=== PATIENT | female | born 1950 | race Caucasian/White ===

== ENCOUNTER 2018-04-04 13:26 | Inpatient (IN) | payer MEDICARE ==
--- NOTE | 2018-04-04 14:06 | ED Physician Chart ---
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 She was also noted to be tearful upon her arrival here. Patient complains of right hip and right knee pain. She has had right hip and right knee replacement surgery and states the pain since surgery has been worse than it was before. Allergies:: Allergies Allergy/AdvReac Type Severity Reaction Status Date / Time morphine Allergy Verified 04/04/18 13:55 NSAIDS (Non-Steroidal Allergy Verified 04/04/18 13:55 Anti-Inflamma Historian:: Patient, EMS Review:: Nurse's Note Reviewed, Transfer documents Reviewed ED Review of Systems - Review of Systems General/Constitutional: No fever, No chills, No weight loss, No weakness, No diaphoresis, No edema, No loss of appetite Skin: No skin lesions, No rash, No bruising Head: No headache, No light-headedness Eyes: No loss of vision, No pain, No diplopia ENT: No earache, No nasal drainage, No sore throat, No tinnitus Neck: No neck pain, No swelling, No thyromegaly, No stiffness, No mass noted Cardio Vascular: No chest pain, No palpitations, No PND, No orthopnea, No edema Pulmonary: No SOB, No cough, No sputum, No wheezing GI: No nausea, No vomiting, No diarrhea, No pain, No melena, No hematochezia, No constipation, No hematemesis G/U: No dysuria, No frequency, No hematuria Musculoskeletal: Bone or joint pain, No back pain, No muscle pain Endocrine: No polyuria, No polydipsia Psychiatric: Prior psych history Hematopoietic: Bruising, No lymphadenopathy Allergic/Immuno: No urticaria, No angioedema Neurological: No syncope, No focal symptoms, No weakness, No paresthesia, No headache, No seizure, No dizziness, No confusion, No vertigo ED Past Medical History - Past Medical History Past Medical History: Thyroid disorder, Other (dysphagia; atrial fibrillation; hypothyroidism; hypertensive renal disease; hyperlipidemia; anemia; diabetes insipidus; bipolar disorder; gallop; polyneuropathy; spinal stenosis; history of TIA history of venous thrombosis;) Family History: HTN Social History: Non Smoker, No Alcohol Surgical History: other (right hip; right knee; corn and right small toe; gastrostomy tube) Psychiatricy History: Bipolar Medication: Reviewed ED Physical Exam - Physical Examination General/Constitutional: Awake, Well-developed, well-nourished, Alert, No distress, GCS 15, Non-toxic appearing, Ambulatory Other Gen/Cons comments:: Patient is alert and oriented to the correct date Head: Atraumatic Eyes: Lids, conjuctiva normal, PERRL, EOMI Skin: Well hydrated, No lymphadenopathy Other Skin comments:: Multiple ecchymoses upper extremities ENMT: External ears, nose nl, Nasal exam nl, Lips, teeth, gums nl Neck: Nontender, Full ROM w/o pain, No JVD, No nuchal rigidity, No bruit, No mass, No stridor Respiratory: Nl effort/Exclusion, Clear to Auscultation, No Wheeze/Rhonchi/Rales Cardio Vascular: RRR, No murmur, gallop, rubs, NL S1 S2 GI: No tenderness/rebounding/guarding, No organomegaly, No hernia, Normal BS's, Nondistended, No mass/bruits, No McBurney tenderness : No CVA tenderness Extremities: No tenderness or effusion, Full ROM, normal strength in all extremities, No edema, Normal digits & nails Neuro/Psych: Alert/oriented, DTR's symmetric, Normal sensory exam, Normal motor strength, Judgement/insight normal, Mood normal, Normal gait, No focal deficits Misc: Normal back, No paraspinal tenderness ED Labs/Radiology/EKG Results - Lab Results Results: Laboratory Results - last 24 hr 04/04/18 04/04/18 14:00 14:00 WBC 3.7 L RBC 3.15 L Hgb 9.9 L Hct 28.8 L MCV 91.4 MCH 31.4 H MCHC Differential 34.4 RDW 14.3 Plt Count 107 L MPV 8.7 Neutrophils % 59.0 Lymphocytes % 28.8 Monocytes % 5.9 Eosinophils % 5.5 H Basophils % 0.8 Sodium 137 Potassium 4.8 Chloride 111 H Carbon Dioxide 19.7 L Anion Gap 11.1 BUN 36 H Creatinine 3.2 H Est GFR ( Amer) 18.5 Est GFR (Non-Af Amer) 15.3 BUN/Creatinine Ratio 11.3 Glucose 79 Calcium 9.0 Total Bilirubin 0.2 L AST 10 L ALT 5 L Alkaline Phosphatase 57 Total Protein 5.4 L Albumin 3.6 L Globulin 1.8 Albumin/Globulin Ratio 2.0 H Triglycerides 217 H Cholesterol 159 LDL Cholesterol Direct 77 HDL Cholesterol 39 - EKG Interpretations Rate & Rhythm: normal sinus rhythm with a rate of 63; left bundle-branch block Comments:: No R wave progression ED Assessment - Assessment General Assessment: Patient's renal insufficiency is probably the cause of her pancytopenia; neither condition is severe enough to prevent her from being admitted to [facility]. ED Septic Shock - . Is Septic Shock (SBP<90, OR Lactate>4 mmol\L) present?: No ED Reassessment (Disposition) - Reassessment Reassessment Condition:: Unchanged - Diagnosis Diagnosis:: Pancytopenia; renal insufficiency; combative behavior; depression - Patient Disposition Admitted to:: [facility] Condition at Disposition:: Stable, Unchanged ED Discharge Plan - Patient Disposition Instructions: Psychosis
[2018-04-04 14:14] LABS: % BASOPHILS 0.8 % (0.0-2.0); % EOSINOPHILS 5.5 % (0.0-5.0); % LYMPHOCYTES 28.8 % (20.0-50.0); % MONOCYTES 5.9 % (2.0-10.0); EOSINOPHILE ABSOLUTE 0.2 Th/cmm (0.1-0.4); HEMATOCRIT 28.8 % (41.0-60); HEMOGLOBIN 9.9 gm/dL (12-16); LYMPHOCYTE ABSOLUTE 1.1 Th/cmm (1.5-3.0); MEAN CELL VOLUME 91.4 fl (81-100); MEAN CORPUSCULAR HEMOGLOBIN 31.4 pg (27.0-31.0); MEAN CORPUSCULAR HGB CONC 34.4 pg (28.0-36.0); MEAN PLATELET VOLUME 8.7 fl; MONOCYTE ABSOLUTE 0.2 Th/cmm (0.3-1.0); NEUTROPHILE ABSOLUTE 2.2 Th/cmm (1.8-8.0); PLATELET COUNT 107 Th/cmm (150-400); RED BLOOD COUNT 3.15 Mil/cmm (3.80-5.20); RED CELL DISTRIBUTION WIDTH 14.3 % (11.5-20.0)
[2018-04-04 14:29] LABS: WHITE BLOOD COUNT 3.7 Th/cmm (4.8-10.8)
[2018-04-04 14:30] LABS: ALBUMIN 3.6 gm/dL (3.7-5.3); ANION GAP 11.1 (7.0-16.0); BILIRUBIN,TOTAL 0.2 mg/dL (0.3-1.0); CARBON DIOXIDE 19.7 mEq/L (21.0-31.0); CREATININE - SERUM 3.2 mg/dL (0.6-1.2); GFR AFRICAN-AMERICAN 18.5 ml/min (>90); GFR NON AFRICAN-AMERICAN 15.3 ml/min; POTASSIUM SERUM 4.8 mEq/L (3.5-5.1); TOTAL PROTEIN,SERUM 5.4 gm/dL (6.0-8.3)
[2018-04-04] MEDS ORDERED: Maalox 30 mL Cup PO PRN (17:04)
[2018-04-04] MEDS ORDERED: Magnesium Hydroxide (MOM) 30 mL UDC PO PRN (17:04)
[2018-04-04 21:23] LABS: A1C % 4.9 % (4.0-6.0)
[2018-04-05] MEDS ORDERED: Haloperidol Lactate 5 mg/mL 1mL Vial ONE ×2 (07:45→15:49)
[2018-04-05] MEDS ORDERED: Haloperidol Lactate 5 mg/mL 1mL Vial IM ONE ×2 (07:50→15:50)
[2018-04-05] MEDS: Multivitamin Tab PO SCH (08:12)
[2018-04-05] MEDS: Levothyroxine 0.075 Mg Tab PO SCH (17:29)
[2018-04-06] MEDS: Levothyroxine 0.075 Mg Tab PO SCH (06:34)
[2018-04-06] MEDS: Multivitamin Tab PO SCH (09:20)
[2018-04-06] MEDS: Ferrous Sulfate 325 MG TAB PO SCH (09:20)
--- NOTE | 2018-04-06 19:01 | Psychiatric Evaluation ---
DATE OF SERVICE: 04/06/2018 AGE: 67. SEX: Female. PHYSICIAN: Dr. Moreno. CHIEF COMPLAINT: Singing and laughing loud. HISTORY OF PRESENT ILLNESS: The patient is a 67-year-old female who was admitted to the hospital from [facility] after the patient has been extremely manicky and agitated. The patient has been talking loud and has been singing and laughing inappropriately. The patient also has been admitted to care. Also, on arrival to the hospital the patient continued to be manicky and has been laughing and talking loud, singing and unable to follow any directions. She also has been resisting care. The patient also has been aggressive and combative and need close monitoring. PAST PSYCHIATRIC HISTORY: The patient has history of what seems to be agitation and some manic behavior. PAST MEDICAL HISTORY: The patient has hypothyroidism as well and dysphagia . The patient also has hypertension and diabetes mellitus. SOCIAL HISTORY: The patient lives in a group home. No known alcohol or drug use. No known legal issues or abuse issues. ALLERGIES: No known allergies. MENTAL STATUS EXAMINATION: The patient appears slightly older than stated age. Agitated. Irritable mood. Flat affect. Aggressive and unable to follow instructions and tried to calm her down and was not successful. The patient did not answer questions regarding hallucinations or delusions because of her agitation and aggressive behavior. The patient did not answer questions about suicide or homicide. The patient is alert, but unable to assess her memory orientation because of her aggressive behavior and irritability. Unable to assess her memory at this time because of her agitation. ASSESSMENT: PRIMARY DIAGNOSES: Unspecified psychosis. Rule out schizoaffective disorder, bipolar type, with psychosis. MEDICAL DIAGNOSES: 1. Hypothyroidism. 2. Diabetes mellitus. 3. Chronic kidney disease. TREATMENT PLAN: We will monitor the patient's behavior and condition closely. We will start individual as milieu psychotherapy. We will start the patient on Seroquel and we will adjust the dose. ESTIMATED LENGTH OF STAY: 5-7 days. THE PATIENT'S STRENGTHS AND WEAKNESSES: The patient's strength is not clear at this time. Weakness is ineffective coping and poor impulse control and her manic behavior. AFTER DISCHARGE PLAN: Outpatient treatment and followup will continue as an outpatient. CRITERIA FOR DISCHARGE: The patient will not be aggressive or manic and we will stabilize psychotropic medications and establish outpatient treatment plans. AKSHAT: 04/06/2018 13:23 JOB# [id number]
--- NOTE | 2018-04-06 23:15 | History & Physical ---
ADMIT DATE: 04/05/2018 REASON FOR ADMISSION: Psychiatric disorder. HISTORY OF PRESENT ILLNESS: This is a 67-year-old female with underlying history of multiple medical issues including hypertension, chronic kidney disease, hypothyroidism, gout, chronic AFib, cardiac arrhythmias, who was admitted for evaluation of underlying psychiatric illnesses by Dr. Moreno. Dr. Moreno requested medical H and P on this patient. During my evaluation, this patient was awake, but very confused, unable to provide me any meaningful history or unable to carry any meaningful conversations. Most of the history obtained through available medical records. PAST MEDICAL HISTORY: As per HPI. PAST SURGICAL HISTORY: No significant past surgical history. SOCIAL HISTORY: The patient lives at nursing facility. No reported alcohol, tobacco, or street drug use. CURRENT MEDICATIONS: Requip, Xarelto, Ambien, Seroquel, Toprol-XL, milk of magnesia, Synthroid, iron, Pepcid, Norvasc, Cordarone, Maalox, Tylenol. ALLERGIES: MORPHINE, NSAIDs. REVIEW OF SYSTEMS: Difficult to obtain and unreliable due to patient's underlying severe confusions. PHYSICAL EXAMINATION: VITAL SIGNS: Temperature 98.7, pulse 106, respirations 20, blood pressure 148/99, oxygen saturation 100% on room air. Pain 0/10. GENERAL APPEARANCE: The patient does not seem in acute distress. HEART: S1, S2 normal. LUNGS: Bilaterally clear to auscultation. ABDOMEN: Soft. NEUROLOGIC: Awake, but confused. Moves all extremities. EXTREMITIES: Bilateral edema noted. AVAILABLE LABORATORY DATA: WBC ____, hematocrit 31.4, platelet count is 107. Sodium 137, potassium 4.8, BUN 37, creatinine 3.2. ____ 4.9, AST 10, ALT 5. Triglycerides 217, LDL 77, HDL 39. TSH 1.57. RPR nonreactive. ASSESSMENT: 1. Hypertensive renal disease. 2. Chronic kidney disease 4, almost 5. 3. Pancytopenia. 4. Cardiac arrhythmia. 5. Gout. 6. GERD. 7. Anemia of chronic disease. 8. Hypothyroidism. 9. Chronic atrial fibrillation. 10. Mental disorders. PLAN: The patient is currently in Geropsych Unit for further psychiatric evaluation and management per Dr. Moreno. We will obtain renal ultrasound for further evaluation of underlying renal failure. The patient appeared to have pancytopenia. We will obtain a Hematology consultation as with Nephrology consultations. We will monitor the patient's labs. The patient's medication list has been reconciled. The patient's blood pressure otherwise we will monitor. Fall precaution will be given. Discussed with the patient's condition and plan of care discussed with nursing staff. JOB# [id number]
[2018-04-07] MEDS: Levothyroxine 0.075 Mg Tab PO SCH (06:47)
--- NOTE | 2018-04-07 09:45 | Diagnostic Imaging Report ---
Exam: Ultrasound examination the abdomen. HISTORY: Pancytopenia Findings: Real-time ultrasound examination abdomen performed multiple planes. The study demonstrates normal echogenicity liver parenchyma. The gallbladder is free of calculi. The common bile duct measures 4 mm. Pancreas poorly seen. There is no evidence of obstructive uropathy or nephrolithiasis bilaterally. Right renal cyst measuring 2.7 cm x 3.4 cm appreciated. The spleen is intact. No free fluid is noted. The study is limited due to patient body habitus and large amount of intra-abdominal bowel gas. Patient is uncooperative. IMPRESSION: Essentially unremarkable examination of the abdomen.
[2018-04-07] MEDS: Ferrous Sulfate 325 MG TAB PO SCH (12:06)
[2018-04-07] MEDS: Multivitamin Tab PO SCH (12:06)
--- NOTE | 2018-04-07 15:59 | General Progress Note ---
Subjective - Review of Systems Service Date: 04/07/18 Subjective: Patient doing fine no new medical concern reported Objective - Results Result Diagrams: 04/04/18 14:00 04/04/18 14:00 Recent Labs: Laboratory Last Values WBC 3.7 Th/cmm (4.8-10.8) L 04/04/18 14:00 RBC 3.15 Mil/cmm (3.80-5.20) L 04/04/18 14:00 Hgb 9.9 gm/dL (12-16) L 04/04/18 14:00 Hct 28.8 % (41.0-60) L 04/04/18 14:00 MCV 91.4 fl (81-100) 04/04/18 14:00 MCH 31.4 pg (27.0-31.0) H 04/04/18 14:00 MCHC Differential 34.4 pg (28.0-36.0) 04/04/18 14:00 RDW 14.3 % (11.5-20.0) 04/04/18 14:00 Plt Count 107 Th/cmm (150-400) L 04/04/18 14:00 MPV 8.7 fl 04/04/18 14:00 Neutrophils % 59.0 % (40.0-80.0) 04/04/18 14:00 Lymphocytes % 28.8 % (20.0-50.0) 04/04/18 14:00 Monocytes % 5.9 % (2.0-10.0) 04/04/18 14:00 Eosinophils % 5.5 % (0.0-5.0) H 04/04/18 14:00 Basophils % 0.8 % (0.0-2.0) 04/04/18 14:00 Sodium 137 mEq/L (136-145) 04/04/18 14:00 Potassium 4.8 mEq/L (3.5-5.1) 04/04/18 14:00 Chloride 111 mEq/L (98-107) H 04/04/18 14:00 Carbon Dioxide 19.7 mEq/L (21.0-31.0) L 04/04/18 14:00 Anion Gap 11.1 (7.0-16.0) 04/04/18 14:00 BUN 36 mg/dL (7-25) H 04/04/18 14:00 Creatinine 3.2 mg/dL (0.6-1.2) H 04/04/18 14:00 Est GFR ( Amer) 18.5 ml/min (>90) 04/04/18 14:00 Est GFR (Non-Af Amer) 15.3 ml/min 04/04/18 14:00 BUN/Creatinine Ratio 11.3 04/04/18 14:00 Glucose 79 mg/dL (70-105) 04/04/18 14:00 POC Glucose 98 MG/DL (70 - 105) 04/06/18 15:32 Hemoglobin A1c % 4.9 % (4.0-6.0) 04/04/18 14:00 Calcium 9.0 mg/dL (8.6-10.3) 04/04/18 14:00 Total Bilirubin 0.2 mg/dL (0.3-1.0) L 04/04/18 14:00 AST 10 U/L (13-39) L 04/04/18 14:00 ALT 5 U/L (7-52) L 04/04/18 14:00 Alkaline Phosphatase 57 U/L (34-104) 04/04/18 14:00 Total Protein 5.4 gm/dL (6.0-8.3) L 04/04/18 14:00 Albumin 3.6 gm/dL (3.7-5.3) L 04/04/18 14:00 Globulin 1.8 gm/dL 04/04/18 14:00 Albumin/Globulin Ratio 2.0 (1.0-1.8) H 04/04/18 14:00 Triglycerides 217 mg/dL (<150) H 04/04/18 14:00 Cholesterol 159 mg/dL (<200) 04/04/18 14:00 LDL Cholesterol Direct 77 mg/dL (75-193) 04/04/18 14:00 HDL Cholesterol 39 mg/dL (23-92) 04/04/18 14:00 TSH 1.57 uIU/ml (0.34-5.60) 04/04/18 14:00 RPR NONREACTIVE (NONREACTIVE) 04/04/18 14:00 - Physical Exam Vitals and I&O: Vital Signs Temp 98.2 F 04/07/18 15:48 Pulse 93 04/07/18 15:48 Resp 20 04/07/18 15:48 BP 138/83 04/07/18 15:48 Pulse Ox 96 04/07/18 15:48 Intake & Output 04/06/18 04/07/18 04/07/18 18:59 06:59 18:59 Intake Total 240 Balance 240 Intake: Oral 240 Other: Stool Characteristics Formed Formed Formed Active Medications: Current Medications Acetaminophen (Tylenol) 650 mg PO Q4HR PRN PRN Reason: Mild Pain / Temp above 100 Stop: 06/03/18 17:03 Al Hydrox/Mg Hydrox/Simethicone (Maalox) 30 ml PO Q4HR PRN PRN Reason: GI DISTRESS Stop: 06/03/18 17:03 Amiodarone HCl (Cordarone) 100 mg PO DAILY [facility]I Stop: 06/04/18 20:59 Last Admin: 04/07/18 12:06 Dose: Not Given Amlodipine Besylate (Norvasc) 10 mg PO DAILY [facility] Stop: 06/04/18 20:59 Last Admin: 04/07/18 12:06 Dose: Not Given Famotidine (Pepcid) 20 mg PO DAILY [facility] Stop: 06/04/18 20:59 Last Admin: 04/07/18 12:06 Dose: Not Given Ferrous Sulfate (Iron) 325 mg PO DAILY [facility] Stop: 06/05/18 08:59 Last Admin: 04/07/18 12:06 Dose: Not Given Levothyroxine Sodium (Synthroid) 0.15 mg PO QDAC [facility]I Stop: 06/04/18 17:59 Last Admin: 04/07/18 06:47 Dose: 0.15 mg Magnesium Hydroxide (Milk Of Magnesia) 30 ml PO HS PRN PRN Reason: Constipation Metoprolol Succinate (Toprol Xl) 25 mg PO DAILY [facility] Stop: 06/05/18 08:59 Last Admin: 04/07/18 12:06 Dose: Not Given Multivitamins/Vitamin C (Theragran) 1 tab PO DAILY [facility] Stop: 06/04/18 08:59 Last Admin: 04/07/18 12:06 Dose: Not Given Mupirocin (Bactroban Oint) 1 appl NS BID [facility] Stop: 04/11/18 09:01 Last Admin: 04/07/18 12:06 Dose: Not Given Quetiapine Fumarate (Seroquel) 12.5 mg PO BID [facility]; Protocol Stop: 06/04/18 08:59 Last Admin: 04/07/18 12:07 Dose: Not Given Rivaroxaban (Xarelto) 15 mg PO DAILY [facility] Stop: 06/05/18 08:59 Last Admin: 04/07/18 12:07 Dose: Not Given Ropinirole HCl (Requip) 0.5 mg PO TID [facility] Stop: 06/04/18 20:59 Last Admin: 04/07/18 12:07 Dose: Not Given Zolpidem Tartrate (Ambien) 5 mg PO HS PRN PRN Reason: Insomnia Stop: 06/03/18 17:03 Cardiovascular: Regular rate Lungs: Clear to auscultation Assessment/Plan - Problem List Patient Problems: All Active Problems PSYCHOTIC BEHAVIOR (Acute) - Assessment Assessment: HTN with CKD 4 Pancytopenia GERD Chronic afib Hypothyroidism - Plan Plan: Continue present medical management Follow labs
--- NOTE | 2018-04-07 19:02 | Progress Notes ---
DATE: 04/07/2018 SUBJECTIVE: Chart reviewed and the patient interviewed. Also discussed the patient's condition with the staff and reviewed records and labs. The patient is still confused and is still restless. The patient also is still manicky and she is still at times singing loud and other times angry and irritable. She also is still paranoid. Otherwise, she is compliant with taking her medications with no side effects of medications. ASSESSMENT: The patient is still agitated and is still in irritable mood. TREATMENT PLAN: Continue to monitor her behavior and her condition closely. Also, the patient is started on Seroquel 12.5 mg twice a day. We will continue same dose and continue to work on her poor impulse control and continue to follow up. JOB# [id number]
[2018-04-08] MEDS: Levothyroxine 0.075 Mg Tab PO SCH (06:32)
--- NOTE | 2018-04-08 12:16 | Progress Notes ---
DATE: 04/06/2018 SUBJECTIVE: The patient was interviewed. The case was discussed with staff and chart reviewed. Per the staff, the patient has been anxious. The patient has been easily agitated. The patient has been hitting herself and also hitting staff. The patient was interviewed this morning. The patient is uncooperative with interview. The patient is not making any sense. In addition, the patient is refusing her medications. MENTAL STATUS EXAMINATION: The patient is lying in bed. She has poor eye contact. She is poorly engaged with the interview. She has bandaging to both hands. Her speech is incoherent. Her mood and affect appear to be labile. Her thought process is disorganized. Unable to assess suicidal or homicidal ideations or hallucinations or paranoia, but she does seem to be internally preoccupied. She is alert and oriented to her name only. Her insight, judgment, and impulse control remain poor. ASSESSMENT: This is a 67-year-old female admitted to the [facility] Unit for acute psychosis and agitation. The patient at this time continues to remain anxious. Continues to remain agitated, continues to hit herself and others. In addition, she has been refusing her medications. PLAN: We will continue the patient's acute hospitalization. We will continue medications as prescribed. We will encourage the patient to verbalize her needs. Encourage the patient to participate in group and milieu therapy. Encourage the patient to work with social sciences instructor and hospice case manager for discharge planning and the need for community resources. JOB# [id number] NICHOLAS
[2018-04-08] MEDS: Ferrous Sulfate 325 MG TAB PO SCH (13:51)
[2018-04-08] MEDS: Multivitamin Tab PO SCH (13:51)
--- NOTE | 2018-04-08 14:57 | Progress Notes ---
DATE: 04/08/2018 A 67-year-old female admitted to the hospital from [facility], manic, agitated, talking out loud, singing, not following directions, resistive to care. Safety concerns. Dr. Moreno seen the patient noting that she remained confused, restless, manic at times, loud, irritable, agitated. Staff noting she slept about 7 hours last night, still loud, still acting on at times. Major concern is she is not eating, she has a G-tube. The patient is refusing to talk to me whatsoever. ASSESSMENT: The patient remains symptomatic, not eating, refusing to eat, acting strange. Medications were noted. Medications were held this morning because the patient seems somewhat lethargic. We will monitor. Advised staff to use the G-tube. JOB# [id number]
[2018-04-09] MEDS: Levothyroxine 0.075 Mg Tab PO SCH (06:40)
[2018-04-09] MEDS ORDERED: Haloperidol Lactate 5 mg/mL 1mL Vial ONE (15:23)
[2018-04-09] MEDS ORDERED: Haloperidol Lactate 5 mg/mL 1mL Vial IM ONE (15:24)
[2018-04-09] MEDS: Multivitamin Tab PO SCH (15:36)
[2018-04-09] MEDS: Ferrous Sulfate 325 MG TAB PO SCH (15:36)
--- NOTE | 2018-04-09 16:32 | Progress Notes ---
DATE: 04/09/2018 SUBJECTIVE: The patient in the hospital, had apparently been agitated, talking out loud, hyperverbal, resistant to care. The patient is AO to name. She knows she is in the hospital. She does not know why she is in the hospital. She states the year is 1950. She does not know the month. The patient had also apparently been refusing to eat. She does have a G-tube. Yesterday, she refused to speak with me and today she says few words. Staff noting ongoing concerns about her appetite. She slept fairly well, sometimes refusing medications, sometimes labile, easily agitated. PLAN: We will continue to monitor, encourage better medication and treatment compliance. She remains confused, symptomatic, ongoing safety concerns. JOB# [id number]
--- NOTE | 2018-04-09 20:53 | Consultation ---
DATE OF CONSULTATION: HEMATOLOGY ONCOLOGY CONSULTATION REFERRING PHYSICIAN: Diego Campos M.D. REASON FOR CONSULTATION: Pancytopenia. HISTORY OF PRESENT ILLNESS: The patient is a 67-year-old female who was seen in her Geropsych unit in consultation because of pancytopenia. She is having a psych disorder under the care of the psychiatrist, Dr. Moreno and was found to have a low white count, hemoglobin, and platelet count, therefore, I was asked to evaluate. PAST MEDICAL HISTORY: Chronic atrial fibrillation, hypothyroidism, chronic kidney disease, and hypertension. PAST SURGICAL HISTORY: Gastric tube placement. SOCIAL HISTORY: Lives in a nursing facility. MEDICATIONS: Reviewed including Xarelto. PHYSICAL EXAMINATION: GENERAL: The patient is awake, talkative, not in distress. VITAL SIGNS: Stable. HEENT: Atraumatic, no mucosal bleeding. NECK: No lymphadenopathy. CHEST: Good air entry. ABDOMEN: Gastric tube in place, wearing a binder. EXTREMITIES: Multiple ecchymoses on both forearms. Lower extremities, muscles are atrophic and weakness in both lower extremities. No rhianna bleeding. LABORATORY DATA: White count 3.7, hemoglobin 9.9, platelets 107, creatinine 3.2 with GFR 15. Ultrasound of the abdomen reported intact spleen. The spleen size was not reported and a normal echogenicity of the liver parenchyma and unremarkable abdominal ultrasound. ASSESSMENT: Mild pancytopenia. There is no previous records to compare with. It is likely that the anemia is related to the chronic kidney disease. The patient is also on anticoagulation with Xarelto. With the chronic kidney disease, there is increased risk for bleeding, she may be having some blood loss. Therefore, comprehensive anemia workup will be needed. With regards to the low white count and platelets, I will obtain B12 and folate level and LIANE and if workup is unrevealing, she will need a bone marrow biopsy to evaluate for possible myelodysplastic syndrome. No need for transfusion at this time. Thank you Dr. Campos, for the opportunity to participate in care of this interesting case for you. JOB# [id number]
[2018-04-10 06:43] LABS: % BASOPHILS 0.7 % (0.0-2.0); % EOSINOPHILS 2.6 % (0.0-5.0); % LYMPHOCYTES 38.1 % (20.0-50.0); % NEUTROPHILS 50.6 % (40.0-80.0); EOSINOPHILE ABSOLUTE 0.2 Th/cmm (0.1-0.4); HEMATOCRIT 37.3 % (41.0-60); HEMOGLOBIN 12.4 gm/dL (12-16); LYMPHOCYTE ABSOLUTE 2.4 Th/cmm (1.5-3.0); MEAN CELL VOLUME 92.6 fl (81-100); MEAN CORPUSCULAR HEMOGLOBIN 30.8 pg (27.0-31.0); MEAN CORPUSCULAR HGB CONC 33.2 pg (28.0-36.0); MEAN PLATELET VOLUME 9.2 fl; MONOCYTE ABSOLUTE 0.5 Th/cmm (0.3-1.0); NEUTROPHILE ABSOLUTE 3.3 Th/cmm (1.8-8.0); PLATELET COUNT 167 Th/cmm (150-400); RED BLOOD COUNT 4.02 Mil/cmm (3.80-5.20); WHITE BLOOD COUNT 6.4 Th/cmm (4.8-10.8)
[2018-04-10] MEDS: Levothyroxine 0.075 Mg Tab PO SCH (06:47)
[2018-04-10] MEDS: Ferrous Sulfate 325 MG TAB PO SCH ×2 (09:09→09:19)
[2018-04-10] MEDS: Multivitamin Tab PO SCH ×2 (09:10→09:19)
--- NOTE | 2018-04-10 10:35 | General Progress Note ---
Subjective - Review of Systems Service Date: 04/10/18 Subjective: no new sxs Objective - Results Result Diagrams: 04/10/18 05:50 04/04/18 14:00 Recent Labs: Laboratory Last Values WBC 6.4 Th/cmm (4.8-10.8) 04/10/18 05:50 RBC 4.02 Mil/cmm (3.80-5.20) 04/10/18 05:50 Hgb 12.4 gm/dL (12-16) 04/10/18 05:50 Hct 37.3 % (41.0-60) L 04/10/18 05:50 MCV 92.6 fl (81-100) 04/10/18 05:50 MCH 30.8 pg (27.0-31.0) 04/10/18 05:50 MCHC Differential 33.2 pg (28.0-36.0) 04/10/18 05:50 RDW 15.0 % (11.5-20.0) 04/10/18 05:50 Plt Count 167 Th/cmm (150-400) 04/10/18 05:50 MPV 9.2 fl 04/10/18 05:50 Neutrophils % 50.6 % (40.0-80.0) 04/10/18 05:50 Lymphocytes % 38.1 % (20.0-50.0) 04/10/18 05:50 Monocytes % 8.0 % (2.0-10.0) 04/10/18 05:50 Eosinophils % 2.6 % (0.0-5.0) 04/10/18 05:50 Basophils % 0.7 % (0.0-2.0) 04/10/18 05:50 Sodium 137 mEq/L (136-145) 04/04/18 14:00 Potassium 4.8 mEq/L (3.5-5.1) 04/04/18 14:00 Chloride 111 mEq/L (98-107) H 04/04/18 14:00 Carbon Dioxide 19.7 mEq/L (21.0-31.0) L 04/04/18 14:00 Anion Gap 11.1 (7.0-16.0) 04/04/18 14:00 BUN 36 mg/dL (7-25) H 04/04/18 14:00 Creatinine 3.2 mg/dL (0.6-1.2) H 04/04/18 14:00 Est GFR ( Amer) 18.5 ml/min (>90) 04/04/18 14:00 Est GFR (Non-Af Amer) 15.3 ml/min 04/04/18 14:00 BUN/Creatinine Ratio 11.3 04/04/18 14:00 Glucose 79 mg/dL (70-105) 04/04/18 14:00 POC Glucose 98 MG/DL (70 - 105) 04/06/18 15:32 Hemoglobin A1c % 4.9 % (4.0-6.0) 04/04/18 14:00 Calcium 9.0 mg/dL (8.6-10.3) 04/04/18 14:00 Total Bilirubin 0.2 mg/dL (0.3-1.0) L 04/04/18 14:00 AST 10 U/L (13-39) L 04/04/18 14:00 ALT 5 U/L (7-52) L 04/04/18 14:00 Alkaline Phosphatase 57 U/L (34-104) 04/04/18 14:00 Total Protein 5.4 gm/dL (6.0-8.3) L 04/04/18 14:00 Albumin 3.6 gm/dL (3.7-5.3) L 04/04/18 14:00 Globulin 1.8 gm/dL 04/04/18 14:00 Albumin/Globulin Ratio 2.0 (1.0-1.8) H 04/04/18 14:00 Triglycerides 217 mg/dL (<150) H 04/04/18 14:00 Cholesterol 159 mg/dL (<200) 04/04/18 14:00 LDL Cholesterol Direct 77 mg/dL (75-193) 04/04/18 14:00 HDL Cholesterol 39 mg/dL (23-92) 04/04/18 14:00 TSH 1.57 uIU/ml (0.34-5.60) 04/04/18 14:00 RPR NONREACTIVE (NONREACTIVE) 04/04/18 14:00 - Physical Exam Vitals and I&O: Vital Signs Temp 98.2 F 04/10/18 06:24 Pulse 102 04/10/18 09:08 Resp 19 04/10/18 06:24 BP 141/78 04/10/18 06:24 Pulse Ox 94 04/10/18 06:24 Intake & Output 04/09/18 04/10/18 04/10/18 18:59 06:59 18:59 Intake Total 120 Balance 120 Intake: Oral 120 Other: # Voids 3 Stool Characteristics Formed Formed Formed Active Medications: Current Medications Acetaminophen (Tylenol) 650 mg PO Q4HR PRN PRN Reason: Mild Pain / Temp above 100 Stop: 06/03/18 17:03 Al Hydrox/Mg Hydrox/Simethicone (Maalox) 30 ml PO Q4HR PRN PRN Reason: GI DISTRESS Stop: 06/03/18 17:03 Amiodarone HCl (Cordarone) 100 mg PO DAILY [facility] Stop: 06/04/18 20:59 Last Admin: 04/10/18 09:19 Dose: Not Given Amlodipine Besylate (Norvasc) 10 mg PO DAILY [facility] Stop: 06/04/18 20:59 Last Admin: 04/10/18 09:19 Dose: Not Given Famotidine (Pepcid) 20 mg PO DAILY [facility] Stop: 06/04/18 20:59 Last Admin: 04/10/18 09:19 Dose: Not Given Ferrous Sulfate (Iron) 325 mg PO DAILY [facility] Stop: 06/05/18 08:59 Last Admin: 04/10/18 09:19 Dose: Not Given Levothyroxine Sodium (Synthroid) 0.15 mg PO QDAC [facility] Stop: 06/04/18 17:59 Last Admin: 04/10/18 06:47 Dose: 0.15 mg Magnesium Hydroxide (Milk Of Magnesia) 30 ml PO HS PRN PRN Reason: Constipation Metoprolol Succinate (Toprol Xl) 25 mg PO DAILY [facility] Stop: 06/05/18 08:59 Last Admin: 04/10/18 09:19 Dose: Not Given Multivitamins/Vitamin C (Theragran) 1 tab PO DAILY [facility] Stop: 06/04/18 08:59 Last Admin: 04/10/18 09:19 Dose: Not Given Mupirocin (Bactroban Oint) 1 appl NS BID [facility] Stop: 04/11/18 09:01 Last Admin: 04/10/18 09:17 Dose: Not Given Quetiapine Fumarate (Seroquel) 12.5 mg PO BID [facility]; Protocol Stop: 06/04/18 08:59 Last Admin: 04/10/18 09:19 Dose: Not Given Ropinirole HCl (Requip) 0.5 mg PO TID [facility] Stop: 06/04/18 20:59 Last Admin: 04/10/18 09:10 Dose: Not Given Zolpidem Tartrate (Ambien) 5 mg PO HS PRN PRN Reason: Insomnia Stop: 06/03/18 17:03 Cardiovascular: Regular rate Lungs: Clear to auscultation Extremities: Other (ecchymoses both upper ext) Assessment/Plan - Problem List Patient Problems: All Active Problems PSYCHOTIC BEHAVIOR (Acute) - Assessment Assessment: * Pancytopenia improved * CKD * A. FIB. FOLLOW LAB Nutritional Asmnt/Malnutr-PDOC - Dietary Evaluation Malnutrition Findings (Please click <Entered> for more info): Nutritional Asmnt/Malnutrition Start: 04/08/18 13: 54 Text: Status: Complete Freq: Protocol: Document 04/08/18 13:54 LCHENG (Rec: 04/08/18 14:06 [email or web address]) Nutritional Asmnt/Malnutrition Patient General Information Nutritional Screening Moderate Risk Diagnosis psychosis Pertinent Medical Hx/Surgical Hx HTN, CKD, hypothyroidism, gout , chronic afib, cardiac arrhythsmias Subjective Information Pt seen sleeping in bed at time of visit. Per EMR, PO intake 0% of meals since admission. Spoke with LAN Quinn RN stated pt has been lethargic and drowsy d/t medication. RN tried to feed pt but pt was too sleepy. Current Diet Order/ Nutrition Support [facility] soft chopped Pertinent Medications pepcid, iron, synthorid, theragran, seroquel Pertinent Labs 04/04 cl 111, BUN 36, Cr 3.2, glucose 79, A1c 4.9, alb 3.6 Nutritional Hx/Data Height 1.63 m Height (Calculated Centimeters) 162.6 Current Weight (lbs) 70.307 kg Weight (Calculated Kilograms) 70.3 Weight (Calculated Grams) 08735.8 [place] Body Weight 120 Body Mass Index (BMI) 26.6 Weight Status Overweight GI Symptoms GI Symptoms None Last BM 04/08 Difficult in: None Skin Integrity/Comment: MULTIPLE BLUISH DISCOLORATION AND SUPERFICIAL CUTS BOTH FOREARMS Current %PO Negligible < 25% Estimated Nutritional Goals BEE in Kcals: Using Current wt Calories/Kcals/Kg 23-27 Kcals Calculated 1733-2933 Protein g/k.6-0.8 Protein Calculated 42-56 Fluid: ml 1610-1890ml (1ml/kcal) Nutritional Problem 1. Problem Problem inadequate food intake Etiology lethargic and drowsy d/t medication Signs/Symptoms: PO intake 0% since admission Malnutrition Alert Is there a minimum of two criteria No selected? Query Text:Check all the applicable criteria. A minimum of two criteria are recommended for diagnosis of either severe or non-severe malnutrition. Malnutrition Related to Morbid Obesity Malnutrition related to morbid obesity No Intervention/Recommendation Comments 1. Recommend renal diet considering CKD and elevated BUN/Crea. Continue assist pt with meals when pt more awake. RN notified. 2. Monitor PO intake, wt, labs and skin integrity 3. F/U as high risk in 2-3 days, 04/10-04/11 Expected Outcomes/Goals Expected Outcomes/Goals 1. PO intake to meet at least 75% of nutritional needs. 2. Wt stability, skin to remain intact, labs to approach WNL.
[2018-04-11] MEDS: Levothyroxine 0.075 Mg Tab PO SCH (06:46)
[2018-04-11] MEDS: Ferrous Sulfate 325 MG TAB PO SCH (09:38)
[2018-04-11] MEDS: Multivitamin Tab PO SCH (09:39)
--- NOTE | 2018-04-11 10:25 | General Progress Note ---
Subjective - Review of Systems Service Date: 04/11/18 Subjective: no new sxs Objective - Results Result Diagrams: 04/10/18 05:50 04/04/18 14:00 Recent Labs: Laboratory Last Values WBC 6.4 Th/cmm (4.8-10.8) 04/10/18 05:50 RBC 4.02 Mil/cmm (3.80-5.20) 04/10/18 05:50 Hgb 12.4 gm/dL (12-16) 04/10/18 05:50 Hct 37.3 % (41.0-60) L 04/10/18 05:50 MCV 92.6 fl (81-100) 04/10/18 05:50 MCH 30.8 pg (27.0-31.0) 04/10/18 05:50 MCHC Differential 33.2 pg (28.0-36.0) 04/10/18 05:50 RDW 15.0 % (11.5-20.0) 04/10/18 05:50 Plt Count 167 Th/cmm (150-400) 04/10/18 05:50 MPV 9.2 fl 04/10/18 05:50 Neutrophils % 50.6 % (40.0-80.0) 04/10/18 05:50 Lymphocytes % 38.1 % (20.0-50.0) 04/10/18 05:50 Monocytes % 8.0 % (2.0-10.0) 04/10/18 05:50 Eosinophils % 2.6 % (0.0-5.0) 04/10/18 05:50 Basophils % 0.7 % (0.0-2.0) 04/10/18 05:50 Sodium 137 mEq/L (136-145) 04/04/18 14:00 Potassium 4.8 mEq/L (3.5-5.1) 04/04/18 14:00 Chloride 111 mEq/L (98-107) H 04/04/18 14:00 Carbon Dioxide 19.7 mEq/L (21.0-31.0) L 04/04/18 14:00 Anion Gap 11.1 (7.0-16.0) 04/04/18 14:00 BUN 36 mg/dL (7-25) H 04/04/18 14:00 Creatinine 3.2 mg/dL (0.6-1.2) H 04/04/18 14:00 Est GFR ( Amer) 18.5 ml/min (>90) 04/04/18 14:00 Est GFR (Non-Af Amer) 15.3 ml/min 04/04/18 14:00 BUN/Creatinine Ratio 11.3 04/04/18 14:00 Glucose 79 mg/dL (70-105) 04/04/18 14:00 POC Glucose 98 MG/DL (70 - 105) 04/06/18 15:32 Hemoglobin A1c % 4.9 % (4.0-6.0) 04/04/18 14:00 Calcium 9.0 mg/dL (8.6-10.3) 04/04/18 14:00 Total Bilirubin 0.2 mg/dL (0.3-1.0) L 04/04/18 14:00 AST 10 U/L (13-39) L 04/04/18 14:00 ALT 5 U/L (7-52) L 04/04/18 14:00 Alkaline Phosphatase 57 U/L (34-104) 04/04/18 14:00 Total Protein 5.4 gm/dL (6.0-8.3) L 04/04/18 14:00 Albumin 3.6 gm/dL (3.7-5.3) L 04/04/18 14:00 Globulin 1.8 gm/dL 04/04/18 14:00 Albumin/Globulin Ratio 2.0 (1.0-1.8) H 04/04/18 14:00 Triglycerides 217 mg/dL (<150) H 04/04/18 14:00 Cholesterol 159 mg/dL (<200) 04/04/18 14:00 LDL Cholesterol Direct 77 mg/dL (75-193) 04/04/18 14:00 HDL Cholesterol 39 mg/dL (23-92) 04/04/18 14:00 TSH 1.57 uIU/ml (0.34-5.60) 04/04/18 14:00 RPR NONREACTIVE (NONREACTIVE) 04/04/18 14:00 - Physical Exam Vitals and I&O: Vital Signs Temp 98.2 F 04/11/18 06:26 Pulse 107 04/11/18 06:26 Resp 19 04/11/18 06:26 BP 126/79 04/11/18 06:26 Pulse Ox 97 04/11/18 06:26 Intake & Output 04/10/18 04/11/18 04/11/18 18:59 06:59 18:59 Intake Total 1200 120 Balance 1200 120 Intake: Oral 1200 120 Other: # Voids 3 # Bowel Movements 1 Stool Characteristics Formed Formed Formed Active Medications: Current Medications Acetaminophen (Tylenol) 650 mg PO Q4HR PRN PRN Reason: Mild Pain / Temp above 100 Stop: 06/03/18 17:03 Al Hydrox/Mg Hydrox/Simethicone (Maalox) 30 ml PO Q4HR PRN PRN Reason: GI DISTRESS Stop: 06/03/18 17:03 Amiodarone HCl (Cordarone) 100 mg PO DAILY [facility] Stop: 06/04/18 20:59 Last Admin: 04/11/18 09:38 Dose: Not Given Amlodipine Besylate (Norvasc) 10 mg PO DAILY [facility] Stop: 06/04/18 20:59 Last Admin: 04/11/18 09:38 Dose: Not Given Famotidine (Pepcid) 20 mg PO DAILY [facility] Stop: 06/04/18 20:59 Last Admin: 04/11/18 09:38 Dose: Not Given Ferrous Sulfate (Iron) 325 mg PO DAILY [facility] Stop: 06/05/18 08:59 Last Admin: 04/11/18 09:38 Dose: Not Given Levothyroxine Sodium (Synthroid) 0.15 mg PO QDAC [facility] Stop: 06/04/18 17:59 Last Admin: 04/11/18 06:46 Dose: 0.15 mg Magnesium Hydroxide (Milk Of Magnesia) 30 ml PO HS PRN PRN Reason: Constipation Metoprolol Succinate (Toprol Xl) 25 mg PO DAILY [facility] Stop: 06/05/18 08:59 Last Admin: 04/11/18 09:38 Dose: Not Given Multivitamins/Vitamin C (Theragran) 1 tab PO DAILY [facility] Stop: 06/04/18 08:59 Last Admin: 04/11/18 09:39 Dose: Not Given Quetiapine Fumarate (Seroquel) 25 mg PO BID [facility]; Protocol Stop: 06/10/18 08:59 Zolpidem Tartrate (Ambien) 5 mg PO HS PRN PRN Reason: Insomnia Stop: 06/03/18 17:03 Cardiovascular: Regular rate Lungs: Clear to auscultation Extremities: Other (ecchymoses both upper ext) Assessment/Plan - Problem List Patient Problems: All Active Problems PSYCHOTIC BEHAVIOR (Acute) - Assessment Assessment: * Pancytopenia improved * CKD * A. FIB. FOLLOW LAB OBRIEN 04/11:cytopenia better, obrien is still pending. anticoagulatiion for A FIB per Dr. Campos Nutritional Asmnt/Malnutr-PDOC - Dietary Evaluation Malnutrition Findings (Please click <Entered> for more info): Nutritional Asmnt/Malnutrition Start: 04/08/18 13: 54 Text: Status: Complete Freq: Protocol: Document 04/08/18 13:54 LCHENG (Rec: 04/08/18 14:06 [email or web address]) Nutritional Asmnt/Malnutrition Patient General Information Nutritional Screening Moderate Risk Diagnosis psychosis Pertinent Medical Hx/Surgical Hx HTN, CKD, hypothyroidism, gout , chronic afib, cardiac arrhythsmias Subjective Information Pt seen sleeping in bed at time of visit. Per EMR, PO intake 0% of meals since admission. Spoke with RN LAN Quinn stated pt has been lethargic and drowsy d/t medication. RN tried to feed pt but pt was too sleepy. Current Diet Order/ Nutrition Support [facility] soft chopped Pertinent Medications pepcid, iron, synthorid, theragran, seroquel Pertinent Labs 04/04 cl 111, BUN 36, Cr 3.2, glucose 79, A1c 4.9, alb 3.6 Nutritional Hx/Data Height 1.63 m Height (Calculated Centimeters) 162.6 Current Weight (lbs) 70.307 kg Weight (Calculated Kilograms) 70.3 Weight (Calculated Grams) 86179.8 [place] Body Weight 120 Body Mass Index (BMI) 26.6 Weight Status Overweight GI Symptoms GI Symptoms None Last BM 04/08 Difficult in: None Skin Integrity/Comment: MULTIPLE BLUISH DISCOLORATION AND SUPERFICIAL CUTS BOTH FOREARMS Current %PO Negligible < 25% Estimated Nutritional Goals BEE in Kcals: Using Current wt Calories/Kcals/Kg 23-27 Kcals Calculated 3267-1398 Protein g/k.6-0.8 Protein Calculated 42-56 Fluid: ml 1610-1890ml (1ml/kcal) Nutritional Problem 1. Problem Problem inadequate food intake Etiology lethargic and drowsy d/t medication Signs/Symptoms: PO intake 0% since admission Malnutrition Alert Is there a minimum of two criteria No selected? Query Text:Check all the applicable criteria. A minimum of two criteria are recommended for diagnosis of either severe or non-severe malnutrition. Malnutrition Related to Morbid Obesity Malnutrition related to morbid obesity No Intervention/Recommendation Comments 1. Recommend renal diet considering CKD and elevated BUN/Crea. Continue assist pt with meals when pt more awake. RN notified. 2. Monitor PO intake, wt, labs and skin integrity 3. F/U as high risk in 2-3 days, 04/10-04/11 Expected Outcomes/Goals Expected Outcomes/Goals 1. PO intake to meet at least 75% of nutritional needs. 2. Wt stability, skin to remain intact, labs to approach WNL.
[2018-04-11 12:22] LABS: FOLIC ACID >20.0 ng/mL (>3.0); IRON LC 58 ug/dL (27-139); TIBC (LC) 233 ug/dL (250-450); UIBC 175 ug/dL (118-369)
[2018-04-12] MEDS: Levothyroxine 0.075 Mg Tab PO SCH (06:38)
[2018-04-12] MEDS: Ferrous Sulfate 325 MG TAB PO SCH (08:54)
[2018-04-12] MEDS: Multivitamin Tab PO SCH (08:55)
[2018-04-12] MEDS ORDERED: Haloperidol Lactate 5 mg/mL 1mL Vial ONE (09:56)
[2018-04-12] MEDS ORDERED: Haloperidol Lactate 5 mg/mL 1mL Vial IM ONE (09:56)
[2018-04-12 14:17] LABS: ANTI-NUCLEAR AB SCREEN Negative
--- NOTE | 2018-04-12 22:09 | General Progress Note ---
Subjective - Review of Systems Subjective: Patient doing fine no new medical concern reported Objective - Results Result Diagrams: 04/10/18 05:50 04/04/18 14:00 Recent Labs: Laboratory Last Values WBC 6.4 Th/cmm (4.8-10.8) 04/10/18 05:50 RBC 4.02 Mil/cmm (3.80-5.20) 04/10/18 05:50 Hgb 12.4 gm/dL (12-16) 04/10/18 05:50 Hct 37.3 % (41.0-60) L 04/10/18 05:50 MCV 92.6 fl (81-100) 04/10/18 05:50 MCH 30.8 pg (27.0-31.0) 04/10/18 05:50 MCHC Differential 33.2 pg (28.0-36.0) 04/10/18 05:50 RDW 15.0 % (11.5-20.0) 04/10/18 05:50 Plt Count 167 Th/cmm (150-400) 04/10/18 05:50 MPV 9.2 fl 04/10/18 05:50 Neutrophils % 50.6 % (40.0-80.0) 04/10/18 05:50 Lymphocytes % 38.1 % (20.0-50.0) 04/10/18 05:50 Monocytes % 8.0 % (2.0-10.0) 04/10/18 05:50 Eosinophils % 2.6 % (0.0-5.0) 04/10/18 05:50 Basophils % 0.7 % (0.0-2.0) 04/10/18 05:50 Sodium 137 mEq/L (136-145) 04/04/18 14:00 Potassium 4.8 mEq/L (3.5-5.1) 04/04/18 14:00 Chloride 111 mEq/L (98-107) H 04/04/18 14:00 Carbon Dioxide 19.7 mEq/L (21.0-31.0) L 04/04/18 14:00 Anion Gap 11.1 (7.0-16.0) 04/04/18 14:00 BUN 36 mg/dL (7-25) H 04/04/18 14:00 Creatinine 3.2 mg/dL (0.6-1.2) H 04/04/18 14:00 Est GFR ( Amer) 18.5 ml/min (>90) 04/04/18 14:00 Est GFR (Non-Af Amer) 15.3 ml/min 04/04/18 14:00 BUN/Creatinine Ratio 11.3 04/04/18 14:00 Glucose 79 mg/dL (70-105) 04/04/18 14:00 POC Glucose 98 MG/DL (70 - 105) 04/06/18 15:32 Hemoglobin A1c % 4.9 % (4.0-6.0) 04/04/18 14:00 Calcium 9.0 mg/dL (8.6-10.3) 04/04/18 14:00 Iron 58 ug/dL (27-139) 04/10/18 05:50 TIBC 233 ug/dL (250-450) L 04/10/18 05:50 Iron Saturation 25 % (15-55) 04/10/18 05:50 Unsaturated IBC 175 ug/dL (118-369) 04/10/18 05:50 Ferritin 328 ng/mL (15-150) H 04/10/18 05:50 Total Bilirubin 0.2 mg/dL (0.3-1.0) L 04/04/18 14:00 AST 10 U/L (13-39) L 04/04/18 14:00 ALT 5 U/L (7-52) L 04/04/18 14:00 Alkaline Phosphatase 57 U/L (34-104) 04/04/18 14:00 Total Protein 5.4 gm/dL (6.0-8.3) L 04/04/18 14:00 Albumin 3.6 gm/dL (3.7-5.3) L 04/04/18 14:00 Globulin 1.8 gm/dL 04/04/18 14:00 Albumin/Globulin Ratio 2.0 (1.0-1.8) H 04/04/18 14:00 Triglycerides 217 mg/dL (<150) H 04/04/18 14:00 Cholesterol 159 mg/dL (<200) 04/04/18 14:00 LDL Cholesterol Direct 77 mg/dL (75-193) 04/04/18 14:00 HDL Cholesterol 39 mg/dL (23-92) 04/04/18 14:00 Vitamin B12 1112 pg/mL (232-1245) 04/10/18 05:50 Folic Acid >20.0 ng/mL (>3.0) 04/10/18 05:50 TSH 1.57 uIU/ml (0.34-5.60) 04/04/18 14:00 LIANE Screen Negative 04/10/18 05:50 RPR NONREACTIVE (NONREACTIVE) 04/04/18 14:00 - Physical Exam Vitals and I&O: Vital Signs Temp 98.5 F 04/12/18 14:00 Pulse 96 04/12/18 14:00 Resp 20 04/12/18 19:59 BP 109/50 04/12/18 14:00 Pulse Ox 97 04/12/18 14:00 Intake & Output 04/12/18 04/12/18 04/13/18 06:59 18:59 06:59 Intake Total 500 950 Balance 500 950 Intake: Oral 500 950 Other: # Voids 3 4 # Bowel Movements 0 1 Active Medications: Current Medications Acetaminophen (Tylenol) 650 mg PO Q4HR PRN PRN Reason: Mild Pain / Temp above 100 Stop: 06/03/18 17:03 Al Hydrox/Mg Hydrox/Simethicone (Maalox) 30 ml PO Q4HR PRN PRN Reason: GI DISTRESS Stop: 06/03/18 17:03 Amiodarone HCl (Cordarone) 100 mg PO DAILY [facility] Stop: 06/04/18 20:59 Last Admin: 04/12/18 08:54 Dose: Not Given Amlodipine Besylate (Norvasc) 10 mg PO DAILY [facility] Stop: 06/04/18 20:59 Last Admin: 04/12/18 08:54 Dose: Not Given Famotidine (Pepcid) 20 mg PO DAILY [facility] Stop: 06/04/18 20:59 Last Admin: 04/12/18 08:54 Dose: Not Given Ferrous Sulfate (Iron) 325 mg PO DAILY [facility] Stop: 06/05/18 08:59 Last Admin: 04/12/18 08:54 Dose: Not Given Levothyroxine Sodium (Synthroid) 0.15 mg PO QDAC [facility] Stop: 06/04/18 17:59 Last Admin: 04/12/18 06:38 Dose: 0.15 mg Magnesium Hydroxide (Milk Of Magnesia) 30 ml PO HS PRN PRN Reason: Constipation Metoprolol Succinate (Toprol Xl) 25 mg PO DAILY [facility] Stop: 06/05/18 08:59 Last Admin: 04/12/18 08:54 Dose: Not Given Multivitamins/Vitamin C (Theragran) 1 tab PO DAILY [facility] Stop: 06/04/18 08:59 Last Admin: 04/12/18 08:55 Dose: Not Given Quetiapine Fumarate (Seroquel) 25 mg PO BID [facility]; Protocol Stop: 06/10/18 08:59 Last Admin: 04/12/18 16:37 Dose: Not Given Zolpidem Tartrate (Ambien) 5 mg PO HS PRN PRN Reason: Insomnia Stop: 06/03/18 17:03 Last Admin: 04/12/18 00:29 Dose: 5 mg Cardiovascular: Regular rate Lungs: Clear to auscultation Extremities: Other (ecchymoses both upper ext) Assessment/Plan - Problem List Patient Problems: All Active Problems PSYCHOTIC BEHAVIOR (Acute) - Assessment Assessment: HTN with CKD 4 Pancytopenia GERD Chronic afib Hypothyroidism - Plan Plan: Continue present medical management Follow labs Nutritional Asmnt/Malnutr-PDOC - Dietary Evaluation Malnutrition Findings (Please click <Entered> for more info): Nutritional Asmnt/Malnutrition Start: 04/08/18 13: 54 Text: Status: Complete Freq: Protocol: Document 04/08/18 13:54 LCHENG (Rec: 04/08/18 14:06 LCHENG [email or web address]) Nutritional Asmnt/Malnutrition Patient General Information Nutritional Screening Moderate Risk Diagnosis psychosis Pertinent Medical Hx/Surgical Hx HTN, CKD, hypothyroidism, gout , chronic afib, cardiac arrhythsmias Subjective Information Pt seen sleeping in bed at time of visit. Per EMR, PO intake 0% of meals since admission. Spoke with LAN Quinn RN stated pt has been lethargic and drowsy d/t medication. RN tried to feed pt but pt was too sleepy. Current Diet Order/ Nutrition Support [facility] soft chopped Pertinent Medications pepcid, iron, synthorid, theragran, seroquel Pertinent Labs 04/04 cl 111, BUN 36, Cr 3.2, glucose 79, A1c 4.9, alb 3.6 Nutritional Hx/Data Height 1.63 m Height (Calculated Centimeters) 162.6 Current Weight (lbs) 70.307 kg Weight (Calculated Kilograms) 70.3 Weight (Calculated Grams) 53909.8 [place] Body Weight 120 Body Mass Index (BMI) 26.6 Weight Status Overweight GI Symptoms GI Symptoms None Last BM 04/08 Difficult in: None Skin Integrity/Comment: MULTIPLE BLUISH DISCOLORATION AND SUPERFICIAL CUTS BOTH FOREARMS Current %PO Negligible < 25% Estimated Nutritional Goals BEE in Kcals: Using Current wt Calories/Kcals/Kg 23-27 Kcals Calculated 3148-5476 Protein g/k.6-0.8 Protein Calculated 42-56 Fluid: ml 1610-1890ml (1ml/kcal) Nutritional Problem 1. Problem Problem inadequate food intake Etiology lethargic and drowsy d/t medication Signs/Symptoms: PO intake 0% since admission Malnutrition Alert Is there a minimum of two criteria No selected? Query Text:Check all the applicable criteria. A minimum of two criteria are recommended for diagnosis of either severe or non-severe malnutrition. Malnutrition Related to Morbid Obesity Malnutrition related to morbid obesity No Intervention/Recommendation Comments 1. Recommend renal diet considering CKD and elevated BUN/Crea. Continue assist pt with meals when pt more awake. RN notified. 2. Monitor PO intake, wt, labs and skin integrity 3. F/U as high risk in 2-3 days, 04/10-04/11 Expected Outcomes/Goals Expected Outcomes/Goals 1. PO intake to meet at least 75% of nutritional needs. 2. Wt stability, skin to remain intact, labs to approach WNL.
[2018-04-13] MEDS: Levothyroxine 0.075 Mg Tab PO SCH (06:51)
[2018-04-13] MEDS: Multivitamin Tab PO SCH (08:12)
[2018-04-13] MEDS: Ferrous Sulfate 325 MG TAB PO SCH (08:12)
[2018-04-13 09:05] LABS: % BASOPHILS 0.7 % (0.0-2.0); % EOSINOPHILS 4.2 % (0.0-5.0); % LYMPHOCYTES 24.8 % (20.0-50.0); % MONOCYTES 6.6 % (2.0-10.0); % NEUTROPHILS 63.7 % (40.0-80.0); EOSINOPHILE ABSOLUTE 0.3 Th/cmm (0.1-0.4); HEMATOCRIT 33.4 % (41.0-60); HEMOGLOBIN 11.5 gm/dL (12-16); LYMPHOCYTE ABSOLUTE 1.5 Th/cmm (1.5-3.0); MEAN CELL VOLUME 90.7 fl (81-100); MEAN CORPUSCULAR HEMOGLOBIN 31.1 pg (27.0-31.0); MEAN CORPUSCULAR HGB CONC 34.3 pg (28.0-36.0); MEAN PLATELET VOLUME 8.3 fl; MONOCYTE ABSOLUTE 0.4 Th/cmm (0.3-1.0); NEUTROPHILE ABSOLUTE 3.9 Th/cmm (1.8-8.0); PLATELET COUNT 142 Th/cmm (150-400); RED BLOOD COUNT 3.68 Mil/cmm (3.80-5.20); RED CELL DISTRIBUTION WIDTH 14.6 % (11.5-20.0); WHITE BLOOD COUNT 6.1 Th/cmm (4.8-10.8)
[2018-04-13 09:28] LABS: ANION GAP 14.6 (7.0-16.0); CALCIUM SERUM 8.9 mg/dL (8.6-10.3); CARBON DIOXIDE 15.7 mEq/L (21.0-31.0); GFR AFRICAN-AMERICAN 11.9 ml/min (>90); GFR NON AFRICAN-AMERICAN 9.8 ml/min; POTASSIUM SERUM 4.3 mEq/L (3.5-5.1)
[2018-04-13 09:51] LABS: CREATININE - SERUM 4.7 mg/dL (0.6-1.2)
--- NOTE | 2018-04-14 02:50 | Consultation ---
DATE OF CONSULTATION: RENAL CONSULT LOCATION: [facility], room #18, bed C. ATTENDING PHYSICIAN: Dr. Campos. Thank you very much, Dr. Campos for allowing me to participate in the management of this patient of yours. PRESENT ILLNESS: This is a 67-year-old female patient, not able to give any history. [facility] and has been transferred to the regular floor due to worsening of kidney function. According to the nursing staff, the patient is not eating good. The patient is already a known case of CKD 4. The patient also has a history of anemia, cardiac arrhythmia, gout, pancytopenia, hypothyroidism, chronic atrial fibrillation, and mental retardation. The patient was admitted to the [facility] on 04/06/2018 when the patient was found to be extremely agitated. The patient was admitted. The patient was consulted by Dr. Campos for renal failure and now the patient has been transferred to regular floor. According to nursing staff, the patient does not have any vomiting or diarrhea. There is no history of any fever or chills. No history of anuria or hematuria. The patient does not have any Salvador catheter. Old chart is not available. LABORATORY DATA: The patient had some lab tests done, [facility] so [facility]. Those labs are not available, but nursing staff has read to me that the patient has lab as follow: Sodium 142, potassium 4.3, chloride 116, CO2 of 15.7, glucose 147, BUN 73, creatinine 4.7, EGFR 9.8, calcium 8.9, hemoglobin 11.5, WBC 6.1, platelet 142,000. LIANE negative. Other than above, no other reports are available to me. ASSESSMENT: 1. Most probably 67-year-old female patient with worsening of chronic kidney disease. 2. Anemia secondary to chronic kidney disease. 3. Hypertension. 4. Gout. 5. Hypothyroidism. 6. Pancytopenia. 7. History of chronic atrial fibrillation. 8. History of mental retardation. 9. Hypertension. PLAN: At this time, I will obtain kidney ultrasound, urinalysis, urine for eosinophil count, CMP, phosphorus, magnesium, CBC differential. Increase IV fluid. If the patient has end-stage renal disease, then patient may require to start dialysis. I will try to reach Dr. Campos and I will discuss with him and I will try to get old chart on this patient. Discussed with the nursing staff at length. I will follow with you. JOB# [id number]
--- NOTE | 2018-04-14 10:28 | History & Physical ---
ADMIT DATE: 04/04/2018 CHIEF COMPLAINT: Worsening renal failure. HISTORY OF PRESENT ILLNESS: This is a 67-year-old female with underlying history of CKD, chronic AFib, gout, anemia of chronic disease, hypothyroidism, hypertensive renal disease, pancytopenia, mental disorder who was admitted to [facility] for underlying psychiatric illness by Dr. Moreno. The patient's renal function was being monitored which appeared to have subsequently gotten worse. The patient was transferred on the medical floor. During the stay at [facility], per nursing staff, the patient had not been eating or drinking well. PAST MEDICAL HISTORY: Gout, GERD, anemia of chronic disease, hypothyroidism, chronic AFib, pancytopenia, CKD 5, hypertensive renal disease. PAST SURGICAL HISTORY: No significant past surgical history. SOCIAL HISTORY: Lives at nursing facility. No reported alcohol, tobacco, or street drug use. ALLERGIES: ALLERGIC TO MORPHINE AND NSAIDs. REVIEW OF SYSTEMS: Denies any fever. No chills, no diarrhea, no vomiting, no abdominal pain, no headache, no chest pain, no palpitations. No trouble breathing or other complaints. PHYSICAL EXAMINATION: VITAL SIGNS: Temperature 97.8, pulse 91, respirations 20, blood pressure ____ on room air. HEART: S1, S2 normal. LUNGS: Clear to auscultation. ABDOMEN: Soft ____. EXTREMITIES: No edema noted. AVAILABLE LABORATORY DATA: WBC 6.1, hemoglobin 11.5, hematocrit 33.4, platelets 142. Sodium 140, potassium 4.3, BUN 73, creatinine 4.7, GFR 11. Iron 58, TIBC 233, percent saturation is 25. AST 10, ALT 5, total protein 5.4. LDL 77. Vitamin B12 1112. Folic acid more than 20. TSH 1.58 and negative. RPR nonreactive. ASSESSMENT: 1. Worsening renal failure. 2. Hypertensive renal disease, stage 5. 3. Anemia of chronic disease. 4. Chronic atrial fibrillation. 5. Gout. 6. Cardiac arrhythmia. 7. Gastroesophageal reflux disease. 8. Mental disorder. 9. Hypothyroidism. PLAN: Admit to [place] hospital unit. Nephrology was consulted. ____ was started. The patient's renal function will be monitored. The patient's medication list was reconciled. Continue blood pressure medications. Follow up labs in the morning. The patient's condition and plan of care discussed with nursing staff. JOB# [id number]
--- NOTE | 2018-04-14 18:45 | Progress Notes ---
DATE: 04/12/2018 SUBJECTIVE: Chart reviewed and the patient interviewed. Also discussed the patient's condition with the staff and reviewed records and labs. The patient is confused and is yelling and easily agitated. The patient also still has grandiose delusion. The patient is compliant with taking her medications with no side effects. She has irritable mood and still has episodes of yelling for no reason. ASSESSMENT: The patient is still psychotic. TREATMENT PLAN: Continue monitoring her medications and her condition closely. Also continue adjusting psychotropic medications and working on behavioral modification. JOB# [id number]
--- NOTE | 2018-04-14 22:27 | Progress Notes ---
DATE: 04/13/2018 COVERING FOR: Lety Moreno M.D., M.P.H. PROGRESS IN THE UNIT: Case was discussed with staff of the patient, reviewed records. I saw her yesterday on [facility]. The patient was transferred because of renal failure. The patient was manic, suspicious, paranoid, easily agitated. The patient so far has been responding well to redirection. She is on Seroquel 25 mg twice a day with no side effects, no sedation, no nausea. Thank you very much for allowing me to participate in the care of this most interesting lady. JOB# [id number]
== END 2018-04-13 15:00 | disposition short-term general hospital (02) | DRG 885 ==
LOC: ER 13:26 → GERO 15:20
PROVIDERS: ADMIT Psychiatry & Neurology Psychiatry; ATTEND Psychiatry & Neurology Psychiatry
DX: F29 Unspecified psychosis not due to a substance or known physiological condition (principal); N18.4 Chronic kidney disease, stage 4 (severe); Z93.1 Gastrostomy status; D61.818 Other pancytopenia; R13.10 Dysphagia, unspecified; E03.9 Hypothyroidism, unspecified; E78.5 Hyperlipidemia, unspecified; M48.00 Spinal stenosis, site unspecified; F32.9 Major depressive disorder, single episode, unspecified; M10.9 Gout, unspecified; I48.2 Chronic atrial fibrillation; D63.1 Anemia in chronic kidney disease; E11.22 Type 2 diabetes mellitus with diabetic chronic kidney disease; Z88.5 Allergy status to narcotic agent; Z88.8 Allergy status to other drugs, medicaments and biological substances; Z82.49 Family history of ischemic heart disease and other diseases of the circulatory system; Z86.73 Personal history of transient ischemic attack (TIA), and cerebral infarction without residual deficits
CPT/HCPCS: 36415-UA; 76700-TC; 80048-TC; 80053-TC; 80061-TC; 82607-90; 82728-90; 82746-90; 82948-90; 83036-90; 83540-90; 83550-90; 84443-TC; 85025-TC; 86038-90; 86592-TC; 93005; J1200; J1630; J2060; Z7610

== ENCOUNTER 2018-04-13 15:14 | Inpatient (IN) | payer MEDICARE ==
[2018-04-13] MEDS ORDERED: Maalox 30 mL Cup PO PRN (15:38)
[2018-04-13] MEDS ORDERED: Sodium Chloride 0.9% 1,000 ML IV SCH (15:45)
[2018-04-13] MEDS: Sodium Chloride 0.9% 1,000 ML IV SCH ×2 (17:55→23:23)
[2018-04-13 18:59] VITALS: BP 105/59
--- NOTE | 2018-04-13 22:40 | Progress Notes ---
DATE: 04/13/2018 Case was discussed with staff of the patient, reviewed records. Covering for Dr. Moreno. The patient is a 67-year-old female who was on 04/06/2018 came from [facility]. The patient has been extremely manicky, agitated, talking loud, has been singing and laughing inappropriately. The patient has a history of what seems to be agitation, manic behavior also has hypothyroidism, as well as dysphagia, hypertensive, patient is a poor historian. When I talked to her today, she was suspicious and paranoid. She felt I was asking about her kids. She will be transferred actually to the medical floor because of renal failure. She is on Seroquel 25 mg twice a day, amlodipine, ____, and iron, levothyroxine. Has been compliant with the medication with no side effects, no sedation, no nausea and so the patient will be transferred to the Med-Surg Unit. JOB# [id number]
[2018-04-14 05:01] LABS: EOSINOPHIL SMEAR SOURCE URINE; EOSINOPHILS SMEAR COUNT NONE SEEN (NONE SEEN)
[2018-04-14 06:56] LABS: MAGNESIUM 2.5 mg/dL (1.9-2.7); PHOSPHOROUS 3.7 mg/dL (2.5-5.0)
[2018-04-14 07:01] LABS: EOSINOPHILE ABSOLUTE 0.2 Th/cmm (0.1-0.4); HEMOGLOBIN 10.2 gm/dL (12-16); LYMPHOCYTE ABSOLUTE 1.6 Th/cmm (1.5-3.0); MONOCYTE ABSOLUTE 0.2 Th/cmm (0.3-1.0); NEUTROPHILE ABSOLUTE 2.4 Th/cmm (1.8-8.0); RED CELL DISTRIBUTION WIDTH 14.5 % (11.5-20.0)
[2018-04-14 07:04] LABS: % BASOPHILS 0.5 % (0.0-2.0); % EOSINOPHILS 5.1 % (0.0-5.0); % LYMPHOCYTES 36.3 % (20.0-50.0); % MONOCYTES 5.6 % (2.0-10.0); % NEUTROPHILS 52.5 % (40.0-80.0); HEMATOCRIT 30.6 % (41.0-60); MEAN CELL VOLUME 91.9 fl (81-100); MEAN CORPUSCULAR HEMOGLOBIN 30.6 pg (27.0-31.0); MEAN CORPUSCULAR HGB CONC 33.3 pg (28.0-36.0); MEAN PLATELET VOLUME 9.6 fl; PLATELET COUNT 108 Th/cmm (150-400); RED BLOOD COUNT 3.33 Mil/cmm (3.80-5.20)
[2018-04-14 07:12] LABS: WHITE BLOOD COUNT 4.4 Th/cmm (4.8-10.8)
[2018-04-14] MEDS: Levothyroxine 0.075 Mg Tab PO SCH (07:30)
[2018-04-14 08:00] LABS: ALB/GLOB RATIO 1.5 (1.0-1.8); ANION GAP 11.5 (7.0-16.0); BILIRUBIN,TOTAL 0.3 mg/dL (0.3-1.0); CALCIUM SERUM 8.4 mg/dL (8.6-10.3); GFR AFRICAN-AMERICAN 14.3 ml/min (>90); GFR NON AFRICAN-AMERICAN 11.8 ml/min; POTASSIUM SERUM 4.5 mEq/L (3.5-5.1)
[2018-04-14] MEDS: Ferrous Sulfate 325 MG TAB PO SCH (08:24)
[2018-04-14] MEDS: Multivitamin Tab PO SCH (08:24)
[2018-04-14] MEDS: Sodium Chloride 0.9% 1,000 ML IV SCH (08:53)
[2018-04-14] MEDS ORDERED: Sodium Chloride 0.9% 1,000 ML IV SCH (11:45)
--- NOTE | 2018-04-14 13:10 | General Progress Note ---
Subjective - Review of Systems Service Date: 04/14/18 Subjective: Patient awake confused afebrile no new concern reported Objective - Results Result Diagrams: 04/14/18 06:15 04/14/18 06:15 Recent Labs: Laboratory Last Values WBC 4.4 Th/cmm (4.8-10.8) L D 04/14/18 06:15 RBC 3.33 Mil/cmm (3.80-5.20) L 04/14/18 06:15 Hgb 10.2 gm/dL (12-16) L 04/14/18 06:15 Hct 30.6 % (41.0-60) L 04/14/18 06:15 MCV 91.9 fl (81-100) 04/14/18 06:15 MCH 30.6 pg (27.0-31.0) 04/14/18 06:15 MCHC Differential 33.3 pg (28.0-36.0) 04/14/18 06:15 RDW 14.5 % (11.5-20.0) 04/14/18 06:15 Plt Count 108 Th/cmm (150-400) L 04/14/18 06:15 MPV 9.6 fl 04/14/18 06:15 Neutrophils % 52.5 % (40.0-80.0) 04/14/18 06:15 Lymphocytes % 36.3 % (20.0-50.0) 04/14/18 06:15 Monocytes % 5.6 % (2.0-10.0) 04/14/18 06:15 Eosinophils % 5.1 % (0.0-5.0) H 04/14/18 06:15 Basophils % 0.5 % (0.0-2.0) 04/14/18 06:15 Eos Smear Source URINE 04/13/18 22:30 Eos Smear Total Cells NONE SEEN (NONE SEEN) 04/13/18 22:30 Sodium 147 mEq/L (136-145) H 04/14/18 06:15 Potassium 4.5 mEq/L (3.5-5.1) 04/14/18 06:15 Chloride 123 mEq/L (98-107) H 04/14/18 06:15 Carbon Dioxide 17.0 mEq/L (21.0-31.0) L 04/14/18 06:15 Anion Gap 11.5 (7.0-16.0) 04/14/18 06:15 BUN 61 mg/dL (7-25) H 04/14/18 06:15 Creatinine 4.0 mg/dL (0.6-1.2) H 04/14/18 06:15 Est GFR ( Amer) 14.3 ml/min (>90) 04/14/18 06:15 Est GFR (Non-Af Amer) 11.8 ml/min 04/14/18 06:15 BUN/Creatinine Ratio 15.3 04/14/18 06:15 Glucose 85 mg/dL (70-105) 04/14/18 06:15 Calcium 8.4 mg/dL (8.6-10.3) L 04/14/18 06:15 Phosphorus 3.7 mg/dL (2.5-5.0) 04/14/18 06:15 Magnesium 2.5 mg/dL (1.9-2.7) 04/14/18 06:15 Total Bilirubin 0.3 mg/dL (0.3-1.0) 04/14/18 06:15 AST 9 U/L (13-39) L 04/14/18 06:15 ALT 6 U/L (7-52) L 04/14/18 06:15 Alkaline Phosphatase 55 U/L (34-104) 04/14/18 06:15 Total Protein 5.0 gm/dL (6.0-8.3) L 04/14/18 06:15 Albumin 3.0 gm/dL (3.7-5.3) L 04/14/18 06:15 Globulin 2.0 gm/dL 04/14/18 06:15 Albumin/Globulin Ratio 1.5 (1.0-1.8) 04/14/18 06:15 TSH 1.00 uIU/ml (0.34-5.60) 04/14/18 06:15 - Physical Exam Vitals and I&O: Vital Signs Temp 99.1 F 04/14/18 11:36 Pulse 72 04/14/18 11:36 Resp 16 04/14/18 11:36 BP 144/54 04/14/18 11:36 Pulse Ox 100 04/14/18 11:36 Intake & Output 04/13/18 04/14/18 04/14/18 18:59 06:59 18:59 Intake Total 096.393 3332 Output Total 1700 Balance -138.498 0969 Weight (lbs) 66.224 kg 70.896 kg Intake: Intake, IV Amount 407.286 9608 Sodium Chloride 0.9% 1, 511.181 8822 000 ml @ 125 mls/hr IV . Q8H [facility] Rx#:[id number] Oral 130 Output: Urine 1700 Other: # Bowel Movements 0 Weight Source Bedscale Bedscale Active Medications: Current Medications Acetaminophen (Tylenol) 650 mg PO Q4HR PRN PRN Reason: Mild Pain / Temp above 100 Stop: 06/12/18 15:37 Last Admin: 04/13/18 23:16 Dose: 650 mg Al Hydrox/Mg Hydrox/Simethicone (Maalox) 30 ml PO Q4HR PRN PRN Reason: GI DISTRESS Stop: 06/12/18 15:37 Amiodarone HCl (Cordarone) 100 mg PO DAILY [facility] Stop: 06/12/18 15:44 Last Admin: 04/14/18 08:24 Dose: 100 mg Amlodipine Besylate (Norvasc) 10 mg PO DAILY [facility] Stop: 06/13/18 08:59 Last Admin: 04/14/18 08:25 Dose: 10 mg Famotidine (Pepcid) 20 mg PO DAILY [facility] Stop: 06/13/18 08:59 Last Admin: 04/14/18 08:24 Dose: 20 mg Ferrous Sulfate (Iron) 325 mg PO DAILY [facility] Stop: 06/13/18 08:59 Last Admin: 04/14/18 08:24 Dose: 325 mg Sodium Chloride (Nacl 0.9%) 1,000 mls @ 100 mls/hr IV .Q10H [facility] Stop: 06/13/18 11:44 Last Admin: 04/14/18 11:38 Dose: 100 mls/hr Levothyroxine Sodium (Synthroid) 0.15 mg PO QDAC [facility] Stop: 06/13/18 07:29 Last Admin: 04/14/18 07:30 Dose: Not Given Metoprolol Succinate (Toprol Xl) 25 mg PO DAILY [facility] Stop: 06/13/18 08:59 Last Admin: 04/14/18 08:25 Dose: 25 mg Multivitamins/Vitamin C (Theragran) 1 tab PO DAILY [facility] Stop: 06/13/18 08:59 Last Admin: 04/14/18 08:24 Dose: 1 tab Quetiapine Fumarate (Seroquel) 25 mg PO BID [facility]; Protocol Stop: 06/12/18 16:59 Sodium Bicarbonate (Sodium Bicarbonate) 650 mg PO BID [facility]; Protocol Stop: 06/13/18 08:59 Last Admin: 04/14/18 08:24 Dose: 650 mg Zolpidem Tartrate (Ambien) 5 mg PO HS PRN PRN Reason: Insomnia Stop: 06/12/18 15:37 Last Admin: 04/13/18 23:16 Dose: 5 mg Cardiovascular: Regular rate Lungs: Clear to auscultation Assessment/Plan - Assessment Assessment: Acute on CKD slightly better Chr afib HTN Hypothyroidism Mental health disorder - Plan Plan: Continue IV fluids Monitor vitals [facility] on borad Plan of care discussed with the nursing staff
--- NOTE | 2018-04-14 17:14 | Progress Notes ---
DATE: SUBJECTIVE: Chart reviewed and the patient interviewed. Also discussed the patient's condition with the staff and reviewed records and labs. The patient is still irritable and anxious. The patient also is still delusional and paranoid. She also still unable to carry on coherent conversation. She also easily agitated and it seems that Risperdal has not been helping the patient much. She needs lots of redirection. ASSESSMENT: The patient is still psychotic and delusional. TREATMENT PLAN: Continue to monitor her behavior and her condition closely. Also, we will discontinue Risperdal and we will increase Seroquel to 25 mg twice a day and continue to follow up her condition closely. [facility]# [id number]
--- NOTE | 2018-04-14 17:31 | Progress Notes ---
DATE: 04/14/2018 LOCATION: [facility], room #18, bed C. SUBJECTIVE: The patient is more conscious, more alert, good urine output, eating better. PHYSICAL EXAMINATION: VITAL SIGNS: Temperature 99.1, pulse 72, blood pressure 144/52. Intake 813, output 1700 yesterday. HEART: Regular. LUNGS: Good air entry. ABDOMEN: Soft. EXTREMITIES: No edema. SIGNIFICANT LABORATORY DATA: WBC 4.4, hemoglobin 10.2, platelet 108,000. Sodium 147, potassium 4.5, chloride 123, CO2 17, BUN improved from 72 to 61, creatinine improved from 4.7 to 4.0, phosphorus normal. Calcium 8.4, albumin 3.0. ASSESSMENT: 1. Acute kidney injury, improving. 2. Rule out underlying chronic kidney disease 3 or 4. 3. Anemia secondary to chronic kidney disease. 4. Hypertension. 5. Mental retardation. 6. Degenerative joint disease. 7. Hyperlipidemia. PLAN: 1. Decrease IV fluids. 2. Continue other treatment. 3. BMP in the morning. 4. No need for dialysis at this time. 5. Continue other treatment. Follow up tomorrow. JOB# [id number]
[2018-04-15] MEDS: Levothyroxine 0.075 Mg Tab PO SCH (06:49)
[2018-04-15 06:57] LABS: % BASOPHILS 0.3 % (0.0-2.0); % EOSINOPHILS 6.4 % (0.0-5.0); % LYMPHOCYTES 46.3 % (20.0-50.0); % MONOCYTES 4.3 % (2.0-10.0); % NEUTROPHILS 42.7 % (40.0-80.0); EOSINOPHILE ABSOLUTE 0.3 Th/cmm (0.1-0.4); HEMOGLOBIN 8.9 gm/dL (12-16); LYMPHOCYTE ABSOLUTE 1.8 Th/cmm (1.5-3.0); MEAN CORPUSCULAR HEMOGLOBIN 31.5 pg (27.0-31.0); MEAN CORPUSCULAR HGB CONC 34.2 pg (28.0-36.0); MEAN PLATELET VOLUME 9.6 fl; MONOCYTE ABSOLUTE 0.2 Th/cmm (0.3-1.0); NEUTROPHILE ABSOLUTE 1.7 Th/cmm (1.8-8.0); PLATELET COUNT 95 Th/cmm (150-400); RED BLOOD COUNT 2.82 Mil/cmm (3.80-5.20); RED CELL DISTRIBUTION WIDTH 14.8 % (11.5-20.0)
[2018-04-15 07:00] LABS: CREATININE - SERUM 3.3 mg/dL (0.6-1.2); GFR AFRICAN-AMERICAN 17.8 ml/min (>90); GFR NON AFRICAN-AMERICAN 14.7 ml/min
[2018-04-15] MEDS: Ferrous Sulfate 325 MG TAB PO SCH (09:15)
[2018-04-15] MEDS: Multivitamin Tab PO SCH (09:17)
--- NOTE | 2018-04-15 09:36 | Progress Notes ---
DATE: PSYCHIATRIC PROGRESS NOTE SUBJECTIVE: Chart reviewed and the patient interviewed. Also discussed the patient's condition with the staff and reviewed records and labs. The patient is calmer and less agitated, less irritable. The patient also is easier to redirect her. She is still confused and forgetful, but less than before. The patient denies any side effects of medications. ASSESSMENT: The patient is still confused and forgetful, but less agitated. TREATMENT PLAN: Continue current treatment and medications and continue to work on her behavior problem and adjusting psychotropic medications. JOB# [id number]
--- NOTE | 2018-04-15 17:30 | Progress Notes ---
DATE: LOCATION: [facility], room 18, bed C. SUBJECTIVE: The patient is essentially, same not in distress. OBJECTIVE: VITAL SIGNS: Pulse rate 82, temperature 97.3, and blood pressure 113/46. Yesterday's intake 813, output 886. HEART: Regular. LUNGS: Good air entry. ABDOMEN: Soft. EXTREMITIES: No edema. LABORATORY DATA: WBC 4.0, hemoglobin 8.9, and platelet count 95,000. Sodium 145 improved from 147, potassium 4.0, BUN improved from 61-41, creatinine improved from 4-3.3, calcium 8.0. ASSESSMENT: 1. Acute kidney injury, improving. 2. Anemia. 3. Hypertension. 4. Mental retardation. 5. Hyperlipidemia. 6. Degenerative joint disease. PLAN: Continue IV hydration. We will check a BMP in the morning. Continue the patient on ferrous sulfate and multivitamin with folic acid. The patient may require Epogen if there is no contraindication. I will discuss with Dr. Campos with that. Continue other treatment. JOB# [id number]
--- NOTE | 2018-04-15 21:08 | General Progress Note ---
Subjective - Review of Systems Service Date: 04/15/18 Subjective: Patient seen and examined was sleeping Renal function better Objective - Results Result Diagrams: 04/15/18 05:50 04/15/18 05:50 Recent Labs: Laboratory Last Values WBC 4.0 Th/cmm (4.8-10.8) L 04/15/18 05:50 RBC 2.82 Mil/cmm (3.80-5.20) L 04/15/18 05:50 Hgb 8.9 gm/dL (12-16) L 04/15/18 05:50 Hct 26.0 % (41.0-60) L 04/15/18 05:50 MCV 92.0 fl (81-100) 04/15/18 05:50 MCH 31.5 pg (27.0-31.0) H 04/15/18 05:50 MCHC Differential 34.2 pg (28.0-36.0) 04/15/18 05:50 RDW 14.8 % (11.5-20.0) 04/15/18 05:50 Plt Count 95 Th/cmm (150-400) L 04/15/18 05:50 MPV 9.6 fl 04/15/18 05:50 Neutrophils % 42.7 % (40.0-80.0) 04/15/18 05:50 Lymphocytes % 46.3 % (20.0-50.0) 04/15/18 05:50 Monocytes % 4.3 % (2.0-10.0) 04/15/18 05:50 Eosinophils % 6.4 % (0.0-5.0) H 04/15/18 05:50 Basophils % 0.3 % (0.0-2.0) 04/15/18 05:50 Eos Smear Source URINE 04/13/18 22:30 Eos Smear Total Cells NONE SEEN (NONE SEEN) 04/13/18 22:30 Sodium 145 mEq/L (136-145) 04/15/18 05:50 Potassium 4.0 mEq/L (3.5-5.1) 04/15/18 05:50 Chloride 124 mEq/L (98-107) H 04/15/18 05:50 Carbon Dioxide 16.0 mEq/L (21.0-31.0) L 04/15/18 05:50 Anion Gap 9.0 (7.0-16.0) 04/15/18 05:50 BUN 41 mg/dL (7-25) H 04/15/18 05:50 Creatinine 3.3 mg/dL (0.6-1.2) H 04/15/18 05:50 Est GFR ( Amer) 17.8 ml/min (>90) 04/15/18 05:50 Est GFR (Non-Af Amer) 14.7 ml/min 04/15/18 05:50 BUN/Creatinine Ratio 12.4 04/15/18 05:50 Glucose 75 mg/dL (70-105) 04/15/18 05:50 Calcium 8.0 mg/dL (8.6-10.3) L 04/15/18 05:50 Phosphorus 3.7 mg/dL (2.5-5.0) 04/14/18 06:15 Magnesium 2.5 mg/dL (1.9-2.7) 04/14/18 06:15 Total Bilirubin 0.3 mg/dL (0.3-1.0) 04/14/18 06:15 AST 9 U/L (13-39) L 04/14/18 06:15 ALT 6 U/L (7-52) L 04/14/18 06:15 Alkaline Phosphatase 55 U/L (34-104) 04/14/18 06:15 Total Protein 5.0 gm/dL (6.0-8.3) L 04/14/18 06:15 Albumin 3.0 gm/dL (3.7-5.3) L 04/14/18 06:15 Globulin 2.0 gm/dL 04/14/18 06:15 Albumin/Globulin Ratio 1.5 (1.0-1.8) 04/14/18 06:15 TSH 1.00 uIU/ml (0.34-5.60) 04/14/18 06:15 - Physical Exam Vitals and I&O: Vital Signs Temp 97.8 F 04/15/18 16:48 Pulse 57 04/15/18 16:48 Resp 16 04/15/18 16:48 BP 110/50 04/15/18 16:48 Pulse Ox 99 04/15/18 16:48 Intake & Output 04/15/18 04/15/18 04/16/18 06:59 18:59 06:59 Intake Total 100 Output Total 200 Balance -100 Weight (lbs) 70.76 kg Intake: Oral 100 Output: Urine 200 Other: Stool Characteristics Soft Soft Weight Source Bedscale Cardiovascular: Regular rate Lungs: Clear to auscultation Assessment/Plan - Assessment Assessment: Acute on CKD improving Chr afib HTN Hypothyroidism Mental health disorder - Plan Plan: DC back to [facility] Monitor renal function DC plan discussed with the nursing staff
[2018-04-16] MEDS ORDERED: Epoetin Alfa 20000 Units/mL Vial SUBQ SCH (16:00)
--- NOTE | 2018-05-07 17:54 | Discharge Summary ---
DATE OF DISCHARGE: 04/15/2018 FINAL DIAGNOSES: 1. Acute on chronic kidney disease, improved. 2. Chronic atrial fibrillation, stable. 3. Dysphagia. 4. Hypothyroidism. 5. Hypertension. 6. Mental disorders. HOSPITAL COURSE: This is a 67-year-old female, who was admitted for evaluation of the worsening renal failure, was seen by cloth shrinker, given IV fluids. Renal function started improving. Underlying chronic problems were addressed and treated. Also followed by psychiatrist. The patient was given dysphagia diet, tolerated well. After clinical improvement, the patient was cleared for discharge, transferred back to [facility] for management of underlying chronic ongoing medical issues. DISCHARGED CONDITION: Stable. DISCHARGE MEDICATIONS: Please see medication list. DISCHARGE INSTRUCTION: Followed by psychiatrist and medical team at [facility]. JOB# [id number]
== END 2018-04-15 17:43 | DRG 684 ==
LOC: MSI 15:14 → TELE 15:50
PROVIDERS: ADMIT Family Medicine; ATTEND Family Medicine
DX: N17.9 Acute kidney failure, unspecified (principal); E78.5 Hyperlipidemia, unspecified; F79 Unspecified intellectual disabilities; E03.9 Hypothyroidism, unspecified; R13.10 Dysphagia, unspecified; D63.1 Anemia in chronic kidney disease; M19.90 Unspecified osteoarthritis, unspecified site; N18.9 Chronic kidney disease, unspecified; I12.9 Hypertensive chronic kidney disease with stage 1 through stage 4 chronic kidney disease, or unspecified chronic kidney disease; I48.2 Chronic atrial fibrillation
CPT/HCPCS: 36415-UA; 80048-TC; 80053-TC; 81015-TC; 83735-TC; 84100-TC; 84443-TC; 85025-TC; J2060; J7030; Z7610

== ENCOUNTER 2018-04-15 17:43 | Inpatient (IN) | payer MEDICARE, BC ==
[2018-04-15 18:48] VITALS: BP 105/54
[2018-04-15] MEDS ORDERED: Magnesium Hydroxide (MOM) 30 mL UDC PO PRN ×2 (20:38→20:46)
[2018-04-15] MEDS ORDERED: Maalox 30 mL Cup PO PRN (20:38)
[2018-04-16] MEDS: Levothyroxine 0.075 Mg Tab PO SCH (06:32)
[2018-04-16] MEDS ORDERED: Multivitamin Tab PO SCH (09:00)
[2018-04-16] MEDS: Multivitamin Tab PO SCH (09:18)
[2018-04-16] MEDS: Ferrous Sulfate 325 MG TAB PO SCH (09:18)
--- NOTE | 2018-04-16 22:13 | General Progress Note ---
Subjective - Review of Systems Service Date: 04/16/18 Subjective: Patient was readmitted back to [facility] PSYCH. doing fine. Objective - Physical Exam Vitals and I&O: Vital Signs Temp 97.9 F 04/16/18 20:05 Pulse 75 04/16/18 20:05 Resp 20 04/16/18 20:05 BP 148/76 04/16/18 20:05 Pulse Ox 97 04/16/18 20:05 Intake & Output 04/16/18 04/16/18 04/17/18 06:59 18:59 06:59 Intake Total 240 0 Balance 240 0 Intake: Oral 240 0 Other: # Voids 2 0 # Bowel Movements 0 0 Stool Characteristics Soft Soft Formed Formed Active Medications: Current Medications Acetaminophen (Tylenol) 650 mg PO Q4HR PRN PRN Reason: Mild Pain / Temp above 100 Stop: 06/14/18 20:45 Al Hydrox/Mg Hydrox/Simethicone (Maalox) 30 ml PO Q4HR PRN PRN Reason: GI DISTRESS Stop: 06/14/18 20:45 Amiodarone HCl (Cordarone) 100 mg PO DAILY [facility] Stop: 06/15/18 08:59 Last Admin: 04/16/18 09:16 Dose: 100 mg Amlodipine Besylate (Norvasc) 10 mg PO DAILY [facility] Stop: 06/15/18 08:59 Last Admin: 04/16/18 09:17 Dose: 10 mg Famotidine (Pepcid) 20 mg PO DAILY [facility] Stop: 06/15/18 08:59 Last Admin: 04/16/18 09:16 Dose: 20 mg Ferrous Sulfate (Iron) 325 mg PO DAILY [facility] Stop: 06/15/18 08:59 Last Admin: 04/16/18 09:18 Dose: 325 mg Levothyroxine Sodium (Synthroid) 0.15 mg PO QDAC [facility] Stop: 06/15/18 07:29 Last Admin: 04/16/18 06:32 Dose: Not Given Lorazepam (Ativan) 0.5 mg PO Q4HR PRN; Protocol PRN Reason: Anxiety Stop: 05/15/18 20:37 Last Admin: 04/16/18 20:58 Dose: 0.5 mg Magnesium Hydroxide (Milk Of Magnesia) 30 ml PO HS PRN PRN Reason: Constipation Stop: 06/14/18 20:45 Metoprolol Succinate (Toprol Xl) 25 mg PO DAILY [facility] Stop: 06/15/18 08:59 Last Admin: 04/16/18 09:17 Dose: 25 mg Multivitamins/Vitamin C (Theragran) 1 tab PO DAILY [facility] Stop: 06/15/18 08:59 Last Admin: 04/16/18 09:18 Dose: 1 tab Quetiapine Fumarate (Seroquel) 25 mg PO BID [facility]; Protocol Stop: 06/15/18 08:59 Last Admin: 04/16/18 16:32 Dose: 25 mg Zolpidem Tartrate (Ambien) 5 mg PO HS PRN PRN Reason: Insomnia Stop: 06/14/18 18:28 Last Admin: 04/16/18 20:58 Dose: 5 mg Cardiovascular: Regular rate Lungs: Clear to auscultation Assessment/Plan - Assessment Assessment: CKD Hypothyroidism HTN Dysphagia Mental health disorder - Plan Plan: Continue current meds Monitor renal function Fall precaution Aspiration precaution Psych management per psychiatrist
--- NOTE | 2018-04-16 23:48 | Psychiatric Evaluation ---
DATE OF SERVICE: PSYCHIATRIC INITIAL EVALUATION AND MENTAL STATUS EXAM THE PATIENT'S AGE: 67. SEX: Female. PHYSICIAN: Dr. Moreno. CHIEF COMPLAINT: Agitation. HISTORY OF PRESENT ILLNESS: The patient is a 67-year-old female with history of psychosis. The patient was transferred [facility] a [facility]val[facility] and then she went to a medical floor because of increased medical problems. The patient was still manicky and she was singing loudly and laughing inappropriately and the patient was discharged and brought back to the psych unit. The patient is still agitated and she is still in irritable and angry mood and she needs lots of redirections. She also had episodes of being combative. PAST PSYCHIATRIC HISTORY: History of agitation and psychosis. PAST MEDICAL HISTORY: The patient has history of hypothyroidism and dysphagia. Also, the patient has diabetes mellitus and hypertension. SOCIAL HISTORY: The patient lives in a [facility]. No known alcohol or drug use. ALLERGIES: No known allergies. MENTAL STATUS EXAMINATION: The patient appears older than stated age. Irritable mood. Anxious. Disorganized thoughts. Hypertalkative. Rambling. Thought processes are circumstantial and tangential with occasional flight of ideas. The patient did not answer questions regarding hallucinations or delusions, but seems to be suspicious and paranoid. She denies any suicidal or homicidal ideations. The patient is alert and oriented to time, place, person, and situation. Impaired immediate and recent memory, but intact remote memory and she remembered her date. Poor insight and poor judgment. ASSESSMENT: PRIMARY DIAGNOSIS: Unspecified psychosis. SECONDARY DIAGNOSIS: Rule out dementia with psychosis. MEDICAL DIAGNOSES: Diabetes mellitus. Hypothyroidism. TREATMENT PLAN: We will monitor the patient's behavior and condition closely. We will also monitor her poor impulse control. Also, we will continue Seroquel in a dose of 25 mg twice a day and we will adjust the dose. ESTIMATED LENGTH OF STAY: 5-7 days. THE PATIENT'S STRENGTHS AND WEAKNESSES: The patient's strength is not clear at this time except she is compliant with taking her medications. Weaknesses is her poor impulse control and ineffective coping as well as manic behavior. AFTER DISCHARGE PLAN: The patient was sent to the [facility] and outpatient treatment and followup will continue as an outpatient. CRITERIA FOR DISCHARGE: The patient will not be psychotic and we will stabilize psychotropic medications and will establish outpatient treatment plans. JOB# [id number]
[2018-04-17] MEDS: Levothyroxine 0.075 Mg Tab PO SCH (06:46)
[2018-04-17] MEDS: Multivitamin Tab PO SCH (09:19)
[2018-04-17] MEDS: Ferrous Sulfate 325 MG TAB PO SCH (09:20)
--- NOTE | 2018-04-17 21:16 | Discharge Summary ---
DATE OF DISCHARGE: 04/15/2018 DATE OF ADMISSION: 04/04/2018 DATE OF DISCHARGE: 04/15/2018 AGE: 67 SEX: Female. FINAL DIAGNOSIS AND PRIMARY DIAGNOSIS: Unspecified psychosis. SECONDARY DIAGNOSIS: Dementia, [id number], with psychotic features. REASON FOR HOSPITALIZATION: The patient was admitted to the hospital because of increased agitation and irritability and inability to follow directions. HOSPITAL COURSE: The patient continued to be in irritable and angry mood, but the patient was compliant with taking medications. She also was easily agitated. The patient's condition deteriorated and the patient was referred consequently to medical/surgical unit. AFTER DISCHARGE PLANS: The patient discharged from the hospital from medical/surgical unit with a plan to follow up there. EXPECTED OUTCOME AFTER DISCHARGE: Depends on course of treatment and medical/surgical unit. [facility]# [id number]
[2018-04-18] MEDS: Levothyroxine 0.075 Mg Tab PO SCH (06:47)
[2018-04-18] MEDS: Ferrous Sulfate 325 MG TAB PO SCH (09:55)
[2018-04-18] MEDS: Multivitamin Tab PO SCH (09:55)
[2018-04-18 15:02] LABS: ANION GAP 14.2 (7.0-16.0); CALCIUM SERUM 9.6 mg/dL (8.6-10.3); CARBON DIOXIDE 16.1 mEq/L (21.0-31.0); CREATININE - SERUM 2.9 mg/dL (0.6-1.2); GFR AFRICAN-AMERICAN 20.7 ml/min (>90); GFR NON AFRICAN-AMERICAN 17.1 ml/min; POTASSIUM SERUM 4.3 mEq/L (3.5-5.1)
--- NOTE | 2018-04-18 15:20 | General Progress Note ---
Subjective - Review of Systems Service Date: 04/18/18 Subjective: Patient seen and examined nursing staff reported that patient has been refusing all her meals Objective - Results Result Diagrams: 04/18/18 14:40 Recent Labs: Laboratory Last Values Sodium 144 mEq/L (136-145) 04/18/18 14:40 Potassium 4.3 mEq/L (3.5-5.1) 04/18/18 14:40 Chloride 118 mEq/L (98-107) H 04/18/18 14:40 Carbon Dioxide 16.1 mEq/L (21.0-31.0) L 04/18/18 14:40 Anion Gap 14.2 (7.0-16.0) 04/18/18 14:40 BUN 25 mg/dL (7-25) 04/18/18 14:40 Creatinine 2.9 mg/dL (0.6-1.2) H 04/18/18 14:40 Est GFR ( Amer) 20.7 ml/min (>90) 04/18/18 14:40 Est GFR (Non-Af Amer) 17.1 ml/min 04/18/18 14:40 BUN/Creatinine Ratio 8.6 04/18/18 14:40 Glucose 77 mg/dL (70-105) 04/18/18 14:40 Calcium 9.6 mg/dL (8.6-10.3) 04/18/18 14:40 - Physical Exam Vitals and I&O: Vital Signs Temp 97.4 F 04/18/18 06:23 Pulse 78 04/18/18 06:23 Resp 18 04/18/18 06:23 BP 118/80 04/18/18 06:23 Pulse Ox 97 04/18/18 06:23 Intake & Output 04/17/18 04/18/18 04/18/18 18:59 06:59 18:59 Intake Total 1200 120 Output Total 1000 Balance 1200 -880 Intake: Oral 1200 120 Output: Urine 1000 Other: # Voids 2 # Bowel Movements 1 Active Medications: Current Medications Acetaminophen (Tylenol) 650 mg PO Q4HR PRN PRN Reason: Mild Pain / Temp above 100 Stop: 06/14/18 20:45 Al Hydrox/Mg Hydrox/Simethicone (Maalox) 30 ml PO Q4HR PRN PRN Reason: GI DISTRESS Stop: 06/14/18 20:45 Amiodarone HCl (Cordarone) 100 mg PO DAILY [facility] Stop: 06/15/18 08:59 Last Admin: 04/18/18 09:54 Dose: Not Given Amlodipine Besylate (Norvasc) 10 mg PO DAILY [facility] Stop: 06/15/18 08:59 Last Admin: 04/18/18 09:55 Dose: Not Given Famotidine (Pepcid) 20 mg PO DAILY [facility] Stop: 06/15/18 08:59 Last Admin: 04/18/18 09:55 Dose: Not Given Ferrous Sulfate (Iron) 325 mg PO DAILY [facility] Stop: 06/15/18 08:59 Last Admin: 04/18/18 09:55 Dose: Not Given Levothyroxine Sodium (Synthroid) 0.15 mg PO QDAC [facility] Stop: 06/15/18 07:29 Last Admin: 04/18/18 06:47 Dose: 0.15 mg Lorazepam (Ativan) 0.5 mg PO Q4HR PRN; Protocol PRN Reason: Anxiety Stop: 05/15/18 20:37 Last Admin: 04/17/18 20:01 Dose: 0.5 mg Magnesium Hydroxide (Milk Of Magnesia) 30 ml PO HS PRN PRN Reason: Constipation Stop: 06/14/18 20:45 Metoprolol Succinate (Toprol Xl) 25 mg PO DAILY [facility] Stop: 06/15/18 08:59 Last Admin: 04/18/18 09:55 Dose: Not Given Miscellaneous (Clinical Monitoring) 1 ea MC PRN PRN PRN Reason: RENAL Stop: 06/17/18 15:14 Multivitamins/Vitamin C (Theragran) 1 tab PO DAILY [facility] Stop: 06/15/18 08:59 Last Admin: 04/18/18 09:55 Dose: Not Given Quetiapine Fumarate (Seroquel) 25 mg PO BID [facility]; Protocol Stop: 06/15/18 08:59 Last Admin: 04/18/18 09:55 Dose: Not Given Zolpidem Tartrate (Ambien) 5 mg PO HS PRN PRN Reason: Insomnia Stop: 06/14/18 18:28 Last Admin: 04/17/18 20:01 Dose: 5 mg Cardiovascular: Regular rate Lungs: Clear to auscultation Assessment/Plan - Assessment Assessment: Poor oral intake CKD Hypothyroidism HTN Dysphagia Mental health disorder - Plan Plan: Tube feeding started Continue current meds Monitor renal function Fall precaution Aspiration precaution Psych management per psychiatrist
[2018-04-19] MEDS: Levothyroxine 0.075 Mg Tab PO SCH (06:32)
[2018-04-19] MEDS: Multivitamin Tab PO SCH (08:30)
[2018-04-19] MEDS: Ferrous Sulfate 325 MG TAB PO SCH (08:30)
[2018-04-20] MEDS: Levothyroxine 0.075 Mg Tab PO SCH (06:37)
--- NOTE | 2018-04-20 09:01 | Progress Notes ---
DATE: 04/17/2018 SUBJECTIVE: Chart reviewed and the patient interviewed. Also discussed the patient's condition with the staff and reviewed records and labs. The patient continue to be in angry and in irritable mood. The patient also is still suspicious and is still paranoid. She also needs lots of redirections. She also is still resisting care at times. Otherwise, the patient is compliant with taking her medications with no side effect of medications. ASSESSMENT: The patient is still confused and needs lots of assistance. TREATMENT PLAN: Continue monitoring her behavior and her condition closely. Also, continue to working on her irritability and continue to follow up. JOB# [id number]
[2018-04-20] MEDS: Multivitamin Tab PO SCH (10:09)
[2018-04-20] MEDS: Ferrous Sulfate 325 MG TAB PO SCH (10:10)
--- NOTE | 2018-04-20 18:44 | Progress Notes ---
DATE: 04/18/2018 SUBJECTIVE: Chart reviewed and the patient interviewed. Also, discussed the patient's condition with the staff and reviewed records and labs. The patient is easily agitated. The patient also is demanding and she is still in angry and in irritable mood. She also is still hyperverbal and she is argumentative. Otherwise, the patient is compliant with taking her medications with no side effects of medications. ASSESSMENT: The patient is still psychotic and agitated. TREATMENT PLAN: Continue to monitor her behavior and her condition closely. Also, continue to adjust psychotropic medications. The patient is given Seroquel 25 mg twice a day and we will continue to follow up. JOB# [id number]
--- NOTE | 2018-04-20 19:38 | Progress Notes ---
DATE: 04/19/2018 SUBJECTIVE: Chart reviewed and the patient interviewed. Also discussed the patient's condition with the staff and reviewed records and labs. The patient is still confused and forgetful. The patient also is still easily agitated and demanding. The patient also is hyperverbal. She also still has mood swings and she still has problems following directions. Otherwise, she is compliant with taking her medications with no side effect of medications. ASSESSMENT: The patient is still psychotic and agitated. TREATMENT PLAN: Continue to monitor behavior and condition closely. Also, increase Seroquel to 25 mg twice a day and 25 mg at bedtime and continue to follow up closely. JOB# [id number]
--- NOTE | 2018-04-20 21:05 | Progress Notes ---
DATE: 04/19/2018 SUBJECTIVE: Chart reviewed and the patient interviewed and discussed the patient's condition with the staff. The patient is still confused and she is still forgetful. The patient also still seems to be preoccupied and demanding. She also is still agitated. She also is still forgetful and is still hyperverbal. Otherwise, the patient is compliant with taking her medications with no side effects of medications. [facility]# [id number]
--- NOTE | 2018-04-21 03:01 | Progress Notes ---
DATE: SUBJECTIVE: Chart reviewed and the patient interviewed. Also discussed the patient's condition with the staff and reviewed records and labs. The patient still seems to be preoccupied and she is still responding to stimuli. The patient also is guarded. She also refuses to eat or drink and the staff has to feed her through G-tube. She also still mumbles to herself and she is less talkative today. ASSESSMENT: The patient is still psychotic, but seems to be less agitated. TREATMENT PLAN: Continue to monitor her behavior closely. Also, continue Seroquel 25 mg twice a day and 25 mg at bedtime and we will continue to follow up. JOB# [id number]
[2018-04-21] MEDS: Levothyroxine 0.075 Mg Tab PO SCH (06:30)
[2018-04-21] MEDS: Ferrous Sulfate 325 MG TAB PO SCH (09:48)
[2018-04-21] MEDS: Multivitamin Tab PO SCH (09:48)
[2018-04-22] MEDS: Levothyroxine 0.075 Mg Tab PO SCH (06:34)
[2018-04-22] MEDS: Multivitamin Tab PO SCH (09:53)
[2018-04-22] MEDS: Ferrous Sulfate 325 MG TAB PO SCH (09:56)
[2018-04-23] MEDS: Levothyroxine 0.075 Mg Tab PO SCH (06:31)
[2018-04-23] MEDS: Ferrous Sulfate 325 MG TAB PO SCH (11:06)
[2018-04-23] MEDS: Multivitamin Tab PO SCH (11:10)
[2018-04-24] MEDS: Levothyroxine 0.075 Mg Tab PO SCH (06:55)
[2018-04-24] MEDS: Multivitamin Tab PO SCH (09:07)
[2018-04-24] MEDS: Ferrous Sulfate 325 MG TAB PO SCH (09:09)
[2018-04-25] MEDS: Levothyroxine 0.075 Mg Tab PO SCH (08:22)
[2018-04-25] MEDS: Multivitamin Tab PO SCH (08:22)
[2018-04-25] MEDS: Ferrous Sulfate 325 MG TAB PO SCH (08:23)
[2018-04-26] MEDS: Levothyroxine 0.075 Mg Tab PO SCH (06:44)
[2018-04-26] MEDS: Multivitamin Tab PO SCH (09:51)
[2018-04-26] MEDS: Ferrous Sulfate 325 MG TAB PO SCH (09:53)
--- NOTE | 2018-04-26 17:45 | Progress Notes ---
DATE: 04/26/[address] Moreno. Case was discussed with staff of the patient, reviewed the record. This is a 67-year-old female who was admitted on 04/15/2018 with a history of psychosis after having come back to the hospital. She ____ and wants medication because of increased medical problems. The patient is still manic, singing loudly, laughing inappropriately. She was discharged, brought back to the Psych Unit, still agitated and irritable and angry mood. The patient seems to be a little bit calmer now she is responding better to redirection. She is sleeping better, eating better and continues to observe she is responding to internal stimuli. She has been compliant with the medication, no side effects, no sedation, no nausea, no extrapyramidal symptoms. She is on Seroquel 25 mg twice a day and 50 mg at bedtime and we will continue to work with the patient in group therapy, milieu therapy, and adjust medication as needed. JOB# [id number]
--- NOTE | 2018-04-26 22:08 | Progress Notes ---
DATE: 04/21/2018 SUBJECTIVE: Chart reviewed and the patient interviewed. Also, discussed the patient's condition with the staff and reviewed records and labs. The patient seems to be more interacting and she seems to be slightly less agitated. She seems to be preoccupied and still responding. She also has episodes of manic behavior including singing. The patient's appetite also improved. No side effects of medications. ASSESSMENT: The patient is slightly improved. TREATMENT PLAN: Continue to monitor her behavior and her condition closely. Also, continue Seroquel. Also, continue monitoring her intakes and outputs. JOB# [id number]
[2018-04-27] MEDS: Levothyroxine 0.075 Mg Tab PO SCH (06:31)
[2018-04-27] MEDS: Ferrous Sulfate 325 MG TAB PO SCH (09:18)
[2018-04-27] MEDS: Multivitamin Tab PO SCH (09:22)
--- NOTE | 2018-04-27 09:42 | Progress Notes ---
DATE: 04/22/2018 Chart reviewed and the patient interviewed. Also discussed the patient's condition with the staff and reviewed records and labs. The patient is still anxious and she is still in a depressed mood. The patient also is suspicious and is still paranoid. The patient is thinking that somebody is going to kill her and that the people will take off her clothes. She also is "afraid to and afraid to live." She needs lots of reassurance. She also still seems to be preoccupied and is still responding to stimuli. The patient also still mumbles and talking to self. Otherwise, the patient continued to comply with taking medications and no side effects of Seroquel in a dose of 25 mg twice a day and 25 mg at bedtime. We will continue same dose and we will continue to follow up. JOB# [id number]
--- NOTE | 2018-04-27 20:20 | Progress Notes ---
DATE: SUBJECTIVE: Chart reviewed and the patient interviewed. Also discussed the patient's condition with the staff and reviewed records and labs. The patient is still forgetful and confused. The patient also still needs lots of redirections. The patient also is still easily agitated. She is still in irritable mood. The patient also still needs attention and during interview, the patient still seems to be paranoid and suspicious. Otherwise, the patient is compliant with taking her medications with no side effects of medications. ASSESSMENT: The patient has been psychotic and needs close monitoring. TREATMENT PLAN: Continue to monitor her behavior and her condition closely. Also, we will increase Seroquel to 25 mg twice a day and 50 mg at bedtime. Also, continue to work on adjusting psychotropic medications and on placement issue and placement is still a problem, especially that the patient has no half-way home days available. Also, we will work on her insomnia and also behavioral modification. JOB# [id number]
--- NOTE | 2018-04-27 20:21 | Progress Notes ---
DATE: 04/23/2018 SUBJECTIVE: Chart reviewed and the patient interviewed. Also, discussed the patient's condition with the staff and reviewed records and labs. The patient still seems to be preoccupied and continued to be actively responding to stimuli. The patient also is still hyperverbal and she is still in a depressed mood. She also is still suspicious, paranoid and actively responding. The patient still needs redirections. ASSESSMENT: The patient is still agitated and psychotic. TREATMENT PLAN: We will continue to monitor her behavior and her condition closely. We will also continue to work with rehabilitation case coordinator in regard to discharge plans. Also, continue feed her through G-tube as well as giving her medication through G-tube. Also, the patient came from ____ [facility] and it seems that they might not be taking her back. We will continue to work on this issue and discharge. JOB# [id number]
--- NOTE | 2018-04-27 21:31 | Progress Notes ---
DATE: 04/27/2018 SUBJECTIVE: The patient with history of psychosis, [facility]. Noted to be manic, singing loudly. The patient believes that she is here because she fell at home. 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 She states it is May,; it is April,. The patient ruminative in her thoughts, some confusion noted, still with angry outbursts, noted to be impulsive and unpredictable. 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 PLAN: We will continue to monitor. The patient is not safe for a lower level of care. Continue Seroquel. JOB# [id number]
--- NOTE | 2018-04-27 23:08 | Progress Notes ---
DATE: 04/25/2018 PSYCHIATRIC PROGRESS NOTE: Chart reviewed and the patient interviewed. Also, discussed the patient's condition with the staff and reviewed records and labs. The patient is still anxious and is still in a depressed mood. The patient also is still withdrawn and she is still suspicious and paranoid. The patient is sleeping better and increased the Seroquel and she is not complaining of insomnia, but she is still having mood swings and needs lots of attention. She is also still paranoid, thinking that somebody ____ taking off her clothes. At the same time, we will continue to monitor behavior and will continue current medications and treatment and will continue to follow up. JOB# [id number]
[2018-04-28] MEDS: Levothyroxine 0.075 Mg Tab PO SCH (06:24)
--- NOTE | 2018-04-28 07:08 | Progress Notes ---
DATE: 04/28/2018 SUBJECTIVE: The patient is currently in the hospital, noted to be guarded, suspicious with G-tube, depressed, crying, states she had a brain tumor, states she is worried about dying. The patient alluding to having "trust in God" at the same time. Sometimes she has angry outbursts, poor impulse control, requiring a higher level of nursing care, slept for about 9 hours last night. ASSESSMENT: The patient is suspicious, very tearful, confused on exam, the patient is disoriented, upset talking about having a brain tumor. PLAN: We will continue to monitor. Adjust and titrate medications. Given her ongoing symptoms, she is not safe for discharge at this time. Medications were noted including doses and frequencies. We will continue medications at current dose. JOB# [id number]
[2018-04-28] MEDS: Multivitamin Tab PO SCH (09:23)
[2018-04-28] MEDS: Ferrous Sulfate 325 MG TAB PO SCH (09:24)
[2018-04-29] MEDS: Levothyroxine 0.075 Mg Tab PO SCH (06:53)
[2018-04-29] MEDS: Ferrous Sulfate 325 MG TAB PO SCH (09:30)
[2018-04-29] MEDS: Multivitamin Tab PO SCH (09:30)
--- NOTE | 2018-04-30 00:55 | Progress Notes ---
DATE: 04/29/2018 SUBJECTIVE: Case was discussed with staff of the patient, reviewed records. The patient is very lethargic and suspicious. She has a G-tube. She is depressed. She believes that she has a brain tumor and worried about dying. She continues to have episodes with angry, labile. She continues to be unpredictable, impulsive, needing redirection. No side effects with the medication, no sedation, no nausea, and no extrapyramidal symptoms. We will continue to work with the patient in group therapy, milieu therapy, and adjust the medications as needed. JOB# [id number]
[2018-04-30] MEDS: Levothyroxine 0.075 Mg Tab PO SCH (07:06)
[2018-04-30] MEDS: Ferrous Sulfate 325 MG TAB PO SCH (09:37)
[2018-04-30] MEDS: Multivitamin Tab PO SCH (09:38)
--- NOTE | 2018-04-30 21:49 | Progress Notes ---
DATE: 04/30/2018 Case was discussed with staff of the patient and reviewed records. The patient continues to stay to herself. Continues to be unpredictable, impulsive, depressed, worrisome. She is a G2, continues to have episodes of anger, labile, unpredictable, impulsive, needing redirection. No side effects with the medication, no sedation, no nausea, no extrapyramidal symptoms. Lab work showed chemistry panel with high chloride, carbon dioxide and high creatinine level and we will continue outpatient group therapy, milieu therapy, adjust medication as needed. JOB# [id number]
[2018-05-01] MEDS: Levothyroxine 0.075 Mg Tab PO SCH (06:49)
[2018-05-01] MEDS: Ferrous Sulfate 325 MG TAB PO SCH (09:44)
[2018-05-01] MEDS: Multivitamin Tab PO SCH (09:44)
--- NOTE | 2018-05-01 20:49 | General Progress Note ---
Subjective - Review of Systems Service Date: 05/01/18 Subjective: Patient seen and examined nursing staff reported that patient tolerating liquids Objective - Results Result Diagrams: 04/18/18 14:40 Recent Labs: Laboratory Last Values Sodium 144 mEq/L (136-145) 04/18/18 14:40 Potassium 4.3 mEq/L (3.5-5.1) 04/18/18 14:40 Chloride 118 mEq/L (98-107) H 04/18/18 14:40 Carbon Dioxide 16.1 mEq/L (21.0-31.0) L 04/18/18 14:40 Anion Gap 14.2 (7.0-16.0) 04/18/18 14:40 BUN 25 mg/dL (7-25) 04/18/18 14:40 Creatinine 2.9 mg/dL (0.6-1.2) H 04/18/18 14:40 Est GFR ( Amer) 20.7 ml/min (>90) 04/18/18 14:40 Est GFR (Non-Af Amer) 17.1 ml/min 04/18/18 14:40 BUN/Creatinine Ratio 8.6 04/18/18 14:40 Glucose 77 mg/dL (70-105) 04/18/18 14:40 Calcium 9.6 mg/dL (8.6-10.3) 04/18/18 14:40 - Physical Exam Vitals and I&O: Vital Signs Temp 98.6 F 05/01/18 14:00 Pulse 79 05/01/18 14:00 Resp 20 05/01/18 14:00 BP 102/55 05/01/18 14:00 Pulse Ox 96 05/01/18 14:00 Intake & Output 05/01/18 05/01/18 05/02/18 06:59 18:59 06:59 Intake Total 240 Output Total 300 960 Balance -60 -960 Intake: Oral 240 Output: Urine 300 960 Other: # Voids 3 # Bowel Movements 0 0 Active Medications: Current Medications Acetaminophen (Tylenol) 650 mg PO Q4HR PRN PRN Reason: Mild Pain / Temp above 100 Stop: 06/14/18 20:45 Last Admin: 04/21/18 22:53 Dose: 650 mg Al Hydrox/Mg Hydrox/Simethicone (Maalox) 30 ml PO Q4HR PRN PRN Reason: GI DISTRESS Stop: 06/14/18 20:45 Amiodarone HCl (Cordarone) 100 mg PO DAILY [facility] Stop: 06/15/18 08:59 Last Admin: 05/01/18 09:42 Dose: 100 mg Amlodipine Besylate (Norvasc) 10 mg PO DAILY [facility] Stop: 06/15/18 08:59 Last Admin: 05/01/18 09:43 Dose: Not Given Famotidine (Pepcid) 20 mg PO DAILY [facility] Stop: 06/15/18 08:59 Last Admin: 05/01/18 09:44 Dose: 20 mg Ferrous Sulfate (Iron) 325 mg PO DAILY [facility] Stop: 06/15/18 08:59 Last Admin: 05/01/18 09:44 Dose: 325 mg Levothyroxine Sodium (Synthroid) 0.15 mg PO QDAC [facility] Stop: 06/15/18 07:29 Last Admin: 05/01/18 06:49 Dose: 0.15 mg Lorazepam (Ativan) 0.5 mg PO Q4HR PRN; Protocol PRN Reason: Anxiety Stop: 05/15/18 20:37 Last Admin: 04/24/18 01:30 Dose: 0.5 mg Magnesium Hydroxide (Milk Of Magnesia) 30 ml PO HS PRN PRN Reason: Constipation Stop: 06/14/18 20:45 Last Admin: 04/30/18 17:39 Dose: 30 ml Metoprolol Succinate (Toprol Xl) 25 mg PO DAILY [facility] Stop: 06/15/18 08:59 Last Admin: 05/01/18 09:42 Dose: Not Given Miscellaneous (Clinical Monitoring) 1 ea MC PRN PRN PRN Reason: RENAL Stop: 06/17/18 15:14 Multivitamins/Vitamin C (Theragran) 1 tab PO DAILY [facility] Stop: 06/15/18 08:59 Last Admin: 05/01/18 09:44 Dose: 1 tab Quetiapine Fumarate (Seroquel) 25 mg PO BID [facility]; Protocol Stop: 06/15/18 08:59 Last Admin: 05/01/18 17:41 Dose: 25 mg Quetiapine Fumarate (Seroquel) 50 mg PO HS [facility]; Protocol Stop: 06/23/18 20:59 Last Admin: 04/30/18 20:22 Dose: 50 mg Zolpidem Tartrate (Ambien) 5 mg PO HS PRN PRN Reason: Insomnia Stop: 06/14/18 18:28 Last Admin: 04/30/18 20:22 Dose: 5 mg Cardiovascular: Regular rate Lungs: Clear to auscultation Assessment/Plan - Assessment Assessment: Poor oral intake CKD Hypothyroidism HTN Dysphagia Mental health disorder - Plan Plan: ST eval Tube feeding Continue current meds Monitor renal function Fall precaution Aspiration precaution Psych management per psychiatrist Nutritional Asmnt/Malnutr-PDOC - Dietary Evaluation Malnutrition Findings (Please click <Entered> for more info): Nutritional Asmnt/Malnutrition Start: 04/19/18 14: 51 Text: Status: Complete Freq: Protocol: Document 04/19/18 14:51 STEWART (Rec: 04/19/18 15:10 STEWART [email or web address]) Nutritional Asmnt/Malnutrition Patient General Information Nutritional Screening Moderate Risk Diagnosis psychosis Pertinent Medical Hx/Surgical Hx HTN, CKD, dysphagia, hypothyroidism Subjective Information Pt seen sleeping in bed at time of visit. Pt is getting bolus TF. Current Diet Order/ Nutrition Support Jevity 1.2 1 can x 4, providing 1152kcal, 53g protein Pertinent Medications iron, synthoid, theragran, seroquel Pertinent Labs 04/18 Cl 118, Cr 2.9 Nutritional Hx/Data Height 1.63 m Height (Calculated Centimeters) 162.6 Current Weight (lbs) 70.76 kg Weight (Calculated Kilograms) 70.8 Weight (Calculated Grams) 08893.4 [place] Body Weight 120 Body Mass Index (BMI) 26.7 Weight Status Overweight GI Symptoms GI Symptoms None Last BM 04/17 Difficult in: None Estimated Nutritional Goals Calories/Kcals/Kg 25-30 based on IBW 55kg Kcals Calculated 2339-4956 Protein g/k-1.2 Protein Calculated 55-66 Fluid: ml 1375-1650ml (1ml/kcal) Nutritional Problem 1. Problem Problem inadequte intake from enteral feeding Etiology inadequate volume of TF formula Signs/Symptoms: bolus feeding not meeting nutritional needs Malnutrition Alert Is there a minimum of two criteria No selected? Query Text:Check all the applicable criteria. A minimum of two criteria are recommended for diagnosis of either severe or non-severe malnutrition. Malnutrition Related to Morbid Obesity Malnutrition related to morbid obesity No Intervention/Recommendation Comments 1. Recommend bolus feeding 5 cans daily with 120ml water flush with bolus feeding. It provides 1440kcal, 66g protein , 968 + 600ml free water, meeting 100% of nutritional needs. [facility] notified. 2. Monitor TF rate, tolerance, wt, skin integrity and labs 3. F/U as moderate risk in 3-5 days, 04/22-04/24 Expected Outcomes/Goals Expected Outcomes/Goals 1. Pt to meet at least 75% of nutritional needs via nutrition support with tolerance 2. Wt stability, skin to remain intact, labs to approach WNL.
--- NOTE | 2018-05-02 01:07 | Progress Notes ---
DATE: 05/01/2018 SUBJECTIVE: Chart reviewed and the patient interviewed. Also, discussed the patient's condition with the staff and reviewed records and labs. The patient is sleepy and the patient is still having episodes of irritability, but less than before. She also is guarded and withdrawn and interacting minimally with others. She denies any intention to harm herself or others. At the same time, the patient is compliant taking her medications with no side effects of medications. ASSESSMENT: The patient is showing some improvement. TREATMENT PLAN: Continue to monitor her behavior and her condition closely. Also, continue adjusting psychotropic medications and work on behavioral modifications. Also, medical case worker have difficulty finding a place for the patient because she has no Medicare days left and it seems that so far no place accepting the patient. At the same time, continue working on her irritability and continue adjusting psychotropic medications and followup. JOB# [id number]
[2018-05-02] MEDS: Levothyroxine 0.075 Mg Tab PO SCH (06:44)
[2018-05-02] MEDS: Multivitamin Tab PO SCH (08:12)
[2018-05-02] MEDS: Ferrous Sulfate 325 MG TAB PO SCH (08:13)
[2018-05-03] MEDS: Levothyroxine 0.075 Mg Tab PO SCH (06:38)
--- NOTE | 2018-05-03 07:37 | Progress Notes ---
DATE: 05/02/2018 SUBJECTIVE: Chart reviewed and the patient interviewed. Also discussed the patient's condition with the staff and reviewed records and labs. The patient continued to be confused and paranoid. The patient also still has mood swings and episodes of laughing and singing and other episodes of yelling and crying. She also still has some obsessive compulsive behavior. She also still has episodes of aggression with the staff, especially when helping her with her ADLs. Otherwise, the patient is compliant with taking her medications with no side effects of medications. ASSESSMENT: The patient is still confused, but easier to redirect. TREATMENT PLAN: Continue to monitor behavior and condition closely. Also, continue to work on her irritability and continue to follow up closely. Also, sample case porter still working on discharge plans and no place accepting the patient. JOB# [id number]
[2018-05-03] MEDS: Ferrous Sulfate 325 MG TAB PO SCH (08:40)
[2018-05-03] MEDS: Multivitamin Tab PO SCH (08:40)
--- NOTE | 2018-05-04 01:45 | Progress Notes ---
DATE: 05/03/2018 SUBJECTIVE: Chart reviewed and the patient interviewed. Also, discussed the patient's condition with the staff and reviewed records and labs. The patient is still confused and she is still suspicious and paranoid. The patient also is still preoccupied and she is still actively responding. She also still has severe mood swings and at times singing and other times, yelling and screaming. She also is still in angry and in irritable mood. Otherwise, the patient is not compliant with taking medications with no side effects of medications. ASSESSMENT: The patient is still psychotic and is still agitated. TREATMENT PLAN: Discussed with watch case polisherenforcement manager issue and watch case polisher still has difficulty finding placement for the patient because no Medicare days. At the same time, continue to monitor her behavior and continue to work on discharge plans and placement issue. JOB# [id number]
[2018-05-04] MEDS: Levothyroxine 0.075 Mg Tab PO SCH (06:41)
[2018-05-04] MEDS: Ferrous Sulfate 325 MG TAB PO SCH (09:28)
[2018-05-04] MEDS: Multivitamin Tab PO SCH (09:28)
--- NOTE | 2018-05-04 10:42 | Diagnostic Imaging Report ---
KUB abdominal film HISTORY: Pain There is a nonspecific gas pattern of nondilated bowel. A balloontipped catheter projects over the gastric area. An inferior vena cava filter is seen. Severe deformity about the right lower pelvis and right hip region associated with the right hip arthroplasty. IMPRESSION: 1. Nonspecific bowel gas pattern
--- NOTE | 2018-05-04 21:31 | Progress Notes ---
DATE: 05/04/2018 COVERING FOR: Dr. Moreno. PROGRESS ON THE UNIT: Case was discussed with staff of the patient, reviewed records, medication and labs. The patient continues to be suspicious and paranoid. She continues to be internally preoccupied. She continues to have mood swings and irritability. She is compliant with medication with no side effects. She also has a placement issue. No side effects to the medication, no sedation, no nausea, no extrapyramidal symptoms. Dr. Moreno increased Seroquel to ____ mg at bedtime. PLAN: We will continue to work with the patient in group therapy and milieu therapy, adjust medications as needed. JOB# [id number]
[2018-05-05] MEDS: Levothyroxine 0.075 Mg Tab PO SCH (06:47)
[2018-05-05] MEDS: Multivitamin Tab PO SCH (08:46)
[2018-05-05] MEDS: Ferrous Sulfate 325 MG TAB PO SCH (08:46)
--- NOTE | 2018-05-05 13:18 | General Progress Note ---
Subjective - Review of Systems Service Date: 05/04/18 Subjective: Patient seen and examined doing better Objective - Results Result Diagrams: 04/18/18 14:40 Recent Labs: Laboratory Last Values Sodium 144 mEq/L (136-145) 04/18/18 14:40 Potassium 4.3 mEq/L (3.5-5.1) 04/18/18 14:40 Chloride 118 mEq/L (98-107) H 04/18/18 14:40 Carbon Dioxide 16.1 mEq/L (21.0-31.0) L 04/18/18 14:40 Anion Gap 14.2 (7.0-16.0) 04/18/18 14:40 BUN 25 mg/dL (7-25) 04/18/18 14:40 Creatinine 2.9 mg/dL (0.6-1.2) H 04/18/18 14:40 Est GFR ( Amer) 20.7 ml/min (>90) 04/18/18 14:40 Est GFR (Non-Af Amer) 17.1 ml/min 04/18/18 14:40 BUN/Creatinine Ratio 8.6 04/18/18 14:40 Glucose 77 mg/dL (70-105) 04/18/18 14:40 Calcium 9.6 mg/dL (8.6-10.3) 04/18/18 14:40 - Physical Exam Vitals and I&O: Vital Signs Temp 99.2 F 05/05/18 06:44 Pulse 100 05/05/18 08:47 Resp 20 05/05/18 06:44 BP 125/70 05/05/18 06:44 Pulse Ox 97 05/05/18 06:44 Intake & Output 05/04/18 05/05/18 05/05/18 18:59 06:59 18:59 Intake Total 1200 830 Output Total 800 Balance 1200 30 Intake: Oral 1200 830 Output: Urine 800 Other: # Voids 1 # Bowel Movements 1 Active Medications: Current Medications Acetaminophen (Tylenol) 650 mg PO Q4HR PRN PRN Reason: Mild Pain / Temp above 100 Stop: 06/14/18 20:45 Last Admin: 04/21/18 22:53 Dose: 650 mg Al Hydrox/Mg Hydrox/Simethicone (Maalox) 30 ml PO Q4HR PRN PRN Reason: GI DISTRESS Stop: 06/14/18 20:45 Amiodarone HCl (Cordarone) 100 mg PO DAILY [facility] Stop: 06/15/18 08:59 Last Admin: 05/05/18 08:47 Dose: 100 mg Amlodipine Besylate (Norvasc) 10 mg PO DAILY [facility] Stop: 06/15/18 08:59 Last Admin: 05/05/18 08:47 Dose: Not Given Famotidine (Pepcid) 20 mg PO DAILY [facility] Stop: 06/15/18 08:59 Last Admin: 05/05/18 08:46 Dose: 20 mg Ferrous Sulfate (Iron) 325 mg PO DAILY [facility] Stop: 06/15/18 08:59 Last Admin: 05/05/18 08:46 Dose: 325 mg Levothyroxine Sodium (Synthroid) 0.15 mg PO QDAC [facility] Stop: 06/15/18 07:29 Last Admin: 05/05/18 06:47 Dose: 0.15 mg Lorazepam (Ativan) 0.5 mg PO Q4HR PRN; Protocol PRN Reason: Anxiety Stop: 05/15/18 20:37 Last Admin: 05/04/18 20:26 Dose: 0.5 mg Magnesium Hydroxide (Milk Of Magnesia) 30 ml PO HS PRN PRN Reason: Constipation Stop: 06/14/18 20:45 Last Admin: 04/30/18 17:39 Dose: 30 ml Metoprolol Succinate (Toprol Xl) 25 mg PO DAILY [facility] Stop: 06/15/18 08:59 Last Admin: 05/05/18 08:47 Dose: Not Given Miscellaneous (Clinical Monitoring) 1 ea MC PRN PRN PRN Reason: RENAL Stop: 06/17/18 15:14 Multivitamins/Vitamin C (Theragran) 1 tab PO DAILY [facility] Stop: 06/15/18 08:59 Last Admin: 05/05/18 08:46 Dose: 1 tab Quetiapine Fumarate (Seroquel) 25 mg PO BID [facility]; Protocol Stop: 06/15/18 08:59 Last Admin: 05/05/18 08:46 Dose: 25 mg Quetiapine Fumarate (Seroquel) 50 mg PO HS [facility]; Protocol Stop: 06/23/18 20:59 Last Admin: 05/04/18 20:26 Dose: 50 mg Zolpidem Tartrate (Ambien) 5 mg PO HS PRN PRN Reason: Insomnia Stop: 06/14/18 18:28 Last Admin: 05/05/18 00:57 Dose: 5 mg Cardiovascular: Regular rate Lungs: Clear to auscultation Abdomen: Soft Assessment/Plan - Assessment Assessment: Poor oral intake CKD Hypothyroidism HTN Dysphagia Mental health disorder - Plan Plan: Dysphagia diet Tube feeding on hold Continue current meds Monitor oral intake Fall precaution Aspiration precaution Psych management per psychiatrist Nutritional Asmnt/Malnutr-PDOC - Dietary Evaluation Malnutrition Findings (Please click <Entered> for more info): Nutritional Asmnt/Malnutrition Start: 04/19/18 14: 51 Text: Status: Complete Freq: Protocol: Document 04/19/18 14:51 STEWART (Rec: 04/19/18 15:10 STEWART [email or web address]) Nutritional Asmnt/Malnutrition Patient General Information Nutritional Screening Moderate Risk Diagnosis psychosis Pertinent Medical Hx/Surgical Hx HTN, CKD, dysphagia, hypothyroidism Subjective Information Pt seen sleeping in bed at time of visit. Pt is getting bolus TF. Current Diet Order/ Nutrition Support Jevity 1.2 1 can x 4, providing 1152kcal, 53g protein Pertinent Medications iron, synthoid, theragran, seroquel Pertinent Labs 04/18 Cl 118, Cr 2.9 Nutritional Hx/Data Height 1.63 m Height (Calculated Centimeters) 162.6 Current Weight (lbs) 70.76 kg Weight (Calculated Kilograms) 70.8 Weight (Calculated Grams) 74721.4 [place] Body Weight 120 Body Mass Index (BMI) 26.7 Weight Status Overweight GI Symptoms GI Symptoms None Last BM 04/17 Difficult in: None Estimated Nutritional Goals Calories/Kcals/Kg 25-30 based on IBW 55kg Kcals Calculated 3092-1746 Protein g/k-1.2 Protein Calculated 55-66 Fluid: ml 1375-1650ml (1ml/kcal) Nutritional Problem 1. Problem Problem inadequte intake from enteral feeding Etiology inadequate volume of TF formula Signs/Symptoms: bolus feeding not meeting nutritional needs Malnutrition Alert Is there a minimum of two criteria No selected? Query Text:Check all the applicable criteria. A minimum of two criteria are recommended for diagnosis of either severe or non-severe malnutrition. Malnutrition Related to Morbid Obesity Malnutrition related to morbid obesity No Intervention/Recommendation Comments 1. Recommend bolus feeding 5 cans daily with 120ml water flush with bolus feeding. It provides 1440kcal, 66g protein , 968 + 600ml free water, meeting 100% of nutritional needs. [facility] notified. 2. Monitor TF rate, tolerance, wt, skin integrity and labs 3. F/U as moderate risk in 3-5 days, 04/22-04/24 Expected Outcomes/Goals Expected Outcomes/Goals 1. Pt to meet at least 75% of nutritional needs via nutrition support with tolerance 2. Wt stability, skin to remain intact, labs to approach WNL.
--- NOTE | 2018-05-05 13:21 | General Progress Note ---
Subjective - Review of Systems Service Date: 05/05/18 Subjective: Patient seen and examined requested physical therapy Objective - Results Result Diagrams: 04/18/18 14:40 Recent Labs: Laboratory Last Values Sodium 144 mEq/L (136-145) 04/18/18 14:40 Potassium 4.3 mEq/L (3.5-5.1) 04/18/18 14:40 Chloride 118 mEq/L (98-107) H 04/18/18 14:40 Carbon Dioxide 16.1 mEq/L (21.0-31.0) L 04/18/18 14:40 Anion Gap 14.2 (7.0-16.0) 04/18/18 14:40 BUN 25 mg/dL (7-25) 04/18/18 14:40 Creatinine 2.9 mg/dL (0.6-1.2) H 04/18/18 14:40 Est GFR ( Amer) 20.7 ml/min (>90) 04/18/18 14:40 Est GFR (Non-Af Amer) 17.1 ml/min 04/18/18 14:40 BUN/Creatinine Ratio 8.6 04/18/18 14:40 Glucose 77 mg/dL (70-105) 04/18/18 14:40 Calcium 9.6 mg/dL (8.6-10.3) 04/18/18 14:40 - Physical Exam Vitals and I&O: Vital Signs Temp 99.2 F 05/05/18 06:44 Pulse 100 05/05/18 08:47 Resp 20 05/05/18 06:44 BP 125/70 05/05/18 06:44 Pulse Ox 97 05/05/18 06:44 Intake & Output 05/04/18 05/05/18 05/05/18 18:59 06:59 18:59 Intake Total 1200 830 Output Total 800 Balance 1200 30 Intake: Oral 1200 830 Output: Urine 800 Other: # Voids 1 # Bowel Movements 1 Active Medications: Current Medications Acetaminophen (Tylenol) 650 mg PO Q4HR PRN PRN Reason: Mild Pain / Temp above 100 Stop: 06/14/18 20:45 Last Admin: 04/21/18 22:53 Dose: 650 mg Al Hydrox/Mg Hydrox/Simethicone (Maalox) 30 ml PO Q4HR PRN PRN Reason: GI DISTRESS Stop: 06/14/18 20:45 Amiodarone HCl (Cordarone) 100 mg PO DAILY [facility] Stop: 06/15/18 08:59 Last Admin: 05/05/18 08:47 Dose: 100 mg Amlodipine Besylate (Norvasc) 10 mg PO DAILY [facility] Stop: 06/15/18 08:59 Last Admin: 05/05/18 08:47 Dose: Not Given Famotidine (Pepcid) 20 mg PO DAILY [facility] Stop: 06/15/18 08:59 Last Admin: 05/05/18 08:46 Dose: 20 mg Ferrous Sulfate (Iron) 325 mg PO DAILY [facility] Stop: 06/15/18 08:59 Last Admin: 05/05/18 08:46 Dose: 325 mg Levothyroxine Sodium (Synthroid) 0.15 mg PO QDAC [facility] Stop: 06/15/18 07:29 Last Admin: 05/05/18 06:47 Dose: 0.15 mg Lorazepam (Ativan) 0.5 mg PO Q4HR PRN; Protocol PRN Reason: Anxiety Stop: 05/15/18 20:37 Last Admin: 05/04/18 20:26 Dose: 0.5 mg Magnesium Hydroxide (Milk Of Magnesia) 30 ml PO HS PRN PRN Reason: Constipation Stop: 06/14/18 20:45 Last Admin: 04/30/18 17:39 Dose: 30 ml Metoprolol Succinate (Toprol Xl) 25 mg PO DAILY [facility] Stop: 06/15/18 08:59 Last Admin: 05/05/18 08:47 Dose: Not Given Miscellaneous (Clinical Monitoring) 1 ea MC PRN PRN PRN Reason: RENAL Stop: 06/17/18 15:14 Multivitamins/Vitamin C (Theragran) 1 tab PO DAILY [facility] Stop: 06/15/18 08:59 Last Admin: 05/05/18 08:46 Dose: 1 tab Quetiapine Fumarate (Seroquel) 25 mg PO BID [facility]; Protocol Stop: 06/15/18 08:59 Last Admin: 05/05/18 08:46 Dose: 25 mg Quetiapine Fumarate (Seroquel) 50 mg PO HS [facility]; Protocol Stop: 06/23/18 20:59 Last Admin: 05/04/18 20:26 Dose: 50 mg Zolpidem Tartrate (Ambien) 5 mg PO HS PRN PRN Reason: Insomnia Stop: 06/14/18 18:28 Last Admin: 05/05/18 00:57 Dose: 5 mg Cardiovascular: Regular rate Lungs: Clear to auscultation Abdomen: Soft Assessment/Plan - Assessment Assessment: Dysphagia Weakness CKD Hypothyroidism HTN Dysphagia Mental health disorder - Plan Plan: Dysphagia diet PT OT Tube feeding on hold Continue current meds Monitor oral intake Fall precaution Aspiration precaution Psych management per psychiatrist Nutritional Asmnt/Malnutr-PDOC - Dietary Evaluation Malnutrition Findings (Please click <Entered> for more info): Nutritional Asmnt/Malnutrition Start: 04/19/18 14: 51 Text: Status: Complete Freq: Protocol: Document 04/19/18 14:51 AIDANG (Rec: 04/19/18 15:10 STEWART [email or web address]) Nutritional Asmnt/Malnutrition Patient General Information Nutritional Screening Moderate Risk Diagnosis psychosis Pertinent Medical Hx/Surgical Hx HTN, CKD, dysphagia, hypothyroidism Subjective Information Pt seen sleeping in bed at time of visit. Pt is getting bolus TF. Current Diet Order/ Nutrition Support Jevity 1.2 1 can x 4, providing 1152kcal, 53g protein Pertinent Medications iron, synthoid, theragran, seroquel Pertinent Labs 04/18 Cl 118, Cr 2.9 Nutritional Hx/Data Height 1.63 m Height (Calculated Centimeters) 162.6 Current Weight (lbs) 70.76 kg Weight (Calculated Kilograms) 70.8 Weight (Calculated Grams) 46632.4 [place] Body Weight 120 Body Mass Index (BMI) 26.7 Weight Status Overweight GI Symptoms GI Symptoms None Last BM 04/17 Difficult in: None Estimated Nutritional Goals Calories/Kcals/Kg 25-30 based on IBW 55kg Kcals Calculated 8077-8055 Protein g/k-1.2 Protein Calculated 55-66 Fluid: ml 1375-1650ml (1ml/kcal) Nutritional Problem 1. Problem Problem inadequte intake from enteral feeding Etiology inadequate volume of TF formula Signs/Symptoms: bolus feeding not meeting nutritional needs Malnutrition Alert Is there a minimum of two criteria No selected? Query Text:Check all the applicable criteria. A minimum of two criteria are recommended for diagnosis of either severe or non-severe malnutrition. Malnutrition Related to Morbid Obesity Malnutrition related to morbid obesity No Intervention/Recommendation Comments 1. Recommend bolus feeding 5 cans daily with 120ml water flush with bolus feeding. It provides 1440kcal, 66g protein , 968 + 600ml free water, meeting 100% of nutritional needs. [facility] notified. 2. Monitor TF rate, tolerance, wt, skin integrity and labs 3. F/U as moderate risk in 3-5 days, 04/22-04/24 Expected Outcomes/Goals Expected Outcomes/Goals 1. Pt to meet at least 75% of nutritional needs via nutrition support with tolerance 2. Wt stability, skin to remain intact, labs to approach WNL.
--- NOTE | 2018-05-05 17:56 | Progress Notes ---
DATE: 05/05/2018 Case was discussed with staff of the patient, reviewed records. The patient continues to be suspicious and paranoid, she ____ in the wrong medication. I asked her what medication she is to be on, she could not remember. I asked her to get a copy of her medication list, so we can compare it. She reports she has tried to do it. She continues to have poor insight, continuous to have episodes of agitation and irritability. She is sleeping better, eating better. She is able to feed herself. No side effects with the medication. No sedation. No nausea and no extrapyramidal symptoms. We will continue the patient in group therapy, milieu therapy, and adjust medications as needed. [facility]# [id number]
[2018-05-05] MEDS ORDERED: NYSTATIN 100000 UNITS/GM POWD TP ONE (18:37)
[2018-05-06] MEDS: Levothyroxine 0.075 Mg Tab PO SCH (06:34)
[2018-05-06] MEDS: Ferrous Sulfate 325 MG TAB PO SCH (09:07)
[2018-05-06] MEDS: Multivitamin Tab PO SCH (09:07)
--- NOTE | 2018-05-06 11:01 | Progress Notes ---
DATE: SUBJECTIVE: Chart reviewed and the patient interviewed. Also, discussed the patient's condition with the staff and reviewed records and labs. The patient is still histrionic and have multiple somatic complaints. The patient is complaining of her inability to walk and feeling tired. The patient is waiting for also placement. At the same time, the patient is compliant with taking her medications including Seroquel in a dose of 25 mg twice a day and 50 mg at bedtime. No side effects of medications except occasionally patient complaining of nausea. ASSESSMENT: The patient is anxious and slightly depressed, but easier to redirect her. TREATMENT PLAN: fresh food manager continue to work on placement issue and so far no place accepted her. We will continue to monitor her behavior and her medications and will continue to follow up. JOB# [id number]
[2018-05-07] MEDS: Levothyroxine 0.075 Mg Tab PO SCH (06:31)
[2018-05-07] MEDS: Ferrous Sulfate 325 MG TAB PO SCH (10:02)
[2018-05-07] MEDS: Multivitamin Tab PO SCH (10:03)
--- NOTE | 2018-05-07 22:56 | Progress Notes ---
DATE: 05/07/2018 SUBJECTIVE: Chart reviewed and the patient interviewed. Also discussed the patient's condition with the staff and reviewed records and labs. The patient is still paranoid and delusional. The patient also is still restless and still has episodes of anger and irritability. She also is still having mood swings. Otherwise, the patient is compliant with taking her medications with no side effects of medications. ASSESSMENT: The patient is still paranoid, but calm. TREATMENT PLAN: fresh food manager is still looking for placement and at the same time, we will continue to monitor behavior and continue to follow up. JOB# [id number]
[2018-05-08] MEDS: Levothyroxine 0.075 Mg Tab PO SCH (06:37)
[2018-05-08] MEDS: Multivitamin Tab PO SCH (09:36)
[2018-05-08] MEDS: Ferrous Sulfate 325 MG TAB PO SCH (09:36)
[2018-05-09] MEDS: Levothyroxine 0.075 Mg Tab PO SCH (06:46)
[2018-05-09] MEDS: Ferrous Sulfate 325 MG TAB PO SCH (09:15)
[2018-05-09] MEDS: Multivitamin Tab PO SCH (09:40)
[2018-05-09] MEDS: NYSTATIN 100000 UNITS/GM POWD TP PRN (10:25)
--- NOTE | 2018-05-09 12:14 | Progress Notes ---
DATE: 05/08/2018 SUBJECTIVE: Chart reviewed and the patient interviewed. Also discussed the patient's condition with the staff and reviewed records and labs. The patient is still forgetful and she is still confused. The patient also is interacting minimally with others and she is still need lot of reassurance. The patient also is still feeling hopeless. The patient is complaining of vomiting, but at the same time she did not vomit but she has some nausea. ASSESSMENT: The patient is still depressed and anxious. TREATMENT PLAN: We will continue to monitor her behavior and her condition closely. Also, outpatient case manager still cannot find a placement for the patient and is still working on discharge plans and placement issue. JOB# [id number]
--- NOTE | 2018-05-09 15:43 | Progress Notes ---
DATE: SUBJECTIVE: Chart reviewed and the patient interviewed. Also discussed the patient's condition with the staff and reviewed records and labs. The patient is still suspicious and paranoid but her affect is brighter. The patient also is interacting minimally with others. She denies any suicidal or homicidal ideations. She is still waiting for placement. dental practice manager is still trying to find placement for the patient and no placement is available yet. ASSESSMENT: The patient is still psychotic and agitated. TREATMENT PLAN: Continue to monitor her behavior and continue to work on her ineffective coping. Also, continue to work on placement issue. JOB# [id number]
[2018-05-09] MEDS: Maalox 30 mL Cup PO PRN (22:29)
[2018-05-10] MEDS: Levothyroxine 0.075 Mg Tab PO SCH (06:45)
[2018-05-10] MEDS: Ferrous Sulfate 325 MG TAB PO SCH (09:00)
[2018-05-10] MEDS: Multivitamin Tab PO SCH (09:00)
--- NOTE | 2018-05-11 01:46 | Progress Notes ---
DATE: 05/10/2018 SUBJECTIVE: Chart reviewed and the patient interviewed. Also discussed the patient's condition with the staff and reviewed records and labs. The patient continued to be in irritable mood and she is still easily agitated and anxious. The patient also is still slightly suspicious and paranoid. She also is still unable to carry on coherent conversation and she has multiple somatic complaints at times. Otherwise, the patient is compliant with taking her medications with no side effects of medications. TREATMENT PLAN: Discussed with medical case manager discharge plans and possibility that the patient might be accepted by [facility], but at the same time, we will continue to monitor her condition and her medications and continue to follow up. Also, once the patient is available planning to discharge the patient. [facility]# [id number]
[2018-05-11] MEDS: Levothyroxine 0.075 Mg Tab PO SCH (06:41)
[2018-05-11] MEDS: Multivitamin Tab PO SCH (08:35)
[2018-05-11] MEDS: Ferrous Sulfate 325 MG TAB PO SCH (08:40)
--- NOTE | 2018-05-11 10:22 | Progress Notes ---
DATE: 05/11/2018 SUBJECTIVE: A 67-year-old female with history of psychosis, [facility] from a [facility]. Noted to be manic, singing loudly, laughing inappropriately, agitated. Dr. Moreno seeing the patient over the past few days, noted she remains easily agitated, anxious, paranoid, suspicious. On [id number], the patient refusing to speak with me, does not want to talk to me at this time. Medications were noted including doses and frequencies. Staff noting she remains poorly oriented, still sometimes guarded on exam, anxious, suspicious of others, but seems to be improving. PLAN: We will continue to monitor. Medications were noted including dosages and frequencies. Continue Seroquel. JOB# [id number]
[2018-05-11] MEDS: NYSTATIN 100000 UNITS/GM POWD TP PRN (17:35)
[2018-05-12] MEDS: Levothyroxine 0.075 Mg Tab PO SCH (07:01)
--- NOTE | 2018-05-12 07:14 | Progress Notes ---
DATE: 05/12/2018 SUBJECTIVE: The patient noted to be manic, singing loudly, laughing inappropriately, easily agitated, anxious and paranoid. Staff noting she has been , calmer on exam, slept fairly well. The patient poorly oriented, AO to name, does not know why she is here, forgetful, noted to be calmer, friendlier. ASSESSMENT: The patient remains symptomatic, still confused, poorly oriented, saying a few things to me, but generally refusing interview. Medications were noted. Staff notes that she has been calmer. PLAN: We will continue to monitor. The patient is not safe for discharge. JOB# [id number]
[2018-05-12] MEDS: Multivitamin Tab PO SCH (10:04)
[2018-05-12] MEDS: Ferrous Sulfate 325 MG TAB PO SCH (10:04)
[2018-05-13] MEDS: Levothyroxine 0.075 Mg Tab PO SCH (06:30)
[2018-05-13] MEDS: Multivitamin Tab PO SCH (09:33)
[2018-05-13] MEDS: Ferrous Sulfate 325 MG TAB PO SCH (09:33)
[2018-05-13 11:31] LABS: ALB/GLOB RATIO 1.6 (1.0-1.8); ALBUMIN 3.9 gm/dL (3.7-5.3); ANION GAP 13.2 (7.0-16.0); BILIRUBIN,TOTAL 0.3 mg/dL (0.3-1.0); CALCIUM SERUM 9.9 mg/dL (8.6-10.3); GFR AFRICAN-AMERICAN 19.9 ml/min (>90); GFR NON AFRICAN-AMERICAN 16.4 ml/min; POTASSIUM SERUM 4.2 mEq/L (3.5-5.1); TOTAL PROTEIN,SERUM 6.3 gm/dL (6.0-8.3)
[2018-05-14] MEDS: Levothyroxine 0.075 Mg Tab PO SCH (06:46)
[2018-05-14] MEDS: Ferrous Sulfate 325 MG TAB PO SCH (09:17)
[2018-05-14] MEDS: Multivitamin Tab PO SCH (09:18)
--- NOTE | 2018-05-15 00:15 | Progress Notes ---
DATE: 05/13/2018 SUBJECTIVE: Chart reviewed and the patient interviewed. Also discussed the patient's condition with the staff and reviewed records and labs. The patient is still severely anxious and she is still isolative and withdrawn. The patient also is still suspicious and paranoid. The patient also have multiple somatic complaint. She also still gets angry and upset easily. Otherwise, no major medical problems. ASSESSMENT: The patient is still depressed and psychotic. TREATMENT PLAN: Continue to monitor her behavior and her condition closely. Also, continue to work on her irritability. Also, family caseworker still has difficult time finding placement for the patient. We will continue working on her depression and irritability and continue to try to find a placement for the patient and will continue to follow up. JOB# [id number]
[2018-05-15] MEDS: Levothyroxine 0.075 Mg Tab PO SCH (06:51)
[2018-05-15] MEDS: Ferrous Sulfate 325 MG TAB PO SCH (08:28)
[2018-05-15] MEDS: Multivitamin Tab PO SCH (08:28)
--- NOTE | 2018-05-15 12:54 | Progress Notes ---
DATE: 05/15/2018 Case was discussed with staff of the patient, reviewed records. The patient is a well-known case to see him before covering for Dr. Moreno. She is isolating, withdrawn, anxious, suspicious, paranoid at times with multiple somatic complaints. The bilingual patient support caseworker still having hard time placing her. The patient is compliant with the medication with no side effects, no sedation, no nausea, no extrapyramidal symptoms. We will continue to work with the patient in group therapy, milieu therapy, adjust the medication as needed. JOB# [id number]
[2018-05-16] MEDS: Levothyroxine 0.075 Mg Tab PO SCH (06:37)
[2018-05-16] MEDS: Multivitamin Tab PO SCH (08:56)
[2018-05-16] MEDS: Ferrous Sulfate 325 MG TAB PO SCH (08:56)
--- NOTE | 2018-05-16 15:15 | Progress Notes ---
DATE: 05/16/2018 SUBJECTIVE: Case was discussed with staff of the patient. Staff has been having problems getting placement for her. She continues to isolate herself, staying in bed ____ suspicious and paranoid. Continues to be unable to make safe plan for self-care, unpredictable, impulsive. No side effects with the medication, no sedation, no nausea and we will continue to work with the patient in group therapy, milieu therapy, adjust the medication as needed. JOB# [id number]
[2018-05-17] MEDS: Levothyroxine 0.075 Mg Tab PO SCH (06:47)
[2018-05-17] MEDS: Ferrous Sulfate 325 MG TAB PO SCH ×2 (09:06→09:14)
[2018-05-17] MEDS: Multivitamin Tab PO SCH ×2 (09:07→09:14)
--- NOTE | 2018-05-17 23:41 | Progress Notes ---
DATE: 05/17/2018 Case was discussed with staff of the patient, reviewed records. The patient continues to be easily agitated, continues to have poor insight. Continues to be unable to make safe plan for self-care. Continues to be unpredictable, impulsive, needing redirection. Waiting on placement for this patient. No side effects with the medication, no sedation, no nausea, no extrapyramidal symptoms. We will continue to work with the patient in group therapy, milieu therapy, and adjust the medication as needed. JOB# [id number]
[2018-05-18] MEDS: Levothyroxine 0.075 Mg Tab PO SCH (07:43)
[2018-05-18] MEDS: Ferrous Sulfate 325 MG TAB PO SCH (08:44)
[2018-05-18] MEDS: Multivitamin Tab PO SCH (08:45)
[2018-05-18] MEDS: Maalox 30 mL Cup PO PRN (13:52)
--- NOTE | 2018-05-18 18:18 | Progress Notes ---
DATE: 05/18/2018 SUBJECTIVE: History of psychosis, transferred from a [facility]. The patient was still manic, singing loudly, laughing inappropriately. Noted agitation, irritability, angry mood, needing a higher level of redirection, episodes of being combative. On [id number], the patient is sleeping, arousable, does not want to talk to me, still noted to be suspicious, paranoid, believing she is taking the wrong medications. Poor insight noted with ongoing irritability, agitation, impulsivity. Staff noting she generally confused, suspicious, withdrawn at times, not wanting to talk. ASSESSMENT: The patient with ongoing symptoms, suspiciousness guarded, but generally confused, sometimes refusing medications. Medications were noted. PLAN: We will continue to monitor, titrate and adjust medications. Encourage better med compliance. JOB# [id number]
[2018-05-19] MEDS: Levothyroxine 0.075 Mg Tab PO SCH (07:15)
[2018-05-19] MEDS: Multivitamin Tab PO SCH (09:02)
[2018-05-19] MEDS: Ferrous Sulfate 325 MG TAB PO SCH (09:06)
--- NOTE | 2018-05-19 11:13 | Progress Notes ---
DATE: 05/19/2018 SUBJECTIVE: The patient with history of psychosis, transferred from a [facility], noted to be manic, singing loudly, laughing inappropriately, agitated, angry mood. On [id number], the patient is sleeping, but arousable, poorly oriented, only knows her name, where she is, noted to be suspicious, guarded, not answering some questions, labile mood, mostly withdrawn, keeps to herself, suspicious of staff, self isolates from staff. There is requiring higher level of care including G tube. The patient has been in the hospital since late March. ASSESSMENT: The patient remains guarded, suspicious, ongoing symptoms. Medications were noted. Given her ongoing symptoms, she is not safe for a lower level of care. [facility]# [id number]
[2018-05-20] MEDS: Levothyroxine 0.075 Mg Tab PO SCH (06:54)
[2018-05-20] MEDS: Multivitamin Tab PO SCH (09:16)
[2018-05-20] MEDS: Ferrous Sulfate 325 MG TAB PO SCH (09:17)
--- NOTE | 2018-05-20 17:14 | Progress Notes ---
DATE: 05/20/2018 SUBJECTIVE: The patient slept for about 7 hours last night. Staff concerned because she is mostly withdrawn, stays to herself, needing a lot of help with her ADLs. For example, needing help to eat, mostly plays with her food, concerns about her poor p.o. intake, mostly confused, disoriented, poor impulse control, needing a higher level of reorientation, noted to be sad, irritable, concern for ability to care for herself function at a lower level. She currently does have a G-tube, labile at times. The patient developed chocolate pudding recently. ASSESSMENT: The patient remains symptomatic, disoriented, forgetful, concerns about her p.o. intake. PLAN: We will continue to monitor. Continue Seroquel. The patient remains symptomatic, not currently safe for a lower level of care, requiring continued inpatient management. Concerns for dementia, consider [facility]. JOB# [id number]
[2018-05-21] MEDS: Levothyroxine 0.075 Mg Tab PO SCH (06:36)
[2018-05-21] MEDS: Ferrous Sulfate 325 MG TAB PO SCH (09:26)
[2018-05-21] MEDS: Multivitamin Tab PO SCH (09:29)
--- NOTE | 2018-05-21 18:04 | Progress Notes ---
DATE: 05/21/[address] Moreno. Case was discussed with staff of the patient, reviewed records. The patient continues to be unpredictable, impulsive, staying in bed, asking for help, wants physical therapy. I talked to the staff to try to avoid physical therapy because she said she tried to walk and she could not, the staff wanted her to walk a bit more than in her room. She continues to have poor insight, unable to make safe plan for self-care, waiting on placement for this patient, unable to care for self, needing placement in a SNF facility. She has a G-tube. She is labile. No side effects with the medication, no sedation, no nausea. I will continue outpatient group therapy, milieu therapy, and adjust medications as needed. JOB# [id number]
[2018-05-22] MEDS: Levothyroxine 0.075 Mg Tab PO SCH (08:00)
[2018-05-22] MEDS: Ferrous Sulfate 325 MG TAB PO SCH (09:44)
[2018-05-22] MEDS: Multivitamin Tab PO SCH (09:47)
--- NOTE | 2018-05-22 18:15 | Progress Notes ---
DATE: 05/22/2018 COVERING FOR: Lety Moreno M.D. PROGRESS ON THE UNIT: Case was discussed with staff of the patient, reviewed records. The patient is doing better, sleeping well, eating well. No suicidal ideation. No homicidal ideation. No paranoia. The patient has been here for a long period of time. Apparently, they did find a placement for her, so the patient is ready to go to a lesser level of care. No side effects with the medication, no sedation, no nausea, no extrapyramidal symptoms. PLAN: The patient will need to follow up with the psychiatrist upon discharge. The patient will be discharged today. JOB# [id number]
[2018-05-22] MEDS: NYSTATIN 100000 UNITS/GM POWD TP PRN (23:45)
[2018-05-23] MEDS: Levothyroxine 0.075 Mg Tab PO SCH (06:47)
[2018-05-23] MEDS: Multivitamin Tab PO SCH (08:32)
[2018-05-23] MEDS: Ferrous Sulfate 325 MG TAB PO SCH (08:33)
[2018-05-23] MEDS: NYSTATIN 100000 UNITS/GM POWD TP PRN (10:59)
--- NOTE | 2018-05-23 15:18 | Progress Notes ---
DATE: 05/23/2018 FOLLOW-UP PROGRESS NOTE PROGRESS ON THE UNIT: Case was discussed with staff of the patient, reviewed records. The patient was supposed to be discharged yesterday. She will be going to [facility]. The patient is doing physical therapy. The patient is sleeping well, eating well. She denies any intent to harm herself or anybody. She denies any auditory or visual hallucinations or paranoia. Denies having any side effects. The patient will be followed up by a psychiatrist and her primary care physician there and expected outcome will be stable if the patient complies with the above. JOB# [id number]
--- NOTE | 2018-06-09 20:11 | Discharge Summary ---
DATE OF DISCHARGE: 05/23/2018 PATIENT'S AGE: 67. SEX: Female. PHYSICIAN: Lety Moreno MD, MPH FINAL DIAGNOSES: PRIMARY DIAGNOSIS: Unspecified psychosis. EXTRA MEDICAL DIAGNOSES: Hypothyroidism, diabetes mellitus. REASON FOR HOSPITALIZATION: The patient was admitted to the hospital because of acute psychotic episode and the [facility] medical floor where she was transferred after that to the psych unit. HOSPITAL COURSE: The patient continued to be agitated and she continued to be in irritable mood. The patient also was restless. The patient also was having episodes of yelling and screaming. Gradually, the patient's affect was brighter and the patient was less agitated and less irritable. She was compliant with taking her medications with no side effects of medications. The patient also at times had to be given emergency medications. The patient also is getting Depakote in a dose of 500 mg twice a day. Gradually, the patient's affect was brighter. The patient was less irritable and less agitated. preconstruction manager had problems with placement of the patient and no place accepting the patient because of her running out of days for SNIF. Finally, the patient was accepted and was discharged from the hospital. Physical examination was mention closely and the patient had no major medical problems while in the hospital. Blood workup was also monitored closely. AFTER DISCHARGE PLANS: The patient discharged from the hospital and to continue to take Seroquel in a dose of 75 mg twice a day and 50 mg at bedtime. Also, we will continue to monitor her behavior there. EXPECTED OUTCOME AFTER DISCHARGE: Fair if the patient continued with psychotropic medications and comply and work on behavioral modification. JOB# [id number]
== END 2018-05-23 17:10 | DRG 885 ==
LOC: GERO 17:43
PROVIDERS: ADMIT Psychiatry & Neurology Psychiatry; ATTEND Psychiatry & Neurology Psychiatry
DX: F23 Brief psychotic disorder (principal); N18.4 Chronic kidney disease, stage 4 (severe); F03.91 Unspecified dementia, unspecified severity, with behavioral disturbance; E03.9 Hypothyroidism, unspecified; R13.10 Dysphagia, unspecified; I12.9 Hypertensive chronic kidney disease with stage 1 through stage 4 chronic kidney disease, or unspecified chronic kidney disease; E11.22 Type 2 diabetes mellitus with diabetic chronic kidney disease; F41.9 Anxiety disorder, unspecified; F32.9 Major depressive disorder, single episode, unspecified; Z88.5 Allergy status to narcotic agent; Z88.8 Allergy status to other drugs, medicaments and biological substances
CPT/HCPCS: 36415-UA; 74000-TC; 80048-TC; 80053-TC; X3401; X3904; X7704; Z7610

== ENCOUNTER 2018-05-30 14:49 | Inpatient (IN) | payer MEDICARE, BC ==
--- NOTE | 2018-05-30 15:16 | ED Physician Chart ---
ED Chief Complaint/HPI - Patient Information Date Seen:: 05/30/18 Time Seen:: 15:00 Chief Complaint:: depression History of Present Illness:: Patient stated at her extended care facility that she wanted to go to [facility] and she refused to eat lunch. According to the EMT patient was tearful on the way to the hospital. Patient had a suicide attempt about 1969. Allergies:: Allergies Allergy/AdvReac Type Severity Reaction Status Date / Time morphine Allergy Verified 04/04/18 13:55 NSAIDS (Non-Steroidal Allergy Verified 04/04/18 13:55 Anti-Inflamma Historian:: Patient, EMS Review:: Nurse's Note Reviewed, Transfer documents Reviewed ED Review of Systems - Review of Systems General/Constitutional: No fever, No chills Skin: No skin lesions Head: No headache Eyes: No loss of vision ENT: No earache Neck: No neck pain Cardio Vascular: No chest pain, No palpitations Pulmonary: No SOB GI: No nausea, No vomiting, No diarrhea G/U: No dysuria Musculoskeletal: No bone or joint pain, No back pain, No muscle pain Endocrine: No polyuria, No polydipsia Psychiatric: Prior psych history Hematopoietic: No bruising, No lymphadenopathy Allergic/Immuno: No urticaria, No angioedema ED Past Medical History - Past Medical History Past Medical History: HTN, DM, Thyroid disorder, Other (chronic atrial fibrillation; chronic kidney disease; dysphagia; anemia; hypothyroidism; GERD; bipolar; gallop) Family History: Heart disease, Diabetes [place] Social History: Non Smoker, No Alcohol, Care Facility Surgical History: other (right hip and right knee) Psychiatricy History: Bipolar Medication: None Family Medical History - Family Member Mother History Unknown: Yes ED Physical Exam - Physical Examination General/Constitutional: Well-developed, well-nourished, No distress Head: Atraumatic Eyes: Lids, conjuctiva normal Other Skin comments:: Extensive ecchymosis upper extremities ENMT: External ears, nose nl Other ENMT comments:: 2.5 out of 4 periodontal disease Neck: No nuchal rigidity Respiratory: Nl effort/Exclusion, Clear to Auscultation Other Cardio Vascular comments:: Heart sounds faint; pulse regular GI: No tenderness/rebounding/guarding, No organomegaly, No hernia, Nondistended , No mass/bruits Extremities: Normal digits & nails Neuro/Psych: No focal deficits ED Labs/Radiology/EKG Results - Lab Results Results: Laboratory Results - last 24 hr 05/30/18 05/30/18 15:20 15:20 WBC 5.6 RBC 3.44 L Hgb 10.4 L Hct 31.2 L MCV 90.8 MCH 30.2 MCHC Differential 33.3 RDW 14.5 Plt Count 248 MPV 8.4 Neutrophils % 66.2 Lymphocytes % 24.4 Monocytes % 6.8 Eosinophils % 1.5 Basophils % 1.1 Sodium 139 Potassium 4.3 Chloride 109 H Carbon Dioxide 16.8 L Anion Gap 17.5 H BUN 33 H Creatinine 3.5 H Est GFR ( Amer) 16.7 Est GFR (Non-Af Amer) 13.8 BUN/Creatinine Ratio 9.4 Glucose 78 Calcium 10.4 H - EKG Interpretations Rate & Rhythm: sinus tach with a rate of 102 [place]: left axis Comments:: Left bundle-branch block ED Septic Shock - . Is Septic Shock (SBP<90, OR Lactate>4 mmol\L) present?: No ED Reassessment (Disposition) - Reassessment Reassessment Condition:: Unchanged - Diagnosis Diagnosis:: Urinary tract infection; depression; cardiac arrhythmia (sinus tachycardia) - Patient Disposition Admitted to:: Med/Surg Spoke to:: Luis Gamez Admitting Medical Physician:: Luis Gamez Condition at Disposition:: Stable, Unchanged
[2018-05-30 15:35] LABS: % BASOPHILS 1.1 % (0.0-2.0); % EOSINOPHILS 1.5 % (0.0-5.0); % LYMPHOCYTES 24.4 % (20.0-50.0); % MONOCYTES 6.8 % (2.0-10.0); % NEUTROPHILS 66.2 % (40.0-80.0); BASOPHILE ABSOLUTE 0.1 Th/cumm (0-0.2); EOSINOPHILE ABSOLUTE 0.1 Th/cmm (0.1-0.4); HEMATOCRIT 31.2 % (41.0-60); HEMOGLOBIN 10.4 gm/dL (12-16); LYMPHOCYTE ABSOLUTE 1.4 Th/cmm (1.5-3.0); MEAN CELL VOLUME 90.8 fl (81-100); MEAN CORPUSCULAR HEMOGLOBIN 30.2 pg (27.0-31.0); MEAN CORPUSCULAR HGB CONC 33.3 pg (28.0-36.0); MEAN PLATELET VOLUME 8.4 fl; MONOCYTE ABSOLUTE 0.4 Th/cmm (0.3-1.0); NEUTROPHILE ABSOLUTE 3.6 Th/cmm (1.8-8.0); PLATELET COUNT 248 Th/cmm (150-400); RED BLOOD COUNT 3.44 Mil/cmm (3.80-5.20); RED CELL DISTRIBUTION WIDTH 14.5 % (11.5-20.0); WHITE BLOOD COUNT 5.6 Th/cmm (4.8-10.8)
[2018-05-30 15:48] LABS: ANION GAP 17.5 (7.0-16.0); CALCIUM SERUM 10.4 mg/dL (8.6-10.3); CARBON DIOXIDE 16.8 mEq/L (21.0-31.0); CREATININE - SERUM 3.5 mg/dL (0.6-1.2); GFR AFRICAN-AMERICAN 16.7 ml/min (>90); GFR NON AFRICAN-AMERICAN 13.8 ml/min; POTASSIUM SERUM 4.3 mEq/L (3.5-5.1)
[2018-05-30 16:09] LABS: URINE SOURCE RANDOM
[2018-05-30 16:13] LABS: URINE BILIRUBIN NEGATIVE (NEGATIVE); URINE BLOOD MODERATE (NEGATIVE); URINE GLUCOSE (UA) NEGATIVE (NEGATIVE); URINE KETONE NEGATIVE (NEGATIVE); URINE LEUKOCYTE ESTERASE LARGE (NEGATIVE); URINE MICROSCOPIC INDICATED? YES; URINE NITRATE POSITIVE (NEGATIVE); URINE PROTEIN 100 mg/dL (NEGATIVE); URINE UROBILINOGEN 0.2 E.U./dL (0.2 - 1.0)
[2018-05-30 16:18] LABS: URINE CLARITY HAZY (CLEAR); URINE COLOR YELLOW
[2018-05-30 16:19] LABS: URINE BACTERIA 3+ /hpf (NONE SEEN); URINE EPITHELIAL CELLS FEW /lpf (FEW); URINE WBC >100 /hpf (0-5)
[2018-05-30] MEDS ORDERED: Sodium Chloride 0.9% 1,000 ML IV ONE (16:25)
[2018-05-30] MEDS ORDERED: cefTRIAXone 1 GM in Sodium Chloride 0.9% 50 ML IV ONE (16:26)
[2018-05-30] MEDS ORDERED: Magnesium Hydroxide (MOM) 30 mL UDC PO PRN (19:29)
[2018-05-30] MEDS ORDERED: Maalox 30 mL Cup PO PRN (19:29)
[2018-05-30] MEDS ORDERED: Ipratropium Neb 0.5 mg/2.5 mL UD HHN PRN (19:33)
[2018-05-30] MEDS ORDERED: Albuterol Nebulizer 2.5mg/3mL HHN PRN (19:33)
[2018-05-30] MEDS ORDERED: Levofloxacin 250mg/50mL 250 MG/50 ML BAG IV SCH (21:00)
[2018-05-31] MEDS: Maalox 30 mL Cup PO SCH (00:37)
[2018-05-31] MEDS: D5-0.45NS 1,000 ML IV SCH ×2 (01:03→14:04)
[2018-05-31 04:42] VITALS: BP 106/70
[2018-05-31 05:36] LABS: % BASOPHILS 0.4 % (0.0-2.0); % EOSINOPHILS 6.2 % (0.0-5.0); % NEUTROPHILS 56.4 % (40.0-80.0); EOSINOPHILE ABSOLUTE 0.3 Th/cmm (0.1-0.4); HEMATOCRIT 27.6 % (41.0-60); HEMOGLOBIN 9.2 gm/dL (12-16); LYMPHOCYTE ABSOLUTE 1.4 Th/cmm (1.5-3.0); MEAN CELL VOLUME 91.3 fl (81-100); MEAN CORPUSCULAR HEMOGLOBIN 30.4 pg (27.0-31.0); MEAN CORPUSCULAR HGB CONC 33.3 pg (28.0-36.0); MEAN PLATELET VOLUME 8.2 fl; MONOCYTE ABSOLUTE 0.3 Th/cmm (0.3-1.0); NEUTROPHILE ABSOLUTE 2.5 Th/cmm (1.8-8.0); PLATELET COUNT 207 Th/cmm (150-400); RED BLOOD COUNT 3.02 Mil/cmm (3.80-5.20); RED CELL DISTRIBUTION WIDTH 14.7 % (11.5-20.0); WHITE BLOOD COUNT 4.5 Th/cmm (4.8-10.8)
[2018-05-31 05:54] LABS: ALB/GLOB RATIO 1.8 (1.0-1.8); ALBUMIN 3.5 gm/dL (3.7-5.3); ANION GAP 13.2 (7.0-16.0); BILIRUBIN,TOTAL 0.3 mg/dL (0.3-1.0); CALCIUM SERUM 9.2 mg/dL (8.6-10.3); CARBON DIOXIDE 17.8 mEq/L (21.0-31.0); CREATININE - SERUM 3.4 mg/dL (0.6-1.2); GFR AFRICAN-AMERICAN 17.2 ml/min (>90); GFR NON AFRICAN-AMERICAN 14.2 ml/min; TOTAL PROTEIN,SERUM 5.5 gm/dL (6.0-8.3)
[2018-05-31] MEDS: Levothyroxine 0.075 Mg Tab PO SCH (08:12)
[2018-05-31] MEDS: Ferrous Sulfate 325 MG TAB PO SCH (08:12)
[2018-05-31] MEDS: Multivitamin Tab PO SCH (08:12)
--- NOTE | 2018-05-31 13:42 | Internal Medicine Prog Note ---
Internal Medicine Subjective - Subjective Service Date: 05/31/18 ([facility] [id number]) Internal Medicine Objective - Results Result Diagrams: 05/31/18 05:10 05/31/18 05:10 Recent Labs: Laboratory Last Values WBC 4.5 Th/cmm (4.8-10.8) L 05/31/18 05:10 RBC 3.02 Mil/cmm (3.80-5.20) L 05/31/18 05:10 Hgb 9.2 gm/dL (12-16) L 05/31/18 05:10 Hct 27.6 % (41.0-60) L 05/31/18 05:10 MCV 91.3 fl (81-100) 05/31/18 05:10 MCH 30.4 pg (27.0-31.0) 05/31/18 05:10 MCHC Differential 33.3 pg (28.0-36.0) 05/31/18 05:10 RDW 14.7 % (11.5-20.0) 05/31/18 05:10 Plt Count 207 Th/cmm (150-400) 05/31/18 05:10 MPV 8.2 fl 05/31/18 05:10 Neutrophils % 56.4 % (40.0-80.0) 05/31/18 05:10 Lymphocytes % 31.0 % (20.0-50.0) 05/31/18 05:10 Monocytes % 6.0 % (2.0-10.0) 05/31/18 05:10 Eosinophils % 6.2 % (0.0-5.0) H 05/31/18 05:10 Basophils % 0.4 % (0.0-2.0) 05/31/18 05:10 Sodium 139 mEq/L (136-145) 05/31/18 05:10 Potassium 4.0 mEq/L (3.5-5.1) 05/31/18 05:10 Chloride 112 mEq/L (98-107) H 05/31/18 05:10 Carbon Dioxide 17.8 mEq/L (21.0-31.0) L 05/31/18 05:10 Anion Gap 13.2 (7.0-16.0) 05/31/18 05:10 BUN 30 mg/dL (7-25) H 05/31/18 05:10 Creatinine 3.4 mg/dL (0.6-1.2) H 05/31/18 05:10 Est GFR ( Amer) 17.2 ml/min (>90) 05/31/18 05:10 Est GFR (Non-Af Amer) 14.2 ml/min 05/31/18 05:10 BUN/Creatinine Ratio 8.8 05/31/18 05:10 Glucose 114 mg/dL (70-105) H 05/31/18 05:10 POC Glucose 121 MG/DL (70 - 105) H 05/31/18 06:12 Calcium 9.2 mg/dL (8.6-10.3) 05/31/18 05:10 Total Bilirubin 0.3 mg/dL (0.3-1.0) 05/31/18 05:10 AST 13 U/L (13-39) 05/31/18 05:10 ALT 10 U/L (7-52) 05/31/18 05:10 Alkaline Phosphatase 72 U/L (34-104) 05/31/18 05:10 B-Natriuretic Peptide 61.4 pg/mL (5.0-100.0) 05/31/18 05:10 Total Protein 5.5 gm/dL (6.0-8.3) L 05/31/18 05:10 Albumin 3.5 gm/dL (3.7-5.3) L 05/31/18 05:10 Globulin 2.0 gm/dL 05/31/18 05:10 Albumin/Globulin Ratio 1.8 (1.0-1.8) 05/31/18 05:10 TSH 0.61 uIU/ml (0.34-5.60) 05/31/18 05:10 Urine Source RANDOM 05/30/18 15:35 Urine Color YELLOW 05/30/18 15:35 Urine Clarity HAZY (CLEAR) 05/30/18 15:35 Urine pH 6.0 (4.6 - 8.0) 05/30/18 15:35 Ur Specific [place] 1.010 (1.005-1.030) 05/30/18 15:35 Urine Protein 100 mg/dL (NEGATIVE) H 05/30/18 15:35 Urine Glucose (UA) NEGATIVE mg/dL (NEGATIVE) 05/30/18 15:35 Urine Ketones NEGATIVE mg/dL (NEGATIVE) 05/30/18 15:35 Urine Blood MODERATE (NEGATIVE) H 05/30/18 15:35 Urine Nitrate POSITIVE (NEGATIVE) H 05/30/18 15:35 Urine Bilirubin NEGATIVE (NEGATIVE) 05/30/18 15:35 Urine Urobilinogen 0.2 E.U./dL (0.2 - 1.0) 05/30/18 15:35 Ur Leukocyte Esterase LARGE (NEGATIVE) H 05/30/18 15:35 Urine RBC 10-25 /hpf (0-5) H 05/30/18 15:35 Urine WBC >100 /hpf (0-5) H 05/30/18 15:35 Ur Epithelial Cells FEW /lpf (FEW) 05/30/18 15:35 Urine Bacteria 3+ /hpf (NONE SEEN) H 05/30/18 15:35 - Physical Exam Vitals and I&O: Vital Signs Temp 99.4 F 05/31/18 10:00 Pulse 94 05/31/18 10:00 Resp 18 05/31/18 10:00 BP 112/68 05/31/18 10:00 Pulse Ox 94 05/31/18 10:00 Intake & Output 05/30/18 05/31/18 05/31/18 18:59 06:59 18:59 Intake Total 50 Balance 50 Weight (lbs) 152 lb 149 lb 9.6 oz Intake: Intake, IV Amount 50 Levofloxacin 250mg/50mL 50 250 mg In 50 ml @ 50 mls/ hr IV Q48H [facility] Rx#: [id number] Other: Weight Source Estimated Bedscale Active Medications: Current Medications Acetaminophen (Tylenol) 650 mg PO Q4H PRN PRN Reason: Pain Or Fever above 101 Stop: 07/29/18 19:34 Al Hydrox/Mg Hydrox/Simethicone (Maalox) 30 ml PO HS [facility] Stop: 07/29/18 20:59 Last Admin: 05/31/18 00:37 Dose: Not Given Al Hydrox/Mg Hydrox/Simethicone (Maalox) 30 ml PO Q4HR PRN PRN Reason: GI DISTRESS Stop: 07/29/18 19:28 Albuterol Sulfate (Albuterol 2.5mg/3ml Neb Ud) 2.5 mg HHN Q2HRT PRN PRN Reason: Shortness of Breath or Wheeze Stop: 07/29/18 19:32 Amiodarone HCl (Cordarone) 100 mg PO DAILY [facility] Stop: 07/30/18 08:59 Last Admin: 05/31/18 08:12 Dose: 100 mg Amlodipine Besylate (Norvasc) 10 mg PO DAILY [facility] Stop: 07/30/18 08:59 Last Admin: 05/31/18 08:13 Dose: 10 mg Famotidine (Pepcid) 10 mg PO DAILY [facility] Stop: 07/30/18 08:59 Last Admin: 05/31/18 08:12 Dose: 10 mg Ferrous Sulfate (Iron) 325 mg PO DAILY [facility] Stop: 07/30/18 08:59 Last Admin: 05/31/18 08:12 Dose: 325 mg Dextrose/Sodium Chloride (D5-0.45ns) 1,000 mls @ 80 mls/hr IV .[id number] [facility] Stop: 07/29/18 19:44 Last Admin: 05/31/18 01:03 Dose: 80 mls/hr Levofloxacin (Levaquin Pb) 250 mg in 50 mls @ 50 mls/hr IV Q48H [facility] Stop: 07/29/18 20:59 Last Infusion: 05/31/18 01:58 Dose: Infused Ipratropium [place] (Atrovent Neb 0.5mg/2.5ml) 0.5 mg HHN Q2HRT PRN PRN Reason: Shortness of Breath or Wheeze Stop: 07/29/18 19:32 Levothyroxine Sodium (Synthroid) 0.15 mg PO QDAC [facility] Stop: 07/30/18 07:29 Last Admin: 05/31/18 08:12 Dose: 0.15 mg Lorazepam (Ativan) 0.5 mg PO Q6HR PRN; Protocol PRN Reason: Anxiety Stop: 07/29/18 19:28 Magnesium Hydroxide (Milk Of Magnesia) 30 ml PO HS PRN PRN Reason: Constipation Stop: 07/29/18 19:28 Metoprolol Succinate (Toprol Xl) 25 mg PO DAILY [facility] Stop: 07/30/18 08:59 Last Admin: 05/31/18 08:13 Dose: 25 mg Multivitamins/Vitamin C (Theragran) 1 tab PO DAILY [facility] Stop: 07/30/18 08:59 Last Admin: 05/31/18 08:12 Dose: 1 tab Ondansetron HCl (Zofran) 4 mg IV Q8H PRN PRN Reason: Nausea / Vomiting Stop: 07/29/18 19:34 Quetiapine Fumarate (Seroquel) 50 mg PO HS [facility]; Protocol Stop: 07/29/18 20:59 Last Admin: 05/31/18 00:37 Dose: Not Given Quetiapine Fumarate (Seroquel) 25 mg PO BID [facility]; Protocol Stop: 07/30/18 08:59 Last Admin: 05/31/18 08:12 Dose: 25 mg Zolpidem Tartrate (Ambien) 5 mg PO HS PRN PRN Reason: Insomnia Stop: 07/29/18 19:28
--- NOTE | 2018-05-31 14:16 | History & Physical ---
ADMIT DATE: 05/30/2018 DICTATING FOR: Dr. Luis Gamez CHIEF COMPLAINT: Depression and elevated heart rate. HISTORY OF PRESENT ILLNESS: This is a 67-year-old female who is a resident of [facility] admitted here to the med/surg unit. Initially, the patient was supposed to be admitted to the Geropsych Unit due to patient was in severe depression; however, in the ER, was found to have tachycardia and acute UTI. For further management, the patient is now admitted here to the med/surg unit. PAST MEDICAL HISTORY: Hypertension, diabetes, hypothyroidism, chronic AFib, chronic kidney disease, dysphagia, anemia, hypothyroidism, GERD, bipolar. FAMILY HISTORY: Noncontributory. SOCIAL HISTORY: The [facility] is a [facility] ____ nursing care. SURGICAL HISTORY: Right hip surgery, right knee surgery as well as hernia repair. MEDICATIONS: Please see medication list. REVIEW OF SYSTEMS: Unable to obtain, patient is confused. PHYSICAL EXAMINATION: GENERAL: Elderly female, confused, in no apparent distress. VITAL SIGNS: Temperature 99.4, heart rate 94, blood pressure 112/68, respiration 18, O2 94%. HEENT: Head; normocephalic, atraumatic. NECK: Supple. No mass. LUNGS: Clear bilaterally. HEART: Regular rate and rhythm. ABDOMEN: Soft, nontender, nondistended. LABORATORY DATA: WBC 4.5, H and H 9.2/27.6, platelet of 207. Sodium 139, potassium 4.0, chloride 112, BUN 30, creatinine 3.4. DIAGNOSTICS: The patient had a urinalysis done, positive for UTI. ASSESSMENT: Acute urinary tract infection, tachycardia, acute renal insufficiency, rule out acute dehydration, hypertension, diabetes, hypothyroidism. History of chronic atrial fibrillation, dysphagia, anemia, gastroesophageal reflux disease, bipolar. PLAN: We will admit the patient to Med/Surg unit. We will keep the patient on IV Levaquin, get followup labs for tomorrow morning. IV fluids for hydration. We will get renal ultrasound. Psychiatric consultation as well, 1:1 sitter for safety. We will monitor the patient's glucose before meals and at bedtime. We will continue to follow this patient. JOB# [id number]
--- NOTE | 2018-05-31 22:22 | Consultation ---
DATE OF CONSULTATION: 05/31/2018 IDENTIFYING INFORMATION: The patient is a 67-year-old female. HISTORY OF PRESENT ILLNESS: I was called by [facility], told me that the patient has been agitated, very irritable, very hard to redirect and I was asked him to send her back to [facility] as the patient was recently discharged from that facility. The patient apparently when she came to the Emergency Room, she told Dr. Siddiqui that she wanted to go to [facility]. She refused to eat lunch. The patient was tearful on the way to the hospital, the patient had suicide attempt back in 1969. The patient was recently discharged from [facility] to [facility], it took a while to find a place because of her insurance did not cover. The patient when I tried talk to him, she could not make sense. She was confused, unable to make safe plan for self-care or participate in a meaningful conversation. PAST PSYCHIATRIC HISTORY: Multiple prior admissions to this facility and other facilities because of mental illness. The patient is unable to participate in a meaningful conversation tell me what is going on with her. The patient has been on Seroquel 50 mg at bedtime after 25 mg twice a day. MEDICAL HISTORY: Deferred to the medical doctor. ALLERGIES: THE PATIENT IS ALLERGIC TO MORPHINE, NSAIDS ____. MEDICATIONS: Was restarted on her medication. FAMILY AND SOCIAL HISTORY: Unable to give information because she is confused. MENTAL STATUS EXAMINATION: The patient was uncooperative, not making sense. She told Emergency Room doctor that she wanted to go to [facility]. Unable to make safe plan for self-care. MENTAL STATUS EXAMINATION: The patient is appropriately dressed, not very groomed, very poor insight. Unable to tell me the date, where she is, why she is here. She told the doctor in the Emergency Room that she wanted to go to [facility]. She has been refusing to eat, unable to find out about her sleep, unable to participate in memory testing and tells that she wants to harm herself or anybody. Unable to test her memory intelligence. She already told to the Emergency Room doctor that she wants to go to [facility], not eating lunch. Her insight and judgment is impaired. IMPRESSION: AXIS I: Major depression, recurrent with psychosis. MEDICAL DIAGNOSES: Deferred to the medical doctor. I would recommend to continue medication and to keep her on 1:1 because of her suicidal ideation and transfer to [facility] when medically clear. Thank you very much for allowing me to participate in the care of this most interesting lady. JOB# [id number]
[2018-06-01] MEDS: Maalox 30 mL Cup PO SCH ×2 (00:34→21:31)
[2018-06-01 05:36] LABS: % BASOPHILS 0.5 % (0.0-2.0); % EOSINOPHILS 5.6 % (0.0-5.0); % LYMPHOCYTES 35.8 % (20.0-50.0); % NEUTROPHILS 52.1 % (40.0-80.0); EOSINOPHILE ABSOLUTE 0.3 Th/cmm (0.1-0.4); HEMATOCRIT 32.4 % (41.0-60); HEMOGLOBIN 10.6 gm/dL (12-16); LYMPHOCYTE ABSOLUTE 1.9 Th/cmm (1.5-3.0); MEAN CELL VOLUME 91.7 fl (81-100); MEAN CORPUSCULAR HEMOGLOBIN 30.1 pg (27.0-31.0); MEAN CORPUSCULAR HGB CONC 32.8 pg (28.0-36.0); MEAN PLATELET VOLUME 8.2 fl; MONOCYTE ABSOLUTE 0.3 Th/cmm (0.3-1.0); NEUTROPHILE ABSOLUTE 2.7 Th/cmm (1.8-8.0); PLATELET COUNT 216 Th/cmm (150-400); RED BLOOD COUNT 3.53 Mil/cmm (3.80-5.20); RED CELL DISTRIBUTION WIDTH 14.6 % (11.5-20.0); WHITE BLOOD COUNT 5.2 Th/cmm (4.8-10.8)
[2018-06-01 05:49] LABS: ANION GAP 13.7 (7.0-16.0); CALCIUM SERUM 9.8 mg/dL (8.6-10.3); CARBON DIOXIDE 19.9 mEq/L (21.0-31.0); CREATININE - SERUM 3.4 mg/dL (0.6-1.2); GFR AFRICAN-AMERICAN 17.2 ml/min (>90); GFR NON AFRICAN-AMERICAN 14.2 ml/min; POTASSIUM SERUM 4.6 mEq/L (3.5-5.1)
[2018-06-01] MEDS: Levothyroxine 0.075 Mg Tab PO SCH (07:16)
[2018-06-01] MEDS: Ferrous Sulfate 325 MG TAB PO SCH (08:49)
[2018-06-01] MEDS: Multivitamin Tab PO SCH (08:49)
--- NOTE | 2018-06-01 14:18 | Internal Medicine Prog Note ---
Internal Medicine Subjective - Subjective Patient seen and examined:: with staff, chart reviewed Patient is:: awake, verbal, interactive, agitated, confused Patient Complaints of:: congestion Per staff patient has:: no adverse event, no episodes of fall, poor appetite, agitated, combative, noncompliant, tolerating meds, refusing care Internal Medicine Objective - Results Result Diagrams: 06/01/18 04:55 06/01/18 04:55 Recent Labs: Laboratory Last Values WBC 5.2 Th/cmm (4.8-10.8) 06/01/18 04:55 RBC 3.53 Mil/cmm (3.80-5.20) L 06/01/18 04:55 Hgb 10.6 gm/dL (12-16) L 06/01/18 04:55 Hct 32.4 % (41.0-60) L 06/01/18 04:55 MCV 91.7 fl (81-100) 06/01/18 04:55 MCH 30.1 pg (27.0-31.0) 06/01/18 04:55 MCHC Differential 32.8 pg (28.0-36.0) 06/01/18 04:55 RDW 14.6 % (11.5-20.0) 06/01/18 04:55 Plt Count 216 Th/cmm (150-400) 06/01/18 04:55 MPV 8.2 fl 06/01/18 04:55 Neutrophils % 52.1 % (40.0-80.0) 06/01/18 04:55 Lymphocytes % 35.8 % (20.0-50.0) 06/01/18 04:55 Monocytes % 6.0 % (2.0-10.0) 06/01/18 04:55 Eosinophils % 5.6 % (0.0-5.0) H 06/01/18 04:55 Basophils % 0.5 % (0.0-2.0) 06/01/18 04:55 Sodium 146 mEq/L (136-145) H 06/01/18 04:55 Potassium 4.6 mEq/L (3.5-5.1) 06/01/18 04:55 Chloride 117 mEq/L (98-107) H 06/01/18 04:55 Carbon Dioxide 19.9 mEq/L (21.0-31.0) L 06/01/18 04:55 Anion Gap 13.7 (7.0-16.0) 06/01/18 04:55 BUN 23 mg/dL (7-25) 06/01/18 04:55 Creatinine 3.4 mg/dL (0.6-1.2) H 06/01/18 04:55 Est GFR ( Amer) 17.2 ml/min (>90) 06/01/18 04:55 Est GFR (Non-Af Amer) 14.2 ml/min 06/01/18 04:55 BUN/Creatinine Ratio 6.8 06/01/18 04:55 Glucose 82 mg/dL (70-105) 06/01/18 04:55 POC Glucose 121 MG/DL (70 - 105) H 05/31/18 06:12 Calcium 9.8 mg/dL (8.6-10.3) 06/01/18 04:55 Total Bilirubin 0.3 mg/dL (0.3-1.0) 05/31/18 05:10 AST 13 U/L (13-39) 05/31/18 05:10 ALT 10 U/L (7-52) 05/31/18 05:10 Alkaline Phosphatase 72 U/L (34-104) 05/31/18 05:10 B-Natriuretic Peptide 54.1 pg/mL (5.0-100.0) 06/01/18 04:55 Total Protein 5.5 gm/dL (6.0-8.3) L 05/31/18 05:10 Albumin 3.5 gm/dL (3.7-5.3) L 05/31/18 05:10 Globulin 2.0 gm/dL 05/31/18 05:10 Albumin/Globulin Ratio 1.8 (1.0-1.8) 05/31/18 05:10 TSH 0.61 uIU/ml (0.34-5.60) 05/31/18 05:10 Urine Source RANDOM 05/30/18 15:35 Urine Color YELLOW 05/30/18 15:35 Urine Clarity HAZY (CLEAR) 05/30/18 15:35 Urine pH 6.0 (4.6 - 8.0) 05/30/18 15:35 Ur Specific [place] 1.010 (1.005-1.030) 05/30/18 15:35 Urine Protein 100 mg/dL (NEGATIVE) H 05/30/18 15:35 Urine Glucose (UA) NEGATIVE mg/dL (NEGATIVE) 05/30/18 15:35 Urine Ketones NEGATIVE mg/dL (NEGATIVE) 05/30/18 15:35 Urine Blood MODERATE (NEGATIVE) H 05/30/18 15:35 Urine Nitrate POSITIVE (NEGATIVE) H 05/30/18 15:35 Urine Bilirubin NEGATIVE (NEGATIVE) 05/30/18 15:35 Urine Urobilinogen 0.2 E.U./dL (0.2 - 1.0) 05/30/18 15:35 Ur Leukocyte Esterase LARGE (NEGATIVE) H 05/30/18 15:35 Urine RBC 10-25 /hpf (0-5) H 05/30/18 15:35 Urine WBC >100 /hpf (0-5) H 05/30/18 15:35 Ur Epithelial Cells FEW /lpf (FEW) 05/30/18 15:35 Urine Bacteria 3+ /hpf (NONE SEEN) H 05/30/18 15:35 - Physical Exam Vitals and I&O: Vital Signs Temp 97.8 F 06/01/18 04:00 Pulse 87 06/01/18 08:49 Resp 20 06/01/18 07:30 BP 121/67 06/01/18 08:49 Pulse Ox 98 06/01/18 07:30 Intake & Output 05/31/18 06/01/18 06/01/18 18:59 06:59 18:59 Intake Total 1000 Balance 1000 Weight (lbs) 65.091 kg Intake: Intake, IV Amount 1000 D5-0.45NS 1,000 ml @ 80 1000 mls/hr IV .[id number] [facility] Rx #:[id number] Other: # Voids 3 Weight Source Bedscale Active Medications: Current Medications Acetaminophen (Tylenol) 650 mg PO Q4H PRN PRN Reason: Pain Or Fever above 101 Stop: 07/29/18 19:34 Al Hydrox/Mg Hydrox/Simethicone (Maalox) 30 ml PO HS [facility] Stop: 07/29/18 20:59 Last Admin: 06/01/18 00:34 Dose: Not Given Al Hydrox/Mg Hydrox/Simethicone (Maalox) 30 ml PO Q4HR PRN PRN Reason: GI DISTRESS Stop: 07/29/18 19:28 Albuterol Sulfate (Albuterol 2.5mg/3ml Neb Ud) 2.5 mg HHN Q2HRT PRN PRN Reason: Shortness of Breath or Wheeze Stop: 07/29/18 19:32 Amiodarone HCl (Cordarone) 100 mg PO DAILY [facility] Stop: 07/30/18 08:59 Last Admin: 06/01/18 08:48 Dose: 100 mg Amlodipine Besylate (Norvasc) 10 mg PO DAILY [facility] Stop: 07/30/18 08:59 Last Admin: 06/01/18 08:48 Dose: 10 mg Famotidine (Pepcid) 10 mg PO DAILY [facility] Stop: 07/30/18 08:59 Last Admin: 06/01/18 08:48 Dose: 10 mg Ferrous Sulfate (Iron) 325 mg PO DAILY [facility] Stop: 07/30/18 08:59 Last Admin: 06/01/18 08:49 Dose: 325 mg Dextrose/Sodium Chloride (D5-0.45ns) 1,000 mls @ 80 mls/hr IV .[id number] [facility] Stop: 07/29/18 19:44 Last Admin: 05/31/18 14:04 Dose: 80 mls/hr Levofloxacin (Levaquin Pb) 250 mg in 50 mls @ 50 mls/hr IV Q48H [facility] Stop: 07/29/18 20:59 Last Infusion: 05/31/18 01:58 Dose: Infused Ipratropium [place] (Atrovent Neb 0.5mg/2.5ml) 0.5 mg HHN Q2HRT PRN PRN Reason: Shortness of Breath or Wheeze Stop: 07/29/18 19:32 Levothyroxine Sodium (Synthroid) 0.15 mg PO QDAC [facility] Stop: 07/30/18 07:29 Last Admin: 06/01/18 07:16 Dose: 0.15 mg Lorazepam (Ativan) 0.5 mg PO Q6HR PRN; Protocol PRN Reason: Anxiety Stop: 07/29/18 19:28 Last Admin: 06/01/18 08:49 Dose: 0.5 mg Magnesium Hydroxide (Milk Of Magnesia) 30 ml PO HS PRN PRN Reason: Constipation Stop: 07/29/18 19:28 Metoprolol Succinate (Toprol Xl) 25 mg PO DAILY [facility] Stop: 07/30/18 08:59 Last Admin: 06/01/18 08:49 Dose: 25 mg Multivitamins/Vitamin C (Theragran) 1 tab PO DAILY [facility] Stop: 07/30/18 08:59 Last Admin: 06/01/18 08:49 Dose: 1 tab Ondansetron HCl (Zofran) 4 mg IV Q8H PRN PRN Reason: Nausea / Vomiting Stop: 07/29/18 19:34 Quetiapine Fumarate (Seroquel) 50 mg PO HS [facility]; Protocol Stop: 07/29/18 20:59 Last Admin: 06/01/18 00:34 Dose: Not Given Quetiapine Fumarate (Seroquel) 25 mg PO BID [facility]; Protocol Stop: 07/30/18 08:59 Last Admin: 06/01/18 08:49 Dose: 25 mg Zolpidem Tartrate (Ambien) 5 mg PO HS PRN PRN Reason: Insomnia Stop: 07/29/18 19:28 General: demented HEENT: NC/AT, PERRLA Neck: Supple, No JVD, No LAD Lungs: congested Cardiovascular: RRR, Normal S1, Normal S2, with murmur Abdomen: soft, globular, non-distended, positive bowel sound Extremities: excoriation, ulcers stage 1 Neurological: no change, disorganized Internal Medicine Assmt/Plan - Assessment Assessment: ASSESSMENT: Acute urinary tract infection, tachycardia, acute renal insufficiency, rule out acute dehydration, hypertension, diabetes, hypothyroidism. History of chronic atrial fibrillation, dysphagia, anemia, gastroesophageal reflux disease, bipolar. PLAN: We will admit the patient to Med/Surg unit. We will keep the patient on IV Levaquin, get followup labs for tomorrow morning. IV fluids for hydration. We will get renal ultrasound. Psychiatric consultation - Plan Plan: will follow keiry benites rn
[2018-06-02] MEDS: D5-0.45NS 1,000 ML IV SCH ×2 (02:18→16:25)
[2018-06-02 06:34] LABS: % BASOPHILS 0.1 % (0.0-2.0); % EOSINOPHILS 5.3 % (0.0-5.0); % LYMPHOCYTES 38.5 % (20.0-50.0); % MONOCYTES 5.4 % (2.0-10.0); % NEUTROPHILS 50.7 % (40.0-80.0); EOSINOPHILE ABSOLUTE 0.2 Th/cmm (0.1-0.4); HEMATOCRIT 27.8 % (41.0-60); HEMOGLOBIN 9.3 gm/dL (12-16); LYMPHOCYTE ABSOLUTE 1.7 Th/cmm (1.5-3.0); MEAN CELL VOLUME 91.4 fl (81-100); MEAN CORPUSCULAR HEMOGLOBIN 30.6 pg (27.0-31.0); MEAN CORPUSCULAR HGB CONC 33.4 pg (28.0-36.0); MONOCYTE ABSOLUTE 0.2 Th/cmm (0.3-1.0); NEUTROPHILE ABSOLUTE 2.4 Th/cmm (1.8-8.0); PLATELET COUNT 178 Th/cmm (150-400); RED BLOOD COUNT 3.04 Mil/cmm (3.80-5.20); RED CELL DISTRIBUTION WIDTH 14.5 % (11.5-20.0); WHITE BLOOD COUNT 4.5 Th/cmm (4.8-10.8)
[2018-06-02 06:49] LABS: ALB/GLOB RATIO 1.4 (1.0-1.8); ALBUMIN 3.3 gm/dL (3.7-5.3); ANION GAP 12.4 (7.0-16.0); BILIRUBIN,TOTAL 0.3 mg/dL (0.3-1.0); CALCIUM SERUM 8.8 mg/dL (8.6-10.3); CARBON DIOXIDE 18.1 mEq/L (21.0-31.0); CREATININE - SERUM 3.2 mg/dL (0.6-1.2); GFR AFRICAN-AMERICAN 18.5 ml/min (>90); GFR NON AFRICAN-AMERICAN 15.3 ml/min; MAGNESIUM 2.2 mg/dL (1.9-2.7); POTASSIUM SERUM 3.5 mEq/L (3.5-5.1); TOTAL PROTEIN,SERUM 5.7 gm/dL (6.0-8.3)
[2018-06-02] MEDS: Levothyroxine 0.075 Mg Tab PO SCH (06:49)
[2018-06-02] MEDS: Ferrous Sulfate 325 MG TAB PO SCH (09:23)
[2018-06-02] MEDS: Multivitamin Tab PO SCH (09:23)
--- NOTE | 2018-06-02 14:06 | Internal Medicine Prog Note ---
Internal Medicine Subjective - Subjective Patient seen and examined:: with staff, chart reviewed Patient is:: awake, verbal, interactive, agitated, confused Patient Complaints of:: congestion Per staff patient has:: no adverse event, no episodes of fall, poor appetite, agitated, combative, noncompliant, tolerating meds, refusing care Internal Medicine Objective - Results Result Diagrams: 06/02/18 05:30 06/02/18 05:30 Recent Labs: Laboratory Last Values WBC 4.5 Th/cmm (4.8-10.8) L 06/02/18 05:30 RBC 3.04 Mil/cmm (3.80-5.20) L 06/02/18 05:30 Hgb 9.3 gm/dL (12-16) L 06/02/18 05:30 Hct 27.8 % (41.0-60) L 06/02/18 05:30 MCV 91.4 fl (81-100) 06/02/18 05:30 MCH 30.6 pg (27.0-31.0) 06/02/18 05:30 MCHC Differential 33.4 pg (28.0-36.0) 06/02/18 05:30 RDW 14.5 % (11.5-20.0) 06/02/18 05:30 Plt Count 178 Th/cmm (150-400) 06/02/18 05:30 MPV 8.0 fl 06/02/18 05:30 Neutrophils % 50.7 % (40.0-80.0) 06/02/18 05:30 Lymphocytes % 38.5 % (20.0-50.0) 06/02/18 05:30 Monocytes % 5.4 % (2.0-10.0) 06/02/18 05:30 Eosinophils % 5.3 % (0.0-5.0) H 06/02/18 05:30 Basophils % 0.1 % (0.0-2.0) 06/02/18 05:30 Sodium 139 mEq/L (136-145) 06/02/18 05:30 Potassium 3.5 mEq/L (3.5-5.1) 06/02/18 05:30 Chloride 112 mEq/L (98-107) H 06/02/18 05:30 Carbon Dioxide 18.1 mEq/L (21.0-31.0) L 06/02/18 05:30 Anion Gap 12.4 (7.0-16.0) 06/02/18 05:30 BUN 20 mg/dL (7-25) 06/02/18 05:30 Creatinine 3.2 mg/dL (0.6-1.2) H 06/02/18 05:30 Est GFR ( Amer) 18.5 ml/min (>90) 06/02/18 05:30 Est GFR (Non-Af Amer) 15.3 ml/min 06/02/18 05:30 BUN/Creatinine Ratio 6.3 06/02/18 05:30 Glucose 105 mg/dL (70-105) 06/02/18 05:30 POC Glucose 121 MG/DL (70 - 105) H 05/31/18 06:12 Calcium 8.8 mg/dL (8.6-10.3) 06/02/18 05:30 Magnesium 2.2 mg/dL (1.9-2.7) 06/02/18 05:30 Total Bilirubin 0.3 mg/dL (0.3-1.0) 06/02/18 05:30 AST 13 U/L (13-39) 06/02/18 05:30 ALT 10 U/L (7-52) 06/02/18 05:30 Alkaline Phosphatase 73 U/L (34-104) 06/02/18 05:30 Ammonia 50 umol/L (16-53) 06/02/18 05:30 B-Natriuretic Peptide 25.7 pg/mL (5.0-100.0) 06/02/18 05:30 Total Protein 5.7 gm/dL (6.0-8.3) L 06/02/18 05:30 Albumin 3.3 gm/dL (3.7-5.3) L 06/02/18 05:30 Globulin 2.4 gm/dL 06/02/18 05:30 Albumin/Globulin Ratio 1.4 (1.0-1.8) 06/02/18 05:30 TSH 0.41 uIU/ml (0.34-5.60) 06/02/18 05:30 Urine Source RANDOM 05/30/18 15:35 Urine Color YELLOW 05/30/18 15:35 Urine Clarity HAZY (CLEAR) 05/30/18 15:35 Urine pH 6.0 (4.6 - 8.0) 05/30/18 15:35 Ur Specific [place] 1.010 (1.005-1.030) 05/30/18 15:35 Urine Protein 100 mg/dL (NEGATIVE) H 05/30/18 15:35 Urine Glucose (UA) NEGATIVE mg/dL (NEGATIVE) 05/30/18 15:35 Urine Ketones NEGATIVE mg/dL (NEGATIVE) 05/30/18 15:35 Urine Blood MODERATE (NEGATIVE) H 05/30/18 15:35 Urine Nitrate POSITIVE (NEGATIVE) H 05/30/18 15:35 Urine Bilirubin NEGATIVE (NEGATIVE) 05/30/18 15:35 Urine Urobilinogen 0.2 E.U./dL (0.2 - 1.0) 05/30/18 15:35 Ur Leukocyte Esterase LARGE (NEGATIVE) H 05/30/18 15:35 Urine RBC 10-25 /hpf (0-5) H 05/30/18 15:35 Urine WBC >100 /hpf (0-5) H 05/30/18 15:35 Ur Epithelial Cells FEW /lpf (FEW) 05/30/18 15:35 Urine Bacteria 3+ /hpf (NONE SEEN) H 05/30/18 15:35 - Physical Exam Vitals and I&O: Vital Signs Temp 96.3 F 06/02/18 10:00 Pulse 85 06/02/18 10:00 Resp 18 06/02/18 10:00 BP 114/58 06/02/18 10:00 Pulse Ox 97 06/02/18 08:00 Intake & Output 06/01/18 06/02/18 06/02/18 18:59 06:59 18:59 Intake Total 50 750 Balance 50 750 Weight (lbs) 64.864 kg 68.492 kg Intake: Intake, IV Amount 50 Cefepime 1 gm In Dextrose 50 5% 50 ml @ 100 mls/hr IV Q12H LEI Rx#:[id number] Oral 700 Other 50 Other: # Voids 5 3 Weight Source Bedscale Bedscale Active Medications: Current Medications Acetaminophen (Tylenol) 650 mg PO Q4H PRN PRN Reason: Pain Or Fever above 101 Stop: 07/29/18 19:34 Al Hydrox/Mg Hydrox/Simethicone (Maalox) 30 ml PO HS LEI Stop: 07/29/18 20:59 Last Admin: 06/01/18 21:31 Dose: 30 ml Al Hydrox/Mg Hydrox/Simethicone (Maalox) 30 ml PO Q4HR PRN PRN Reason: GI DISTRESS Stop: 07/29/18 19:28 Albuterol Sulfate (Albuterol 2.5mg/3ml Neb Ud) 2.5 mg HHN Q2HRT PRN PRN Reason: Shortness of Breath or Wheeze Stop: 07/29/18 19:32 Amiodarone HCl (Cordarone) 100 mg PO DAILY LEI Stop: 07/30/18 08:59 Last Admin: 06/02/18 09:27 Dose: 100 mg Amlodipine Besylate (Norvasc) 10 mg PO DAILY LEI Stop: 07/30/18 08:59 Last Admin: 06/02/18 09:24 Dose: 10 mg Famotidine (Pepcid) 10 mg PO DAILY LEI Stop: 07/30/18 08:59 Last Admin: 06/02/18 09:23 Dose: 10 mg Ferrous Sulfate (Iron) 325 mg PO DAILY LEI Stop: 07/30/18 08:59 Last Admin: 06/02/18 09:23 Dose: 325 mg Dextrose/Sodium Chloride (D5-0.45ns) 1,000 mls @ 80 mls/hr IV .[id number] LEI Stop: 07/29/18 19:44 Last Admin: 06/02/18 02:18 Dose: 80 mls/hr Cefepime HCl 1 gm/ Dextrose 50 mls @ 100 mls/hr IV Q12H LEI Stop: 07/31/18 15:59 Last Admin: 06/02/18 04:34 Dose: 100 mls/hr Ipratropium [place] (Atrovent Neb 0.5mg/2.5ml) 0.5 mg HHN Q2HRT PRN PRN Reason: Shortness of Breath or Wheeze Stop: 07/29/18 19:32 Levothyroxine Sodium (Synthroid) 0.15 mg PO QDAC LEI Stop: 07/30/18 07:29 Last Admin: 06/02/18 06:49 Dose: 0.15 mg Lorazepam (Ativan) 0.5 mg PO Q6HR PRN; Protocol PRN Reason: Anxiety Stop: 07/29/18 19:28 Last Admin: 06/01/18 08:49 Dose: 0.5 mg Magnesium Hydroxide (Milk Of Magnesia) 30 ml PO HS PRN PRN Reason: Constipation Stop: 07/29/18 19:28 Metoprolol Succinate (Toprol Xl) 25 mg PO DAILY LEI Stop: 07/30/18 08:59 Last Admin: 06/02/18 09:25 Dose: 25 mg Multivitamins/Vitamin C (Theragran) 1 tab PO DAILY LEI Stop: 07/30/18 08:59 Last Admin: 06/02/18 09:23 Dose: 1 tab Ondansetron HCl (Zofran) 4 mg IV Q8H PRN PRN Reason: Nausea / Vomiting Stop: 07/29/18 19:34 Quetiapine Fumarate (Seroquel) 50 mg PO HS LEI; Protocol Stop: 07/29/18 20:59 Last Admin: 06/01/18 21:32 Dose: 50 mg Quetiapine Fumarate (Seroquel) 25 mg PO BID LEI; Protocol Stop: 07/30/18 08:59 Last Admin: 06/02/18 09:21 Dose: 25 mg Zolpidem Tartrate (Ambien) 5 mg PO HS PRN PRN Reason: Insomnia Stop: 07/29/18 19:28 General: demented HEENT: NC/AT, PERRLA Neck: Supple, No JVD, No LAD Lungs: congested Cardiovascular: RRR, Normal S1, Normal S2, with murmur Abdomen: soft, globular, non-distended, positive bowel sound Extremities: excoriation, ulcers stage 1 Neurological: no change, disorganized Internal Medicine Assmt/Plan - Assessment Assessment: ASSESSMENT: Acute urinary tract infection, tachycardia, acute renal insufficiency, rule out acute dehydration, hypertension, diabetes, hypothyroidism. History of chronic atrial fibrillation, dysphagia, anemia, gastroesophageal reflux disease, bipolar. PLAN: We will admit the patient to Med/Surg unit. We will keep the patient on IV Levaquin, get followup labs for tomorrow morning. IV fluids for hydration. We will get renal ultrasound. Psychiatric consultation - Plan Plan: will follow ucx dw rn apparently refused renal us
[2018-06-03] MEDS: D5-0.45NS 1,000 ML IV SCH (04:15)
[2018-06-03] MEDS: Levothyroxine 0.075 Mg Tab PO SCH (06:38)
[2018-06-03] MEDS: Ferrous Sulfate 325 MG TAB PO SCH (09:44)
[2018-06-03] MEDS: Multivitamin Tab PO SCH (09:45)
--- NOTE | 2018-06-03 11:58 | Internal Medicine Prog Note ---
Internal Medicine Subjective - Subjective Service Date: 06/03/18 Patient is:: awake, verbal, interactive, confused Per staff patient has:: no adverse event, no episodes of fall, poor appetite, agitated, combative, noncompliant, tolerating meds, refusing care Internal Medicine Objective - Results Result Diagrams: 06/02/18 05:30 06/02/18 05:30 Recent Labs: Laboratory Last Values WBC 4.5 Th/cmm (4.8-10.8) L 06/02/18 05:30 RBC 3.04 Mil/cmm (3.80-5.20) L 06/02/18 05:30 Hgb 9.3 gm/dL (12-16) L 06/02/18 05:30 Hct 27.8 % (41.0-60) L 06/02/18 05:30 MCV 91.4 fl (81-100) 06/02/18 05:30 MCH 30.6 pg (27.0-31.0) 06/02/18 05:30 MCHC Differential 33.4 pg (28.0-36.0) 06/02/18 05:30 RDW 14.5 % (11.5-20.0) 06/02/18 05:30 Plt Count 178 Th/cmm (150-400) 06/02/18 05:30 MPV 8.0 fl 06/02/18 05:30 Neutrophils % 50.7 % (40.0-80.0) 06/02/18 05:30 Lymphocytes % 38.5 % (20.0-50.0) 06/02/18 05:30 Monocytes % 5.4 % (2.0-10.0) 06/02/18 05:30 Eosinophils % 5.3 % (0.0-5.0) H 06/02/18 05:30 Basophils % 0.1 % (0.0-2.0) 06/02/18 05:30 Sodium 139 mEq/L (136-145) 06/02/18 05:30 Potassium 3.5 mEq/L (3.5-5.1) 06/02/18 05:30 Chloride 112 mEq/L (98-107) H 06/02/18 05:30 Carbon Dioxide 18.1 mEq/L (21.0-31.0) L 06/02/18 05:30 Anion Gap 12.4 (7.0-16.0) 06/02/18 05:30 BUN 20 mg/dL (7-25) 06/02/18 05:30 Creatinine 3.2 mg/dL (0.6-1.2) H 06/02/18 05:30 Est GFR ( Amer) 18.5 ml/min (>90) 06/02/18 05:30 Est GFR (Non-Af Amer) 15.3 ml/min 06/02/18 05:30 BUN/Creatinine Ratio 6.3 06/02/18 05:30 Glucose 105 mg/dL (70-105) 06/02/18 05:30 POC Glucose 121 MG/DL (70 - 105) H 05/31/18 06:12 Calcium 8.8 mg/dL (8.6-10.3) 06/02/18 05:30 Magnesium 2.2 mg/dL (1.9-2.7) 06/02/18 05:30 Total Bilirubin 0.3 mg/dL (0.3-1.0) 06/02/18 05:30 AST 13 U/L (13-39) 06/02/18 05:30 ALT 10 U/L (7-52) 06/02/18 05:30 Alkaline Phosphatase 73 U/L (34-104) 06/02/18 05:30 Ammonia 50 umol/L (16-53) 06/02/18 05:30 B-Natriuretic Peptide 25.7 pg/mL (5.0-100.0) 06/02/18 05:30 Total Protein 5.7 gm/dL (6.0-8.3) L 06/02/18 05:30 Albumin 3.3 gm/dL (3.7-5.3) L 06/02/18 05:30 Globulin 2.4 gm/dL 06/02/18 05:30 Albumin/Globulin Ratio 1.4 (1.0-1.8) 06/02/18 05:30 TSH 0.41 uIU/ml (0.34-5.60) 06/02/18 05:30 Urine Source RANDOM 05/30/18 15:35 Urine Color YELLOW 05/30/18 15:35 Urine Clarity HAZY (CLEAR) 05/30/18 15:35 Urine pH 6.0 (4.6 - 8.0) 05/30/18 15:35 Ur Specific [place] 1.010 (1.005-1.030) 05/30/18 15:35 Urine Protein 100 mg/dL (NEGATIVE) H 05/30/18 15:35 Urine Glucose (UA) NEGATIVE mg/dL (NEGATIVE) 05/30/18 15:35 Urine Ketones NEGATIVE mg/dL (NEGATIVE) 05/30/18 15:35 Urine Blood MODERATE (NEGATIVE) H 05/30/18 15:35 Urine Nitrate POSITIVE (NEGATIVE) H 05/30/18 15:35 Urine Bilirubin NEGATIVE (NEGATIVE) 05/30/18 15:35 Urine Urobilinogen 0.2 E.U./dL (0.2 - 1.0) 05/30/18 15:35 Ur Leukocyte Esterase LARGE (NEGATIVE) H 05/30/18 15:35 Urine RBC 10-25 /hpf (0-5) H 05/30/18 15:35 Urine WBC >100 /hpf (0-5) H 05/30/18 15:35 Ur Epithelial Cells FEW /lpf (FEW) 05/30/18 15:35 Urine Bacteria 3+ /hpf (NONE SEEN) H 05/30/18 15:35 - Physical Exam Vitals and I&O: Vital Signs Temp 98.2 F 06/03/18 10:00 Pulse 76 06/03/18 10:00 Resp 18 06/03/18 10:00 BP 120/63 06/03/18 10:00 Pulse Ox 95 06/03/18 08:00 Intake & Output 06/02/18 06/03/18 06/03/18 18:59 06:59 18:59 Intake Total 1050 1296.667 Balance 1050 1296.667 Weight (lbs) 149 lb Intake: Intake, IV Amount 1050 946.667 Cefepime 1 gm In Dextrose 50 5% 50 ml @ 100 mls/hr IV Q12H LEI Rx#:[id number] D5-0.45NS 1,000 ml @ 80 1000 946.667 mls/hr IV .[id number] LEI Rx #:[id number] Oral 100 Tube Feeding 200 Other 50 Other: # Voids 3 Stool Characteristics Soft Brown Weight Source Bedscale Active Medications: Current Medications Acetaminophen (Tylenol) 650 mg PO Q4H PRN PRN Reason: Pain Or Fever above 101 Stop: 07/29/18 19:34 Al Hydrox/Mg Hydrox/Simethicone (Maalox) 30 ml PO HS LEI Stop: 07/29/18 20:59 Last Admin: 06/01/18 21:31 Dose: 30 ml Al Hydrox/Mg Hydrox/Simethicone (Maalox) 30 ml PO Q4HR PRN PRN Reason: GI DISTRESS Stop: 07/29/18 19:28 Albuterol Sulfate (Albuterol 2.5mg/3ml Neb Ud) 2.5 mg HHN Q2HRT PRN PRN Reason: Shortness of Breath or Wheeze Stop: 07/29/18 19:32 Amiodarone HCl (Cordarone) 100 mg PO DAILY LEI Stop: 07/30/18 08:59 Last Admin: 06/03/18 09:44 Dose: 100 mg Amlodipine Besylate (Norvasc) 10 mg PO DAILY LEI Stop: 07/30/18 08:59 Last Admin: 06/03/18 09:44 Dose: 10 mg Famotidine (Pepcid) 10 mg PO DAILY LEI Stop: 07/30/18 08:59 Last Admin: 06/03/18 09:43 Dose: 10 mg Ferrous Sulfate (Iron) 325 mg PO DAILY LEI Stop: 07/30/18 08:59 Last Admin: 06/03/18 09:44 Dose: 325 mg Dextrose/Sodium Chloride (D5-0.45ns) 1,000 mls @ 80 mls/hr IV .[id number] LEI Stop: 07/29/18 19:44 Last Admin: 06/03/18 04:15 Dose: 80 mls/hr Cefepime HCl 1 gm/ Dextrose 50 mls @ 100 mls/hr IV Q12H LEI Stop: 07/31/18 15:59 Last Admin: 06/03/18 04:16 Dose: 100 mls/hr Ipratropium [place] (Atrovent Neb 0.5mg/2.5ml) 0.5 mg HHN Q2HRT PRN PRN Reason: Shortness of Breath or Wheeze Stop: 07/29/18 19:32 Levothyroxine Sodium (Synthroid) 0.15 mg PO QDAC LEI Stop: 07/30/18 07:29 Last Admin: 06/03/18 06:38 Dose: 0.15 mg Lorazepam (Ativan) 0.5 mg PO Q6HR PRN; Protocol PRN Reason: Anxiety Stop: 07/29/18 19:28 Last Admin: 06/01/18 08:49 Dose: 0.5 mg Magnesium Hydroxide (Milk Of Magnesia) 30 ml PO HS PRN PRN Reason: Constipation Stop: 07/29/18 19:28 Metoprolol Succinate (Toprol Xl) 25 mg PO DAILY LEI Stop: 07/30/18 08:59 Last Admin: 06/03/18 09:43 Dose: 25 mg Multivitamins/Vitamin C (Theragran) 1 tab PO DAILY LEI Stop: 07/30/18 08:59 Last Admin: 06/03/18 09:45 Dose: 1 tab Ondansetron HCl (Zofran) 4 mg IV Q8H PRN PRN Reason: Nausea / Vomiting Stop: 07/29/18 19:34 Quetiapine Fumarate (Seroquel) 50 mg PO HS LEI; Protocol Stop: 07/29/18 20:59 Last Admin: 06/02/18 21:34 Dose: 50 mg Quetiapine Fumarate (Seroquel) 25 mg PO BID LEI; Protocol Stop: 07/30/18 08:59 Last Admin: 06/03/18 09:44 Dose: 25 mg Zolpidem Tartrate (Ambien) 5 mg PO HS PRN PRN Reason: Insomnia Stop: 07/29/18 19:28 General: demented HEENT: NC/AT, PERRLA Neck: Supple, No JVD, No LAD Lungs: congested Cardiovascular: RRR, Normal S1, Normal S2, with murmur Abdomen: soft, globular, non-distended, positive bowel sound Extremities: excoriation, ulcers stage 1 Neurological: no change, disorganized Internal Medicine Assmt/Plan - Assessment Assessment: Acute urinary tract infection with e.coli tachycardia acute renal insufficiency, rule out acute dehydration hypertension diabetes hypothyroidism History of chronic atrial fibrillation dysphagia anemia gastroesophageal reflux disease bipolar. - Plan Plan: will swith ivabx to [facility] follow up labs in am 1:1 sitter for safety continue current plan of care
[2018-06-03] MEDS ORDERED: Meropenem 1 GM in Sodium Chloride 0.9% 100 ML IV SCH (13:00)
[2018-06-03] MEDS: Meropenem 500 MG in Sodium Chloride 0.9% 100 ML IV SCH (16:10)
[2018-06-03] MEDS: Maalox 30 mL Cup PO SCH (20:58)
--- NOTE | 2018-06-03 21:04 | Psychiatric Evaluation ---
DATE OF SERVICE: 06/03/2018 Case was discussed with staff of the patient, reviewed records. The patient continues to be depressed, overwhelmed, confused, continues to have poor insight. Continues to be unable to make safe plan for self-care, confused, and we will continue to work with the patient. Thank you very much for allowing me to participate in the care of this most interesting lady. JOB# [id number]
[2018-06-04] MEDS: Meropenem 500 MG in Sodium Chloride 0.9% 100 ML IV SCH ×2 (03:56→16:41)
[2018-06-04 05:11] LABS: FOLIC ACID >20.0 ng/mL (>3.0)
[2018-06-04 05:12] LABS: % BASOPHILS 0.8 % (0.0-2.0); % EOSINOPHILS 4.9 % (0.0-5.0); % LYMPHOCYTES 22.4 % (20.0-50.0); % MONOCYTES 5.1 % (2.0-10.0); % NEUTROPHILS 66.8 % (40.0-80.0); EOSINOPHILE ABSOLUTE 0.2 Th/cmm (0.1-0.4); HEMATOCRIT 27.7 % (41.0-60); HEMOGLOBIN 9.1 gm/dL (12-16); LYMPHOCYTE ABSOLUTE 1.1 Th/cmm (1.5-3.0); MEAN CELL VOLUME 90.5 fl (81-100); MEAN CORPUSCULAR HEMOGLOBIN 29.7 pg (27.0-31.0); MEAN CORPUSCULAR HGB CONC 32.8 pg (28.0-36.0); MEAN PLATELET VOLUME 8.2 fl; MONOCYTE ABSOLUTE 0.2 Th/cmm (0.3-1.0); NEUTROPHILE ABSOLUTE 3.3 Th/cmm (1.8-8.0); PLATELET COUNT 170 Th/cmm (150-400); RED BLOOD COUNT 3.07 Mil/cmm (3.80-5.20); RED CELL DISTRIBUTION WIDTH 14.5 % (11.5-20.0); WHITE BLOOD COUNT 4.8 Th/cmm (4.8-10.8)
[2018-06-04] MEDS: Levothyroxine 0.075 Mg Tab PO SCH (06:32)
[2018-06-04 07:24] LABS: ANION GAP 12.6 (7.0-16.0); CALCIUM SERUM 9.2 mg/dL (8.6-10.3); CREATININE - SERUM 3.5 mg/dL (0.6-1.2); GFR AFRICAN-AMERICAN 16.7 ml/min (>90); GFR NON AFRICAN-AMERICAN 13.8 ml/min; POTASSIUM SERUM 3.6 mEq/L (3.5-5.1)
[2018-06-04] MEDS: Multivitamin Tab PO SCH (08:54)
[2018-06-04] MEDS: Ferrous Sulfate 325 MG TAB PO SCH (08:54)
--- NOTE | 2018-06-04 13:15 | Internal Medicine Prog Note ---
Internal Medicine Subjective - Subjective Service Date: 06/04/18 Patient is:: awake, verbal, interactive, confused Patient Complaints of:: congestion Per staff patient has:: no adverse event, no episodes of fall, poor appetite, agitated, combative, noncompliant, tolerating meds, refusing care Internal Medicine Objective - Results Result Diagrams: 06/04/18 04:30 06/04/18 04:30 Recent Labs: Laboratory Last Values WBC 4.8 Th/cmm (4.8-10.8) 06/04/18 04:30 RBC 3.07 Mil/cmm (3.80-5.20) L 06/04/18 04:30 Hgb 9.1 gm/dL (12-16) L 06/04/18 04:30 Hct 27.7 % (41.0-60) L 06/04/18 04:30 MCV 90.5 fl (81-100) 06/04/18 04:30 MCH 29.7 pg (27.0-31.0) 06/04/18 04:30 MCHC Differential 32.8 pg (28.0-36.0) 06/04/18 04:30 RDW 14.5 % (11.5-20.0) 06/04/18 04:30 Plt Count 170 Th/cmm (150-400) 06/04/18 04:30 MPV 8.2 fl 06/04/18 04:30 Neutrophils % 66.8 % (40.0-80.0) 06/04/18 04:30 Lymphocytes % 22.4 % (20.0-50.0) 06/04/18 04:30 Monocytes % 5.1 % (2.0-10.0) 06/04/18 04:30 Eosinophils % 4.9 % (0.0-5.0) 06/04/18 04:30 Basophils % 0.8 % (0.0-2.0) 06/04/18 04:30 Sodium 145 mEq/L (136-145) 06/04/18 04:30 Potassium 3.6 mEq/L (3.5-5.1) 06/04/18 04:30 Chloride 118 mEq/L (98-107) H 06/04/18 04:30 Carbon Dioxide 18.0 mEq/L (21.0-31.0) L 06/04/18 04:30 Anion Gap 12.6 (7.0-16.0) 06/04/18 04:30 BUN 18 mg/dL (7-25) 06/04/18 04:30 Creatinine 3.5 mg/dL (0.6-1.2) H 06/04/18 04:30 Est GFR ( Amer) 16.7 ml/min (>90) 06/04/18 04:30 Est GFR (Non-Af Amer) 13.8 ml/min 06/04/18 04:30 BUN/Creatinine Ratio 5.1 06/04/18 04:30 Glucose 93 mg/dL (70-105) 06/04/18 04:30 POC Glucose 107 MG/DL (70 - 105) H 06/03/18 18:49 Calcium 9.2 mg/dL (8.6-10.3) 06/04/18 04:30 Magnesium 2.2 mg/dL (1.9-2.7) 06/02/18 05:30 Total Bilirubin 0.3 mg/dL (0.3-1.0) 06/02/18 05:30 AST 13 U/L (13-39) 06/02/18 05:30 ALT 10 U/L (7-52) 06/02/18 05:30 Alkaline Phosphatase 73 U/L (34-104) 06/02/18 05:30 Ammonia 50 umol/L (16-53) 06/02/18 05:30 B-Natriuretic Peptide 25.7 pg/mL (5.0-100.0) 06/02/18 05:30 Total Protein 5.7 gm/dL (6.0-8.3) L 06/02/18 05:30 Albumin 3.3 gm/dL (3.7-5.3) L 06/02/18 05:30 Globulin 2.4 gm/dL 06/02/18 05:30 Albumin/Globulin Ratio 1.4 (1.0-1.8) 06/02/18 05:30 Vitamin B12 744 pg/mL (232-1245) 06/02/18 05:30 Folic Acid >20.0 ng/mL (>3.0) 06/02/18 05:30 TSH 0.41 uIU/ml (0.34-5.60) 06/02/18 05:30 Urine Source RANDOM 05/30/18 15:35 Urine Color YELLOW 05/30/18 15:35 Urine Clarity HAZY (CLEAR) 05/30/18 15:35 Urine pH 6.0 (4.6 - 8.0) 05/30/18 15:35 Ur Specific [place] 1.010 (1.005-1.030) 05/30/18 15:35 Urine Protein 100 mg/dL (NEGATIVE) H 05/30/18 15:35 Urine Glucose (UA) NEGATIVE mg/dL (NEGATIVE) 05/30/18 15:35 Urine Ketones NEGATIVE mg/dL (NEGATIVE) 05/30/18 15:35 Urine Blood MODERATE (NEGATIVE) H 05/30/18 15:35 Urine Nitrate POSITIVE (NEGATIVE) H 05/30/18 15:35 Urine Bilirubin NEGATIVE (NEGATIVE) 05/30/18 15:35 Urine Urobilinogen 0.2 E.U./dL (0.2 - 1.0) 05/30/18 15:35 Ur Leukocyte Esterase LARGE (NEGATIVE) H 05/30/18 15:35 Urine RBC 10-25 /hpf (0-5) H 05/30/18 15:35 Urine WBC >100 /hpf (0-5) H 05/30/18 15:35 Ur Epithelial Cells FEW /lpf (FEW) 05/30/18 15:35 Urine Bacteria 3+ /hpf (NONE SEEN) H 05/30/18 15:35 - Physical Exam Vitals and I&O: Vital Signs Temp 97.6 F 06/04/18 12:00 Pulse 91 06/04/18 12:00 Resp 18 06/04/18 12:00 BP 119/71 06/04/18 12:00 Pulse Ox 98 06/04/18 12:00 Intake & Output 06/03/18 06/04/18 06/04/18 18:59 06:59 18:59 Intake Total 100 300 Balance 100 300 Weight (lbs) 149 lb Intake: Intake, IV Amount 100 100 Meropenem 500 mg In 100 100 Sodium Chloride 0.9% 100 ml @ 100 mls/hr IV Q12H LEI Rx#:[id number] Oral 200 Other: # Voids 2 # Bowel Movements 0 Stool Characteristics Soft Soft Brown Brown Weight Source Bedscale Active Medications: Current Medications Acetaminophen (Tylenol) 650 mg PO Q4H PRN PRN Reason: Pain Or Fever above 101 Stop: 07/29/18 19:34 Al Hydrox/Mg Hydrox/Simethicone (Maalox) 30 ml PO HS LEI Stop: 07/29/18 20:59 Last Admin: 06/03/18 20:58 Dose: 30 ml Al Hydrox/Mg Hydrox/Simethicone (Maalox) 30 ml PO Q4HR PRN PRN Reason: GI DISTRESS Stop: 07/29/18 19:28 Albuterol Sulfate (Albuterol 2.5mg/3ml Neb Ud) 2.5 mg HHN Q2HRT PRN PRN Reason: Shortness of Breath or Wheeze Stop: 07/29/18 19:32 Amiodarone HCl (Cordarone) 100 mg PO DAILY LEI Stop: 07/30/18 08:59 Last Admin: 06/04/18 08:58 Dose: 100 mg Amlodipine Besylate (Norvasc) 10 mg PO DAILY LEI Stop: 07/30/18 08:59 Last Admin: 06/04/18 09:00 Dose: 10 mg Famotidine (Pepcid) 10 mg PO DAILY LEI Stop: 07/30/18 08:59 Last Admin: 06/04/18 08:53 Dose: 10 mg Ferrous Sulfate (Iron) 325 mg PO DAILY LEI Stop: 07/30/18 08:59 Last Admin: 06/04/18 08:54 Dose: 325 mg Meropenem 500 mg/ Sodium (Chloride) 100 mls @ 100 mls/hr IV Q12H LEI Stop: 08/02/18 15:59 Last Infusion: 06/04/18 05:10 Dose: Infused Ipratropium [place] (Atrovent Neb 0.5mg/2.5ml) 0.5 mg HHN Q2HRT PRN PRN Reason: Shortness of Breath or Wheeze Stop: 07/29/18 19:32 Levothyroxine Sodium (Synthroid) 0.15 mg PO QDAC LEI Stop: 07/30/18 07:29 Last Admin: 06/04/18 06:32 Dose: 0.15 mg Lorazepam (Ativan) 0.5 mg PO Q6HR PRN; Protocol PRN Reason: Anxiety Stop: 07/29/18 19:28 Last Admin: 06/04/18 12:32 Dose: 0.5 mg Magnesium Hydroxide (Milk Of Magnesia) 30 ml PO HS PRN PRN Reason: Constipation Stop: 07/29/18 19:28 Metoprolol Succinate (Toprol Xl) 25 mg PO DAILY LEI Stop: 07/30/18 08:59 Last Admin: 06/04/18 08:59 Dose: 25 mg Multivitamins/Vitamin C (Theragran) 1 tab PO DAILY LEI Stop: 07/30/18 08:59 Last Admin: 06/04/18 08:54 Dose: 1 tab Quetiapine Fumarate (Seroquel) 50 mg PO HS LEI; Protocol Stop: 07/29/18 20:59 Last Admin: 06/03/18 20:57 Dose: 50 mg Quetiapine Fumarate (Seroquel) 25 mg PO BID LEI; Protocol Stop: 07/30/18 08:59 Last Admin: 06/04/18 08:54 Dose: 25 mg Zolpidem Tartrate (Ambien) 5 mg PO HS PRN PRN Reason: Insomnia Stop: 07/29/18 19:28 Last Admin: 06/04/18 02:05 Dose: 5 mg General: demented HEENT: NC/AT, PERRLA Neck: Supple, No JVD, No LAD Lungs: congested Cardiovascular: RRR, Normal S1, Normal S2, with murmur Abdomen: soft, globular, non-distended, positive bowel sound Extremities: excoriation, ulcers stage 1 Neurological: no change, disorganized Internal Medicine Assmt/Plan - Assessment Assessment: Acute urinary tract infection with e.coli tachycardia acute renal insufficiency, rule out acute dehydration hypertension diabetes hypothyroidism History of chronic atrial fibrillation dysphagia anemia gastroesophageal reflux disease bipolar. - Plan Plan: will swith ivabx to [facility] follow up labs in am 1:1 sitter for safety continue current plan of care Nutritional Asmnt/Malnutr-PDOC - Dietary Evaluation Malnutrition Findings (Please click <Entered> for more info): Nutritional Asmnt/Malnutrition Start: 06/03/18 17: 28 Text: Status: Complete Freq: Protocol: Document 06/03/18 17:28 LCLORYG (Rec: 06/03/18 17:34 [email or web address] [id number]) Nutritional Asmnt/Malnutrition Patient General Information Nutritional Screening Moderate Risk Diagnosis UTI, tachycadia Pertinent Medical Hx/Surgical Hx Dm, HTn, thrydoisiam, chronic a fib, CKD, dysphagia, anemia, hypothrydoisiam, GERd, bipolar, gallop, bipolar, right hip and right knee surgery Subjective Information Per EMR PO intake 25-50%. Pt is very confused, on restrains , sitter 1:1. Current Diet Order/ Nutrition Support renal, mech soft chopped Pertinent Medications pepcid, iron, synthroid, theragran, seroquel Pertinent Labs 06/02 Cl 112, Cr 3.2, glucose 105 Nutritional Hx/Data Height 5 ft 4 in Height (Calculated Centimeters) 162.6 Current Weight (lbs) 149 lb Weight (Calculated Kilograms) 67.6 Weight (Calculated Grams) 23202.3 [place] Body Weight 120 Body Mass Index (BMI) 25.5 Weight Status Overweight GI Symptoms GI Symptoms None Last BM not indicated Difficult in: None Skin Integrity/Comment: skin tear to right hand and R/ L arms Current %PO Poor (25-49%) Estimated Nutritional Goals BEE in Kcals: Using Current wt Calories/Kcals/Kg 25-30 Kcals Calculated 6568-3658 Protein: Using Current wt Protein g/k Protein Calculated 68 Fluid: ml 1700-2040ml (1ml/kcal) Nutritional Problem No current Nutrition Prob Problem N/A Intervention/Recommendation Comments 1. Continue with current diet as ordered. 2. Monitor PO intake, wt, labs and skin integrity 3. F/U as low risk in 7d ays, 06/10 Expected Outcomes/Goals Expected Outcomes/Goals 1. PO intake to meet at least 75% of nutritional needs. 2. Wt stability, skin to remain intact, labs to approach WNL.
--- NOTE | 2018-06-04 17:20 | Progress Notes ---
DATE: 06/04/2018 Case was discussed with staff of the patient, reviewed records. The patient continues to be confused, continues to be unpredictable, impulsive, continues to be depressed, continues to have poor insight. However, she is denying any current intent to harm herself or anybody. She is sleeping better, eating better. She was restarted on her medications and if she is expressing any suicidal ideation may need to go to [facility]. Thank you very much for allowing me to participate in the care of this most interesting lady. JOB# [id number]
[2018-06-04] MEDS: Maalox 30 mL Cup PO SCH (21:31)
[2018-06-05] MEDS: Meropenem 500 MG in Sodium Chloride 0.9% 100 ML IV SCH ×2 (03:21→15:46)
[2018-06-05] MEDS: Levothyroxine 0.075 Mg Tab PO SCH (06:52)
[2018-06-05 07:01] LABS: % BASOPHILS 0.8 % (0.0-2.0); % EOSINOPHILS 4.8 % (0.0-5.0); % LYMPHOCYTES 12.7 % (20.0-50.0); % MONOCYTES 3.5 % (2.0-10.0); % NEUTROPHILS 78.2 % (40.0-80.0); EOSINOPHILE ABSOLUTE 0.2 Th/cmm (0.1-0.4); HEMATOCRIT 32.5 % (41.0-60); LYMPHOCYTE ABSOLUTE 0.5 Th/cmm (1.5-3.0); MEAN CELL VOLUME 89.8 fl (81-100); MEAN CORPUSCULAR HEMOGLOBIN 30.4 pg (27.0-31.0); MEAN CORPUSCULAR HGB CONC 33.8 pg (28.0-36.0); MEAN PLATELET VOLUME 8.2 fl; MONOCYTE ABSOLUTE 0.1 Th/cmm (0.3-1.0); NEUTROPHILE ABSOLUTE 3.4 Th/cmm (1.8-8.0); PLATELET COUNT 169 Th/cmm (150-400); RED BLOOD COUNT 3.62 Mil/cmm (3.80-5.20); RED CELL DISTRIBUTION WIDTH 14.6 % (11.5-20.0); WHITE BLOOD COUNT 4.2 Th/cmm (4.8-10.8)
[2018-06-05 07:04] LABS: ANION GAP 12.1 (7.0-16.0); CALCIUM SERUM 9.8 mg/dL (8.6-10.3); CARBON DIOXIDE 19.1 mEq/L (21.0-31.0); CREATININE - SERUM 3.3 mg/dL (0.6-1.2); GFR AFRICAN-AMERICAN 17.8 ml/min (>90); GFR NON AFRICAN-AMERICAN 14.7 ml/min; POTASSIUM SERUM 4.2 mEq/L (3.5-5.1)
[2018-06-05] MEDS: Multivitamin Tab PO SCH (08:07)
[2018-06-05] MEDS: Ferrous Sulfate 325 MG TAB PO SCH (08:07)
[2018-06-05] MEDS ORDERED: Haloperidol Lactate 5 mg/mL 1mL Vial IM ONE (12:09)
[2018-06-05] MEDS ORDERED: Haloperidol Lactate 5 mg/mL 1mL Vial ONE (12:21)
--- NOTE | 2018-06-05 13:03 | Internal Medicine Prog Note ---
Internal Medicine Subjective - Subjective Service Date: 06/05/18 Patient seen and examined:: with staff Patient is:: awake, verbal, interactive, confused Patient Complaints of:: congestion Per staff patient has:: no adverse event, no episodes of fall, poor appetite, agitated, combative, noncompliant, tolerating meds, refusing care Internal Medicine Objective - Results Result Diagrams: 06/05/18 06:25 06/05/18 06:25 Recent Labs: Laboratory Last Values WBC 4.2 Th/cmm (4.8-10.8) L 06/05/18 06:25 RBC 3.62 Mil/cmm (3.80-5.20) L 06/05/18 06:25 Hgb 11.0 gm/dL (12-16) L 06/05/18 06:25 Hct 32.5 % (41.0-60) L 06/05/18 06:25 MCV 89.8 fl (81-100) 06/05/18 06:25 MCH 30.4 pg (27.0-31.0) 06/05/18 06:25 MCHC Differential 33.8 pg (28.0-36.0) 06/05/18 06:25 RDW 14.6 % (11.5-20.0) 06/05/18 06:25 Plt Count 169 Th/cmm (150-400) 06/05/18 06:25 MPV 8.2 fl 06/05/18 06:25 Neutrophils % 78.2 % (40.0-80.0) 06/05/18 06:25 Lymphocytes % 12.7 % (20.0-50.0) L 06/05/18 06:25 Monocytes % 3.5 % (2.0-10.0) 06/05/18 06:25 Eosinophils % 4.8 % (0.0-5.0) 06/05/18 06:25 Basophils % 0.8 % (0.0-2.0) 06/05/18 06:25 Sodium 143 mEq/L (136-145) 06/05/18 06:25 Potassium 4.2 mEq/L (3.5-5.1) 06/05/18 06:25 Chloride 116 mEq/L (98-107) H 06/05/18 06:25 Carbon Dioxide 19.1 mEq/L (21.0-31.0) L 06/05/18 06:25 Anion Gap 12.1 (7.0-16.0) 06/05/18 06:25 BUN 18 mg/dL (7-25) 06/05/18 06:25 Creatinine 3.3 mg/dL (0.6-1.2) H 06/05/18 06:25 Est GFR ( Amer) 17.8 ml/min (>90) 06/05/18 06:25 Est GFR (Non-Af Amer) 14.7 ml/min 06/05/18 06:25 BUN/Creatinine Ratio 5.5 06/05/18 06:25 Glucose 101 mg/dL (70-105) 06/05/18 06:25 POC Glucose 107 MG/DL (70 - 105) H 06/03/18 18:49 Calcium 9.8 mg/dL (8.6-10.3) 06/05/18 06:25 Magnesium 2.2 mg/dL (1.9-2.7) 06/02/18 05:30 Total Bilirubin 0.3 mg/dL (0.3-1.0) 06/02/18 05:30 AST 13 U/L (13-39) 06/02/18 05:30 ALT 10 U/L (7-52) 06/02/18 05:30 Alkaline Phosphatase 73 U/L (34-104) 06/02/18 05:30 Ammonia 50 umol/L (16-53) 06/02/18 05:30 B-Natriuretic Peptide 25.7 pg/mL (5.0-100.0) 06/02/18 05:30 Total Protein 5.7 gm/dL (6.0-8.3) L 06/02/18 05:30 Albumin 3.3 gm/dL (3.7-5.3) L 06/02/18 05:30 Globulin 2.4 gm/dL 06/02/18 05:30 Albumin/Globulin Ratio 1.4 (1.0-1.8) 06/02/18 05:30 Vitamin B12 744 pg/mL (232-1245) 06/02/18 05:30 Folic Acid >20.0 ng/mL (>3.0) 06/02/18 05:30 TSH 0.41 uIU/ml (0.34-5.60) 06/02/18 05:30 Urine Source RANDOM 05/30/18 15:35 Urine Color YELLOW 05/30/18 15:35 Urine Clarity HAZY (CLEAR) 05/30/18 15:35 Urine pH 6.0 (4.6 - 8.0) 05/30/18 15:35 Ur Specific [place] 1.010 (1.005-1.030) 05/30/18 15:35 Urine Protein 100 mg/dL (NEGATIVE) H 05/30/18 15:35 Urine Glucose (UA) NEGATIVE mg/dL (NEGATIVE) 05/30/18 15:35 Urine Ketones NEGATIVE mg/dL (NEGATIVE) 05/30/18 15:35 Urine Blood MODERATE (NEGATIVE) H 05/30/18 15:35 Urine Nitrate POSITIVE (NEGATIVE) H 05/30/18 15:35 Urine Bilirubin NEGATIVE (NEGATIVE) 05/30/18 15:35 Urine Urobilinogen 0.2 E.U./dL (0.2 - 1.0) 05/30/18 15:35 Ur Leukocyte Esterase LARGE (NEGATIVE) H 05/30/18 15:35 Urine RBC 10-25 /hpf (0-5) H 05/30/18 15:35 Urine WBC >100 /hpf (0-5) H 05/30/18 15:35 Ur Epithelial Cells FEW /lpf (FEW) 05/30/18 15:35 Urine Bacteria 3+ /hpf (NONE SEEN) H 05/30/18 15:35 - Physical Exam Vitals and I&O: Vital Signs Temp 98.9 F 06/05/18 06:20 Pulse 109 06/05/18 08:07 Resp 18 06/05/18 07:03 BP 110/58 06/05/18 08:07 Pulse Ox 95 06/05/18 07:03 Intake & Output 06/04/18 06/05/18 06/05/18 18:59 06:59 18:59 Intake Total 850 Balance 850 Weight (lbs) 149 lb 149 lb Intake: Intake, IV Amount 100 Meropenem 500 mg In 100 Sodium Chloride 0.9% 100 ml @ 100 mls/hr IV Q12H [facility] Rx#:[id number] Oral 750 Other: # Voids 5 2 # Bowel Movements 0 Stool Characteristics Soft Soft Brown Brown Weight Source Bedscale Bedscale Active Medications: Current Medications Acetaminophen (Tylenol) 650 mg PO Q4H PRN PRN Reason: Pain Or Fever above 101 Stop: 07/29/18 19:34 Al Hydrox/Mg Hydrox/Simethicone (Maalox) 30 ml PO HS [facility] Stop: 07/29/18 20:59 Last Admin: 06/04/18 21:31 Dose: 30 ml Al Hydrox/Mg Hydrox/Simethicone (Maalox) 30 ml PO Q4HR PRN PRN Reason: GI DISTRESS Stop: 07/29/18 19:28 Albuterol Sulfate (Albuterol 2.5mg/3ml Neb Ud) 2.5 mg HHN Q2HRT PRN PRN Reason: Shortness of Breath or Wheeze Stop: 07/29/18 19:32 Amiodarone HCl (Cordarone) 100 mg PO DAILY [facility] Stop: 07/30/18 08:59 Last Admin: 06/05/18 08:05 Dose: 100 mg Amlodipine Besylate (Norvasc) 10 mg PO DAILY [facility] Stop: 07/30/18 08:59 Last Admin: 06/05/18 08:06 Dose: Not Given Divalproex Sodium (Depakote Er) 500 mg PO BID [facility]; Protocol Stop: 08/04/18 16:59 Famotidine (Pepcid) 10 mg PO DAILY [facility] Stop: 07/30/18 08:59 Last Admin: 06/05/18 08:06 Dose: 10 mg Ferrous Sulfate (Iron) 325 mg PO DAILY [facility] Stop: 07/30/18 08:59 Last Admin: 06/05/18 08:07 Dose: 325 mg Meropenem 500 mg/ Sodium (Chloride) 100 mls @ 100 mls/hr IV Q12H [facility] Stop: 08/02/18 15:59 Last Admin: 06/05/18 03:21 Dose: 100 mls/hr Ipratropium [place] (Atrovent Neb 0.5mg/2.5ml) 0.5 mg HHN Q2HRT PRN PRN Reason: Shortness of Breath or Wheeze Stop: 07/29/18 19:32 Levothyroxine Sodium (Synthroid) 0.15 mg PO QDAC [facility] Stop: 07/30/18 07:29 Last Admin: 06/05/18 06:52 Dose: 0.15 mg Lorazepam (Ativan) 0.5 mg PO Q4HR PRN; Protocol PRN Reason: Anxiety Stop: 07/29/18 19:28 Magnesium Hydroxide (Milk Of Magnesia) 30 ml PO HS PRN PRN Reason: Constipation Stop: 07/29/18 19:28 Metoprolol Succinate (Toprol Xl) 25 mg PO DAILY [facility] Stop: 07/30/18 08:59 Last Admin: 06/05/18 08:07 Dose: Not Given Multivitamins/Vitamin C (Theragran) 1 tab PO DAILY [facility] Stop: 07/30/18 08:59 Last Admin: 06/05/18 08:07 Dose: 1 tab Quetiapine Fumarate (Seroquel) 50 mg PO HS [facility]; Protocol Stop: 07/29/18 20:59 Last Admin: 06/04/18 21:30 Dose: 50 mg Quetiapine Fumarate (Seroquel) 50 mg PO BID [facility]; Protocol Stop: 08/04/18 16:59 Zolpidem Tartrate (Ambien) 5 mg PO HS PRN PRN Reason: Insomnia Stop: 07/29/18 19:28 Last Admin: 06/04/18 02:05 Dose: 5 mg General: demented HEENT: NC/AT, PERRLA Neck: Supple, No JVD, No LAD Lungs: congested Cardiovascular: RRR, Normal S1, Normal S2, with murmur Abdomen: soft, globular, non-distended, positive bowel sound Extremities: excoriation, ulcers stage 1 Neurological: no change, disorganized Internal Medicine Assmt/Plan - Assessment Assessment: Acute urinary tract infection with e.coli tachycardia acute renal insufficiency, rule out acute dehydration hypertension diabetes hypothyroidism History of chronic atrial fibrillation dysphagia anemia gastroesophageal reflux disease bipolar. - Plan Plan: continue ivabx as per id follow up labs in am 1:1 sitter for safety continue current plan of care Nutritional Asmnt/Malnutr-PDOC - Dietary Evaluation Malnutrition Findings (Please click <Entered> for more info): Nutritional Asmnt/Malnutrition Start: 06/03/18 17: 28 Text: Status: Complete Freq: Protocol: Document 06/03/18 17:28 STEWART (Rec: 06/03/18 17:34 [email or web address] [email or web address]) Nutritional Asmnt/Malnutrition Patient General Information Nutritional Screening Moderate Risk Diagnosis UTI, tachycadia Pertinent Medical Hx/Surgical Hx Dm, HTn, thrydoisiam, chronic a fib, CKD, dysphagia, anemia, hypothrydoisiam, GERd, bipolar, gallop, bipolar, right hip and right knee surgery Subjective Information Per EMR PO intake 25-50%. Pt is very confused, on restrains , sitter 1:1. Current Diet Order/ Nutrition Support renal, mech soft chopped Pertinent Medications pepcid, iron, synthroid, theragran, seroquel Pertinent Labs 06/02 Cl 112, Cr 3.2, glucose 105 Nutritional Hx/Data Height 5 ft 4 in Height (Calculated Centimeters) 162.6 Current Weight (lbs) 149 lb Weight (Calculated Kilograms) 67.6 Weight (Calculated Grams) 51072.3 [place] Body Weight 120 Body Mass Index (BMI) 25.5 Weight Status Overweight GI Symptoms GI Symptoms None Last BM not indicated Difficult in: None Skin Integrity/Comment: skin tear to right hand and R/ L arms Current %PO Poor (25-49%) Estimated Nutritional Goals BEE in Kcals: Using Current wt Calories/Kcals/Kg 25-30 Kcals Calculated 0181-7362 Protein: Using Current wt Protein g/k Protein Calculated 68 Fluid: ml 1700-2040ml (1ml/kcal) Nutritional Problem No current Nutrition Prob Problem N/A Intervention/Recommendation Comments 1. Continue with current diet as ordered. 2. Monitor PO intake, wt, labs and skin integrity 3. F/U as low risk in 7d ays, 06/10 Expected Outcomes/Goals Expected Outcomes/Goals 1. PO intake to meet at least 75% of nutritional needs. 2. Wt stability, skin to remain intact, labs to approach WNL.
--- NOTE | 2018-06-05 14:14 | Progress Notes ---
DATE: 06/05/2018 Case was discussed with staff of the patient, reviewed records. The patient has been yelling and screaming. I talked to her in the room. She was very confused, acting out, unable to make a safe plan for self-care or participate in meaningful conversation. I will be increasing her Seroquel dose during the day to 50 mg twice a day. She is on Med-Surg unit. The patient has been also congested with poor appetite, refusing care at times and is being seen by Dr. Gamez. She have acute urinary tract infection with E. coli, tachycardia, and acute renal insufficiency. She have high blood pressure, dehydrated, hypothyroidism, diabetes, no side effects of the medication, no sedation, no nausea. Recommend to increase Seroquel to 50 mg twice a day. Thank you very much for allowing me to participate in the care of this most interesting lady. JOB# [id number]
[2018-06-05] MEDS: Maalox 30 mL Cup PO SCH (20:46)
[2018-06-06] MEDS: Meropenem 500 MG in Sodium Chloride 0.9% 100 ML IV SCH ×2 (03:52→15:07)
[2018-06-06] MEDS: Levothyroxine 0.075 Mg Tab PO SCH (06:29)
[2018-06-06] MEDS: Multivitamin Tab PO SCH (09:28)
[2018-06-06] MEDS: Ferrous Sulfate 325 MG TAB PO SCH (09:28)
--- NOTE | 2018-06-06 11:40 | Progress Notes ---
DATE: 06/06/2018 Case was discussed with staff of the patient, reviewed records. The patient was yelling and screaming yesterday she was out of control despite having giving her Haldol and emergency medication. I talked to Dr. Gamez. The family came and said that she did well. The only thing that helpful was lithium; however, she got into kidney failure and is currently contraindicated according to Dr. Gamez. So, I recommended that we start the patient on Depakote. The patient continues to be unpredictable and impulsive. Continues to have poor insight. Continues to be unable to make safe plan for self-care, easily agitated. Depakote was initiated 500 mg twice a day and Seroquel was increased yesterday to 50 mg twice a day and 50 mg at bedtime ____. She is on valproic acid ____ 250 mg every 6 hours and hopefully that would help. We will continue to work with the patient in group therapy, milieu therapy, adjust medication as needed. JOB# [id number]
--- NOTE | 2018-06-06 13:15 | Internal Medicine Prog Note ---
Internal Medicine Subjective - Subjective Service Date: 06/06/18 Patient is:: awake, verbal, interactive, confused Patient Complaints of:: congestion Per staff patient has:: no adverse event, no episodes of fall, poor appetite, agitated, combative, noncompliant, tolerating meds, refusing care Internal Medicine Objective - Results Result Diagrams: 06/05/18 06:25 06/05/18 06:25 Recent Labs: Laboratory Last Values WBC 4.2 Th/cmm (4.8-10.8) L 06/05/18 06:25 RBC 3.62 Mil/cmm (3.80-5.20) L 06/05/18 06:25 Hgb 11.0 gm/dL (12-16) L 06/05/18 06:25 Hct 32.5 % (41.0-60) L 06/05/18 06:25 MCV 89.8 fl (81-100) 06/05/18 06:25 MCH 30.4 pg (27.0-31.0) 06/05/18 06:25 MCHC Differential 33.8 pg (28.0-36.0) 06/05/18 06:25 RDW 14.6 % (11.5-20.0) 06/05/18 06:25 Plt Count 169 Th/cmm (150-400) 06/05/18 06:25 MPV 8.2 fl 06/05/18 06:25 Neutrophils % 78.2 % (40.0-80.0) 06/05/18 06:25 Lymphocytes % 12.7 % (20.0-50.0) L 06/05/18 06:25 Monocytes % 3.5 % (2.0-10.0) 06/05/18 06:25 Eosinophils % 4.8 % (0.0-5.0) 06/05/18 06:25 Basophils % 0.8 % (0.0-2.0) 06/05/18 06:25 Sodium 143 mEq/L (136-145) 06/05/18 06:25 Potassium 4.2 mEq/L (3.5-5.1) 06/05/18 06:25 Chloride 116 mEq/L (98-107) H 06/05/18 06:25 Carbon Dioxide 19.1 mEq/L (21.0-31.0) L 06/05/18 06:25 Anion Gap 12.1 (7.0-16.0) 06/05/18 06:25 BUN 18 mg/dL (7-25) 06/05/18 06:25 Creatinine 3.3 mg/dL (0.6-1.2) H 06/05/18 06:25 Est GFR ( Amer) 17.8 ml/min (>90) 06/05/18 06:25 Est GFR (Non-Af Amer) 14.7 ml/min 06/05/18 06:25 BUN/Creatinine Ratio 5.5 06/05/18 06:25 Glucose 101 mg/dL (70-105) 06/05/18 06:25 POC Glucose 107 MG/DL (70 - 105) H 06/03/18 18:49 Calcium 9.8 mg/dL (8.6-10.3) 06/05/18 06:25 Magnesium 2.2 mg/dL (1.9-2.7) 06/02/18 05:30 Total Bilirubin 0.3 mg/dL (0.3-1.0) 06/02/18 05:30 AST 13 U/L (13-39) 06/02/18 05:30 ALT 10 U/L (7-52) 06/02/18 05:30 Alkaline Phosphatase 73 U/L (34-104) 06/02/18 05:30 Ammonia 50 umol/L (16-53) 06/02/18 05:30 B-Natriuretic Peptide 25.7 pg/mL (5.0-100.0) 06/02/18 05:30 Total Protein 5.7 gm/dL (6.0-8.3) L 06/02/18 05:30 Albumin 3.3 gm/dL (3.7-5.3) L 06/02/18 05:30 Globulin 2.4 gm/dL 06/02/18 05:30 Albumin/Globulin Ratio 1.4 (1.0-1.8) 06/02/18 05:30 Vitamin B12 744 pg/mL (232-1245) 06/02/18 05:30 Folic Acid >20.0 ng/mL (>3.0) 06/02/18 05:30 TSH 0.41 uIU/ml (0.34-5.60) 06/02/18 05:30 Urine Source RANDOM 05/30/18 15:35 Urine Color YELLOW 05/30/18 15:35 Urine Clarity HAZY (CLEAR) 05/30/18 15:35 Urine pH 6.0 (4.6 - 8.0) 05/30/18 15:35 Ur Specific [place] 1.010 (1.005-1.030) 05/30/18 15:35 Urine Protein 100 mg/dL (NEGATIVE) H 05/30/18 15:35 Urine Glucose (UA) NEGATIVE mg/dL (NEGATIVE) 05/30/18 15:35 Urine Ketones NEGATIVE mg/dL (NEGATIVE) 05/30/18 15:35 Urine Blood MODERATE (NEGATIVE) H 05/30/18 15:35 Urine Nitrate POSITIVE (NEGATIVE) H 05/30/18 15:35 Urine Bilirubin NEGATIVE (NEGATIVE) 05/30/18 15:35 Urine Urobilinogen 0.2 E.U./dL (0.2 - 1.0) 05/30/18 15:35 Ur Leukocyte Esterase LARGE (NEGATIVE) H 05/30/18 15:35 Urine RBC 10-25 /hpf (0-5) H 05/30/18 15:35 Urine WBC >100 /hpf (0-5) H 05/30/18 15:35 Ur Epithelial Cells FEW /lpf (FEW) 05/30/18 15:35 Urine Bacteria 3+ /hpf (NONE SEEN) H 05/30/18 15:35 - Physical Exam Vitals and I&O: Vital Signs Temp 97.2 F 06/06/18 08:00 Pulse 90 06/06/18 09:28 Resp 18 06/06/18 12:00 BP 121/63 06/06/18 09:28 Pulse Ox 96 06/06/18 08:00 Intake & Output 06/05/18 06/06/18 06/06/18 18:59 06:59 18:59 Intake Total 100 130 Balance 100 130 Weight (lbs) 149 lb 149 lb Intake: Intake, IV Amount 100 50 Meropenem 500 mg In 100 50 Sodium Chloride 0.9% 100 ml @ 100 mls/hr IV Q12H [facility] Rx#:[id number] Oral 80 Other: # Voids 2 1 # Bowel Movements 0 Weight Source Bedscale Bedscale Active Medications: Current Medications Acetaminophen (Tylenol) 650 mg PO Q4H PRN PRN Reason: Pain Or Fever above 101 Stop: 07/29/18 19:34 Al Hydrox/Mg Hydrox/Simethicone (Maalox) 30 ml PO HS [facility] Stop: 07/29/18 20:59 Last Admin: 06/05/18 20:46 Dose: 30 ml Al Hydrox/Mg Hydrox/Simethicone (Maalox) 30 ml PO Q4HR PRN PRN Reason: GI DISTRESS Stop: 07/29/18 19:28 Albuterol Sulfate (Albuterol 2.5mg/3ml Neb Ud) 2.5 mg HHN Q2HRT PRN PRN Reason: Shortness of Breath or Wheeze Stop: 07/29/18 19:32 Amiodarone HCl (Cordarone) 100 mg PO DAILY [facility] Stop: 07/30/18 08:59 Last Admin: 06/06/18 09:26 Dose: 100 mg Amlodipine Besylate (Norvasc) 10 mg PO DAILY [facility] Stop: 07/30/18 08:59 Last Admin: 06/06/18 09:27 Dose: 10 mg Famotidine (Pepcid) 10 mg PO DAILY [facility] Stop: 07/30/18 08:59 Last Admin: 06/06/18 09:29 Dose: 10 mg Ferrous Sulfate (Iron) 325 mg PO DAILY [facility] Stop: 07/30/18 08:59 Last Admin: 06/06/18 09:28 Dose: 325 mg Meropenem 500 mg/ Sodium (Chloride) 100 mls @ 100 mls/hr IV Q12H [facility] Stop: 08/02/18 15:59 Last Infusion: 06/06/18 06:35 Dose: 50 mls/hr Ipratropium [place] (Atrovent Neb 0.5mg/2.5ml) 0.5 mg HHN Q2HRT PRN PRN Reason: Shortness of Breath or Wheeze Stop: 07/29/18 19:32 Levothyroxine Sodium (Synthroid) 0.15 mg PO QDAC [facility] Stop: 07/30/18 07:29 Last Admin: 06/06/18 06:29 Dose: 0.15 mg Lorazepam (Ativan) 0.5 mg PO Q4HR PRN; Protocol PRN Reason: Anxiety Stop: 07/29/18 19:28 Last Admin: 06/05/18 20:45 Dose: 0.5 mg Magnesium Hydroxide (Milk Of Magnesia) 30 ml PO HS PRN PRN Reason: Constipation Stop: 07/29/18 19:28 Metoprolol Succinate (Toprol Xl) 25 mg PO DAILY [facility] Stop: 07/30/18 08:59 Last Admin: 06/06/18 09:28 Dose: 25 mg Multivitamins/Vitamin C (Theragran) 1 tab PO DAILY [facility] Stop: 07/30/18 08:59 Last Admin: 06/06/18 09:28 Dose: 1 tab Quetiapine Fumarate (Seroquel) 50 mg PO HS [facility]; Protocol Stop: 07/29/18 20:59 Last Admin: 06/05/18 20:45 Dose: 50 mg Quetiapine Fumarate (Seroquel) 50 mg PO BID [facility]; Protocol Stop: 08/04/18 16:59 Last Admin: 06/06/18 09:30 Dose: 50 mg Valproate Sodium (Depakene) 250 mg GT Q6HR [facility]; Protocol Stop: 08/04/18 17:59 Last Admin: 06/06/18 11:50 Dose: 250 mg Zolpidem Tartrate (Ambien) 5 mg PO HS PRN PRN Reason: Insomnia Stop: 07/29/18 19:28 Last Admin: 06/04/18 02:05 Dose: 5 mg General: demented HEENT: NC/AT, PERRLA Neck: Supple, No JVD, No LAD Lungs: congested Cardiovascular: RRR, Normal S1, Normal S2, with murmur Abdomen: soft, globular, non-distended, positive bowel sound Extremities: excoriation, ulcers stage 1 Neurological: no change, disorganized Internal Medicine Assmt/Plan - Assessment Assessment: Acute urinary tract infection with e.coli tachycardia acute renal insufficiency, rule out acute dehydration hypertension diabetes hypothyroidism History of chronic atrial fibrillation dysphagia anemia gastroesophageal reflux disease bipolar. - Plan Plan: continue ivabx as per id follow up labs in am 1:1 sitter for safety continue current plan of care Nutritional Asmnt/Malnutr-PDOC - Dietary Evaluation Malnutrition Findings (Please click <Entered> for more info): Nutritional Asmnt/Malnutrition Start: 06/03/18 17: 28 Text: Status: Complete Freq: Protocol: Document 06/03/18 17:28 STEWART (Rec: 06/03/18 17:34 [email or web address] [id number]) Nutritional Asmnt/Malnutrition Patient General Information Nutritional Screening Moderate Risk Diagnosis UTI, tachycadia Pertinent Medical Hx/Surgical Hx Dm, HTn, thrydoisiam, chronic a fib, CKD, dysphagia, anemia, hypothrydoisiam, GERd, bipolar, gallop, bipolar, right hip and right knee surgery Subjective Information Per EMR PO intake 25-50%. Pt is very confused, on restrains , sitter 1:1. Current Diet Order/ Nutrition Support renal, mech soft chopped Pertinent Medications pepcid, iron, synthroid, theragran, seroquel Pertinent Labs 06/02 Cl 112, Cr 3.2, glucose 105 Nutritional Hx/Data Height 5 ft 4 in Height (Calculated Centimeters) 162.6 Current Weight (lbs) 149 lb Weight (Calculated Kilograms) 67.6 Weight (Calculated Grams) 89238.3 [place] Body Weight 120 Body Mass Index (BMI) 25.5 Weight Status Overweight GI Symptoms GI Symptoms None Last BM not indicated Difficult in: None Skin Integrity/Comment: skin tear to right hand and R/ L arms Current %PO Poor (25-49%) Estimated Nutritional Goals BEE in Kcals: Using Current wt Calories/Kcals/Kg 25-30 Kcals Calculated 9395-8375 Protein: Using Current wt Protein g/k Protein Calculated 68 Fluid: ml 1700-2040ml (1ml/kcal) Nutritional Problem No current Nutrition Prob Problem N/A Intervention/Recommendation Comments 1. Continue with current diet as ordered. 2. Monitor PO intake, wt, labs and skin integrity 3. F/U as low risk in 7d ays, 06/10 Expected Outcomes/Goals Expected Outcomes/Goals 1. PO intake to meet at least 75% of nutritional needs. 2. Wt stability, skin to remain intact, labs to approach WNL.
[2018-06-06 18:37] LABS: URINE SOURCE CATH
[2018-06-06 18:41] LABS: URINE BILIRUBIN NEGATIVE (NEGATIVE); URINE BLOOD NEGATIVE (NEGATIVE); URINE GLUCOSE (UA) NEGATIVE (NEGATIVE); URINE KETONE NEGATIVE (NEGATIVE); URINE LEUKOCYTE ESTERASE NEGATIVE (NEGATIVE); URINE NITRATE NEGATIVE (NEGATIVE); URINE PROTEIN 30 mg/dL (NEGATIVE); URINE UROBILINOGEN 0.2 E.U./dL (0.2 - 1.0)
[2018-06-06 18:42] LABS: URINE CLARITY CLEAR (CLEAR); URINE COLOR YELLOW
[2018-06-06 18:44] LABS: URINE MICROSCOPIC INDICATED? NO
[2018-06-06 18:47] LABS: URINE BACTERIA NONE SEEN /hpf (NONE SEEN); URINE EPITHELIAL CELLS RARE /lpf (FEW); URINE RBC NONE SEEN /hpf (0-5); URINE WBC 0-2 /hpf (0-5)
[2018-06-06] MEDS: Maalox 30 mL Cup PO SCH (20:27)
[2018-06-07] MEDS: Meropenem 500 MG in Sodium Chloride 0.9% 100 ML IV SCH ×2 (04:51→16:31)
[2018-06-07 05:56] LABS: % BASOPHILS 1.2 % (0.0-2.0); % EOSINOPHILS 6.3 % (0.0-5.0); % LYMPHOCYTES 31.5 % (20.0-50.0); BASOPHILE ABSOLUTE 0.1 Th/cumm (0-0.2); EOSINOPHILE ABSOLUTE 0.3 Th/cmm (0.1-0.4); HEMATOCRIT 29.4 % (41.0-60); HEMOGLOBIN 9.7 gm/dL (12-16); LYMPHOCYTE ABSOLUTE 1.3 Th/cmm (1.5-3.0); MEAN CELL VOLUME 89.5 fl (81-100); MEAN CORPUSCULAR HEMOGLOBIN 29.6 pg (27.0-31.0); MEAN CORPUSCULAR HGB CONC 33.1 pg (28.0-36.0); MEAN PLATELET VOLUME 8.2 fl; MONOCYTE ABSOLUTE 0.3 Th/cmm (0.3-1.0); NEUTROPHILE ABSOLUTE 2.2 Th/cmm (1.8-8.0); PLATELET COUNT 156 Th/cmm (150-400); RED BLOOD COUNT 3.28 Mil/cmm (3.80-5.20); RED CELL DISTRIBUTION WIDTH 14.2 % (11.5-20.0); WHITE BLOOD COUNT 4.2 Th/cmm (4.8-10.8)
[2018-06-07 06:16] LABS: ANION GAP 11.1 (7.0-16.0); CALCIUM SERUM 9.4 mg/dL (8.6-10.3); CARBON DIOXIDE 19.8 mEq/L (21.0-31.0); CREATININE - SERUM 3.6 mg/dL (0.6-1.2); GFR AFRICAN-AMERICAN 16.1 ml/min (>90); GFR NON AFRICAN-AMERICAN 13.3 ml/min; POTASSIUM SERUM 3.9 mEq/L (3.5-5.1)
[2018-06-07] MEDS: Levothyroxine 0.075 Mg Tab PO SCH (10:28)
[2018-06-07] MEDS: Multivitamin Tab PO SCH (10:31)
[2018-06-07] MEDS: Ferrous Sulfate 325 MG TAB PO SCH (10:32)
--- NOTE | 2018-06-07 12:34 | Internal Medicine Prog Note ---
Internal Medicine Subjective - Subjective Service Date: 06/07/18 Patient is:: awake, verbal, interactive, confused Patient Complaints of:: congestion Per staff patient has:: no adverse event, no episodes of fall, poor appetite, agitated, combative, noncompliant, tolerating meds, refusing care Internal Medicine Objective - Results Result Diagrams: 06/07/18 05:30 06/07/18 05:30 Recent Labs: Laboratory Last Values WBC 4.2 Th/cmm (4.8-10.8) L 06/07/18 05:30 RBC 3.28 Mil/cmm (3.80-5.20) L 06/07/18 05:30 Hgb 9.7 gm/dL (12-16) L 06/07/18 05:30 Hct 29.4 % (41.0-60) L 06/07/18 05:30 MCV 89.5 fl (81-100) 06/07/18 05:30 MCH 29.6 pg (27.0-31.0) 06/07/18 05:30 MCHC Differential 33.1 pg (28.0-36.0) 06/07/18 05:30 RDW 14.2 % (11.5-20.0) 06/07/18 05:30 Plt Count 156 Th/cmm (150-400) 06/07/18 05:30 MPV 8.2 fl 06/07/18 05:30 Neutrophils % 54.0 % (40.0-80.0) 06/07/18 05:30 Lymphocytes % 31.5 % (20.0-50.0) 06/07/18 05:30 Monocytes % 7.0 % (2.0-10.0) 06/07/18 05:30 Eosinophils % 6.3 % (0.0-5.0) H 06/07/18 05:30 Basophils % 1.2 % (0.0-2.0) 06/07/18 05:30 Sodium 142 mEq/L (136-145) 06/07/18 05:30 Potassium 3.9 mEq/L (3.5-5.1) 06/07/18 05:30 Chloride 115 mEq/L (98-107) H 06/07/18 05:30 Carbon Dioxide 19.8 mEq/L (21.0-31.0) L 06/07/18 05:30 Anion Gap 11.1 (7.0-16.0) 06/07/18 05:30 BUN 26 mg/dL (7-25) H 06/07/18 05:30 Creatinine 3.6 mg/dL (0.6-1.2) H 06/07/18 05:30 Est GFR ( Amer) 16.1 ml/min (>90) 06/07/18 05:30 Est GFR (Non-Af Amer) 13.3 ml/min 06/07/18 05:30 BUN/Creatinine Ratio 7.2 06/07/18 05:30 Glucose 100 mg/dL (70-105) 06/07/18 05:30 POC Glucose 107 MG/DL (70 - 105) H 06/03/18 18:49 Calcium 9.4 mg/dL (8.6-10.3) 06/07/18 05:30 Magnesium 2.2 mg/dL (1.9-2.7) 06/02/18 05:30 Total Bilirubin 0.3 mg/dL (0.3-1.0) 06/02/18 05:30 AST 13 U/L (13-39) 06/02/18 05:30 ALT 10 U/L (7-52) 06/02/18 05:30 Alkaline Phosphatase 73 U/L (34-104) 06/02/18 05:30 Ammonia 50 umol/L (16-53) 06/02/18 05:30 B-Natriuretic Peptide 25.7 pg/mL (5.0-100.0) 06/02/18 05:30 Total Protein 5.7 gm/dL (6.0-8.3) L 06/02/18 05:30 Albumin 3.3 gm/dL (3.7-5.3) L 06/02/18 05:30 Globulin 2.4 gm/dL 06/02/18 05:30 Albumin/Globulin Ratio 1.4 (1.0-1.8) 06/02/18 05:30 Vitamin B12 744 pg/mL (232-1245) 06/02/18 05:30 Folic Acid >20.0 ng/mL (>3.0) 06/02/18 05:30 TSH 0.41 uIU/ml (0.34-5.60) 06/02/18 05:30 Urine Source CATH 06/06/18 18:10 Urine Color YELLOW 06/06/18 18:10 Urine Clarity CLEAR (CLEAR) 06/06/18 18:10 Urine pH 6.0 (4.6 - 8.0) 06/06/18 18:10 Ur Specific [place] <= 1.005 (1.005-1.030) 06/06/18 18:10 Urine Protein 30 mg/dL (NEGATIVE) H 06/06/18 18:10 Urine Glucose (UA) NEGATIVE mg/dL (NEGATIVE) 06/06/18 18:10 Urine Ketones NEGATIVE mg/dL (NEGATIVE) 06/06/18 18:10 Urine Blood NEGATIVE (NEGATIVE) 06/06/18 18:10 Urine Nitrate NEGATIVE (NEGATIVE) 06/06/18 18:10 Urine Bilirubin NEGATIVE (NEGATIVE) 06/06/18 18:10 Urine Urobilinogen 0.2 E.U./dL (0.2 - 1.0) 06/06/18 18:10 Ur Leukocyte Esterase NEGATIVE (NEGATIVE) 06/06/18 18:10 Urine RBC NONE SEEN /hpf (0-5) 06/06/18 18:10 Urine WBC 0-2 /hpf (0-5) 06/06/18 18:10 Ur Epithelial Cells RARE /lpf (FEW) 06/06/18 18:10 Urine Bacteria NONE SEEN /hpf (NONE SEEN) 06/06/18 18:10 - Physical Exam Vitals and I&O: Vital Signs Temp 97.4 F 06/07/18 08:00 Pulse 75 06/07/18 10:31 Resp 16 06/07/18 08:00 BP 125/64 06/07/18 10:31 Pulse Ox 96 06/07/18 08:00 Intake & Output 06/06/18 06/07/18 06/07/18 18:59 06:59 18:59 Intake Total 150 100 Output Total 200 Balance -50 100 Weight (lbs) 149 lb 149 lb 149 lb Intake: Intake, IV Amount 150 100 Meropenem 500 mg In 150 100 Sodium Chloride 0.9% 100 ml @ 100 mls/hr IV Q12H [facility] Rx#:[id number] Output: Urine 200 Other: # Voids 4 3 3 # Bowel Movements 0 Weight Source Bedscale Bedscale Bedscale Active Medications: Current Medications Acetaminophen (Tylenol) 650 mg PO Q4H PRN PRN Reason: Pain Or Fever above 101 Stop: 07/29/18 19:34 Al Hydrox/Mg Hydrox/Simethicone (Maalox) 30 ml PO HS LEI Stop: 07/29/18 20:59 Last Admin: 06/06/18 20:27 Dose: 30 ml Al Hydrox/Mg Hydrox/Simethicone (Maalox) 30 ml PO Q4HR PRN PRN Reason: GI DISTRESS Stop: 07/29/18 19:28 Albuterol Sulfate (Albuterol 2.5mg/3ml Neb Ud) 2.5 mg HHN Q2HRT PRN PRN Reason: Shortness of Breath or Wheeze Stop: 07/29/18 19:32 Amiodarone HCl (Cordarone) 100 mg PO DAILY LEI Stop: 07/30/18 08:59 Last Admin: 06/07/18 10:31 Dose: 100 mg Amlodipine Besylate (Norvasc) 10 mg PO DAILY LEI Stop: 07/30/18 08:59 Last Admin: 06/07/18 10:31 Dose: 10 mg Famotidine (Pepcid) 10 mg PO DAILY LEI Stop: 07/30/18 08:59 Last Admin: 06/07/18 10:30 Dose: 10 mg Ferrous Sulfate (Iron) 325 mg PO DAILY LEI Stop: 07/30/18 08:59 Last Admin: 06/07/18 10:32 Dose: 325 mg Meropenem 500 mg/ Sodium (Chloride) 100 mls @ 100 mls/hr IV Q12H LEI Stop: 08/02/18 15:59 Last Infusion: 06/07/18 06:51 Dose: Infused Ipratropium [place] (Atrovent Neb 0.5mg/2.5ml) 0.5 mg HHN Q2HRT PRN PRN Reason: Shortness of Breath or Wheeze Stop: 07/29/18 19:32 Levothyroxine Sodium (Synthroid) 0.15 mg PO QDAC LEI Stop: 07/30/18 07:29 Last Admin: 06/07/18 10:28 Dose: 0.15 mg Lorazepam (Ativan) 0.5 mg PO Q4HR PRN; Protocol PRN Reason: Anxiety Stop: 07/29/18 19:28 Last Admin: 06/05/18 20:45 Dose: 0.5 mg Magnesium Hydroxide (Milk Of Magnesia) 30 ml PO HS PRN PRN Reason: Constipation Stop: 07/29/18 19:28 Metoprolol Succinate (Toprol Xl) 25 mg PO DAILY LEI Stop: 07/30/18 08:59 Last Admin: 06/07/18 10:29 Dose: 25 mg Multivitamins/Vitamin C (Theragran) 1 tab PO DAILY LEI Stop: 07/30/18 08:59 Last Admin: 06/07/18 10:31 Dose: 1 tab Quetiapine Fumarate (Seroquel) 50 mg PO HS LEI; Protocol Stop: 07/29/18 20:59 Last Admin: 06/06/18 20:27 Dose: 50 mg Quetiapine Fumarate (Seroquel) 50 mg PO BID LEI; Protocol Stop: 08/04/18 16:59 Last Admin: 06/07/18 10:33 Dose: 50 mg Valproate Sodium (Depakene) 250 mg GT Q6HR LEI; Protocol Stop: 08/04/18 17:59 Last Admin: 06/07/18 06:43 Dose: 250 mg General: demented HEENT: NC/AT, PERRLA Neck: Supple, No JVD, No LAD Lungs: congested Cardiovascular: RRR, Normal S1, Normal S2, with murmur Abdomen: soft, globular, non-distended, positive bowel sound Extremities: excoriation, ulcers stage 1 Neurological: no change, disorganized Internal Medicine Assmt/Plan - Assessment Assessment: Acute urinary tract infection with e.coli tachycardia acute renal insufficiency, rule out acute dehydration hypertension diabetes hypothyroidism History of chronic atrial fibrillation dysphagia anemia gastroesophageal reflux disease bipolar. - Plan Plan: continue ivabx as per id follow up labs in am 1:1 sitter for safety continue current plan of care Nutritional Asmnt/Malnutr-PDOC - Dietary Evaluation Malnutrition Findings (Please click <Entered> for more info): Nutritional Asmnt/Malnutrition Start: 06/03/18 17: 28 Text: Status: Complete Freq: Protocol: Document 06/03/18 17:28 STEWART (Rec: 06/03/18 17:34 AIDANG [email or web address]) Nutritional Asmnt/Malnutrition Patient General Information Nutritional Screening Moderate Risk Diagnosis UTI, tachycadia Pertinent Medical Hx/Surgical Hx Dm, HTn, thrydoisiam, chronic a fib, CKD, dysphagia, anemia, hypothrydoisiam, GERd, bipolar, gallop, bipolar, right hip and right knee surgery Subjective Information Per EMR PO intake 25-50%. Pt is very confused, on restrains , sitter 1:1. Current Diet Order/ Nutrition Support renal, mech soft chopped Pertinent Medications pepcid, iron, synthroid, theragran, seroquel Pertinent Labs 06/02 Cl 112, Cr 3.2, glucose 105 Nutritional Hx/Data Height 5 ft 4 in Height (Calculated Centimeters) 162.6 Current Weight (lbs) 149 lb Weight (Calculated Kilograms) 67.6 Weight (Calculated Grams) 17373.3 [place] Body Weight 120 Body Mass Index (BMI) 25.5 Weight Status Overweight GI Symptoms GI Symptoms None Last BM not indicated Difficult in: None Skin Integrity/Comment: skin tear to right hand and R/ L arms Current %PO Poor (25-49%) Estimated Nutritional Goals BEE in Kcals: Using Current wt Calories/Kcals/Kg 25-30 Kcals Calculated 6442-1984 Protein: Using Current wt Protein g/k Protein Calculated 68 Fluid: ml 1700-2040ml (1ml/kcal) Nutritional Problem No current Nutrition Prob Problem N/A Intervention/Recommendation Comments 1. Continue with current diet as ordered. 2. Monitor PO intake, wt, labs and skin integrity 3. F/U as low risk in 7d ays, 06/10 Expected Outcomes/Goals Expected Outcomes/Goals 1. PO intake to meet at least 75% of nutritional needs. 2. Wt stability, skin to remain intact, labs to approach WNL.
--- NOTE | 2018-06-07 12:56 | Progress Notes ---
DATE: 06/07/2018 FOLLOW-UP PROGRESS NOTE PROGRESS ON THE UNIT: Case was discussed with staff of the patient. The patient has been calmer a little bit since we initiated Depakote in her. She is on valproic acid via G-tube. She is sleeping better, eating better. No side effects with the medications, no sedation, no nausea, and no extrapyramidal symptoms. She is on Seroquel. Thank you very much for allowing me to participate in the care of this most interesting lady. JOB# [id number]
== END 2018-06-07 17:22 | DRG 689 ==
LOC: ER 14:49 → MSI 18:06 → TELE 06-05 12:58 → MSI 06-07 16:24
PROVIDERS: ADMIT Internal Medicine; ATTEND Internal Medicine
DX: N39.0 Urinary tract infection, site not specified (principal); G93.49 Other encephalopathy; F33.3 Major depressive disorder, recurrent, severe with psychotic symptoms; N18.4 Chronic kidney disease, stage 4 (severe); I12.9 Hypertensive chronic kidney disease with stage 1 through stage 4 chronic kidney disease, or unspecified chronic kidney disease; I48.2 Chronic atrial fibrillation; E03.9 Hypothyroidism, unspecified; K21.9 Gastro-esophageal reflux disease without esophagitis; D64.9 Anemia, unspecified; Z66 Do not resuscitate; E11.22 Type 2 diabetes mellitus with diabetic chronic kidney disease; R13.10 Dysphagia, unspecified; B96.20 Unspecified Escherichia coli [E. coli] as the cause of diseases classified elsewhere; E86.0 Dehydration; Z88.5 Allergy status to narcotic agent; Z83.3 Family history of diabetes mellitus; Z82.49 Family history of ischemic heart disease and other diseases of the circulatory system; Z88.8 Allergy status to other drugs, medicaments and biological substances
CPT/HCPCS: 36415-UA; 80048-TC; 80053-TC; 81001-TC; 82140-TC; 82607-90; 82746-90; 82948-90; 83735-TC; 83880-TC; 84443-TC; 85025-TC; 87086-90; 93005; 94760; J0692; J0696; J1200; J1630; J1956; J2060; J2185; Z7610

== ENCOUNTER 2018-06-27 12:07 | Inpatient (IN) | payer MEDICARE, BC ==
--- NOTE | 2018-06-27 12:25 | ED Physician Chart ---
ED Chief Complaint/HPI - Patient Information Date Seen:: 06/27/18 Time Seen:: 12:15 Chief Complaint:: agitation History of Present Illness:: According to the EMT patient was apparently pulling things out of the drawers at her extended care facility and throwing them on the floor. Allergies:: Allergies Allergy/AdvReac Type Severity Reaction Status Date / Time morphine Allergy Verified 06/27/18 12:16 NSAIDS (Non-Steroidal Allergy Verified 06/27/18 12:16 Anti-Inflamma Historian:: Patient, EMS Review:: Transfer documents Reviewed ED Review of Systems - Review of Systems General/Constitutional: No fever, No chills, No weight loss, No weakness, No diaphoresis, No edema, No loss of appetite Skin: No skin lesions, No rash, No bruising Head: No headache, No light-headedness Eyes: No loss of vision, No pain, No diplopia ENT: No earache, No nasal drainage, No sore throat, No tinnitus Neck: No neck pain, No swelling, No thyromegaly, No stiffness, No mass noted Cardio Vascular: No chest pain, No palpitations, No PND, No orthopnea, No edema Pulmonary: No SOB, No cough, No sputum, No wheezing GI: No nausea, No vomiting, No diarrhea, No pain, No melena, No hematochezia, No constipation, No hematemesis G/U: No dysuria, No frequency, No hematuria Musculoskeletal: No bone or joint pain, No back pain, No muscle pain Endocrine: No polyuria, No polydipsia Psychiatric: Prior psych history Hematopoietic: No bruising, No lymphadenopathy Allergic/Immuno: No urticaria, No angioedema Neurological: No syncope, No focal symptoms, No weakness, No paresthesia, No headache, No seizure, No dizziness, No confusion, No vertigo ED Past Medical History - Past Medical History Past Medical History: HTN, DM, PUD/GERD, Thyroid disorder, Other (chronic atrial fibrillation; stage IV renal disease; dysphagia; anemia; hypothyroidism; gout) Family History: Other (not available) Social History: Care Facility Surgical History: PEG/GTube Psychiatricy History: Other (psychosis) Medication: Reviewed Family Medical History - Family Member Mother History Unknown: Yes ED Physical Exam - Physical Examination General/Constitutional: Awake, Well-developed, well-nourished, Alert Other Gen/Cons comments:: Patient is uncooperative, yelling at times. Resisted the physical examination by pulling on my stethoscope Head: Atraumatic Eyes: Lids, conjuctiva normal, PERRL Skin: Nl inspection, No rash, No skin lesions, No ecchymosis ENMT: External ears, nose nl, TM canals nl, Nasal exam nl, Lips, teeth, gums nl Neck: No nuchal rigidity Respiratory: Nl effort/Exclusion, Clear to Auscultation, No Wheeze/Rhonchi/Rales Cardio Vascular: RRR GI: No tenderness/rebounding/guarding Other Extremities comments:: Ecchymosis upper extremities Neuro/Psych: No focal deficits Misc: No paraspinal tenderness ED Labs/Radiology/EKG Results - Lab Results Results: Laboratory Results - last 24 hr 06/27/18 06/27/18 12:45 12:45 WBC 5.2 RBC 3.40 L Hgb 10.0 L Hct 30.2 L MCV 88.8 MCH 29.3 MCHC Differential 33.0 RDW 14.8 Plt Count 178 MPV 8.6 Neutrophils % 72.3 Lymphocytes % 21.1 Monocytes % 4.5 Eosinophils % 1.3 Basophils % 0.8 Sodium 137 Potassium 4.2 Chloride 109 H Carbon Dioxide 15.7 L Anion Gap 16.5 H BUN 27 H Creatinine 4.2 H* Est GFR ( Amer) 13.5 Est GFR (Non-Af Amer) 11.2 BUN/Creatinine Ratio 6.4 Glucose 73 Calcium 8.8 ED Septic Shock - . Is Septic Shock (SBP<90, OR Lactate>4 mmol\L) present?: No ED Reassessment (Disposition) - Reassessment Reassessment Condition:: Unchanged - Diagnosis Diagnosis:: Psychosis; aggressive behavior; anemia; renal insufficiency - Patient Disposition Admitted to:: Med/Surg Spoke to:: Luis Gamez Admitting Medical Physician:: Luis Gamez Condition at Disposition:: Stable, Unchanged
[2018-06-27] MEDS ORDERED: Haloperidol Lactate 5 mg/mL 1mL Vial IM ONE (12:28)
[2018-06-27] MEDS ORDERED: Haloperidol Lactate 5 mg/mL 1mL Vial ONE (12:44)
[2018-06-27 12:49] LABS: % BASOPHILS 0.8 % (0.0-2.0); % EOSINOPHILS 1.3 % (0.0-5.0); % LYMPHOCYTES 21.1 % (20.0-50.0); % MONOCYTES 4.5 % (2.0-10.0); % NEUTROPHILS 72.3 % (40.0-80.0); EOSINOPHILE ABSOLUTE 0.1 Th/cmm (0.1-0.4); HEMATOCRIT 30.2 % (41.0-60); LYMPHOCYTE ABSOLUTE 1.1 Th/cmm (1.5-3.0); MEAN CELL VOLUME 88.8 fl (81-100); MEAN CORPUSCULAR HEMOGLOBIN 29.3 pg (27.0-31.0); MEAN PLATELET VOLUME 8.6 fl; MONOCYTE ABSOLUTE 0.2 Th/cmm (0.3-1.0); NEUTROPHILE ABSOLUTE 3.8 Th/cmm (1.8-8.0); PLATELET COUNT 178 Th/cmm (150-400); RED CELL DISTRIBUTION WIDTH 14.8 % (11.5-20.0); WHITE BLOOD COUNT 5.2 Th/cmm (4.8-10.8)
[2018-06-27 13:06] LABS: ANION GAP 16.5 (7.0-16.0); CALCIUM SERUM 8.8 mg/dL (8.6-10.3); CARBON DIOXIDE 15.7 mEq/L (21.0-31.0); GFR AFRICAN-AMERICAN 13.5 ml/min (>90); GFR NON AFRICAN-AMERICAN 11.2 ml/min; POTASSIUM SERUM 4.2 mEq/L (3.5-5.1)
[2018-06-27 13:08] LABS: CREATININE - SERUM 4.2 mg/dL (0.6-1.2)
[2018-06-27] MEDS ORDERED: Albuterol Nebulizer 2.5mg/3mL HHN PRN (15:21)
[2018-06-27] MEDS ORDERED: Maalox 30 mL Cup GT PRN (15:21)
[2018-06-27] MEDS ORDERED: Magnesium Hydroxide (MOM) 30 mL UDC GT PRN (15:21)
--- NOTE | 2018-06-27 20:47 | History & Physical ---
ADMIT DATE: 06/27/2018 CHIEF COMPLAINT: Increasing agitation, not taking medication. HISTORY OF PRESENT ILLNESS: This is a 67-year-old female with history of hypertension, hypercholesterolemia, anemia, hypothyroidism, admitted from nursing facility secondary to increasing agitation, which is different than her baseline. The patient also has not been eating as much and not drink as much. The patient was evaluated in the ER, noted to have elevated BUN and creatinine, worse than her baseline. PAST MEDICAL HISTORY: As mentioned in history of present illness. PAST SURGICAL HISTORY: The patient is noncooperative. ALLERGIES: MORPHINE, NSAIDS. MEDICATIONS: Tylenol, amlodipine, amiodarone, metoprolol, rosuvastatin, lorazepam, Seroquel, and valproic acid. FAMILY HISTORY: Noncontributory. SOCIAL HISTORY: The patient is a [facility] patient requiring 24-hour total care. REVIEW OF SYSTEMS: This is limited secondary to pain, comatose state. We will try to obtain more detailed review of system at a later date by talking to family members. There is a , Geraldo Palma, and Nakul Rosen is her brother, . PHYSICAL EXAMINATION: VITAL SIGNS: Blood pressure 104/64, respirations 18, pulse 73, temperature 97.3. GENERAL: Elderly female, appears chronically ill. NECK: Supple. No mass. LUNGS: Decreased breath sounds with few rhonchi. HEART: Regular rate and rhythm with systolic ejection murmur. ABDOMEN: Soft. EXTREMITIES: Positive excoriation. NEUROLOGIC: Limited. LABORATORY DATA: WBC 5, hemoglobin 10, platelets 178. Sodium 137, potassium 4.2, bicarb is 15, BUN 27, creatinine 4.2. ASSESSMENT AND PLAN: Dehydration, acute renal failure, metabolic acidosis, increasing agitation, anemia, hypertension, hypercholesterolemia, gastroesophageal reflux disease, hypothyroidism. We will try to provide the patient with aggressive IV hydration. We will follow up kidney ultrasound and 24-hour urine collection. We will refer the patient to Renal as well as Psychiatry. Continue with current care. Followup consult and recommendations. JOB# [id number]
[2018-06-27] MEDS ORDERED: Non-Formulary Item 1 EA (Atorvastatin Calcium [Lipitor] 40 MG) PO SCH (21:00)
[2018-06-28 06:11] LABS: % BASOPHILS 0.2 % (0.0-2.0); % EOSINOPHILS 3.4 % (0.0-5.0); % LYMPHOCYTES 47.4 % (20.0-50.0); % MONOCYTES 4.7 % (2.0-10.0); % NEUTROPHILS 44.3 % (40.0-80.0); EOSINOPHILE ABSOLUTE 0.2 Th/cmm (0.1-0.4); HEMATOCRIT 28.7 % (41.0-60); HEMOGLOBIN 9.5 gm/dL (12-16); LYMPHOCYTE ABSOLUTE 2.3 Th/cmm (1.5-3.0); MEAN CELL VOLUME 89.2 fl (81-100); MEAN CORPUSCULAR HEMOGLOBIN 29.5 pg (27.0-31.0); MEAN CORPUSCULAR HGB CONC 33.1 pg (28.0-36.0); MEAN PLATELET VOLUME 9.1 fl; MONOCYTE ABSOLUTE 0.2 Th/cmm (0.3-1.0); NEUTROPHILE ABSOLUTE 2.2 Th/cmm (1.8-8.0); PLATELET COUNT 153 Th/cmm (150-400); RED BLOOD COUNT 3.22 Mil/cmm (3.80-5.20); RED CELL DISTRIBUTION WIDTH 14.5 % (11.5-20.0); WHITE BLOOD COUNT 4.9 Th/cmm (4.8-10.8)
[2018-06-28 06:30] LABS: ALB/GLOB RATIO 1.4 (1.0-1.8); ALBUMIN 3.1 gm/dL (3.7-5.3); ANION GAP 11.3 (7.0-16.0); BILIRUBIN,TOTAL 0.3 mg/dL (0.3-1.0); CALCIUM SERUM 8.2 mg/dL (8.6-10.3); CARBON DIOXIDE 20.6 mEq/L (21.0-31.0); GFR AFRICAN-AMERICAN 13.9 ml/min (>90); GFR NON AFRICAN-AMERICAN 11.5 ml/min; POTASSIUM SERUM 3.9 mEq/L (3.5-5.1); TOTAL PROTEIN,SERUM 5.4 gm/dL (6.0-8.3)
[2018-06-28] MEDS: Levothyroxine 0.075 Mg Tab GT SCH (06:36)
[2018-06-28 06:53] LABS: CREATININE - SERUM 4.1 mg/dL (0.6-1.2)
[2018-06-28] MEDS: Ferrous Sulfate 325 MG TAB PO SCH (09:49)
[2018-06-28] MEDS: Multivitamin Tab GT SCH (09:49)
--- NOTE | 2018-06-28 13:03 | Diagnostic Imaging Report ---
Renal ultrasound HISTORY: Abnormal renal function tests There is suboptimal delineation of the margins the right kidney which appears to exhibit an overall normal size (approximately 11.3 x 7.4 x 6.1 cm). Increased cortical echogenicity. There is a 2.9 cm sonolucent lesion noted in the mid medullary region consistent with a cyst. An additional 1.8 cm sonolucent lesion consistent with a cyst seen within the upper pole. No hydronephrosis. Suboptimal delineation of the margins the left kidney which measures approximately 10.9 x 5.7 x 5.2 cm). 2 cysts noted in the upper and midportion of the kidney area the largest measures 1.8 cm. No hydronephrosis. The urinary bladder cannot be well evaluated due to lack of distention and presence of a Salvador catheter. IMPRESSION: 1. Suboptimal detail and delineation of the kidneys. 2. Findings consistent with bilateral renal cysts 3. No hydronephrosis
--- NOTE | 2018-06-28 13:45 | Internal Medicine Prog Note ---
Internal Medicine Subjective - Subjective Service Date: 06/28/18 Patient seen and examined:: with staff Patient is:: awake, verbal, in bed, other (depressed) Per staff patient has:: tolerating meds Internal Medicine Objective - Results Result Diagrams: 06/28/18 05:30 06/28/18 05:30 Recent Labs: Laboratory Last Values WBC 4.9 Th/cmm (4.8-10.8) 06/28/18 05:30 RBC 3.22 Mil/cmm (3.80-5.20) L 06/28/18 05:30 Hgb 9.5 gm/dL (12-16) L 06/28/18 05:30 Hct 28.7 % (41.0-60) L 06/28/18 05:30 MCV 89.2 fl (81-100) 06/28/18 05:30 MCH 29.5 pg (27.0-31.0) 06/28/18 05:30 MCHC Differential 33.1 pg (28.0-36.0) 06/28/18 05:30 RDW 14.5 % (11.5-20.0) 06/28/18 05:30 Plt Count 153 Th/cmm (150-400) 06/28/18 05:30 MPV 9.1 fl 06/28/18 05:30 Neutrophils % 44.3 % (40.0-80.0) 06/28/18 05:30 Lymphocytes % 47.4 % (20.0-50.0) 06/28/18 05:30 Monocytes % 4.7 % (2.0-10.0) 06/28/18 05:30 Eosinophils % 3.4 % (0.0-5.0) 06/28/18 05:30 Basophils % 0.2 % (0.0-2.0) 06/28/18 05:30 Sodium 140 mEq/L (136-145) 06/28/18 05:30 Potassium 3.9 mEq/L (3.5-5.1) 06/28/18 05:30 Chloride 112 mEq/L (98-107) H 06/28/18 05:30 Carbon Dioxide 20.6 mEq/L (21.0-31.0) L 06/28/18 05:30 Anion Gap 11.3 (7.0-16.0) 06/28/18 05:30 BUN 26 mg/dL (7-25) H 06/28/18 05:30 Creatinine 4.1 mg/dL (0.6-1.2) H* 06/28/18 05:30 Est GFR ( Amer) 13.9 ml/min (>90) 06/28/18 05:30 Est GFR (Non-Af Amer) 11.5 ml/min 06/28/18 05:30 BUN/Creatinine Ratio 6.3 06/28/18 05:30 Glucose 89 mg/dL (70-105) 06/28/18 05:30 Calcium 8.2 mg/dL (8.6-10.3) L 06/28/18 05:30 Total Bilirubin 0.3 mg/dL (0.3-1.0) 06/28/18 05:30 AST 13 U/L (13-39) 06/28/18 05:30 ALT 5 U/L (7-52) L 06/28/18 05:30 Alkaline Phosphatase 70 U/L (34-104) 06/28/18 05:30 Ammonia 55 umol/L (16-53) H 06/28/18 05:30 B-Natriuretic Peptide 21.4 pg/mL (5.0-100.0) 06/28/18 05:30 Total Protein 5.4 gm/dL (6.0-8.3) L 06/28/18 05:30 Albumin 3.1 gm/dL (3.7-5.3) L 06/28/18 05:30 Globulin 2.3 gm/dL 06/28/18 05:30 Albumin/Globulin Ratio 1.4 (1.0-1.8) 06/28/18 05:30 - Physical Exam Vitals and I&O: Vital Signs Temp 96.2 F 06/28/18 08:15 Pulse 86 06/28/18 09:47 Resp 19 06/28/18 08:15 BP 167/91 06/28/18 09:47 Pulse Ox 98 06/28/18 08:15 Intake & Output 06/27/18 06/28/18 06/28/18 18:59 06:59 18:59 Intake Total 100 200 200 Balance 100 200 200 Weight (lbs) 152 lb 152 lb 152 lb Intake: Oral 100 200 200 Other: # Voids 2 1 1 Stool Characteristics Soft Soft Soft Weight Source Bedscale Bedscale Bedscale Active Medications: Current Medications Acetaminophen (Tylenol) 650 mg GT Q4HR PRN PRN Reason: Mild Pain / Temp above 100 Stop: 08/26/18 15:20 Acetaminophen (Tylenol) 650 mg GT Q4H PRN PRN Reason: Pain Or Fever above 101 Stop: 08/26/18 15:20 Al Hydrox/Mg Hydrox/Simethicone (Maalox) 30 ml GT HS PRN PRN Reason: GI DISTRESS Stop: 08/26/18 15:20 Albuterol Sulfate (Albuterol 2.5mg/3ml Neb Ud) 2.5 mg HHN Q2HRT PRN PRN Reason: Shortness of Breath or Wheeze Stop: 08/26/18 15:20 Amiodarone HCl (Cordarone) 100 mg GT DAILY LEI Stop: 08/27/18 08:59 Last Admin: 06/28/18 09:48 Dose: 100 mg Atorvastatin Calcium (Lipitor) 40 mg PO HS LEI Stop: 08/26/18 20:59 Last Admin: 06/27/18 23:20 Dose: 40 mg Famotidine (Pepcid) 10 mg GT QDAC LEI Stop: 08/27/18 07:29 Last Admin: 06/28/18 06:50 Dose: 10 mg Ferrous Sulfate (Iron) 325 mg PO DAILY LEI Stop: 08/27/18 08:59 Last Admin: 06/28/18 09:49 Dose: 325 mg Dextrose/Sodium Chloride (D5-0.45ns) 1,000 mls @ 100 mls/hr IV .Q10H LEI Stop: 08/26/18 15:29 Levothyroxine Sodium (Synthroid) 0.15 mg GT QDAC LEI Stop: 08/27/18 07:29 Last Admin: 06/28/18 06:36 Dose: 0.15 mg Lorazepam (Ativan) 0.5 mg GT Q12HR LEI; Protocol Stop: 08/26/18 20:59 Last Admin: 06/28/18 09:49 Dose: 0.5 mg Lorazepam (Ativan) 1 mg IV Q4H PRN; Protocol PRN Reason: Seizure Stop: 08/26/18 15:21 Magnesium Hydroxide (Milk Of Magnesia) 30 ml GT HS PRN PRN Reason: Constipation Stop: 08/26/18 15:20 Metoprolol Succinate (Toprol Xl) 50 mg PO DAILY LEI Stop: 08/27/18 12:29 Multivitamins/Vitamin C (Theragran) 1 tab GT DAILY LEI Stop: 08/27/18 08:59 Last Admin: 06/28/18 09:49 Dose: 1 tab Ondansetron HCl (Zofran) 4 mg IV Q8H PRN PRN Reason: Nausea / Vomiting Stop: 08/26/18 15:21 Quetiapine Fumarate (Seroquel) 50 mg GT HS LEI; Protocol Stop: 08/26/18 20:59 Last Admin: 06/27/18 23:20 Dose: 50 mg Quetiapine Fumarate (Seroquel) 50 mg GT BID LEI; Protocol Stop: 08/26/18 16:59 Valproate Sodium (Depakene) 250 mg GT Q6HR LEI; Protocol Stop: 08/26/18 17:59 Last Admin: 06/28/18 06:36 Dose: 250 mg General: weak, alert HEENT: NC/AT, PERRLA Neck: Supple Lungs: CTAB Cardiovascular: RRR, Normal S1, Normal S2, without murmur Abdomen: soft, non-tender, non-distended, positive bowel sound Extremities: excoriation Neurological: alert Internal Medicine Assmt/Plan - Assessment Assessment: acute dehydration acute renal failure htn anemia hdl gerd hypothyroidism - Plan Plan: continue ivf for hydration await for 24hour urine crea clearance follow up labs in am continue current plan of care
--- NOTE | 2018-06-28 14:05 | Consultation ---
DATE OF CONSULTATION: REASON FOR CONSULTATION: Worsening kidney function, electrolyte imbalance and fluid management. HISTORY OF PRESENT ILLNESS: This is a 67-year-old female with past medical history of chronic kidney disease, who was brought in because of aggressive behavior. A few hours prior to admission, the patient was agitated with aggressive behavior. She was throwing things on the floor. She was uncooperative and not been eating/drinking appropriately. Thus, she was brought to the Emergency Room. Her white count was 5.2 and remained afebrile. She has a history of chronic kidney disease. Labs drawn last on 06/24/2018 revealed a BUN/creatinine of 28/3.4. Her BUN/creatinine upon admission here were 27/4.2. She admitted to some diarrhea in the last few days, but had no nausea and vomiting. PAST MEDICAL HISTORY: 1. Chronic kidney disease. 2. Chronic atrial fibrillation. 3. Anemia of chronic disease. 4. Hypothyroidism. 5. Type 2 diabetes mellitus. 6. Essential hypertension. 7. GERD. 8. Gout. 9. DJD. PAST SURGICAL HISTORY: Status post right hip and knee replacement. CURRENT MEDICATIONS: She is currently on acetaminophen, amiodarone, atorvastatin, famotidine, ferrous sulfate, haloperidol, levothyroxine, lorazepam, metoprolol, ondansetron, quetiapine, valproic acid. ALLERGIES: Allergic to morphine, NSAIDs. SOCIAL HISTORY: Denied any history of alcohol or tobacco use. 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 FAMILY HISTORY: Noncontributory to present illness. REVIEW OF SYSTEMS: I was unable to obtain accurate review of systems because of the patient's psychological condition at the present time. She was not able to provide appropriate responses and kept on repeating her words. PHYSICAL EXAMINATION: GENERAL: As mentioned, the patient is awake, confused at the present time, reiterating previous words, but not in any distress, looks paranoid. VITAL SIGNS: Blood pressure 167/91, pulse 86, temperature is 96.2 degrees. SKIN: Poor turgor, warm. No rash nor jaundice appreciated. HEENT: Head normocephalic, atraumatic. Eyes; extraocular muscles intact; pupils equal, round and reactive to light and accommodates; anicteric sclerae; pale conjunctivae. Nose, midline nasal septum. Mouth; dry mucosa, poor dentition. NECK: Supple, no adenopathy, no thyromegaly, no bruits. Trachea palpated in the midline. CHEST AND CARDIOVASCULAR SYSTEM: S1 and S2. No rub, murmur nor gallop appreciated. Point of maximal impulse fifth intercostal space, left midclavicular line. No abdominal or femoral bruits appreciated. LUNGS: Equal expansion. No use of accessory muscles. No supraclavicular retractions. Decreased breath sounds, few rhonchi, but no rales nor wheezes appreciated. BREASTS: Symmetrical without any discharge. ABDOMEN: Flat, soft, positive for bowel sounds. No bruits either diastolic or systolic. RECTAL: The patient refused. GENITOURINARY: Normal-appearing female genitalia. MUSCULOSKELETAL: No effusions present in her joints, but unable to assess her range of motion. EXTREMITIES: No evidence of any edema, cyanosis nor clubbing with palpable femoral, but unable to fully appreciate popliteal and dorsalis pedis pulses. NEUROLOGIC: The patient is alert, verbal, motor is 5/5. Cranial nerves 3-12 intact. Sensory intact. LABORATORY DATA: Labs revealed sodium 140, potassium 3.9, chloride 112, CO2 is 20, BUN 26, creatinine 4.1, glucose 89, calcium 8.9. Ammonia 55. BNP 21. Albumin 3.1. IMPRESSION: 1. Acute kidney injury on chronic kidney disease, MDRD GFR of 11.5 mL per minute, stage V. The patient's chronic kidney disease is secondary to longstanding history of diabetes giving rise to diabetic nephropathy with possible some underlying hypertensive nephrosclerosis. The patient's acute kidney injury is initially prerenal. The patient for the last few days has been agitated, has not been eating appropriately solid food as well as liquids. She also had intermittent diarrhea. Thus, she developed dehydration. This was supported by poor skin turgor, dry oral mucosa. Her prerenal azotemia eventually progressed to acute tubular injury. 2. Acute psychiatric decompensation. 3. Chronic atrial fibrillation. 4. Anemia of chronic disease. 5. Hypothyroidism. 6. Type 2 diabetes mellitus. 7. Essential hypertension. 8. Gastroesophageal reflux disease. 9. Gout. 10. Degenerative joint disease. PLAN: 1. Agree with IV fluids. 2. Continue with urine sodium, eosinophils and creatinine. 3. Urine microalbumin to creatinine ratio. 4. Renal ultrasound. 5. Encourage p.o. intake. 6. Follow up electrolytes, CBC, hemoglobin A1c, TSH, uric acid. Thank you, Dr. Gamez, for this consult. We will follow the patient closely with you. [facility]# [id number]
[2018-06-28 22:41] LABS: URINE SOURCE FOLEY PORT
--- NOTE | 2018-06-28 23:50 | Consultation ---
DATE OF CONSULTATION: 06/28/2018 IDENTIFYING INFORMATION: The patient is a 67-year-old female. HISTORY OF PRESENT ILLNESS: The patient presents with agitation. The patient has been refusing her medication. The patient was admitted yesterday from a nursing facility. She has hypertension, hypercholesterolemia, anemia, and hypothyroidism. The patient has increased agitation, which is different from her baseline, has not been eating as much, not drinking, which resulted in increase in her BUN and creatinine level, worse than her baseline. The patient when I talked to her, she believes she is not Elyssa, she is somebody else, and they have send the wrong person here. She knew she was at [facility]. She could not tell me the date. She is unable to participate in meaningful conversation. She is impulsive and unpredictable. PAST PSYCHIATRIC HISTORY: The patient has multiple prior hospitalizations to this facility because of psychosis. MEDICAL HISTORY: She has history of hypertension, hypercholesterolemia, anemia, and hypothyroidism with high BUN and creatinine level. She did have a kidney ultrasound done for her. FAMILY AND SOCIAL HISTORY: The patient is unable to participate in meaningful conversation or give me information. MEDICATIONS: The patient was given Haldol once. She is on Seroquel 50 mg at bedtime via G-tube twice a day and Depakote 250 mg every 6 hours. MENTAL STATUS EXAMINATION: The patient is appropriately dressed in hospital gown, not well groomed. She is confused, unable to tell me the date, where she is, why she is here. She believed they have the wrong person that she is not the one that should be here that they made a mistake and send the wrong person. She knew she was at [place]; however, unable to participate in meaningful conversation or make safe plan for self-care. She reports that she will harm herself, she needs to do that, so the patient's long and short term memory is poor, does not know why she is here, unable to tell me her age. Her insight and judgment is impaired. She denies any auditory or visual hallucinations. IMPRESSION: Psychosis, schizoaffective disorder. MEDICAL DIAGNOSES: As per Dr. Gamez. RECOMMENDATION: Recommend to continue her medication 1:1 and suicide precaution. Thank you very much for allowing me to participate in the care of this most interesting lady. JOB# [id number]
[2018-06-29 02:15] LABS: URINE BILIRUBIN NEGATIVE (NEGATIVE); URINE CLARITY CLEAR (CLEAR); URINE COLOR YELLOW; URINE GLUCOSE (UA) NEGATIVE (NEGATIVE); URINE KETONE NEGATIVE (NEGATIVE)
[2018-06-29 02:16] LABS: URINE BLOOD SMALL (NEGATIVE); URINE LEUKOCYTE ESTERASE LARGE (NEGATIVE); URINE MICROSCOPIC INDICATED? YES; URINE NITRATE NEGATIVE (NEGATIVE); URINE PROTEIN NEGATIVE (NEGATIVE); URINE UROBILINOGEN 0.2 E.U./dL (0.2 - 1.0)
[2018-06-29 02:25] LABS: URINE BACTERIA MANY /hpf (NONE SEEN); URINE EPITHELIAL CELLS MODERATE /lpf (FEW); URINE WBC >100 /hpf (0-5)
[2018-06-29 04:51] LABS: SURFACE AREA 1.74
[2018-06-29 05:40] LABS: EOSINOPHIL SMEAR SOURCE URINE; EOSINOPHILS SMEAR COUNT NONE SEEN (NONE SEEN)
[2018-06-29 05:48] LABS: % BASOPHILS 0.1 % (0.0-2.0); % EOSINOPHILS 2.6 % (0.0-5.0); % LYMPHOCYTES 38.8 % (20.0-50.0); % MONOCYTES 4.5 % (2.0-10.0); EOSINOPHILE ABSOLUTE 0.2 Th/cmm (0.1-0.4); HEMATOCRIT 29.3 % (41.0-60); HEMOGLOBIN 9.7 gm/dL (12-16); LYMPHOCYTE ABSOLUTE 2.3 Th/cmm (1.5-3.0); MEAN CELL VOLUME 89.4 fl (81-100); MEAN CORPUSCULAR HEMOGLOBIN 29.6 pg (27.0-31.0); MEAN CORPUSCULAR HGB CONC 33.1 pg (28.0-36.0); MEAN PLATELET VOLUME 9.4 fl; MONOCYTE ABSOLUTE 0.3 Th/cmm (0.3-1.0); NEUTROPHILE ABSOLUTE 3.1 Th/cmm (1.8-8.0); PLATELET COUNT 157 Th/cmm (150-400); RED BLOOD COUNT 3.27 Mil/cmm (3.80-5.20); RED CELL DISTRIBUTION WIDTH 14.5 % (11.5-20.0)
[2018-06-29 05:59] LABS: WHITE BLOOD COUNT 5.9 Th/cmm (4.8-10.8)
[2018-06-29 06:05] LABS: ANION GAP 13.4 (7.0-16.0); CALCIUM SERUM 7.9 mg/dL (8.6-10.3); CARBON DIOXIDE 16.7 mEq/L (21.0-31.0); CREATININE - SERUM 3.6 mg/dL (0.6-1.2); GFR AFRICAN-AMERICAN 16.1 ml/min (>90); GFR NON AFRICAN-AMERICAN 13.3 ml/min; MAGNESIUM 1.9 mg/dL (1.9-2.7); PHOSPHOROUS 2.9 mg/dL (2.5-5.0); POTASSIUM SERUM 4.1 mEq/L (3.5-5.1); URIC ACID 10.9 mg/dL (2.3-6.6)
[2018-06-29] MEDS: Levothyroxine 0.075 Mg Tab GT SCH (06:35)
[2018-06-29] MEDS: Multivitamin Tab GT SCH (08:40)
[2018-06-29] MEDS: Ferrous Sulfate 325 MG TAB PO SCH (08:40)
[2018-06-29 08:43] LABS: SODIUM 24HR URINE 29 mmol/24H (40-220); SODIUM RANDOM URINE 21 mmol/L; URINE COLLECTION TIME 24 hours; URINE TOTAL VOLUME 1400 ml
[2018-06-29] MEDS: D5-0.45NS 1,000 ML IV SCH ×2 (11:09→20:22)
--- NOTE | 2018-06-29 11:46 | General Progress Note ---
Subjective - Review of Systems Service Date: 06/29/18 Subjective: crying, depressed Objective - Results Result Diagrams: 06/29/18 05:25 06/29/18 05:25 Recent Labs: Laboratory Last Values WBC 5.9 Th/cmm (4.8-10.8) D 06/29/18 05:25 RBC 3.27 Mil/cmm (3.80-5.20) L 06/29/18 05:25 Hgb 9.7 gm/dL (12-16) L 06/29/18 05:25 Hct 29.3 % (41.0-60) L 06/29/18 05:25 MCV 89.4 fl (81-100) 06/29/18 05:25 MCH 29.6 pg (27.0-31.0) 06/29/18 05:25 MCHC Differential 33.1 pg (28.0-36.0) 06/29/18 05:25 RDW 14.5 % (11.5-20.0) 06/29/18 05:25 Plt Count 157 Th/cmm (150-400) 06/29/18 05:25 MPV 9.4 fl 06/29/18 05:25 Neutrophils % 54.0 % (40.0-80.0) 06/29/18 05:25 Lymphocytes % 38.8 % (20.0-50.0) 06/29/18 05:25 Monocytes % 4.5 % (2.0-10.0) 06/29/18 05:25 Eosinophils % 2.6 % (0.0-5.0) 06/29/18 05:25 Basophils % 0.1 % (0.0-2.0) 06/29/18 05:25 Eos Smear Source URINE 06/29/18 01:10 Eos Smear Total Cells NONE SEEN (NONE SEEN) 06/29/18 01:10 Sodium 137 mEq/L (136-145) 06/29/18 05:25 Potassium 4.1 mEq/L (3.5-5.1) 06/29/18 05:25 Chloride 111 mEq/L (98-107) H 06/29/18 05:25 Carbon Dioxide 16.7 mEq/L (21.0-31.0) L 06/29/18 05:25 Anion Gap 13.4 (7.0-16.0) 06/29/18 05:25 BUN 25 mg/dL (7-25) 06/29/18 05:25 Creatinine 3.6 mg/dL (0.6-1.2) H 06/29/18 05:25 Est GFR ( Amer) 16.1 ml/min (>90) 06/29/18 05:25 Est GFR (Non-Af Amer) 13.3 ml/min 06/29/18 05:25 BUN/Creatinine Ratio 6.9 06/29/18 05:25 Glucose 85 mg/dL (70-105) 06/29/18 05:25 Uric Acid 10.9 mg/dL (2.3-6.6) H 06/29/18 05:25 Calcium 7.9 mg/dL (8.6-10.3) L 06/29/18 05:25 Phosphorus 2.9 mg/dL (2.5-5.0) 06/29/18 05:25 Magnesium 1.9 mg/dL (1.9-2.7) 06/29/18 05:25 Total Bilirubin 0.3 mg/dL (0.3-1.0) 06/28/18 05:30 AST 13 U/L (13-39) 06/28/18 05:30 ALT 5 U/L (7-52) L 06/28/18 05:30 Alkaline Phosphatase 70 U/L (34-104) 06/28/18 05:30 Ammonia 55 umol/L (16-53) H 06/28/18 05:30 B-Natriuretic Peptide 21.4 pg/mL (5.0-100.0) 06/28/18 05:30 Total Protein 5.4 gm/dL (6.0-8.3) L 06/28/18 05:30 Albumin 3.1 gm/dL (3.7-5.3) L 06/28/18 05:30 Globulin 2.3 gm/dL 06/28/18 05:30 Albumin/Globulin Ratio 1.4 (1.0-1.8) 06/28/18 05:30 TSH 16.61 uIU/ml (0.34-5.60) H 06/29/18 05:25 Urine Source [place] 06/28/18 22:00 Urine Color YELLOW 06/28/18 22:00 Urine Clarity CLEAR (CLEAR) 06/28/18 22:00 Urine pH 6.0 (4.6 - 8.0) 06/28/18 22:00 Ur Specific [place] < 1.005 (1.005-1.030) L 06/28/18 22:00 Urine Protein NEGATIVE mg/dL (NEGATIVE) 06/28/18 22:00 Urine Glucose (UA) NEGATIVE mg/dL (NEGATIVE) 06/28/18 22:00 Urine Ketones NEGATIVE mg/dL (NEGATIVE) 06/28/18 22:00 Urine Blood SMALL (NEGATIVE) H 06/28/18 22:00 Urine Nitrate NEGATIVE (NEGATIVE) 06/28/18 22:00 Urine Bilirubin NEGATIVE (NEGATIVE) 06/28/18 22:00 Urine Urobilinogen 0.2 E.U./dL (0.2 - 1.0) 06/28/18 22:00 Ur Leukocyte Esterase LARGE (NEGATIVE) H 06/28/18 22:00 Urine RBC 2-5 /hpf (0-5) 06/28/18 22:00 Urine WBC >100 /hpf (0-5) H 06/28/18 22:00 Ur Epithelial Cells MODERATE /lpf (FEW) 06/28/18 22:00 Urine Bacteria MANY /hpf (NONE SEEN) H 06/28/18 22:00 Ur Random Sodium 21 mmol/L 06/29/18 01:10 Urine Collection Time 24 hours 06/29/18 01:10 Urine Total Volume 1400 ml 06/29/18 01:10 Urine Creatinine 50.0 mg/dL 06/29/18 01:10 Ur Creatinine 24 Hour 700 mg/24hr (11-20) H 06/29/18 01:10 Creat Clearance 24 Hr 12 ml/min (88.00-128.00) L 06/29/18 01:10 Ur Sodium 24 Hour 29 mmol/24H (40-220) L 06/29/18 01:10 Body Surface Area 1.74 06/29/18 01:10 - Physical Exam Vitals and I&O: Vital Signs Temp 96.9 F 06/29/18 08:00 Pulse 75 06/29/18 08:42 Resp 18 06/29/18 09:25 BP 110/62 06/29/18 08:41 Pulse Ox 95 06/29/18 08:00 Intake & Output 06/28/18 06/29/18 06/29/18 18:59 06:59 18:59 Intake Total 600 500 Output Total 800 700 Balance -200 -200 Weight (lbs) 68.946 kg 68.946 kg Intake: Oral 600 500 Output: Urine 800 700 Other: # Voids 3 Stool Characteristics Soft Soft Soft Weight Source Bedscale Bedscale Active Medications: Current Medications Acetaminophen (Tylenol) 650 mg GT Q4HR PRN PRN Reason: Mild Pain / Temp above 100 Stop: 08/26/18 15:20 Acetaminophen (Tylenol) 650 mg GT Q4H PRN PRN Reason: Pain Or Fever above 101 Stop: 08/26/18 15:20 Al Hydrox/Mg Hydrox/Simethicone (Maalox) 30 ml GT HS PRN PRN Reason: GI DISTRESS Stop: 08/26/18 15:20 Albuterol Sulfate (Albuterol 2.5mg/3ml Neb Ud) 2.5 mg HHN Q2HRT PRN PRN Reason: Shortness of Breath or Wheeze Stop: 08/26/18 15:20 Amiodarone HCl (Cordarone) 100 mg GT DAILY LEI Stop: 08/27/18 08:59 Last Admin: 06/29/18 08:42 Dose: 100 mg Atorvastatin Calcium (Lipitor) 40 mg PO HS LEI Stop: 08/26/18 20:59 Last Admin: 06/28/18 21:48 Dose: 40 mg Famotidine (Pepcid) 10 mg GT QDAC LEI Stop: 08/27/18 07:29 Last Admin: 06/29/18 06:36 Dose: 10 mg Ferrous Sulfate (Iron) 325 mg PO DAILY LEI Stop: 08/27/18 08:59 Last Admin: 06/29/18 08:40 Dose: 325 mg Dextrose/Sodium Chloride (D5-0.45ns) 1,000 mls @ 100 mls/hr IV .Q10H LEI Stop: 08/26/18 15:29 Last Admin: 06/29/18 11:09 Dose: 100 mls/hr Levothyroxine Sodium (Synthroid) 0.15 mg GT QDAC LEI Stop: 08/27/18 07:29 Last Admin: 06/29/18 06:35 Dose: 0.15 mg Lorazepam (Ativan) 0.5 mg GT Q12HR LEI; Protocol Stop: 08/26/18 20:59 Last Admin: 06/29/18 08:41 Dose: 0.5 mg Lorazepam (Ativan) 1 mg IV Q4H PRN; Protocol PRN Reason: Seizure Stop: 08/26/18 15:21 Magnesium Hydroxide (Milk Of Magnesia) 30 ml GT HS PRN PRN Reason: Constipation Stop: 08/26/18 15:20 Metoprolol Succinate (Toprol Xl) 50 mg PO DAILY LEI Stop: 08/27/18 12:29 Last Admin: 06/29/18 08:41 Dose: 50 mg Multivitamins/Vitamin C (Theragran) 1 tab GT DAILY LEI Stop: 08/27/18 08:59 Last Admin: 06/29/18 08:40 Dose: 1 tab Mupirocin (Bactroban Oint) 1 appl NS BID LEI Stop: 07/03/18 17:01 Last Admin: 06/29/18 08:59 Dose: Not Given Ondansetron HCl (Zofran) 4 mg IV Q8H PRN PRN Reason: Nausea / Vomiting Stop: 08/26/18 15:21 Quetiapine Fumarate (Seroquel) 50 mg GT HS LEI; Protocol Stop: 08/26/18 20:59 Last Admin: 06/28/18 21:49 Dose: 50 mg Quetiapine Fumarate (Seroquel) 50 mg GT BID LEI; Protocol Stop: 08/26/18 16:59 Last Admin: 06/29/18 08:41 Dose: 50 mg Valproate Sodium (Depakene) 250 mg GT Q6HR LEI; Protocol Stop: 08/26/18 17:59 Last Admin: 06/29/18 11:15 Dose: 250 mg General: Alert, No acute distress HEENT: Atraumatic, Mucous membr. moist/pink Neck: Supple, JVD, +2 carotid pulse wo bruit Cardiovascular: Regular rate, Normal S1, Normal S2 Lungs: Clear to auscultation Abdomen: Bowel sounds, Soft Extremities: no Edema Neurological: Sensation intact Skin: no Rash Psych/Mental Status: Mood NL Assessment/Plan - Assessment Assessment: AUBRIE on CKD Acute Psych Decomp Major Depression/Anxiety Chronic A. Fib Hypothyroidism T2DM Ess Htn - Plan Plan: Lab - Result Diagrams 06/29/18 05:25 06/29/18 05:25 Current Medications Acetaminophen (Tylenol) 650 mg GT Q4HR PRN PRN Reason: Mild Pain / Temp above 100 Stop: 08/26/18 15:20 Acetaminophen (Tylenol) 650 mg GT Q4H PRN PRN Reason: Pain Or Fever above 101 Stop: 08/26/18 15:20 Al Hydrox/Mg Hydrox/Simethicone (Maalox) 30 ml GT HS PRN PRN Reason: GI DISTRESS Stop: 08/26/18 15:20 Albuterol Sulfate (Albuterol 2.5mg/3ml Neb Ud) 2.5 mg HHN Q2HRT PRN PRN Reason: Shortness of Breath or Wheeze Stop: 08/26/18 15:20 Amiodarone HCl (Cordarone) 100 mg GT DAILY LEI Stop: 08/27/18 08:59 Last Admin: 06/29/18 08:42 Dose: 100 mg Atorvastatin Calcium (Lipitor) 40 mg PO HS LEI Stop: 08/26/18 20:59 Last Admin: 06/28/18 21:48 Dose: 40 mg Famotidine (Pepcid) 10 mg GT QDAC LEI Stop: 08/27/18 07:29 Last Admin: 06/29/18 06:36 Dose: 10 mg Ferrous Sulfate (Iron) 325 mg PO DAILY LEI Stop: 08/27/18 08:59 Last Admin: 06/29/18 08:40 Dose: 325 mg Dextrose/Sodium Chloride (D5-0.45ns) 1,000 mls @ 100 mls/hr IV .Q10H LEI Stop: 08/26/18 15:29 Last Admin: 06/29/18 11:09 Dose: 100 mls/hr Levothyroxine Sodium (Synthroid) 0.15 mg GT QDAC LEI Stop: 08/27/18 07:29 Last Admin: 06/29/18 06:35 Dose: 0.15 mg Lorazepam (Ativan) 0.5 mg GT Q12HR LEI; Protocol Stop: 08/26/18 20:59 Last Admin: 06/29/18 08:41 Dose: 0.5 mg Lorazepam (Ativan) 1 mg IV Q4H PRN; Protocol PRN Reason: Seizure Stop: 08/26/18 15:21 Magnesium Hydroxide (Milk Of Magnesia) 30 ml GT HS PRN PRN Reason: Constipation Stop: 08/26/18 15:20 Metoprolol Succinate (Toprol Xl) 50 mg PO DAILY [facility] Stop: 08/27/18 12:29 Last Admin: 06/29/18 08:41 Dose: 50 mg Multivitamins/Vitamin C (Theragran) 1 tab GT DAILY LEI Stop: 08/27/18 08:59 Last Admin: 06/29/18 08:40 Dose: 1 tab Mupirocin (Bactroban Oint) 1 appl NS BID LEI Stop: 07/03/18 17:01 Last Admin: 06/29/18 08:59 Dose: Not Given Ondansetron HCl (Zofran) 4 mg IV Q8H PRN PRN Reason: Nausea / Vomiting Stop: 08/26/18 15:21 Quetiapine Fumarate (Seroquel) 50 mg GT HS LEI; Protocol Stop: 08/26/18 20:59 Last Admin: 06/28/18 21:49 Dose: 50 mg Quetiapine Fumarate (Seroquel) 50 mg GT BID LEI; Protocol Stop: 08/26/18 16:59 Last Admin: 06/29/18 08:41 Dose: 50 mg Valproate Sodium (Depakene) 250 mg GT Q6HR LEI; Protocol Stop: 08/26/18 17:59 Last Admin: 06/29/18 11:15 Dose: 250 mg Lab - Result Diagrams 06/29/18 05:25 06/29/18 05:25 Kidney fnc slightly improved to 25/3.6 continue IVF encourage po fluid intake f/u Electrolytes
--- NOTE | 2018-06-29 13:36 | Internal Medicine Prog Note ---
Internal Medicine Subjective - Subjective Service Date: 06/29/18 Patient seen and examined:: with staff Patient is:: awake, verbal, in bed, other (depressed,CRYING) Per staff patient has:: tolerating meds Internal Medicine Objective - Results Result Diagrams: 06/29/18 05:25 06/29/18 05:25 Recent Labs: Laboratory Last Values WBC 5.9 Th/cmm (4.8-10.8) D 06/29/18 05:25 RBC 3.27 Mil/cmm (3.80-5.20) L 06/29/18 05:25 Hgb 9.7 gm/dL (12-16) L 06/29/18 05:25 Hct 29.3 % (41.0-60) L 06/29/18 05:25 MCV 89.4 fl (81-100) 06/29/18 05:25 MCH 29.6 pg (27.0-31.0) 06/29/18 05:25 MCHC Differential 33.1 pg (28.0-36.0) 06/29/18 05:25 RDW 14.5 % (11.5-20.0) 06/29/18 05:25 Plt Count 157 Th/cmm (150-400) 06/29/18 05:25 MPV 9.4 fl 06/29/18 05:25 Neutrophils % 54.0 % (40.0-80.0) 06/29/18 05:25 Lymphocytes % 38.8 % (20.0-50.0) 06/29/18 05:25 Monocytes % 4.5 % (2.0-10.0) 06/29/18 05:25 Eosinophils % 2.6 % (0.0-5.0) 06/29/18 05:25 Basophils % 0.1 % (0.0-2.0) 06/29/18 05:25 Eos Smear Source URINE 06/29/18 01:10 Eos Smear Total Cells NONE SEEN (NONE SEEN) 06/29/18 01:10 Sodium 137 mEq/L (136-145) 06/29/18 05:25 Potassium 4.1 mEq/L (3.5-5.1) 06/29/18 05:25 Chloride 111 mEq/L (98-107) H 06/29/18 05:25 Carbon Dioxide 16.7 mEq/L (21.0-31.0) L 06/29/18 05:25 Anion Gap 13.4 (7.0-16.0) 06/29/18 05:25 BUN 25 mg/dL (7-25) 06/29/18 05:25 Creatinine 3.6 mg/dL (0.6-1.2) H 06/29/18 05:25 Est GFR ( Amer) 16.1 ml/min (>90) 06/29/18 05:25 Est GFR (Non-Af Amer) 13.3 ml/min 06/29/18 05:25 BUN/Creatinine Ratio 6.9 06/29/18 05:25 Glucose 85 mg/dL (70-105) 06/29/18 05:25 Uric Acid 10.9 mg/dL (2.3-6.6) H 06/29/18 05:25 Calcium 7.9 mg/dL (8.6-10.3) L 06/29/18 05:25 Phosphorus 2.9 mg/dL (2.5-5.0) 06/29/18 05:25 Magnesium 1.9 mg/dL (1.9-2.7) 06/29/18 05:25 Total Bilirubin 0.3 mg/dL (0.3-1.0) 06/28/18 05:30 AST 13 U/L (13-39) 06/28/18 05:30 ALT 5 U/L (7-52) L 06/28/18 05:30 Alkaline Phosphatase 70 U/L (34-104) 06/28/18 05:30 Ammonia 55 umol/L (16-53) H 06/28/18 05:30 B-Natriuretic Peptide 21.4 pg/mL (5.0-100.0) 06/28/18 05:30 Total Protein 5.4 gm/dL (6.0-8.3) L 06/28/18 05:30 Albumin 3.1 gm/dL (3.7-5.3) L 06/28/18 05:30 Globulin 2.3 gm/dL 06/28/18 05:30 Albumin/Globulin Ratio 1.4 (1.0-1.8) 06/28/18 05:30 TSH 16.61 uIU/ml (0.34-5.60) H 06/29/18 05:25 Urine Source [place] 06/28/18 22:00 Urine Color YELLOW 06/28/18 22:00 Urine Clarity CLEAR (CLEAR) 06/28/18 22:00 Urine pH 6.0 (4.6 - 8.0) 06/28/18 22:00 Ur Specific [place] < 1.005 (1.005-1.030) L 06/28/18 22:00 Urine Protein NEGATIVE mg/dL (NEGATIVE) 06/28/18 22:00 Urine Glucose (UA) NEGATIVE mg/dL (NEGATIVE) 06/28/18 22:00 Urine Ketones NEGATIVE mg/dL (NEGATIVE) 06/28/18 22:00 Urine Blood SMALL (NEGATIVE) H 06/28/18 22:00 Urine Nitrate NEGATIVE (NEGATIVE) 06/28/18 22:00 Urine Bilirubin NEGATIVE (NEGATIVE) 06/28/18 22:00 Urine Urobilinogen 0.2 E.U./dL (0.2 - 1.0) 06/28/18 22:00 Ur Leukocyte Esterase LARGE (NEGATIVE) H 06/28/18 22:00 Urine RBC 2-5 /hpf (0-5) 06/28/18 22:00 Urine WBC >100 /hpf (0-5) H 06/28/18 22:00 Ur Epithelial Cells MODERATE /lpf (FEW) 06/28/18 22:00 Urine Bacteria MANY /hpf (NONE SEEN) H 06/28/18 22:00 Ur Random Sodium 21 mmol/L 06/29/18 01:10 Urine Collection Time 24 hours 06/29/18 01:10 Urine Total Volume 1400 ml 06/29/18 01:10 Urine Creatinine 50.0 mg/dL 06/29/18 01:10 Ur Creatinine 24 Hour 700 mg/24hr (11-20) H 06/29/18 01:10 Creat Clearance 24 Hr 12 ml/min (88.00-128.00) L 06/29/18 01:10 Ur Sodium 24 Hour 29 mmol/24H (40-220) L 06/29/18 01:10 Body Surface Area 1.74 06/29/18 01:10 - Physical Exam Vitals and I&O: Vital Signs Temp 98.1 F 06/29/18 12:00 Pulse 67 06/29/18 12:00 Resp 18 06/29/18 12:43 BP 113/58 06/29/18 12:00 Pulse Ox 96 06/29/18 12:00 Intake & Output 06/28/18 06/29/18 06/29/18 18:59 06:59 18:59 Intake Total 600 500 Output Total 800 700 Balance -200 -200 Weight (lbs) 152 lb 152 lb Intake: Oral 600 500 Output: Urine 800 700 Other: # Voids 3 Stool Characteristics Soft Soft Soft Weight Source Bedscale Bedscale Active Medications: Current Medications Acetaminophen (Tylenol) 650 mg GT Q4HR PRN PRN Reason: Mild Pain / Temp above 100 Stop: 08/26/18 15:20 Acetaminophen (Tylenol) 650 mg GT Q4H PRN PRN Reason: Pain Or Fever above 101 Stop: 08/26/18 15:20 Al Hydrox/Mg Hydrox/Simethicone (Maalox) 30 ml GT HS PRN PRN Reason: GI DISTRESS Stop: 08/26/18 15:20 Albuterol Sulfate (Albuterol 2.5mg/3ml Neb Ud) 2.5 mg HHN Q2HRT PRN PRN Reason: Shortness of Breath or Wheeze Stop: 08/26/18 15:20 Amiodarone HCl (Cordarone) 100 mg GT DAILY [facility]I Stop: 08/27/18 08:59 Last Admin: 06/29/18 08:42 Dose: 100 mg Atorvastatin Calcium (Lipitor) 40 mg PO HS LEI Stop: 08/26/18 20:59 Last Admin: 06/28/18 21:48 Dose: 40 mg Famotidine (Pepcid) 10 mg GT QDAC LEI Stop: 08/27/18 07:29 Last Admin: 06/29/18 06:36 Dose: 10 mg Ferrous Sulfate (Iron) 325 mg PO DAILY [facility]I Stop: 08/27/18 08:59 Last Admin: 06/29/18 08:40 Dose: 325 mg Dextrose/Sodium Chloride (D5-0.45ns) 1,000 mls @ 100 mls/hr IV .Q10H LEI Stop: 08/26/18 15:29 Last Admin: 06/29/18 11:09 Dose: 100 mls/hr Levothyroxine Sodium (Synthroid) 0.15 mg GT QDAC LEI Stop: 08/27/18 07:29 Last Admin: 06/29/18 06:35 Dose: 0.15 mg Lorazepam (Ativan) 0.5 mg GT Q12HR LEI; Protocol Stop: 08/26/18 20:59 Last Admin: 06/29/18 08:41 Dose: 0.5 mg Lorazepam (Ativan) 1 mg IV Q4H PRN; Protocol PRN Reason: Seizure Stop: 08/26/18 15:21 Magnesium Hydroxide (Milk Of Magnesia) 30 ml GT HS PRN PRN Reason: Constipation Stop: 08/26/18 15:20 Metoprolol Succinate (Toprol Xl) 50 mg PO DAILY [facility] Stop: 08/27/18 12:29 Last Admin: 06/29/18 08:41 Dose: 50 mg Multivitamins/Vitamin C (Theragran) 1 tab GT DAILY [facility]I Stop: 08/27/18 08:59 Last Admin: 06/29/18 08:40 Dose: 1 tab Mupirocin (Bactroban Oint) 1 appl NS BID LEI Stop: 07/03/18 17:01 Last Admin: 06/29/18 08:59 Dose: Not Given Ondansetron HCl (Zofran) 4 mg IV Q8H PRN PRN Reason: Nausea / Vomiting Stop: 08/26/18 15:21 Quetiapine Fumarate (Seroquel) 50 mg GT HS LEI; Protocol Stop: 08/26/18 20:59 Last Admin: 06/28/18 21:49 Dose: 50 mg Quetiapine Fumarate (Seroquel) 50 mg GT BID LEI; Protocol Stop: 08/26/18 16:59 Last Admin: 06/29/18 08:41 Dose: 50 mg Valproate Sodium (Depakene) 250 mg GT Q6HR LEI; Protocol Stop: 08/26/18 17:59 Last Admin: 06/29/18 11:15 Dose: 250 mg General: weak, alert HEENT: NC/AT, PERRLA Neck: Supple Lungs: CTAB Cardiovascular: RRR, Normal S1, Normal S2, without murmur Abdomen: soft, non-tender, non-distended, positive bowel sound Extremities: excoriation Neurological: alert Internal Medicine Assmt/Plan - Assessment Assessment: acute dehydration acute renal failure htn anemia hdl gerd hypothyroidism - Plan Plan: continue ivf for hydration follow up labs in am continue current plan of care
--- NOTE | 2018-06-30 02:19 | Progress Notes ---
DATE: 06/29/2018 SUMMARY: Case was discussed with staff of the patient and reviewed records. The patient today has a different complaint. She is demanding. She is unpredictable and impulsive. She is no longer hearing voices and she is denying that she will harm herself. She continues to be unpredictable, impulsive, needing redirection. She gets her medications through the G-tube. She is on Seroquel, Depakote and Ativan with no side effects. So, I would recommend it seems the patient is likely better than yesterday Thank you very much for allowing me to participate in the care of this most interesting lady. JOB# [id number]
[2018-06-30 06:17] LABS: % BASOPHILS 0.4 % (0.0-2.0); % EOSINOPHILS 2.3 % (0.0-5.0); % MONOCYTES 4.9 % (2.0-10.0); % NEUTROPHILS 45.4 % (40.0-80.0); EOSINOPHILE ABSOLUTE 0.1 Th/cmm (0.1-0.4); HEMATOCRIT 28.6 % (41.0-60); HEMOGLOBIN 9.1 gm/dL (12-16); LYMPHOCYTE ABSOLUTE 1.9 Th/cmm (1.5-3.0); MEAN CELL VOLUME 89.1 fl (81-100); MEAN CORPUSCULAR HEMOGLOBIN 28.5 pg (27.0-31.0); MEAN PLATELET VOLUME 8.7 fl; MONOCYTE ABSOLUTE 0.2 Th/cmm (0.3-1.0); NEUTROPHILE ABSOLUTE 1.9 Th/cmm (1.8-8.0); PLATELET COUNT 147 Th/cmm (150-400); RED BLOOD COUNT 3.21 Mil/cmm (3.80-5.20); RED CELL DISTRIBUTION WIDTH 14.8 % (11.5-20.0); WHITE BLOOD COUNT 4.1 Th/cmm (4.8-10.8)
[2018-06-30] MEDS: D5-0.45NS 1,000 ML IV SCH ×2 (06:24→17:32)
[2018-06-30 06:29] LABS: ANION GAP 9.6 (7.0-16.0); CALCIUM SERUM 7.8 mg/dL (8.6-10.3); CARBON DIOXIDE 20.3 mEq/L (21.0-31.0); CREATININE - SERUM 3.2 mg/dL (0.6-1.2); GFR AFRICAN-AMERICAN 18.5 ml/min (>90); GFR NON AFRICAN-AMERICAN 15.3 ml/min; POTASSIUM SERUM 3.9 mEq/L (3.5-5.1)
[2018-06-30] MEDS: Levothyroxine 0.075 Mg Tab GT SCH (06:30)
[2018-06-30] MEDS: Ferrous Sulfate 325 MG TAB PO SCH (08:57)
[2018-06-30] MEDS: Multivitamin Tab GT SCH (08:57)
--- NOTE | 2018-06-30 12:17 | Internal Medicine Prog Note ---
Internal Medicine Subjective - Subjective Service Date: 06/30/18 Patient seen and examined:: with staff Patient is:: awake, verbal, in bed, other (depressed,CRYING) Per staff patient has:: tolerating meds Internal Medicine Objective - Results Result Diagrams: 06/30/18 06:00 06/30/18 06:00 Recent Labs: Laboratory Last Values WBC 4.1 Th/cmm (4.8-10.8) L 06/30/18 06:00 RBC 3.21 Mil/cmm (3.80-5.20) L 06/30/18 06:00 Hgb 9.1 gm/dL (12-16) L 06/30/18 06:00 Hct 28.6 % (41.0-60) L 06/30/18 06:00 MCV 89.1 fl (81-100) 06/30/18 06:00 MCH 28.5 pg (27.0-31.0) 06/30/18 06:00 MCHC Differential 32.0 pg (28.0-36.0) 06/30/18 06:00 RDW 14.8 % (11.5-20.0) 06/30/18 06:00 Plt Count 147 Th/cmm (150-400) L 06/30/18 06:00 MPV 8.7 fl 06/30/18 06:00 Neutrophils % 45.4 % (40.0-80.0) 06/30/18 06:00 Lymphocytes % 47.0 % (20.0-50.0) 06/30/18 06:00 Monocytes % 4.9 % (2.0-10.0) 06/30/18 06:00 Eosinophils % 2.3 % (0.0-5.0) 06/30/18 06:00 Basophils % 0.4 % (0.0-2.0) 06/30/18 06:00 Eos Smear Source URINE 06/29/18 01:10 Eos Smear Total Cells NONE SEEN (NONE SEEN) 06/29/18 01:10 Sodium 139 mEq/L (136-145) 06/30/18 06:00 Potassium 3.9 mEq/L (3.5-5.1) 06/30/18 06:00 Chloride 113 mEq/L (98-107) H 06/30/18 06:00 Carbon Dioxide 20.3 mEq/L (21.0-31.0) L 06/30/18 06:00 Anion Gap 9.6 (7.0-16.0) 06/30/18 06:00 BUN 26 mg/dL (7-25) H 06/30/18 06:00 Creatinine 3.2 mg/dL (0.6-1.2) H 06/30/18 06:00 Est GFR ( Amer) 18.5 ml/min (>90) 06/30/18 06:00 Est GFR (Non-Af Amer) 15.3 ml/min 06/30/18 06:00 BUN/Creatinine Ratio 8.1 06/30/18 06:00 Glucose 96 mg/dL (70-105) 06/30/18 06:00 Uric Acid 10.9 mg/dL (2.3-6.6) H 06/29/18 05:25 Calcium 7.8 mg/dL (8.6-10.3) L 06/30/18 06:00 Phosphorus 2.9 mg/dL (2.5-5.0) 06/29/18 05:25 Magnesium 1.9 mg/dL (1.9-2.7) 06/29/18 05:25 Total Bilirubin 0.3 mg/dL (0.3-1.0) 06/28/18 05:30 AST 13 U/L (13-39) 06/28/18 05:30 ALT 5 U/L (7-52) L 06/28/18 05:30 Alkaline Phosphatase 70 U/L (34-104) 06/28/18 05:30 Ammonia 55 umol/L (16-53) H 06/28/18 05:30 B-Natriuretic Peptide 21.4 pg/mL (5.0-100.0) 06/28/18 05:30 Total Protein 5.4 gm/dL (6.0-8.3) L 06/28/18 05:30 Albumin 3.1 gm/dL (3.7-5.3) L 06/28/18 05:30 Globulin 2.3 gm/dL 06/28/18 05:30 Albumin/Globulin Ratio 1.4 (1.0-1.8) 06/28/18 05:30 TSH 16.61 uIU/ml (0.34-5.60) H 06/29/18 05:25 Urine Source [place] 06/28/18 22:00 Urine Color YELLOW 06/28/18 22:00 Urine Clarity CLEAR (CLEAR) 06/28/18 22:00 Urine pH 6.0 (4.6 - 8.0) 06/28/18 22:00 Ur Specific [place] < 1.005 (1.005-1.030) L 06/28/18 22:00 Urine Protein NEGATIVE mg/dL (NEGATIVE) 06/28/18 22:00 Urine Glucose (UA) NEGATIVE mg/dL (NEGATIVE) 06/28/18 22:00 Urine Ketones NEGATIVE mg/dL (NEGATIVE) 06/28/18 22:00 Urine Blood SMALL (NEGATIVE) H 06/28/18 22:00 Urine Nitrate NEGATIVE (NEGATIVE) 06/28/18 22:00 Urine Bilirubin NEGATIVE (NEGATIVE) 06/28/18 22:00 Urine Urobilinogen 0.2 E.U./dL (0.2 - 1.0) 06/28/18 22:00 Ur Leukocyte Esterase LARGE (NEGATIVE) H 06/28/18 22:00 Urine RBC 2-5 /hpf (0-5) 06/28/18 22:00 Urine WBC >100 /hpf (0-5) H 06/28/18 22:00 Ur Epithelial Cells MODERATE /lpf (FEW) 06/28/18 22:00 Urine Bacteria MANY /hpf (NONE SEEN) H 06/28/18 22:00 Ur Random Sodium 21 mmol/L 06/29/18 01:10 Urine Collection Time 24 hours 06/29/18 01:10 Urine Total Volume 1400 ml 06/29/18 01:10 Urine Creatinine 50.0 mg/dL 06/29/18 01:10 Ur Creatinine 24 Hour 700 mg/24hr (11-20) H 06/29/18 01:10 Creat Clearance 24 Hr 12 ml/min (88.00-128.00) L 06/29/18 01:10 Ur Sodium 24 Hour 29 mmol/24H (40-220) L 06/29/18 01:10 Body Surface Area 1.74 06/29/18 01:10 - Physical Exam Vitals and I&O: Vital Signs Temp 96.8 F 06/30/18 08:00 Pulse 76 06/30/18 08:58 Resp 18 06/30/18 08:00 BP 121/57 06/30/18 08:57 Pulse Ox 97 06/30/18 08:00 Intake & Output 06/29/18 06/30/18 06/30/18 18:59 06:59 18:59 Intake Total 500 2361.667 Output Total 1999 Balance 500 361.667 Weight (lbs) 155 lb 156 lb 9.6 oz Intake: Intake, IV Amount 1921.667 D5-0.45NS 1,000 ml @ 100 1921.667 mls/hr IV .Q10H LEI Rx#: [id number] Oral 500 240 Other 200 Output: Urine 1999 Other: # Voids 3 # Bowel Movements 0 Stool Characteristics Soft Weight Source Bedscale Bedscale Active Medications: Current Medications Acetaminophen (Tylenol) 650 mg GT Q4HR PRN PRN Reason: Mild Pain / Temp above 100 Stop: 08/26/18 15:20 Last Admin: 06/29/18 20:15 Dose: 650 mg Acetaminophen (Tylenol) 650 mg GT Q4H PRN PRN Reason: Pain Or Fever above 101 Stop: 08/26/18 15:20 Al Hydrox/Mg Hydrox/Simethicone (Maalox) 30 ml GT HS PRN PRN Reason: GI DISTRESS Stop: 08/26/18 15:20 Albuterol Sulfate (Albuterol 2.5mg/3ml Neb Ud) 2.5 mg HHN Q2HRT PRN PRN Reason: Shortness of Breath or Wheeze Stop: 08/26/18 15:20 Amiodarone HCl (Cordarone) 100 mg GT DAILY LEI Stop: 08/27/18 08:59 Last Admin: 06/30/18 08:58 Dose: 100 mg Atorvastatin Calcium (Lipitor) 40 mg PO HS LEI Stop: 08/26/18 20:59 Last Admin: 06/29/18 20:15 Dose: 40 mg Famotidine (Pepcid) 10 mg GT QDAC LEI Stop: 08/27/18 07:29 Last Admin: 06/30/18 06:30 Dose: 10 mg Ferrous Sulfate (Iron) 325 mg PO DAILY LEI Stop: 08/27/18 08:59 Last Admin: 06/30/18 08:57 Dose: 325 mg Dextrose/Sodium Chloride (D5-0.45ns) 1,000 mls @ 100 mls/hr IV .Q10H LEI Stop: 08/26/18 15:29 Last Admin: 06/30/18 06:24 Dose: 100 mls/hr Levothyroxine Sodium (Synthroid) 0.15 mg GT QDAC LEI Stop: 08/27/18 07:29 Last Admin: 06/30/18 06:30 Dose: 0.15 mg Lorazepam (Ativan) 0.5 mg GT Q12HR LEI; Protocol Stop: 08/26/18 20:59 Last Admin: 06/30/18 08:58 Dose: 0.5 mg Lorazepam (Ativan) 1 mg IV Q4H PRN; Protocol PRN Reason: Seizure Stop: 08/26/18 15:21 Magnesium Hydroxide (Milk Of Magnesia) 30 ml GT HS PRN PRN Reason: Constipation Stop: 08/26/18 15:20 Metoprolol Succinate (Toprol Xl) 50 mg PO DAILY [facility]I Stop: 08/27/18 12:29 Last Admin: 06/30/18 08:57 Dose: 50 mg Multivitamins/Vitamin C (Theragran) 1 tab GT DAILY LEI Stop: 08/27/18 08:59 Last Admin: 06/30/18 08:57 Dose: 1 tab Mupirocin (Bactroban Oint) 1 appl NS BID LEI Stop: 07/03/18 17:01 Last Admin: 06/30/18 09:01 Dose: 1 appl Ondansetron HCl (Zofran) 4 mg IV Q8H PRN PRN Reason: Nausea / Vomiting Stop: 08/26/18 15:21 Quetiapine Fumarate (Seroquel) 50 mg GT HS LEI; Protocol Stop: 08/26/18 20:59 Last Admin: 06/29/18 20:14 Dose: 50 mg Quetiapine Fumarate (Seroquel) 50 mg GT BID LEI; Protocol Stop: 08/26/18 16:59 Last Admin: 06/30/18 09:03 Dose: 50 mg Valproate Sodium (Depakene) 250 mg GT Q6HR LEI; Protocol Stop: 08/26/18 17:59 Last Admin: 06/30/18 05:58 Dose: 250 mg General: weak, alert HEENT: NC/AT, PERRLA Neck: Supple Lungs: CTAB Cardiovascular: RRR, Normal S1, Normal S2, without murmur Abdomen: soft, non-tender, non-distended, positive bowel sound Extremities: excoriation Neurological: alert Internal Medicine Assmt/Plan - Assessment Assessment: acute dehydration acute renal failure htn anemia hdl gerd hypothyroidism - Plan Plan: await for urine culture continue ivf for hydration follow up labs in am continue current plan of care
[2018-06-30] MEDS: Meropenem 1 GM in Sodium Chloride 0.9% 100 ML IV SCH (13:26)
--- NOTE | 2018-06-30 13:51 | Progress Notes ---
DATE: 06/30/2018 Case was discussed with staff of the patient, reviewed records. The patient is calmer in general, she was today, feeding herself, has been having to be there. She is in better mood. Currently, she denies any auditory or visual hallucination, but she tends to get agitated. She also has a G-tube. She is currently denying that she plans to harm herself and no side effects with the medication, no sedation, no nausea, no extrapyramidal symptoms and the patient seems to be much more stable. Thank you very much for allowing me to participate in the care of this most interesting lady. JOB# [id number]
--- NOTE | 2018-06-30 14:47 | General Progress Note ---
Subjective - Review of Systems Service Date: 06/30/18 Subjective: arousable, no further crying today Objective - Results Result Diagrams: 06/30/18 06:00 06/30/18 06:00 Recent Labs: Laboratory Last Values WBC 4.1 Th/cmm (4.8-10.8) L 06/30/18 06:00 RBC 3.21 Mil/cmm (3.80-5.20) L 06/30/18 06:00 Hgb 9.1 gm/dL (12-16) L 06/30/18 06:00 Hct 28.6 % (41.0-60) L 06/30/18 06:00 MCV 89.1 fl (81-100) 06/30/18 06:00 MCH 28.5 pg (27.0-31.0) 06/30/18 06:00 MCHC Differential 32.0 pg (28.0-36.0) 06/30/18 06:00 RDW 14.8 % (11.5-20.0) 06/30/18 06:00 Plt Count 147 Th/cmm (150-400) L 06/30/18 06:00 MPV 8.7 fl 06/30/18 06:00 Neutrophils % 45.4 % (40.0-80.0) 06/30/18 06:00 Lymphocytes % 47.0 % (20.0-50.0) 06/30/18 06:00 Monocytes % 4.9 % (2.0-10.0) 06/30/18 06:00 Eosinophils % 2.3 % (0.0-5.0) 06/30/18 06:00 Basophils % 0.4 % (0.0-2.0) 06/30/18 06:00 Eos Smear Source URINE 06/29/18 01:10 Eos Smear Total Cells NONE SEEN (NONE SEEN) 06/29/18 01:10 Sodium 139 mEq/L (136-145) 06/30/18 06:00 Potassium 3.9 mEq/L (3.5-5.1) 06/30/18 06:00 Chloride 113 mEq/L (98-107) H 06/30/18 06:00 Carbon Dioxide 20.3 mEq/L (21.0-31.0) L 06/30/18 06:00 Anion Gap 9.6 (7.0-16.0) 06/30/18 06:00 BUN 26 mg/dL (7-25) H 06/30/18 06:00 Creatinine 3.2 mg/dL (0.6-1.2) H 06/30/18 06:00 Est GFR ( Amer) 18.5 ml/min (>90) 06/30/18 06:00 Est GFR (Non-Af Amer) 15.3 ml/min 06/30/18 06:00 BUN/Creatinine Ratio 8.1 06/30/18 06:00 Glucose 96 mg/dL (70-105) 06/30/18 06:00 Uric Acid 10.9 mg/dL (2.3-6.6) H 06/29/18 05:25 Calcium 7.8 mg/dL (8.6-10.3) L 06/30/18 06:00 Phosphorus 2.9 mg/dL (2.5-5.0) 06/29/18 05:25 Magnesium 1.9 mg/dL (1.9-2.7) 06/29/18 05:25 Total Bilirubin 0.3 mg/dL (0.3-1.0) 06/28/18 05:30 AST 13 U/L (13-39) 06/28/18 05:30 ALT 5 U/L (7-52) L 06/28/18 05:30 Alkaline Phosphatase 70 U/L (34-104) 06/28/18 05:30 Ammonia 55 umol/L (16-53) H 06/28/18 05:30 B-Natriuretic Peptide 21.4 pg/mL (5.0-100.0) 06/28/18 05:30 Total Protein 5.4 gm/dL (6.0-8.3) L 06/28/18 05:30 Albumin 3.1 gm/dL (3.7-5.3) L 06/28/18 05:30 Globulin 2.3 gm/dL 06/28/18 05:30 Albumin/Globulin Ratio 1.4 (1.0-1.8) 06/28/18 05:30 TSH 16.61 uIU/ml (0.34-5.60) H 06/29/18 05:25 Urine Source [place] 06/28/18 22:00 Urine Color YELLOW 06/28/18 22:00 Urine Clarity CLEAR (CLEAR) 06/28/18 22:00 Urine pH 6.0 (4.6 - 8.0) 06/28/18 22:00 Ur Specific [place] < 1.005 (1.005-1.030) L 06/28/18 22:00 Urine Protein NEGATIVE mg/dL (NEGATIVE) 06/28/18 22:00 Urine Glucose (UA) NEGATIVE mg/dL (NEGATIVE) 06/28/18 22:00 Urine Ketones NEGATIVE mg/dL (NEGATIVE) 06/28/18 22:00 Urine Blood SMALL (NEGATIVE) H 06/28/18 22:00 Urine Nitrate NEGATIVE (NEGATIVE) 06/28/18 22:00 Urine Bilirubin NEGATIVE (NEGATIVE) 06/28/18 22:00 Urine Urobilinogen 0.2 E.U./dL (0.2 - 1.0) 06/28/18 22:00 Ur Leukocyte Esterase LARGE (NEGATIVE) H 06/28/18 22:00 Urine RBC 2-5 /hpf (0-5) 06/28/18 22:00 Urine WBC >100 /hpf (0-5) H 06/28/18 22:00 Ur Epithelial Cells MODERATE /lpf (FEW) 06/28/18 22:00 Urine Bacteria MANY /hpf (NONE SEEN) H 06/28/18 22:00 Ur Random Sodium 21 mmol/L 06/29/18 01:10 Urine Collection Time 24 hours 06/29/18 01:10 Urine Total Volume 1400 ml 06/29/18 01:10 Urine Creatinine 50.0 mg/dL 06/29/18 01:10 Ur Creatinine 24 Hour 700 mg/24hr (11-20) H 06/29/18 01:10 Creat Clearance 24 Hr 12 ml/min (88.00-128.00) L 06/29/18 01:10 Ur Sodium 24 Hour 29 mmol/24H (40-220) L 06/29/18 01:10 Body Surface Area 1.74 06/29/18 01:10 - Physical Exam Vitals and I&O: Vital Signs Temp 97.5 F 06/30/18 12:00 Pulse 65 06/30/18 12:00 Resp 18 06/30/18 12:00 BP 103/42 06/30/18 12:00 Pulse Ox 94 06/30/18 12:00 Intake & Output 06/29/18 06/30/18 06/30/18 18:59 06:59 18:59 Intake Total 500 2361.667 Output Total 1999 Balance 500 361.667 Weight (lbs) 70.307 kg 71.033 kg Intake: Intake, IV Amount 1921.667 D5-0.45NS 1,000 ml @ 100 1921.667 mls/hr IV .Q10H LEI Rx#: [id number] Oral 500 240 Other 200 Output: Urine 1999 Other: # Voids 3 # Bowel Movements 0 Stool Characteristics Soft Weight Source Bedscale Bedscale Active Medications: Current Medications Acetaminophen (Tylenol) 650 mg GT Q4HR PRN PRN Reason: Mild Pain / Temp above 100 Stop: 08/26/18 15:20 Last Admin: 06/29/18 20:15 Dose: 650 mg Acetaminophen (Tylenol) 650 mg GT Q4H PRN PRN Reason: Pain Or Fever above 101 Stop: 08/26/18 15:20 Al Hydrox/Mg Hydrox/Simethicone (Maalox) 30 ml GT HS PRN PRN Reason: GI DISTRESS Stop: 08/26/18 15:20 Albuterol Sulfate (Albuterol 2.5mg/3ml Neb Ud) 2.5 mg HHN Q2HRT PRN PRN Reason: Shortness of Breath or Wheeze Stop: 08/26/18 15:20 Amiodarone HCl (Cordarone) 100 mg GT DAILY LEI Stop: 08/27/18 08:59 Last Admin: 06/30/18 08:58 Dose: 100 mg Atorvastatin Calcium (Lipitor) 40 mg PO HS LEI Stop: 08/26/18 20:59 Last Admin: 06/29/18 20:15 Dose: 40 mg Famotidine (Pepcid) 10 mg GT QDAC LEI Stop: 08/27/18 07:29 Last Admin: 06/30/18 06:30 Dose: 10 mg Ferrous Sulfate (Iron) 325 mg PO DAILY LEI Stop: 08/27/18 08:59 Last Admin: 06/30/18 08:57 Dose: 325 mg Dextrose/Sodium Chloride (D5-0.45ns) 1,000 mls @ 100 mls/hr IV .Q10H LEI Stop: 08/26/18 15:29 Last Admin: 06/30/18 06:24 Dose: 100 mls/hr Meropenem 1 gm/ Sodium (Chloride) 100 mls @ 100 mls/hr IV Q12H LEI Stop: 08/29/18 12:29 Last Admin: 06/30/18 13:26 Dose: 100 mls/hr Levothyroxine Sodium (Synthroid) 0.15 mg GT QDAC LEI Stop: 08/27/18 07:29 Last Admin: 06/30/18 06:30 Dose: 0.15 mg Lorazepam (Ativan) 0.5 mg GT Q12HR LEI; Protocol Stop: 08/26/18 20:59 Last Admin: 06/30/18 08:58 Dose: 0.5 mg Lorazepam (Ativan) 1 mg IV Q4H PRN; Protocol PRN Reason: Seizure Stop: 08/26/18 15:21 Magnesium Hydroxide (Milk Of Magnesia) 30 ml GT HS PRN PRN Reason: Constipation Stop: 08/26/18 15:20 Metoprolol Succinate (Toprol Xl) 50 mg PO DAILY [facility] Stop: 08/27/18 12:29 Last Admin: 06/30/18 08:57 Dose: 50 mg Multivitamins/Vitamin C (Theragran) 1 tab GT DAILY LEI Stop: 08/27/18 08:59 Last Admin: 06/30/18 08:57 Dose: 1 tab Mupirocin (Bactroban Oint) 1 appl NS BID [facility] Stop: 07/03/18 17:01 Last Admin: 06/30/18 09:01 Dose: 1 appl Ondansetron HCl (Zofran) 4 mg IV Q8H PRN PRN Reason: Nausea / Vomiting Stop: 08/26/18 15:21 Quetiapine Fumarate (Seroquel) 50 mg GT HS LEI; Protocol Stop: 08/26/18 20:59 Last Admin: 06/29/18 20:14 Dose: 50 mg Quetiapine Fumarate (Seroquel) 50 mg GT BID LEI; Protocol Stop: 08/26/18 16:59 Last Admin: 06/30/18 09:03 Dose: 50 mg Valproate Sodium (Depakene) 250 mg GT Q6HR LEI; Protocol Stop: 08/26/18 17:59 Last Admin: 06/30/18 05:58 Dose: 250 mg General: Alert, No acute distress HEENT: Atraumatic, Mucous membr. moist/pink Neck: Supple, JVD, +2 carotid pulse wo bruit Cardiovascular: Regular rate, Normal S1, Normal S2 Lungs: Clear to auscultation Abdomen: Bowel sounds, Soft Extremities: no Edema Neurological: Sensation intact Skin: no Rash Psych/Mental Status: Mood NL Assessment/Plan - Assessment Assessment: AUBRIE on CKD Acute Psych Decomp Major Depression/Anxiety Chronic A. Fib Hypothyroidism T2DM Ess Htn - Plan Plan: Lab - Result Diagrams 06/29/18 05:25 06/29/18 05:25 Current Medications Acetaminophen (Tylenol) 650 mg GT Q4HR PRN PRN Reason: Mild Pain / Temp above 100 Stop: 08/26/18 15:20 Acetaminophen (Tylenol) 650 mg GT Q4H PRN PRN Reason: Pain Or Fever above 101 Stop: 08/26/18 15:20 Al Hydrox/Mg Hydrox/Simethicone (Maalox) 30 ml GT HS PRN PRN Reason: GI DISTRESS Stop: 08/26/18 15:20 Albuterol Sulfate (Albuterol 2.5mg/3ml Neb Ud) 2.5 mg HHN Q2HRT PRN PRN Reason: Shortness of Breath or Wheeze Stop: 08/26/18 15:20 Amiodarone HCl (Cordarone) 100 mg GT DAILY [facility] Stop: 08/27/18 08:59 Last Admin: 06/29/18 08:42 Dose: 100 mg Atorvastatin Calcium (Lipitor) 40 mg PO HS LEI Stop: 08/26/18 20:59 Last Admin: 06/28/18 21:48 Dose: 40 mg Famotidine (Pepcid) 10 mg GT QDAC LEI Stop: 08/27/18 07:29 Last Admin: 06/29/18 06:36 Dose: 10 mg Ferrous Sulfate (Iron) 325 mg PO DAILY LEI Stop: 08/27/18 08:59 Last Admin: 06/29/18 08:40 Dose: 325 mg Dextrose/Sodium Chloride (D5-0.45ns) 1,000 mls @ 100 mls/hr IV .Q10H LEI Stop: 08/26/18 15:29 Last Admin: 06/29/18 11:09 Dose: 100 mls/hr Levothyroxine Sodium (Synthroid) 0.15 mg GT QDAC LEI Stop: 08/27/18 07:29 Last Admin: 06/29/18 06:35 Dose: 0.15 mg Lorazepam (Ativan) 0.5 mg GT Q12HR LEI; Protocol Stop: 08/26/18 20:59 Last Admin: 06/29/18 08:41 Dose: 0.5 mg Lorazepam (Ativan) 1 mg IV Q4H PRN; Protocol PRN Reason: Seizure Stop: 08/26/18 15:21 Magnesium Hydroxide (Milk Of Magnesia) 30 ml GT HS PRN PRN Reason: Constipation Stop: 08/26/18 15:20 Metoprolol Succinate (Toprol Xl) 50 mg PO DAILY [facility]I Stop: 08/27/18 12:29 Last Admin: 06/29/18 08:41 Dose: 50 mg Multivitamins/Vitamin C (Theragran) 1 tab GT DAILY LEI Stop: 08/27/18 08:59 Last Admin: 06/29/18 08:40 Dose: 1 tab Mupirocin (Bactroban Oint) 1 appl NS BID LEI Stop: 07/03/18 17:01 Last Admin: 06/29/18 08:59 Dose: Not Given Ondansetron HCl (Zofran) 4 mg IV Q8H PRN PRN Reason: Nausea / Vomiting Stop: 08/26/18 15:21 Quetiapine Fumarate (Seroquel) 50 mg GT HS LEI; Protocol Stop: 08/26/18 20:59 Last Admin: 06/28/18 21:49 Dose: 50 mg Quetiapine Fumarate (Seroquel) 50 mg GT BID LEI; Protocol Stop: 08/26/18 16:59 Last Admin: 06/29/18 08:41 Dose: 50 mg Valproate Sodium (Depakene) 250 mg GT Q6HR LEI; Protocol Stop: 08/26/18 17:59 Last Admin: 06/29/18 11:15 Dose: 250 mg Lab - Result Diagrams 06/30/18 06:00 06/30/18 06:00 Kidney fnc slightly improved to 26/3.2 continue IVF encourage po fluid intake f/u Electrolytes
[2018-07-01] MEDS: Meropenem 1 GM in Sodium Chloride 0.9% 100 ML IV SCH ×2 (00:05→12:18)
[2018-07-01 05:02] LABS: % BASOPHILS 0.5 % (0.0-2.0); % EOSINOPHILS 2.9 % (0.0-5.0); % LYMPHOCYTES 21.6 % (20.0-50.0); % MONOCYTES 4.7 % (2.0-10.0); % NEUTROPHILS 70.3 % (40.0-80.0); EOSINOPHILE ABSOLUTE 0.1 Th/cmm (0.1-0.4); HEMATOCRIT 29.1 % (41.0-60); HEMOGLOBIN 9.5 gm/dL (12-16); LYMPHOCYTE ABSOLUTE 0.8 Th/cmm (1.5-3.0); MEAN CELL VOLUME 89.3 fl (81-100); MEAN CORPUSCULAR HEMOGLOBIN 29.2 pg (27.0-31.0); MEAN CORPUSCULAR HGB CONC 32.6 pg (28.0-36.0); MEAN PLATELET VOLUME 9.2 fl; MONOCYTE ABSOLUTE 0.2 Th/cmm (0.3-1.0); NEUTROPHILE ABSOLUTE 2.6 Th/cmm (1.8-8.0); PLATELET COUNT 135 Th/cmm (150-400); RED BLOOD COUNT 3.26 Mil/cmm (3.80-5.20); RED CELL DISTRIBUTION WIDTH 14.7 % (11.5-20.0)
[2018-07-01 05:08] LABS: WHITE BLOOD COUNT 3.7 Th/cmm (4.8-10.8)
[2018-07-01 05:32] LABS: ANION GAP 11.9 (7.0-16.0); CALCIUM SERUM 8.1 mg/dL (8.6-10.3); CARBON DIOXIDE 17.6 mEq/L (21.0-31.0); CREATININE - SERUM 3.1 mg/dL (0.6-1.2); GFR AFRICAN-AMERICAN 19.2 ml/min (>90); GFR NON AFRICAN-AMERICAN 15.8 ml/min; POTASSIUM SERUM 3.5 mEq/L (3.5-5.1)
[2018-07-01] MEDS: Levothyroxine 0.075 Mg Tab GT SCH (06:43)
[2018-07-01] MEDS: Multivitamin Tab GT SCH (09:02)
[2018-07-01] MEDS: Ferrous Sulfate 325 MG TAB PO SCH (09:02)
--- NOTE | 2018-07-01 13:35 | General Progress Note ---
Subjective - Review of Systems Service Date: 07/01/18 Subjective: arousable, comfortable Objective - Results Result Diagrams: 07/01/18 04:40 07/01/18 04:40 Recent Labs: Laboratory Last Values WBC 3.7 Th/cmm (4.8-10.8) L 07/01/18 04:40 RBC 3.26 Mil/cmm (3.80-5.20) L 07/01/18 04:40 Hgb 9.5 gm/dL (12-16) L 07/01/18 04:40 Hct 29.1 % (41.0-60) L 07/01/18 04:40 MCV 89.3 fl (81-100) 07/01/18 04:40 MCH 29.2 pg (27.0-31.0) 07/01/18 04:40 MCHC Differential 32.6 pg (28.0-36.0) 07/01/18 04:40 RDW 14.7 % (11.5-20.0) 07/01/18 04:40 Plt Count 135 Th/cmm (150-400) L 07/01/18 04:40 MPV 9.2 fl 07/01/18 04:40 Neutrophils % 70.3 % (40.0-80.0) 07/01/18 04:40 Lymphocytes % 21.6 % (20.0-50.0) 07/01/18 04:40 Monocytes % 4.7 % (2.0-10.0) 07/01/18 04:40 Eosinophils % 2.9 % (0.0-5.0) 07/01/18 04:40 Basophils % 0.5 % (0.0-2.0) 07/01/18 04:40 Eos Smear Source URINE 06/29/18 01:10 Eos Smear Total Cells NONE SEEN (NONE SEEN) 06/29/18 01:10 Sodium 141 mEq/L (136-145) 07/01/18 04:40 Potassium 3.5 mEq/L (3.5-5.1) 07/01/18 04:40 Chloride 115 mEq/L (98-107) H 07/01/18 04:40 Carbon Dioxide 17.6 mEq/L (21.0-31.0) L 07/01/18 04:40 Anion Gap 11.9 (7.0-16.0) 07/01/18 04:40 BUN 24 mg/dL (7-25) 07/01/18 04:40 Creatinine 3.1 mg/dL (0.6-1.2) H 07/01/18 04:40 Est GFR ( Amer) 19.2 ml/min (>90) 07/01/18 04:40 Est GFR (Non-Af Amer) 15.8 ml/min 07/01/18 04:40 BUN/Creatinine Ratio 7.7 07/01/18 04:40 Glucose 115 mg/dL (70-105) H 07/01/18 04:40 Uric Acid 10.9 mg/dL (2.3-6.6) H 06/29/18 05:25 Calcium 8.1 mg/dL (8.6-10.3) L 07/01/18 04:40 Phosphorus 2.9 mg/dL (2.5-5.0) 06/29/18 05:25 Magnesium 1.9 mg/dL (1.9-2.7) 06/29/18 05:25 Total Bilirubin 0.3 mg/dL (0.3-1.0) 06/28/18 05:30 AST 13 U/L (13-39) 06/28/18 05:30 ALT 5 U/L (7-52) L 06/28/18 05:30 Alkaline Phosphatase 70 U/L (34-104) 06/28/18 05:30 Ammonia 55 umol/L (16-53) H 06/28/18 05:30 B-Natriuretic Peptide 21.4 pg/mL (5.0-100.0) 06/28/18 05:30 Total Protein 5.4 gm/dL (6.0-8.3) L 06/28/18 05:30 Albumin 3.1 gm/dL (3.7-5.3) L 06/28/18 05:30 Globulin 2.3 gm/dL 06/28/18 05:30 Albumin/Globulin Ratio 1.4 (1.0-1.8) 06/28/18 05:30 TSH 16.61 uIU/ml (0.34-5.60) H 06/29/18 05:25 Urine Source [place] 06/28/18 22:00 Urine Color YELLOW 06/28/18 22:00 Urine Clarity CLEAR (CLEAR) 06/28/18 22:00 Urine pH 6.0 (4.6 - 8.0) 06/28/18 22:00 Ur Specific [place] < 1.005 (1.005-1.030) L 06/28/18 22:00 Urine Protein NEGATIVE mg/dL (NEGATIVE) 06/28/18 22:00 Urine Glucose (UA) NEGATIVE mg/dL (NEGATIVE) 06/28/18 22:00 Urine Ketones NEGATIVE mg/dL (NEGATIVE) 06/28/18 22:00 Urine Blood SMALL (NEGATIVE) H 06/28/18 22:00 Urine Nitrate NEGATIVE (NEGATIVE) 06/28/18 22:00 Urine Bilirubin NEGATIVE (NEGATIVE) 06/28/18 22:00 Urine Urobilinogen 0.2 E.U./dL (0.2 - 1.0) 06/28/18 22:00 Ur Leukocyte Esterase LARGE (NEGATIVE) H 06/28/18 22:00 Urine RBC 2-5 /hpf (0-5) 06/28/18 22:00 Urine WBC >100 /hpf (0-5) H 06/28/18 22:00 Ur Epithelial Cells MODERATE /lpf (FEW) 06/28/18 22:00 Urine Bacteria MANY /hpf (NONE SEEN) H 06/28/18 22:00 Ur Random Sodium 21 mmol/L 06/29/18 01:10 Urine Collection Time 24 hours 06/29/18 01:10 Urine Total Volume 1400 ml 06/29/18 01:10 Urine Creatinine 50.0 mg/dL 06/29/18 01:10 Ur Creatinine 24 Hour 700 mg/24hr (11-20) H 06/29/18 01:10 Creat Clearance 24 Hr 12 ml/min (88.00-128.00) L 06/29/18 01:10 Microalb/Creat Ratio 140.8 mg/g creat (0.0-30.0) H 06/29/18 01:10 Ur Sodium 24 Hour 29 mmol/24H (40-220) L 06/29/18 01:10 Body Surface Area 1.74 06/29/18 01:10 - Physical Exam Vitals and I&O: Vital Signs Temp 97 F 07/01/18 04:00 Pulse 72 07/01/18 09:06 Resp 14 07/01/18 12:00 BP 110/69 07/01/18 09:02 Pulse Ox 94 07/01/18 07:48 Intake & Output 06/30/18 07/01/18 07/01/18 18:59 06:59 18:59 Intake Total 1800 100 Output Total 2200 1750 Balance -400 -1650 Weight (lbs) 70.76 kg 69.4 kg Intake: Intake, IV Amount 1100 100 D5-0.45NS 1,000 ml @ 100 1000 mls/hr IV .Q10H [facility] Rx#: [id number] Meropenem 1 gm In Sodium 100 100 Chloride 0.9% 100 ml @ 100 mls/hr IV Q12H [facility] Rx #:[id number] Oral 700 Output: Urine 2200 1750 Other: # Bowel Movements 1 2 Weight Source Bedscale Bedscale Active Medications: Current Medications Acetaminophen (Tylenol) 650 mg GT Q4HR PRN PRN Reason: Mild Pain / Temp above 100 Stop: 08/26/18 15:20 Last Admin: 06/30/18 17:59 Dose: 650 mg Acetaminophen (Tylenol) 650 mg GT Q4H PRN PRN Reason: Pain Or Fever above 101 Stop: 08/26/18 15:20 Al Hydrox/Mg Hydrox/Simethicone (Maalox) 30 ml GT HS PRN PRN Reason: GI DISTRESS Stop: 08/26/18 15:20 Albuterol Sulfate (Albuterol 2.5mg/3ml Neb Ud) 2.5 mg HHN Q2HRT PRN PRN Reason: Shortness of Breath or Wheeze Stop: 08/26/18 15:20 Amiodarone HCl (Cordarone) 100 mg GT DAILY LEI Stop: 08/27/18 08:59 Last Admin: 07/01/18 09:06 Dose: 100 mg Atorvastatin Calcium (Lipitor) 40 mg PO HS LEI Stop: 08/26/18 20:59 Last Admin: 06/30/18 21:17 Dose: 40 mg Famotidine (Pepcid) 10 mg GT QDAC LEI Stop: 08/27/18 07:29 Last Admin: 07/01/18 06:45 Dose: 10 mg Ferrous Sulfate (Iron) 325 mg PO DAILY LEI Stop: 08/27/18 08:59 Last Admin: 07/01/18 09:02 Dose: 325 mg Levothyroxine Sodium (Synthroid) 0.15 mg GT QDAC LEI Stop: 08/27/18 07:29 Last Admin: 07/01/18 06:43 Dose: 0.15 mg Lorazepam (Ativan) 0.5 mg GT Q12HR LEI; Protocol Stop: 08/26/18 20:59 Last Admin: 07/01/18 09:03 Dose: 0.5 mg Magnesium Hydroxide (Milk Of Magnesia) 30 ml GT HS PRN PRN Reason: Constipation Stop: 08/26/18 15:20 Metoprolol Succinate (Toprol Xl) 50 mg PO DAILY LEI Stop: 08/27/18 12:29 Last Admin: 07/01/18 09:02 Dose: 50 mg Miscellaneous (Clinical Monitoring) 1 ea MC DAILY PRN PRN Reason: RENAL Stop: 08/30/18 08:31 Multivitamins/Vitamin C (Theragran) 1 tab GT DAILY LEI Stop: 08/27/18 08:59 Last Admin: 07/01/18 09:02 Dose: 1 tab Mupirocin (Bactroban Oint) 1 appl NS BID LEI Stop: 07/03/18 17:01 Last Admin: 07/01/18 09:03 Dose: 1 appl Quetiapine Fumarate (Seroquel) 50 mg GT HS LEI; Protocol Stop: 08/26/18 20:59 Last Admin: 06/30/18 21:18 Dose: 50 mg Quetiapine Fumarate (Seroquel) 50 mg GT BID LEI; Protocol Stop: 08/26/18 16:59 Last Admin: 07/01/18 09:03 Dose: 50 mg Trimethoprim/Sulfamethoxazole (Bactrim Ds) 1 tab PO DAILY LEI Stop: 07/07/18 08:59 Valproate Sodium (Depakene) 250 mg GT Q6HR LEI; Protocol Stop: 08/26/18 17:59 Last Admin: 07/01/18 12:18 Dose: 250 mg General: Alert, No acute distress HEENT: Atraumatic, Mucous membr. moist/pink Neck: Supple, JVD, +2 carotid pulse wo bruit Cardiovascular: Regular rate, Normal S1, Normal S2 Lungs: Clear to auscultation Abdomen: Bowel sounds, Soft Extremities: no Edema Neurological: Sensation intact Skin: no Rash Psych/Mental Status: Mood NL Assessment/Plan - Assessment Assessment: AUBRIE on CKD Acute Psych Decomp Major Depression/Anxiety Chronic A. Fib Hypothyroidism T2DM Ess Htn - Plan Plan: Lab - Result Diagrams 06/29/18 05:25 06/29/18 05:25 Current Medications Acetaminophen (Tylenol) 650 mg GT Q4HR PRN PRN Reason: Mild Pain / Temp above 100 Stop: 08/26/18 15:20 Acetaminophen (Tylenol) 650 mg GT Q4H PRN PRN Reason: Pain Or Fever above 101 Stop: 08/26/18 15:20 Al Hydrox/Mg Hydrox/Simethicone (Maalox) 30 ml GT HS PRN PRN Reason: GI DISTRESS Stop: 08/26/18 15:20 Albuterol Sulfate (Albuterol 2.5mg/3ml Neb Ud) 2.5 mg HHN Q2HRT PRN PRN Reason: Shortness of Breath or Wheeze Stop: 08/26/18 15:20 Amiodarone HCl (Cordarone) 100 mg GT DAILY LEI Stop: 08/27/18 08:59 Last Admin: 06/29/18 08:42 Dose: 100 mg Atorvastatin Calcium (Lipitor) 40 mg PO HS LEI Stop: 08/26/18 20:59 Last Admin: 06/28/18 21:48 Dose: 40 mg Famotidine (Pepcid) 10 mg GT QDAC LEI Stop: 08/27/18 07:29 Last Admin: 06/29/18 06:36 Dose: 10 mg Ferrous Sulfate (Iron) 325 mg PO DAILY LEI Stop: 08/27/18 08:59 Last Admin: 06/29/18 08:40 Dose: 325 mg Dextrose/Sodium Chloride (D5-0.45ns) 1,000 mls @ 100 mls/hr IV .Q10H LEI Stop: 08/26/18 15:29 Last Admin: 06/29/18 11:09 Dose: 100 mls/hr Levothyroxine Sodium (Synthroid) 0.15 mg GT QDAC LEI Stop: 08/27/18 07:29 Last Admin: 06/29/18 06:35 Dose: 0.15 mg Lorazepam (Ativan) 0.5 mg GT Q12HR LEI; Protocol Stop: 08/26/18 20:59 Last Admin: 06/29/18 08:41 Dose: 0.5 mg Lorazepam (Ativan) 1 mg IV Q4H PRN; Protocol PRN Reason: Seizure Stop: 08/26/18 15:21 Magnesium Hydroxide (Milk Of Magnesia) 30 ml GT HS PRN PRN Reason: Constipation Stop: 08/26/18 15:20 Metoprolol Succinate (Toprol Xl) 50 mg PO DAILY LEI Stop: 08/27/18 12:29 Last Admin: 06/29/18 08:41 Dose: 50 mg Multivitamins/Vitamin C (Theragran) 1 tab GT DAILY LEI Stop: 08/27/18 08:59 Last Admin: 06/29/18 08:40 Dose: 1 tab Mupirocin (Bactroban Oint) 1 appl NS BID LEI Stop: 07/03/18 17:01 Last Admin: 06/29/18 08:59 Dose: Not Given Ondansetron HCl (Zofran) 4 mg IV Q8H PRN PRN Reason: Nausea / Vomiting Stop: 08/26/18 15:21 Quetiapine Fumarate (Seroquel) 50 mg GT HS LEI; Protocol Stop: 08/26/18 20:59 Last Admin: 06/28/18 21:49 Dose: 50 mg Quetiapine Fumarate (Seroquel) 50 mg GT BID LEI; Protocol Stop: 08/26/18 16:59 Last Admin: 06/29/18 08:41 Dose: 50 mg Valproate Sodium (Depakene) 250 mg GT Q6HR LEI; Protocol Stop: 08/26/18 17:59 Last Admin: 06/29/18 11:15 Dose: 250 mg Lab - Result Diagrams 07/01/18 04:40 07/01/18 04:40 Kidney fnc remain stable w/ BUN/CR of 24/3.1 continue IVF encourage po fluid intake f/u Electrolytes start [id number]
[2018-07-01] MEDS ORDERED: Sodium Chloride 0.45% 1,000 ML IV SCH (13:37)
--- NOTE | 2018-07-01 18:40 | Discharge Summary ---
DATE OF DISCHARGE: 07/01/2018 COVERING FOR: Luismyriam Gamez DO DISCHARGE DIAGNOSES: 1. Acute dehydration, which has been treated. 2. Hypertension. 3. Anemia. 4. HDL. 5. Gastroesophageal reflux disease. 6. Hypothyroidism. 7. Acute urinary tract infection. HISTORY OF PRESENT ILLNESS: This is a 67-year-old female with a history of hypertension, hypercholesterolemia, anemia, hypothyroidism and admitted from nursing facility secondary to increasing agitation, which is different than her baseline. The patient also has not been eating as much and not drink as much. The patient was evaluated in the ER, noted to have elevated BUN and creatinine, worse than her baseline. PHYSICAL EXAMINATION: GENERAL: Elderly female, awake, alert, in no apparent distress. VITAL SIGNS: Stable. HEENT: Normocephalic, atraumatic. NECK: Supple. No mass. LUNGS: Clear bilaterally. ABDOMEN: Soft, nontender. HOSPITAL COURSE: During the hospital stay, the patient was admitted to the telemetry unit. The patient was on aggressive IV fluids for hydration. The patient was kept on IV antibiotics, Merrem due to acute urinary tract infection. The patient had a renal ultrasound done. Impression is suboptimal detailed delineation of the kidneys, findings consistent with bilateral renal cyst. The patient also had a renal consult. Renal consultation with Dr. Correa as well as a Psychiatry consult as well. The patient's BUN and creatinine has improved. For this reason, the patient was stable for discharge. CONDITION UPON DISCHARGE: Fair. DISPOSITION: [facility]. JOB# [id number]
--- NOTE | 2018-07-01 21:41 | Progress Notes ---
DATE: 07/01/2018 Case was discussed with staff of the patient, reviewed records. The patient is doing much better, sleeping well, eating well. She denies any current intent to harm herself. She denies hearing voices. She has been showing progress. She denies feeling paranoid. Thank you very much for allowing me to participate in the care of this most interesting lady. JOB# [id number]
[2018-07-02 04:09] LABS: FOLIC ACID 13.4 ng/mL (>3.0)
[2018-07-02] MEDS ORDERED: Sulfamethoxazole/TMP 800/160mg Tab PO SCH (09:00)
== END 2018-07-01 16:43 | DRG 683 ==
LOC: ER 12:07 → TELE 14:51
PROVIDERS: ADMIT Internal Medicine; ATTEND Internal Medicine
DX: N17.9 Acute kidney failure, unspecified (principal); E87.2 Acidosis; F23 Brief psychotic disorder; N39.0 Urinary tract infection, site not specified; I12.0 Hypertensive chronic kidney disease with stage 5 chronic kidney disease or end stage renal disease; E86.0 Dehydration; E78.5 Hyperlipidemia, unspecified; K21.9 Gastro-esophageal reflux disease without esophagitis; E03.9 Hypothyroidism, unspecified; I48.2 Chronic atrial fibrillation; R13.10 Dysphagia, unspecified; M10.9 Gout, unspecified; F29 Unspecified psychosis not due to a substance or known physiological condition; E78.00 Pure hypercholesterolemia, unspecified; F25.9 Schizoaffective disorder, unspecified; D63.8 Anemia in other chronic diseases classified elsewhere; E11.22 Type 2 diabetes mellitus with diabetic chronic kidney disease; M19.90 Unspecified osteoarthritis, unspecified site; N18.5 Chronic kidney disease, stage 5; E11.21 Type 2 diabetes mellitus with diabetic nephropathy; F32.9 Major depressive disorder, single episode, unspecified; R19.7 Diarrhea, unspecified; F41.9 Anxiety disorder, unspecified; N28.1 Cyst of kidney, acquired; Z96.641 Presence of right artificial hip joint; Z96.651 Presence of right artificial knee joint; Z88.5 Allergy status to narcotic agent; Z93.1 Gastrostomy status; Z88.8 Allergy status to other drugs, medicaments and biological substances
CPT/HCPCS: 36415-UA; 76770-TC; 80048-TC; 80053-TC; 81001-TC; 81003-TC; 81015-TC; 81050-TC; 82043-90; 82140-TC; 82570-TC; 82575-TC; 82607-90; 82746-90; 83036-90; 83735-TC; 83880-TC; 84100-TC; 84300-TC; 84443-TC; 84550-TC; 85025-TC; 87086-90; 94760; J1200; J1630; J2060; J2185; Z7610

== ENCOUNTER 2019-01-07 09:25 | Emergency (ER) | payer MEDICARE, BC ==
[2019-01-07] MEDS ORDERED: Haloperidol Lactate 5 mg/mL 1mL Vial IM STA (09:31)
[2019-01-07] MEDS ORDERED: Haloperidol Lactate 5 mg/mL 1mL Vial ONE (09:33)
--- NOTE | 2019-01-07 09:53 | ED Physician Chart ---
ED Chief Complaint/HPI - Patient Information Date Seen:: 01/07/19 Time Seen:: 09:30 Chief Complaint:: Agitation History of Present Illness:: onset x 3 days of AMS, agitation and hostile behavior; no report of trauma, H/As , neck pain, SIs, C/P, SOB, Abd. Pain, A/N/V/D/C, fever, chills, or urinary s/s Allergies:: Allergies Allergy/AdvReac Type Severity Reaction Status Date / Time morphine Allergy Verified 11/22/18 12:21 NSAIDS (Non-Steroidal Allergy Verified 11/22/18 12:21 Anti-Inflamma Historian:: Patient, EMS Review:: Nurse's Note Reviewed, Old Chart Reviewed, EMS run form Reviewed ED Review of Systems - Review of Systems General/Constitutional: No fever, No chills, No weight loss, No weakness, No diaphoresis, No edema, No loss of appetite Skin: No skin lesions, No rash, No bruising Head: No headache, No light-headedness Eyes: No loss of vision, No pain, No diplopia ENT: No earache, No nasal drainage, No sore throat, No tinnitus Neck: No neck pain, No swelling, No thyromegaly, No stiffness, No mass noted Cardio Vascular: No chest pain, No palpitations, No PND, No orthopnea, No edema Pulmonary: No SOB, No cough, No sputum, No wheezing GI: No nausea, No vomiting, No diarrhea, No pain, No melena, No hematochezia, No constipation, No hematemesis G/U: No dysuria, No frequency, No hematuria, No nacturia [employer]: No vaginal discharge, No abnormal vaginal bleed, No contraction Musculoskeletal: No bone or joint pain, No back pain, No muscle pain Endocrine: No polyuria, No polydipsia Psychiatric: Prior psych history, Depression, Anxiety, No suicidal ideation, No homicidal ideation, Auditory hallucination, No visual hallucination Hematopoietic: No bruising, No lymphadenopathy Allergic/Immuno: No urticaria, No angioedema Neurological: No syncope, No focal symptoms, No weakness, No paresthesia, No headache, No seizure, No dizziness, No confusion, No vertigo ED Past Medical History - Past Medical History Past Medical History: HTN, Asthma/COPD, Dyslipidemia, PUD/GERD, ESRD, Seizures, Thyroid disorder Family History: HTN Social History: Non Smoker, No Alcohol, No Drug Use, Single, Care Facility Surgical History: PEG/GTube Psychiatricy History: Schizophrenia, Bipolar Medication: Reviewed Family Medical History - Family Member Mother History Unknown: Yes ED Physical Exam - Physical Examination General/Constitutional: Awake, Well-developed, well-nourished, Alert, No distress, GCS 15, Non-toxic appearing, Ambulatory Head: Atraumatic Eyes: Lids, conjuctiva normal, PERRL, EOMI Skin: Nl inspection, No rash, No skin lesions, No ecchymosis, Well hydrated, No lymphadenopathy ENMT: External ears, nose nl, TM canals nl, Nasal exam nl, Lips, teeth, gums nl , Oropharynx nl, Tonsils nl Neck: Nontender, Full ROM w/o pain, No JVD, No nuchal rigidity, No bruit, No mass, No stridor Other Neck comments:: supple; no meningeal signs; no cervical tenderness; no bruits Respiratory: Nl effort/Exclusion, Clear to Auscultation, No Wheeze/Rhonchi/Rales Cardio Vascular: RRR, No murmur, gallop, rubs, NL S1 S2, Carotid/Femoral/Distal pulses equal bilaterally GI: No tenderness/rebounding/guarding, No organomegaly, No hernia, Normal BS's, Nondistended, No mass/bruits, No McBurney tenderness, Rectum exam nl Other GI comments:: no pulsatile masses; + G-Tube : No CVA tenderness Extremities: No tenderness or effusion, Full ROM, normal strength in all extremities, No edema, Normal digits & nails Neuro/Psych: Alert/oriented, DTR's symmetric, Normal sensory exam, Normal motor strength, Judgement/insight normal, Mood normal, Normal gait, No focal deficits Other Neuro/Psych comments:: + Psychomotor Agitation; no SIs; Mood/Affect: Labile Misc: Normal back, No paraspinal tenderness ED Labs/Radiology/EKG Results - Lab Results Comments:: Reviewed - EKG Interpretations EKG Time:: 10:45 Rate & Rhythm: 84; NSR Comments:: LBBB; non-specific st-t changes ED Septic Shock - . Is Septic Shock (SBP<90, OR Lactate>4 mmol\L) present?: No ED Reassessment (Disposition) - Reassessment Reassessment Condition:: Improved - Diagnosis Diagnosis:: Agitation; Medical Clearance; Psychosis; Altered Mental Status; Anemia; Leukopenia; Renal Insuffiency; Pre-Renal Azotemia; ESRD; Tachycardia - Aftercare/Follow up Instructions Aftercare/Follow-Up Instructions:: Counseled pt regarding lab results/diagnosis & need follow up, Counseled pt & family regarding lab results/diagnosis & need follow up - Patient Disposition Discharge/Transfer:: Acute Care (other hosp) Accepting Physician:: Dr. Cordova Time Called:: 1145 Time Responded:: 11:45 Admitted to:: Telemetry Spoke to:: Dr. Cordova Admitting Medical Physician:: Dr. Cordova Condition at Disposition:: Stable, Improved (pt to be transferred via [facility] as a direct admission to [facility] under Dr. Cordova)
[2019-01-07 10:36] LABS: % BASOPHILS 1.1 % (0.0-2.0); % EOSINOPHILS 1.7 % (0.0-5.0); % LYMPHOCYTES 25.9 % (20.0-50.0); % NEUTROPHILS 65.3 % (40.0-80.0); BASOPHILE ABSOLUTE 0.1 Th/cumm (0-0.2); EOSINOPHILE ABSOLUTE 0.1 Th/cmm (0.1-0.4); HEMATOCRIT 33.6 % (41.0-60); HEMOGLOBIN 11.3 gm/dL (12-16); LYMPHOCYTE ABSOLUTE 1.2 Th/cmm (1.5-3.0); MEAN CELL VOLUME 89.8 fl (81-100); MEAN CORPUSCULAR HGB CONC 33.5 pg (28.0-36.0); MEAN PLATELET VOLUME 9.9 fl; MONOCYTE ABSOLUTE 0.3 Th/cmm (0.3-1.0); PLATELET COUNT 98 Th/cmm (150-400); RED BLOOD COUNT 3.75 Mil/cmm (3.80-5.20); RED CELL DISTRIBUTION WIDTH 13.1 % (11.5-20.0); WHITE BLOOD COUNT 4.7 Th/cmm (4.8-10.8)
[2019-01-07 10:41] LABS: ACETAMINOPHEN < 10.0 ug/mL (10.0-30.0); ALB/GLOB RATIO 2.1 (1.0-1.8); ALBUMIN 3.9 gm/dL (3.7-5.3); ALKALINE PHOSPHATASE 81 U/L (34-104); ANION GAP 16.4 (7.0-16.0); BILIRUBIN,TOTAL 0.3 mg/dL (0.3-1.0); BUN - UREA NITROGEN 41 mg/dL (7-25); CALCIUM SERUM 8.9 mg/dL (8.6-10.3); CARBON DIOXIDE 19.9 mEq/L (21.0-31.0); CHLORIDE 112 mEq/L (98-107); CHOLESTEROL 163 mg/dL (<200); CREATININE - SERUM 3.6 mg/dL (0.6-1.2); GFR AFRICAN-AMERICAN 16.1 ml/min (>90); GFR NON AFRICAN-AMERICAN 13.3 ml/min; GLUCOSE 82 mg/dL (70-105); HDL -HIGH DENSITY LIPOPROTEIN 42 mg/dL (23-92); POTASSIUM SERUM 4.3 mEq/L (3.5-5.1); SGOT 12 U/L (13-39); SGPT/ALT 6 U/L (7-52); SODIUM SERUM 144 mEq/L (136-145); TOTAL PROTEIN,SERUM 5.8 gm/dL (6.0-8.3); TRIGLYCERIDES 207 mg/dL (<150)
[2019-01-07 11:02] LABS: SALICYLATES (ASPIRIN) < 25.0 mg/L (30.0-100.0)
[2019-01-07 13:54] LABS: URINE SOURCE CLEAN C
[2019-01-07 14:24] LABS: URINE BILIRUBIN NEGATIVE (NEGATIVE); URINE BLOOD NEGATIVE (NEGATIVE); URINE GLUCOSE (UA) NEGATIVE (NEGATIVE); URINE KETONE NEGATIVE (NEGATIVE); URINE LEUKOCYTE ESTERASE NEGATIVE (NEGATIVE); URINE NITRATE NEGATIVE (NEGATIVE); URINE PH 6.5 (4.6 - 8.0); URINE PROTEIN NEGATIVE (NEGATIVE); URINE UROBILINOGEN 0.2 E.U./dL (0.2 - 1.0)
[2019-01-07 14:29] LABS: URINE CLARITY CLEAR (CLEAR); URINE COLOR YELLOW; URINE MICROSCOPIC INDICATED? YES
[2019-01-07 14:35] LABS: URINE RBC 0-2 /hpf (0-5); URINE WBC 0-2 /hpf (0-5)
[2019-01-07 14:36] LABS: URINE BACTERIA FEW /hpf (NONE SEEN); URINE EPITHELIAL CELLS FEW /lpf (FEW)
[2019-01-07 14:52] LABS: AMPHETAMINE URINE NEGATIVE (NEGATIVE); BARBITURATES URINE NEGATIVE (NEGATIVE); BENZODIAZEPINES QUAL URINE POSITIVE (NEGATIVE); CANNABINOID THC NEGATIVE (NEGATIVE); COCAINE METABOLITE QUAL URINE NEGATIVE (NEGATIVE); METHADONE URINE NEGATIVE (NEGATIVE); METHAMPHETAMINES QUAL URINE NEGATIVE (NEGATIVE); OPIATES (MORPHINE) QUAL. URINE NEGATIVE (NEGATIVE); PHENCYCLIDINE (PCP) URINE NEGATIVE (NEGATIVE); TRICYCLICS (TCA) QUAL. URINE NEGATIVE (NEGATIVE)
== END 2019-01-07 19:27 | disposition short-term general hospital (02) ==
LOC: ER 09:25
DX: F29 Unspecified psychosis not due to a substance or known physiological condition (principal); D64.9 Anemia, unspecified; I12.0 Hypertensive chronic kidney disease with stage 5 chronic kidney disease or end stage renal disease; N18.6 End stage renal disease; R00.0 Tachycardia, unspecified; D72.819 Decreased white blood cell count, unspecified; K21.9 Gastro-esophageal reflux disease without esophagitis; J44.9 Chronic obstructive pulmonary disease, unspecified; F20.9 Schizophrenia, unspecified; F31.9 Bipolar disorder, unspecified; Z93.1 Gastrostomy status; Z88.5 Allergy status to narcotic agent; Z88.6 Allergy status to analgesic agent
CPT/HCPCS: 99285; 96372 ×3; 93005; 84484; 36415; 80307; 84443; 86592; 85025; 81001; 80329 ×2; 80320; 80053; 80061; 80164; 87081; J2060; J1200; J1630

== ENCOUNTER 2019-01-10 18:39 | Inpatient (IN) | payer MEDICARE, BC ==
[2019-01-10 19:10] VITALS: BP 134/94
[2019-01-10] MEDS ORDERED: Magnesium Hydroxide (MOM) 30 mL UDC PO PRN (20:07)
[2019-01-10] MEDS ORDERED: Maalox 30 mL Cup PO PRN (20:07)
[2019-01-10] MEDS ORDERED: guaiFENesin 200 MG/10 ML UDC GT PRN (20:14)
[2019-01-10] MEDS ORDERED: Albuterol Nebulizer 2.5mg/3mL HHN PRN (20:14)
[2019-01-11] MEDS: Levothyroxine 0.075 Mg Tab GT SCH (06:48)
[2019-01-11] MEDS: Multivitamin Tab PO SCH (08:48)
[2019-01-11] MEDS: Ferrous Sulfate 300 MG/5 ML UDC GT SCH (08:49)
--- NOTE | 2019-01-11 18:30 | Psychiatric Evaluation ---
DATE OF SERVICE: 01/10/2019 HISTORY OF PRESENT ILLNESS: This 68-year-old female referred from [facility] by Dr. Hamm, placed on a hold because she was unruly, agitated, aggressive. The patient with history of G-tube, but able to eat on her own. She is 68 years old with history of bipolar. I spoke with the and notes the patient is not at her baseline. Unable to take lithium, unstable with the Seroquel, lashing out at staff, trying to get up at times, highly unruly. The patient is very confused, disoriented. She is asking over and over "can I stay here, can I stay here, can I stay here." PAST PSYCHIATRIC HISTORY: Bipolar. ALLERGIES: Noted. PAST MEDICAL HISTORY: Noted. MEDICATIONS: Seroquel. SOCIAL HISTORY: . I spoke with her . The patient is living in a assisted. MENTAL STATUS EXAMINATION: Stated age. Fair eye contact, requiring a lot of staff support. Franci chair. Mood," I want to stay here." Affect flat, very confused, disoriented, disengaged. No overt SI or HI. Concerns for delusions. Poor insight, poor judgment. PROVISIONAL DIAGNOSES: Bipolar. MEDICAL: Please see full H and P. possible delirium. ESTIMATED LENGTH OF STAY: 7-10 days. ASSESSMENT: The patient requiring hospitalization, confused, disoriented, agitated and aggressive. PLAN: We will restart medications, Seroquel, also, Depakote. TREATMENT PLAN: Includes group as well as milieu therapy. CONDITIONS FOR DISCHARGE: Improved mood, improved affect, better control of her agitation, bipolar signs and symptoms. [facility]# [id number]
[2019-01-12] MEDS: Levothyroxine 0.075 Mg Tab GT SCH (06:53)
[2019-01-12] MEDS: Ferrous Sulfate 300 MG/5 ML UDC GT SCH (08:47)
[2019-01-12] MEDS: Multivitamin Tab PO SCH (08:52)
--- NOTE | 2019-01-12 20:40 | Progress Notes ---
DATE: 01/12/2019 SUBJECTIVE: The patient is currently in the hospital, remains unruly, agitated, ongoing psychotic symptoms, very confused, bizarre, poor sleep last night in a Franci chair. There is really no idea what is going on and why she is here. Staff concerned about her insomnia, behaviors, behavioral disturbances, aggressive behaviors, agitation, paranoia. PLAN: We will continue to monitor on an inpatient basis, is clearly still acute, symptomatic, psychotic, will also be increasing the dosing of Seroquel and Depakote today. Transfer of care to Dr. Willis, verbalized the nursing staff. JOB# [id number]
[2019-01-13] MEDS: Levothyroxine 0.075 Mg Tab GT SCH (06:35)
[2019-01-13] MEDS: Ferrous Sulfate 300 MG/5 ML UDC GT SCH (08:44)
[2019-01-13] MEDS: Multivitamin Tab PO SCH (08:47)
--- NOTE | 2019-01-13 10:07 | History & Physical ---
ADMIT DATE: 01/10/2019 REASON FOR ADMISSION: Psychiatric disorders. HISTORY OF PRESENT ILLNESS: This 68-year-old female admitted to the Geropsych Unit for underlying psychiatric illnesses by Dr. Hamm. Dr. Hamm requested medical H and P on this patient. The patient has underlying history of hypothyroidism, anemia, chronic constipation, GERD, hypertension, and hyperlipidemia. The patient complains of bilateral hand superficial skin tears. The patient does not know how it happened. The patient has been treated with local wound care. No fever, no chills, no nausea, no other medical concerns reported by nursing staff. PAST MEDICAL HISTORY: As per HPI. PAST SURGICAL HISTORY: ____. FAMILY HISTORY: Unknown. SOCIAL HISTORY: Lives at nursing facility. No reported alcohol, tobacco, or drug use. CURRENT MEDICATIONS: Per med reconciliation. ALLERGIES: Per med reconciliation. REVIEW OF SYSTEMS: No fever, no chills, no nausea, no abdominal pain, no headache, no chest pain, trouble breathing. No dizziness, ____. PHYSICAL EXAMINATION: VITAL SIGNS: Temperature 97.6, pulse of 103, respirations 19, and blood pressure 117/85. HEART: S1 and S2 normal, mild tachycardia. LUNGS: Clear to auscultation. ABDOMEN: Soft. NEUROLOGIC: The patient is awake, moves all extremities, follows commands. SKIN: Bilateral hands, on the dorsal aspect ____. ASSESSMENT: 1. Left hand cellulitis. 2. Hypertension. 3. Hypothyroidism. 4. Hyperlipidemia. 5. GERD. 6. ____ anemia. 7. Mental disorder. PLAN: The patient will be started on Keflex. Daily wound care will be given. Continue the patient's levothyroxine, iron sulfate, famotidine, ____, amiodarone. Continue psychotropic meds. Psych was managed by Dr. Hamm. The patient is medically stable. Thank you Dr. Hamm for allowing me to participate in the care of this patient. JOB# [id number]
[2019-01-13] MEDS ORDERED: Haloperidol Lactate 5 mg/mL 1mL Vial IM ONE (13:19)
[2019-01-13] MEDS: Atorvastatin Calcium 10 MG TAB GT SCH (20:32)
--- NOTE | 2019-01-13 23:26 | Progress Notes ---
DATE: 01/13/2019 SUBJECTIVE: Case was discussed with staff of the patient, reviewed records. This is a well-known case to me as I have been seen her at [facility]. Also, she has hospitalized here before. She is a 68-year-old female, who was readmitted on 01/10/2019. She is referred from [place], was on a hold because she was unruly, agitated, and aggressive. She has a history of G-tube placement, when I saw her last month; apparently, she complained pain in G-tube and I consulted the medical doctor regarding that. The patient is very confused. She is acting out. She is unable to tell me the date, where she is, why she is here, or participate in a meaningful conversation. She continues to have poor insight, unpredictable and impulsive. She has been on Depakote 500 mg twice a day and Seroquel 75 mg twice a day that was increased yesterday because of her behavior with no side effects, no sedation, no nausea, and no extrapyramidal symptoms. I am not sure of her Depakote dose. I will be checking levels to make sure she is not overmedicated with Depakote. She is in the observation room, acting out, pulling on her skin, her right hand does have a big exposed wound and the medical doctor has ordered to address this, but she keeps pulling it out. No side effects with the medication, no sedation, no nausea, and no extrapyramidal symptoms. We will continue to work with the patient in group therapy, milieu therapy, and adjust the medications as needed. JOB# [id number]
[2019-01-14] MEDS: Levothyroxine 0.075 Mg Tab GT SCH (06:30)
[2019-01-14] MEDS: Multivitamin Tab PO SCH (08:49)
[2019-01-14] MEDS: Ferrous Sulfate 300 MG/5 ML UDC GT SCH (08:51)
[2019-01-14] MEDS: Therahoney Gel 42.5gm Tube TP SCH (13:52)
[2019-01-14] MEDS: Atorvastatin Calcium 10 MG TAB GT SCH (21:05)
[2019-01-15] MEDS: Levothyroxine 0.075 Mg Tab GT SCH (06:39)
[2019-01-15] MEDS: Ferrous Sulfate 300 MG/5 ML UDC GT SCH (08:58)
[2019-01-15] MEDS: Multivitamin Tab PO SCH (08:58)
[2019-01-15] MEDS: Therahoney Gel 42.5gm Tube TP SCH (08:59)
--- NOTE | 2019-01-15 09:34 | Progress Notes ---
DATE: 01/14/2019 SUBJECTIVE: Case was discussed with staff of the patient, reviewed records. The patient is a bit calmer today. She is not yelling and screaming. Depakote level, 50.6. However, I did increase Depakote dose yesterday. It was increased to 500 mg twice a day and I did increase her Seroquel dose yesterday. Continues to be unpredictable, impulsive, and needing redirection. She has to be medicated yesterday. Today, she does not need any. She is still unpredictable, impulsive, continues to have poor insight. No side effects of the medication, no sedation, no nausea, no extrapyramidal symptoms. We will continue outpatient group therapy, milieu therapy, and adjust her medication as needed. JOB# [id number]
[2019-01-15] MEDS: Atorvastatin Calcium 10 MG TAB GT SCH (20:27)
--- NOTE | 2019-01-15 23:40 | Progress Notes ---
DATE: 01/15/2019 Case was discussed with staff of the patient, reviewed records. The staff reported that the patient since yesterday is a little calmer. Continues to have episodes of being demanding, irritable, yelling and screaming, very poor insight. She tolerated the increase in Depakote and Seroquel with no side effects, no sedation, no nausea, no extrapyramidal symptoms. Her Depakote level was 60.6, which is within acceptable range. However, I did increase the dose to help her control her, felt better because of her extreme agitation, irritability, and the patient has been incontinent and uses diaper. We will continue outpatient group therapy, milieu therapy, and adjust medications as needed. [facility]# [id number]
[2019-01-16] MEDS: Levothyroxine 0.075 Mg Tab GT SCH (06:43)
[2019-01-16] MEDS: Therahoney Gel 42.5gm Tube TP SCH (09:00)
[2019-01-16] MEDS: Ferrous Sulfate 300 MG/5 ML UDC GT SCH (09:00)
[2019-01-16] MEDS: Multivitamin Tab PO SCH (09:02)
[2019-01-16] MEDS: Atorvastatin Calcium 10 MG TAB GT SCH (20:49)
--- NOTE | 2019-01-16 20:51 | Progress Notes ---
DATE: 01/16/2019 Case was discussed with staff of the patient, reviewed records. The patient continues to be irritable, unpredictable, impulsive, needing redirection. Continues to have poor insight. Unable to make safe plan for self-care, unpredictable, impulsive, loud. No side effects with the medication, no sedation, no nausea, no extrapyramidal symptoms. We will continue outpatient group therapy, milieu therapy, and her medication as needed. [facility]# [id number]
[2019-01-17] MEDS: Levothyroxine 0.075 Mg Tab GT SCH (06:31)
[2019-01-17] MEDS: Ferrous Sulfate 300 MG/5 ML UDC GT SCH (08:35)
[2019-01-17] MEDS: Multivitamin Tab PO SCH (08:36)
[2019-01-17] MEDS: Therahoney Gel 42.5gm Tube TP SCH (13:00)
[2019-01-17] MEDS: Atorvastatin Calcium 10 MG TAB GT SCH (20:14)
--- NOTE | 2019-01-18 01:47 | Progress Notes ---
DATE: 01/17/2019 SUBJECTIVE: Case was discussed with staff of the patient, reviewed records. The patient is calmer in general, however, she is paranoid. She has a food in front of her when I talked to her and she believe is being poisoned. She also reported that they tried to clean her G-tube today and they do a good job. She believed they are going to harm her. She is paranoid and delusional. Continues to be easily agitated, unable to make safe plan for self-care. I will be increasing her Seroquel to 125 mg twice a day. Her Depakote level is 50.6, which is within the acceptable therapeutic range; however, if she continued to get agitated, may have to increase the dose. She is on Depakote 500 mg twice a day. No side effects with the medication, no sedation, no nausea, no extrapyramidal symptoms. We will continue outpatient group therapy, milieu therapy, and adjust the medication as needed. JOB# [id number] MTDD
[2019-01-18] MEDS: Levothyroxine 0.075 Mg Tab GT SCH (06:41)
[2019-01-18] MEDS: Ferrous Sulfate 300 MG/5 ML UDC GT SCH (10:13)
[2019-01-18] MEDS: Multivitamin Tab PO SCH (10:16)
[2019-01-18] MEDS: Therahoney Gel 42.5gm Tube TP SCH (17:31)
--- NOTE | 2019-01-18 22:50 | General Progress Note ---
Subjective - Review of Systems Service Date: 01/18/19 Subjective: patient was seen and examined for follow up Patient c/o constipation Also left hand wound in not healing well Also c/o difficulty swallowing feels like certain food get stuck in throat Objective - Results Recent Labs: Laboratory Last Values POC Glucose 100 MG/DL (70 - 105) 01/10/19 20:00 Valproic Acid 50.6 ug/mL (50.0-100.0) 01/13/19 14:10 - Physical Exam Vitals and I&O: Vital Signs Temp 97.0 F 01/18/19 17:20 Pulse 88 01/18/19 17:20 Resp 20 01/18/19 17:20 BP 115/58 01/18/19 17:20 Pulse Ox 96 01/18/19 17:20 Intake & Output 01/18/19 01/18/19 01/19/19 06:59 18:59 06:59 Intake Total 120 1300 Balance 120 1300 Intake: Oral 120 1300 Other: # Voids 2 3 # Bowel Movements 0 0 Extremities: Other (left hand wound with slough and surrouding erythema noted) - Procedures Procedures: Procedures Procedure Code Date CHANGE FEEDING DEVICE IN UP INTEST TRACT, XEROX MACHINE ASSEMBLER APPROACH [id number] 11/22/18 Assessment/Plan - Assessment Assessment: Left hand cellulitis Constipation Dysphagia Hypothyroidism Hyperlipidemia Mental health disorder - Plan Plan: Patient was on keflex for since admission but didn't seem much help Will transfer patient to Medical floor for iv antibiotics and further treatment Dulcolax suppository GI eval Plan of care dw patient and nursing staff Nutritional Asmnt/Malnutr-PDOC - Dietary Evaluation Malnutrition Findings (Please click <Entered> for more info): Nutritional Asmnt/Malnutrition Start: 01/15/19 16: 09 Text: Status: Complete Freq: Protocol: Document 01/15/19 16:11 LCHENG (Rec: 01/15/19 16:19 LCHENG [email or web address]) Nutritional Asmnt/Malnutrition Patient General Information Nutritional Screening Low Risk Consult Diagnosis psychosis Pertinent Medical Hx/Surgical Hx hypothyroidism, anemia, chronic constipation, GERD, HTN, hyperlipidemia Subjective Information Consult received for multiple skin tears. Per EMR, PO intake 25-75%. Current Diet Order/ Nutrition Support regular Pertinent Medications lipitor, pepcid, iron, synthroid, theragran, seroquel Pertinent Labs 01/10 POC 100 Nutritional Hx/Data Height 1.55 m Height (Calculated Centimeters) 154.9 Current Weight (lbs) 70.307 kg Weight (Calculated Kilograms) 70.3 Weight (Calculated Grams) 90282.8 Melvin Body Weight 105 Body Mass Index (BMI) 29.2 Weight Status Overweight GI Symptoms GI Symptoms None Last BM 01/13 Difficult in: None Skin Integrity/Comment: skin tear to left hand and right hand. michael 16 Current %PO Fair (50-74%) Estimated Nutritional Goals BEE in Kcals: Using Current wt Calories/Kcals/Kg 23-27 Kcals Calculated 1245-0349 Protein: Using Current wt Protein g/k.8 Protein Calculated 56 Fluid: ml 1610-1890ml (1ml/kcal) Nutritional Problem No current Nutrition Prob Problem N/A Malnutrition Alert Is there a minimum of two criteria No selected? Query Text:Check all the applicable criteria. A minimum of two criteria are recommended for diagnosis of either severe or non-severe malnutrition. Malnutrition Related to Morbid Obesity Malnutrition related to morbid obesity No Intervention/Recommendation Comments 1. Continue with regular diet as ordered. 2. Monitor PO intake, wt, labs and skin integrity 3. F/U as low risk in 7 days Expected Outcomes/Goals Expected Outcomes/Goals 1. PO intake to meet at least 75% of nutritional needs. 2. Wt stability, skin to remain intact, labs to approach WNL.
--- NOTE | 2019-01-19 15:34 | Discharge Summary ---
DATE OF DISCHARGE: 01/18/2019 IDENTIFYING INFORMATION: This is a 68-year-old female. HISTORY OF PRESENT ILLNESS: The patient comes from [facility] by Dr. Hamm, placed on hold because she was unruly, agitated and aggressive with a history of G-tube, but able to eat on her own. She has a history of bipolar disorder. The patient has not been at her baseline, unable to take lithium and stable with Seroquel, lashing out at staff, trying to get up at times and highly unruly, very confused, disoriented asking over and over again. She could stay here. She is a well-known case to me as I have been seeing her at [facility] with prior admissions to this facility back in November of this year. COURSE IN THE HOSPITAL: The patient was initially back on Depakote, increased dose 500 mg twice a day because of her extreme agitation. She was yelling and screaming the first few days. I also increased Seroquel slowly to 125 mg twice a day, however, at this time, she got infection, it was decided to transfer her back to the medical floor. FINAL DIAGNOSIS: Bipolar disorder with psychosis. MEDICAL DIAGNOSES: As per medical doctor. The patient will be going to the medical floor. I will be following up with her there. EXPECTED OUTCOME: Stable if the patient complies with treatment. JOB# [id number]
--- NOTE | 2019-01-21 03:20 | Progress Notes ---
DATE: FOLLOWUP PROGRESS NOTE PROGRESS ON THE UNIT: Case discussed with staff of the patient, reviewed records. The patient is calmer today. She is sleeping well and eating well. She has multiple somatic complaints. No sedation, no nausea, no extrapyramidal symptoms. No acting out behavior. Not yelling or screaming like she used to be when she was on [facility] for the first few days. She is on antibiotic IV. Thank you very much for allowing me to participate in the care of this most interesting lady. JOB# [id number]
== END 2019-01-18 17:54 | disposition short-term general hospital (02) | DRG 885 ==
LOC: GERO 18:39
PROVIDERS: ADMIT Psychiatry & Neurology Psychiatry; ATTEND Psychiatry & Neurology Psychiatry
DX: F31.5 Bipolar disorder, current episode depressed, severe, with psychotic features (principal); Z93.1 Gastrostomy status; L03.114 Cellulitis of left upper limb; E03.9 Hypothyroidism, unspecified; K59.09 Other constipation; K21.9 Gastro-esophageal reflux disease without esophagitis; I10 Essential (primary) hypertension; E78.5 Hyperlipidemia, unspecified; R13.10 Dysphagia, unspecified; Z88.5 Allergy status to narcotic agent
CPT/HCPCS: 36415-UA; 80053-TC; 80061-TC; 80164-TC; 80307; 80320-TC; 80329-TC; 81001-TC; 82948-90; 84443-TC; 84484-TC; 85025-TC; 86592-TC; 93005; 94760; G0410; J1200; J1630; J2060; J7613; Z7610

== ENCOUNTER 2019-01-18 18:23 | Inpatient (IN) | payer MEDICARE, BC ==
[2019-01-18] MEDS ORDERED: Maalox 30 mL Cup PO PRN (19:00)
[2019-01-18] MEDS ORDERED: Magnesium Hydroxide (MOM) 30 mL UDC PO PRN (19:00)
[2019-01-18] MEDS ORDERED: guaiFENesin 200 MG/10 ML UDC GT PRN (19:00)
[2019-01-18] MEDS ORDERED: Albuterol Nebulizer 2.5mg/3mL HHN PRN (19:00)
[2019-01-18 19:01] VITALS: BP 114/85
[2019-01-18 19:07] LABS: % EOSINOPHILS 2.8 % (0.0-5.0); % LYMPHOCYTES 38.7 % (20.0-50.0); % MONOCYTES 6.3 % (2.0-10.0); % NEUTROPHILS 51.2 % (40.0-80.0); EOSINOPHILE ABSOLUTE 0.1 Th/cmm (0.1-0.4); HEMOGLOBIN 9.4 gm/dL (12-16); LYMPHOCYTE ABSOLUTE 1.7 Th/cmm (1.5-3.0); MEAN CELL VOLUME 88.9 fl (81-100); MEAN CORPUSCULAR HEMOGLOBIN 29.9 pg (27.0-31.0); MEAN CORPUSCULAR HGB CONC 33.6 pg (28.0-36.0); MEAN PLATELET VOLUME 9.3 fl; MONOCYTE ABSOLUTE 0.3 Th/cmm (0.3-1.0); NEUTROPHILE ABSOLUTE 2.3 Th/cmm (1.8-8.0); PLATELET COUNT 116 Th/cmm (150-400); RED BLOOD COUNT 3.15 Mil/cmm (3.80-5.20); RED CELL DISTRIBUTION WIDTH 13.3 % (11.5-20.0); WHITE BLOOD COUNT 4.4 Th/cmm (4.8-10.8)
[2019-01-18 19:24] LABS: ANION GAP 14.8 (7.0-16.0); CALCIUM SERUM 8.6 mg/dL (8.6-10.3); CREATININE - SERUM 3.2 mg/dL (0.6-1.2); GFR AFRICAN-AMERICAN 18.4 ml/min (>90); GFR NON AFRICAN-AMERICAN 15.2 ml/min; POTASSIUM SERUM 4.8 mEq/L (3.5-5.1)
--- NOTE | 2019-01-18 21:11 | Progress Notes ---
DATE: 01/18/2019 SUBJECTIVE: Case was discussed with staff of the patient, reviewed records. The patient continues to be irritable, continues to believe they are trying to harm her, has multiple somatic complaints, unpredictable, impulsive, needing redirection. She tolerates increase in Seroquel yesterday to 125 mg twice a day with no side effects, no sedation, no nausea, no extrapyramidal symptoms. I will be making further adjustment tomorrow, assuming she will be okay and she has been compliant with the medication with no side effects, no sedation, no nausea, no extrapyramidal symptoms. Her Depakote level is 58.6, which is within acceptable therapeutic range and we will continue to work with the patient in group therapy, milieu therapy, and adjust the medication as needed. JOB# [id number]
[2019-01-18 21:54] LABS: ESR SEDIMENTATION SED RATE 24 mm/hr (0-30)
[2019-01-19] MEDS: Levothyroxine 0.075 Mg Tab GT SCH (06:43)
[2019-01-19] MEDS: Ferrous Sulfate 300 MG/5 ML UDC GT SCH (08:48)
[2019-01-19] MEDS: Therahoney Gel 42.5gm Tube TP SCH (08:48)
[2019-01-19] MEDS: Multivitamin Tab PO SCH (08:49)
[2019-01-19] MEDS ORDERED: Vancomycin HCl 500 MG in Sodium Chloride 0.9% 100 ML IV SCH (10:00)
--- NOTE | 2019-01-19 11:09 | Diagnostic Imaging Report ---
Left hand 3 views Indication: Cellulitis Comparison: none Findings: There is age-indeterminate, possibly subacute to chronic impacted fracture of the distal radius. There may have been old nondisplaced fracture of the distal ulnar shaft. There are diffuse degenerative changes advanced at the first carpometacarpal joint. Advanced radiocarpal joint degenerative changes are also noted. Mild generalized soft tissue prominence is noted. No obvious erosions identified. There may have been previous trauma to the distal radial ulnar joint. Impression: Mild soft tissue prominence. Please correlate clinically for cellulitis given patient's history. No gross erosions however there is continued concern for osteomyelitis, MRI may be obtained for further assessment. Subacute to chronic appearing impacted fracture of the radial head. There may have been old trauma to the distal ulnar shaft. Advanced degenerative changes. In the setting of trauma, if clinical symptoms persist and there is continued concern for an occult fracture, follow up exams in 5-7 days is suggested.
--- NOTE | 2019-01-19 22:40 | Consultation ---
DATE OF CONSULTATION: 01/19/2019 IDENTIFYING INFORMATION: The patient is a 68-year-old female. HISTORY OF PRESENT ILLNESS: I was asked to see this patient who was transferred from [facility] because of infection, cellulitis. She has subacute and chronic impacted fracture of her distal radius and old nondisplaced fracture of her distal ulnar shift and diffuse degenerative changes advanced at carpometacarpal joint, cellulitis of her left hand. The patient herself is a well-known case to me as I have been seeing her at [facility]. She was admitted to [facility] because of agitation and she started to get a little bit better, controlled with Depakote and Seroquel, but she continues to be confused, unable to tell the date, where she is, why she is here. PAST PSYCHIATRIC HISTORY: Bipolar disorder. The patient has been staying at [facility]. MEDICAL HISTORY: As per medical doctor. The patient has cellulitis. ALLERGIES: THE PATIENT IS ALLERGIC TO MORPHINE, NSAID, AND ANTI-INFLAMMATORY. MEDICATIONS: The patient has COPD, hyperlipidemia, cellulitis, hypertension, peptic ulcer disease, anemia, upper respiratory tract infection, and hypothyroidism. FAMILY HISTORY: The patient is . She has a very supportive who keeps coming to visit her. Otherwise, she has been staying at [facility]. MENTAL STATUS EXAMINATION: The patient is appropriately dressed, not well groomed. She was alert. She was not sure of the date or why she is here, where she is. She has multiple somatic complaints. She denies any current intent to harm herself or anyone. She denies any auditory or visual hallucination or paranoia. She has been sleeping well, eating well. Her long-term memory is good for age. Recent memory is poor, is not sure of exactly why she is here, where she is. Her insight and judgment is impaired. Does not realize her problems. Judgment is poor with her agitated behavior. IMPRESSION: Bipolar disorder with psychosis. MEDICAL DIAGNOSES: Per medical doctor. PLAN: Continue her medication. I will follow up the patient with you. Thank you very much for allowing me to participate in the care of this most interesting lady. JOB# [id number]
--- NOTE | 2019-01-20 00:13 | History & Physical ---
ADMIT DATE: 01/18/2019 CHIEF COMPLAINT: Left hand infection. HISTORY OF PRESENT ILLNESS: This is a 68-year-old female initially admitted to [facility] for underlying psychiatric illnesses where she was treated with oral antibiotic for left hand cellulitis. The patient has failed the oral antibiotic and appeared to have worsening cellulitis so the patient transferred to med-surg floor. The patient states today she feels better, her hand redness and swelling seems better. She is currently on IV antibiotics. PAST MEDICAL HISTORY: 1. CKD 4. 2. Hyperlipidemia. 3. GERD. 4. Iron-deficiency anemia. 4. Hypothyroidism. 5. Mental disorders. FAMILY HISTORY: Unknown. SOCIAL HISTORY: Lives at jail facility. Denies any alcohol, tobacco or drug use. ALLERGIES: MORPHINE AND NSAIDS. REVIEW OF SYSTEMS: As per HPI, 12-point system is negative. PHYSICAL EXAMINATION: VITAL SIGNS: Temperature 98.7, pulse 70, respirations 20, blood pressure 142/88. Pain 0/10. HEENT: Unremarkable. HEART: S1 and S2 normal. LUNGS: Clear to auscultation. ABDOMEN: Soft. EXTREMITIES: Left hand open wound. Surrounding erythema seems better than yesterday. Swelling seems better. ASSESSMENT: 1. Left hand cellulitis. 2. CKD 4. 3. Hyperlipidemia. 4. Hypothyroidism. 5. Mental disorders. PLAN: The patient currently at med/surg floor. ID consulted. IV vancomycin was started. Monitor cellulitis closely. Local wound care will be given. The patient's admission medications will be reconciled and continue. Psych will follow the patient on the medical floor. Case discussed with ID. JOB# [id number]
--- NOTE | 2019-01-20 04:13 | Consultation ---
DATE OF CONSULTATION: 01/19/2019 INFECTIOUS DISEASE CONSULTATION REFERRING PHYSICIAN: Diego Campos M.D. REASON FOR CONSULTATION: Left hand cellulitis and wound. HISTORY OF PRESENT ILLNESS: The patient is a 68-year-old female with a past medical history of anemia, hypothyroidism, hypertension, hyperlipidemia, chronic constipation, anemia, GERD admitted to [facility] Unit for psychiatric disorder. On initial evaluation, the patient was afebrile with temperature 97 degrees Fahrenheit and WBC count was 4400. The patient was noted to have left hand wound on the dorsal aspect with some redness. The patient was started on Keflex. However, it got worse. The patient was transferred to the Med/Surg Unit for IV antibiotic and vancomycin IV was started. ID consult was called for further antibiotic management. PAST MEDICAL HISTORY: Includes as mentioned above hypertension, hyperlipidemia, GERD, anemia, and psychiatric condition. ALLERGIES: THE PATIENT IS ALLERGIC TO NSAIDS AND MORPHINE. MEDICATIONS: As per medication reconciliation sheet. Antibiotic fishman, vancomycin. SOCIAL HISTORY: The patient lives at a nursing facility. No history of smoking, alcohol or drug use. REVIEW OF SYSTEMS: GENERAL: The patient has no fever, no chills. HEENT: No diplopia, no photophobia, no sore throat. RESPIRATORY: No cough, no shortness of breath. CARDIOVASCULAR: No chest pain or palpitation. GASTROINTESTINAL: No nausea, no vomiting, no diarrhea, no constipation. No abdominal pain. GENITOURINARY: No dysuria. NEUROLOGIC: No headache, no dizziness, nonfocal. SKIN: The patient has left hand wound. PHYSICAL EXAMINATION: VITAL SIGNS: Current vital signs show temperature is 98.7, pulse 104, respirations 20, blood pressure 142/88. GENERAL: The patient is comfortable, lying in bed, in no acute distress. HEENT: Head is normocephalic, atraumatic. Oral cavity moist, pink tongue. NECK: Supple. No JVD. No carotid bruit. Trachea in midline. CHEST: Bilateral breath sounds. No crackles or wheezing. HEART: S1, S2 within normal limits. Regular rhythm. No murmur, no gallop. ABDOMEN: Soft, nontender, nondistended. Bowel sounds present. EXTREMITIES: No cyanosis, no clubbing, no edema. Left hand, the patient has superficial wound with a scab and surrounding erythema on the dorsal aspect of left hand laterally. LABORATORY DATA: Lab fishman, current lab shows WBC count is 4400, hemoglobin 8.4, hematocrit 28.0, platelets are 116,000. Neutrophil is 51.2%. Sodium 137, potassium 4.8, chloride 107, bicarbonate is 20, BUN is 57, creatinine 3.2, glucose is 144. Blood culture 2 sets are negative. X-ray of the left hand; mild soft tissue prominence, cellulitis. No evidence of osteomyelitis. Subacute or chronic appearing impacted fracture of the radial head. There is old trauma to the distal ____. IMPRESSION: 1. Cellulitis of left hand. 2. Left hand wound. 3. Chronic kidney disease, stage 4. 4. Hyperlipidemia. 5. Hypertension. 6. Hypothyroidism. 7. Anemia of chronic disease. RECOMMENDATIONS: We will continue vancomycin IV. We will look to the wound culture. Follow up the blood culture. Wound care. Thank you, Dr. Diego Campos for involving me in taking care of this patient. JOB# [id number]
--- NOTE | 2019-01-20 05:47 | Consultation ---
DATE OF CONSULTATION: 01/19/2019 INPATIENT GASTROINTESTINAL CONSULTATION CONSULTING PHYSICIAN: Dr. Campos REASON FOR CONSULTATION: Dysphagia. HISTORY OF PRESENT ILLNESS: The patient is a 68-year-old female with past medical history significant for GERD, constipation, hypothyroidism, hypertension, and hyperlipidemia, admitted initially to the geropsychiatric unit for underlying psychiatric disorder. The patient was initially admitted on 01/10/2019. It had been noted on Geropsych that she was complaining of swallowing difficulty. She reports that intermittently food gets stuck in her mid neck region, but then when she drinks some water, it goes down easier. This has been going on for a number of years. The patient denies any workup in the past. At the current time, she has been seen to be tolerating her meals on the medical floor without issue. PAST MEDICAL HISTORY: GERD, hypertension, hyperlipidemia, constipation, obesity. PAST SURGICAL HISTORY: The patient denies abdominal surgery. FAMILY HISTORY: Noncontributory. SOCIAL HISTORY: The patient lives at a nursing facility. There is no history of alcoholism or illicit drug use. ALLERGIES: THERE IS REPORTED ALLERGY TO MORPHINE AND NSAIDs. REVIEW OF SYSTEMS: A 12-point review of systems performed and the patient is negative other than the pertinent positives mentioned in the history of present illness. CURRENT MEDICATIONS: Include Tylenol, Maalox, albuterol, amiodarone, Lipitor, Depakote, Pepcid, iron, Robitussin, Synthroid, lorazepam, milk of magnesia, multivitamin, Seroquel, vancomycin, Ambien. PHYSICAL EXAMINATION: VITAL SIGNS: The blood pressure is 137/66, pulse 80 beats per minute, respiratory rate of 18, temperature 96.7, oxygenation 100%. GENERAL: The patient is lying on her back. She is alert and oriented x 3, in no apparent distress. HEAD, EYES, EARS, NOSE AND THROAT: Normocephalic, atraumatic appearing head. Pupils are equal and reactive. Extraocular muscles are intact. Dry mucous membranes. NECK: Supple. No JVD or thyromegaly. CHEST: Minor crackles heard bilaterally at the bases. CARDIOVASCULAR: S1, S2 are present. Regular rate and rhythm. ABDOMEN: Obese, soft, nontender to palpation. No guarding, no rebound. No fluid distention. EXTREMITIES: 1+ pitting edema bilaterally. Venous stasis changes are present. SKIN: No jaundice. LABORATORY DATA: White blood cell count 4.4, hemoglobin 9.4, platelet count 116. Sodium 137, BUN 57, creatinine 3.2. IMAGING DATA: An upper GI series was performed back in November that showed confirmation of a gastrostomy tube. IMPRESSION: This is a 68-year-old female with history of psychiatric disorder, hypertension, and hyperlipidemia with dysphagia in the past, status post placement of a G-tube in 11/2018 who is now admitted to the Medical Unit for issues of dysphagia. 1. Dysphagia. 2. Psychiatric disorder. 3. G-tube. 4. Hypertension. 5. Hyperlipidemia. DISCUSSION: It appears that the patient already has a G-tube in place, although it is not clear why she has been using this primarily. Seemingly she has been able to swallow and this is how she has been trying to achieve her nutrition. However, if she is unable to swallow adequately, the G-tube can be used for most of her nutritional purposes. RECOMMENDATIONS: 1. Swallow evaluation has been placed. 2. Can use the G-tube for tube feeds if the patient is not taking adequate nutrition by mouth. 3. PPI. 4. No need for endoscopy given the patient already has a G-tube in place. We will continue to follow. Thank you for allowing me to participate in her care. Please call with any questions. [facility]# [id number]
[2019-01-20] MEDS: Levothyroxine 0.075 Mg Tab GT SCH (06:53)
[2019-01-20] MEDS: Ferrous Sulfate 300 MG/5 ML UDC GT SCH (08:47)
[2019-01-20] MEDS: Multivitamin Tab PO SCH (08:48)
[2019-01-20] MEDS: Therahoney Gel 42.5gm Tube TP SCH (09:44)
--- NOTE | 2019-01-20 15:04 | Infectious Disease Prog Note ---
Infectious Disease Subjective - Review of Systems Service Date: 01/20/19 Subjective: Doing well. Infectious Disease Objective - Results Result Diagrams: 01/18/19 19:00 01/18/19 19: Recent Labs: Laboratory Last Values WBC 4.4 Th/cmm (4.8-10.8) L 01/18/19 19:00 RBC 3.15 Mil/cmm (3.80-5.20) L 01/18/19 19:00 Hgb 9.4 gm/dL (12-16) L 01/18/19 19:00 Hct 28.0 % (41.0-60) L 01/18/19 19:00 MCV 88.9 fl (81-100) 01/18/19 19:00 MCH 29.9 pg (27.0-31.0) 01/18/19 19: MCHC Differential 33.6 pg (28.0-36.0) 01/18/19 19: RDW 13.3 % (11.5-20.0) 01/18/19 19: Plt Count 116 Th/cmm (150-400) L 01/18/19 19:00 MPV 9.3 fl 01/18/19 19:00 Neutrophils % 51.2 % (40.0-80.0) 01/18/19 19:00 Lymphocytes % 38.7 % (20.0-50.0) 01/18/19 19:00 Monocytes % 6.3 % (2.0-10.0) 01/18/19 19: Eosinophils % 2.8 % (0.0-5.0) 01/18/19 19: Basophils % 1.0 % (0.0-2.0) 01/18/19 19:00 ESR 24 mm/hr (0-30) 01/18/19 19:00 Sodium 137 mEq/L (136-145) 01/18/19 19:00 Potassium 4.8 mEq/L (3.5-5.1) 01/18/19 19:00 Chloride 107 mEq/L (98-107) 01/18/19 19:00 Carbon Dioxide 20.0 mEq/L (21.0-31.0) L 01/18/19 19: Anion Gap 14.8 (7.0-16.0) 01/18/19 19:00 BUN 57 mg/dL (7-25) H 01/18/19 19:00 Creatinine 3.2 mg/dL (0.6-1.2) H 01/18/19 19:00 Est GFR ( Amer) 18.4 ml/min (>90) 01/18/19 19:00 Est GFR (Non-Af Amer) 15.2 ml/min 01/18/19 19:00 BUN/Creatinine Ratio 17.8 01/18/19 19:00 Glucose 144 mg/dL (70-105) H 01/18/19 19:00 POC Glucose 120 MG/DL (70 - 105) H 01/18/19 18:48 Calcium 8.6 mg/dL (8.6-10.3) 01/18/19 19:00 Random Vancomycin 14.1 ug/mL (5.0-40.0) 01/20/19 05:00 - Physical Exam Vitals and I&O: Vital Signs Temp 98.1 F 01/20/19 12:00 Pulse 102 01/20/19 12:00 Resp 18 01/20/19 12:00 BP 119/94 01/20/19 12:00 Pulse Ox 96 01/20/19 12:00 Intake & Output 01/19/19 01/20/19 01/20/19 18:59 06:59 18:59 Intake Total 400 Balance 400 Weight (lbs) 70.307 kg 70.307 kg Intake: Oral 400 Other: # Voids 3 3 # Bowel Movements 1 0 Weight Source Bedscale Bedscale Active Medications: Current Medications Acetaminophen (Tylenol) 650 mg PO Q4HR PRN PRN Reason: Mild Pain / Temp above 100 Stop: 03/19/19 18:59 Al Hydrox/Mg Hydrox/Simethicone (Maalox) 30 ml PO Q4HR PRN PRN Reason: GI DISTRESS Stop: 03/19/19 18:59 Albuterol Sulfate (Albuterol 2.5mg/3ml Neb Ud) 2.5 mg HHN Q2HRT PRN PRN Reason: Shortness of Breath or Wheeze Stop: 03/19/19 18:59 Last Admin: 01/18/19 23:10 Dose: 2.5 mg Amiodarone HCl (Cordarone) 100 mg GT DAILY LEI Stop: 03/20/19 08:59 Last Admin: 01/20/19 08:47 Dose: 100 mg Atorvastatin Calcium (Lipitor) 20 mg GT HS LEI; Protocol Stop: 03/19/19 20:59 Last Admin: 01/19/19 20:44 Dose: 20 mg Divalproex Sodium (Depakote Dr) 500 mg PO BID LEI; Protocol Stop: 03/20/19 08:59 Last Admin: 01/20/19 08:47 Dose: 500 mg Famotidine (Pepcid) 20 mg GT QDAC LEI Stop: 03/20/19 07:29 Last Admin: 01/20/19 06:53 Dose: Not Given Ferrous Sulfate (Iron) 300 mg GT DAILY LEI Stop: 03/20/19 08:59 Last Admin: 01/20/19 08:47 Dose: 300 mg Guaifenesin (Robitussin) 200 mg GT Q4HR PRN PRN Reason: Cough or Congestion Stop: 03/19/19 18:59 Levothyroxine Sodium (Synthroid) 0.15 mg GT QDAC LEI Stop: 03/20/19 07:29 Last Admin: 01/20/19 06:53 Dose: Not Given Lorazepam (Ativan) 0.5 mg PO Q6HR PRN; Protocol PRN Reason: Agitation Stop: 03/19/19 18:59 Lorazepam (Ativan) 1 mg IVP Q6H PRN; Protocol PRN Reason: Agitation Stop: 03/21/19 09:45 Magnesium Hydroxide (Milk Of Magnesia) 30 ml PO HS PRN PRN Reason: Constipation Stop: 03/19/19 18:59 Miscellaneous (Vancomycin Iv Per Pharmacy) 1 ea MC PRN PRN PRN Reason: PROTOCOL Stop: 03/19/19 18:51 Multivitamins/Vitamin C (Theragran) 1 tab PO DAILY LEI Stop: 03/20/19 08:59 Last Admin: 01/20/19 08:48 Dose: 1 tab Quetiapine Fumarate (Seroquel) 125 mg PO BID LEI; Protocol Stop: 03/20/19 08:59 Last Admin: 01/20/19 08:48 Dose: 125 mg Sodium Bicarbonate (Sodium Bicarbonate) 650 mg GT BID LEI; Protocol Stop: 03/20/19 08:59 Last Admin: 01/20/19 08:47 Dose: 650 mg Wound Care/Dressing Products (Therahoney) 1 appl TP DAILY LEI Stop: 03/20/19 08:59 Last Admin: 01/20/19 09:44 Dose: 1 appl Zolpidem Tartrate (Ambien) 5 mg PO HS PRN PRN Reason: Insomnia Stop: 03/19/19 18:59 Last Admin: 01/19/19 20:44 Dose: 5 mg General: no acute distress, well developed, well nourished HEENT: atraumatic, normocephalic, PERRLA Neck: supple, no thyromegaly Cardiovascular: S1S2, regular Lungs: clear to auscultation bilaterally, clear to percussion Abdomen: soft, bowel sounds, no tender, no distended, no rebound Extremities: other (Left hand wound with surrounding erythema), no cyanosis, no clubbing, no edema Neurological: awake, alert, oriented - Procedures Procedures: Procedures Procedure Code Date CHANGE FEEDING DEVICE IN UP INTEST TRACT, SITE ACQUISITION SPECIALIST APPROACH [id number] 11/22/18 Infectious Disease Assmt/Plan - Assessment Assessment: 1. Cellulitis of left hand. 2. Left hand wound. 3. Chronic kidney disease, stage 4. 4. Hyperlipidemia. 5. Hypertension. 6. Hypothyroidism. 7. Anemia of chronic disease. - Plan Plan: Continue vancO IV
--- NOTE | 2019-01-20 20:28 | GI Progress Note ---
Subjective - Review of Systems Service Date: 01/20/19 Events since last encounter: No events Subjective: responsive Confused Objective - Results Result Diagrams: 01/18/19 19:00 01/18/19 19:00 Recent Labs: Laboratory Last Values WBC 4.4 Th/cmm (4.8-10.8) L 01/18/19 19:00 RBC 3.15 Mil/cmm (3.80-5.20) L 01/18/19 19:00 Hgb 9.4 gm/dL (12-16) L 01/18/19 19:00 Hct 28.0 % (41.0-60) L 01/18/19 19:00 MCV 88.9 fl (81-100) 01/18/19 19:00 MCH 29.9 pg (27.0-31.0) 01/18/19 19: MCHC Differential 33.6 pg (28.0-36.0) 01/18/19 19:00 RDW 13.3 % (11.5-20.0) 01/18/19 19:00 Plt Count 116 Th/cmm (150-400) L 01/18/19 19:00 MPV 9.3 fl 01/18/19 19:00 Neutrophils % 51.2 % (40.0-80.0) 01/18/19 19:00 Lymphocytes % 38.7 % (20.0-50.0) 01/18/19 19:00 Monocytes % 6.3 % (2.0-10.0) 01/18/19 19: Eosinophils % 2.8 % (0.0-5.0) 01/18/19 19: Basophils % 1.0 % (0.0-2.0) 01/18/19 19: ESR 24 mm/hr (0-30) 01/18/19 19:00 Sodium 137 mEq/L (136-145) 01/18/19 19:00 Potassium 4.8 mEq/L (3.5-5.1) 01/18/19 19:00 Chloride 107 mEq/L (98-107) 01/18/19 19:00 Carbon Dioxide 20.0 mEq/L (21.0-31.0) L 01/18/19 19:00 Anion Gap 14.8 (7.0-16.0) 01/18/19 19:00 BUN 57 mg/dL (7-25) H 01/18/19 19:00 Creatinine 3.2 mg/dL (0.6-1.2) H 01/18/19 19:00 Est GFR ( Amer) 18.4 ml/min (>90) 01/18/19 19:00 Est GFR (Non-Af Amer) 15.2 ml/min 01/18/19 19:00 BUN/Creatinine Ratio 17.8 01/18/19 19:00 Glucose 144 mg/dL (70-105) H 01/18/19 19:00 POC Glucose 120 MG/DL (70 - 105) H 01/18/19 18:48 Calcium 8.6 mg/dL (8.6-10.3) 01/18/19 19:00 Random Vancomycin 14.1 ug/mL (5.0-40.0) 01/20/19 05:00 - Physical Exam Vitals and I&O: Vital Signs Temp 97.2 F 01/20/19 16:00 Pulse 107 01/20/19 19:42 Resp 18 01/20/19 19:42 BP 137/85 01/20/19 16:00 Pulse Ox 93 01/20/19 19:42 Intake & Output 01/20/19 01/20/19 01/21/19 06:59 18:59 06:59 Intake Total 240 Balance 240 Weight (lbs) 70.307 kg 70.307 kg Intake: Oral 240 Other: # Voids 3 2 # Bowel Movements 0 0 Weight Source Bedscale Bedscale Active Medications: Current Medications Acetaminophen (Tylenol) 650 mg PO Q4HR PRN PRN Reason: Mild Pain / Temp above 100 Stop: 03/19/19 18:59 Al Hydrox/Mg Hydrox/Simethicone (Maalox) 30 ml PO Q4HR PRN PRN Reason: GI DISTRESS Stop: 03/19/19 18:59 Albuterol Sulfate (Albuterol 2.5mg/3ml Neb Ud) 2.5 mg HHN Q2HRT PRN PRN Reason: Shortness of Breath or Wheeze Stop: 03/19/19 18:59 Last Admin: 01/18/19 23:10 Dose: 2.5 mg Amiodarone HCl (Cordarone) 100 mg GT DAILY [facility] Stop: 03/20/19 08:59 Last Admin: 01/20/19 08:47 Dose: 100 mg Atorvastatin Calcium (Lipitor) 20 mg GT HS [facility]; Protocol Stop: 03/19/19 20:59 Last Admin: 01/19/19 20:44 Dose: 20 mg Divalproex Sodium (Depakote Dr) 500 mg PO BID [facility]; Protocol Stop: 03/20/19 08:59 Last Admin: 01/20/19 17:29 Dose: 500 mg Famotidine (Pepcid) 20 mg GT QDAC [facility] Stop: 03/20/19 07:29 Last Admin: 01/20/19 06:53 Dose: Not Given Ferrous Sulfate (Iron) 300 mg GT DAILY [facility] Stop: 03/20/19 08:59 Last Admin: 01/20/19 08:47 Dose: 300 mg Guaifenesin (Robitussin) 200 mg GT Q4HR PRN PRN Reason: Cough or Congestion Stop: 03/19/19 18:59 Levothyroxine Sodium (Synthroid) 0.15 mg GT QDAC [facility] Stop: 03/20/19 07:29 Last Admin: 01/20/19 06:53 Dose: Not Given Lorazepam (Ativan) 0.5 mg PO Q6HR PRN; Protocol PRN Reason: Agitation Stop: 03/19/19 18:59 Lorazepam (Ativan) 1 mg IVP Q6H PRN; Protocol PRN Reason: Agitation Stop: 03/21/19 09:45 Magnesium Hydroxide (Milk Of Magnesia) 30 ml PO HS PRN PRN Reason: Constipation Stop: 03/19/19 18:59 Miscellaneous (Vancomycin Iv Per Pharmacy) 1 ea [facility] PRN PRN PRN Reason: PROTOCOL Stop: 03/19/19 18:51 Multivitamins/Vitamin C (Theragran) 1 tab PO DAILY [facility] Stop: 03/20/19 08:59 Last Admin: 01/20/19 08:48 Dose: 1 tab Quetiapine Fumarate (Seroquel) 125 mg PO BID [facility]; Protocol Stop: 03/20/19 08:59 Last Admin: 01/20/19 17:29 Dose: 125 mg Sodium Bicarbonate (Sodium Bicarbonate) 650 mg GT BID [facility]; Protocol Stop: 03/20/19 08:59 Last Admin: 01/20/19 17:29 Dose: 650 mg Wound Care/Dressing Products (Therahoney) 1 appl TP DAILY [facility] Stop: 03/20/19 08:59 Last Admin: 01/20/19 09:44 Dose: 1 appl Zolpidem Tartrate (Ambien) 5 mg PO HS PRN PRN Reason: Insomnia Stop: 03/19/19 18:59 Last Admin: 01/19/19 20:44 Dose: 5 mg General: Cooperative, No acute distress HEENT: Atraumatic Neck: Supple Cardiovascular: Regular rate, Normal S1, Normal S2 Lungs: Clear to auscultation Abdomen: Soft, Other (G Tube), no Tender - Procedures Procedures: Procedures Procedure Code Date CHANGE FEEDING DEVICE IN UP INTEST TRACT, SUPERVISOR PUTTY AND CALUKING APPROACH [id number] 11/22/18 Assessment/Plan - Assessment Assessment: Dysphagia - Plan Plan: Dysphagia Passed swallowing evaluation Continue oral feeding G tube for meds and supplements if needed
--- NOTE | 2019-01-20 22:11 | General Progress Note ---
Subjective - Review of Systems Service Date: 01/21/19 Subjective: Patient seen and examined doing ok no new concern noted Objective - Results Result Diagrams: 01/21/19 04:45 01/21/19 04:45 Recent Labs: Laboratory Last Values WBC 4.4 Th/cmm (4.8-10.8) L 01/18/19 19:00 RBC 3.15 Mil/cmm (3.80-5.20) L 01/18/19 19:00 Hgb 9.4 gm/dL (12-16) L 01/18/19 19:00 Hct 28.0 % (41.0-60) L 01/18/19 19:00 MCV 88.9 fl (81-100) 01/18/19 19:00 MCH 29.9 pg (27.0-31.0) 01/18/19 19:00 MCHC Differential 33.6 pg (28.0-36.0) 01/18/19 19:00 RDW 13.3 % (11.5-20.0) 01/18/19 19:00 Plt Count 116 Th/cmm (150-400) L 01/18/19 19:00 MPV 9.3 fl 01/18/19 19:00 Neutrophils % 51.2 % (40.0-80.0) 01/18/19 19:00 Lymphocytes % 38.7 % (20.0-50.0) 01/18/19 19:00 Monocytes % 6.3 % (2.0-10.0) 01/18/19 19:00 Eosinophils % 2.8 % (0.0-5.0) 01/18/19 19:00 Basophils % 1.0 % (0.0-2.0) 01/18/19 19:00 ESR 24 mm/hr (0-30) 01/18/19 19:00 Sodium 137 mEq/L (136-145) 01/18/19 19:00 Potassium 4.8 mEq/L (3.5-5.1) 01/18/19 19:00 Chloride 107 mEq/L (98-107) 01/18/19 19:00 Carbon Dioxide 20.0 mEq/L (21.0-31.0) L 01/18/19 19:00 Anion Gap 14.8 (7.0-16.0) 01/18/19 19:00 BUN 57 mg/dL (7-25) H 01/18/19 19:00 Creatinine 3.2 mg/dL (0.6-1.2) H 01/18/19 19:00 Est GFR ( Amer) 18.4 ml/min (>90) 01/18/19 19:00 Est GFR (Non-Af Amer) 15.2 ml/min 01/18/19 19:00 BUN/Creatinine Ratio 17.8 01/18/19 19:00 Glucose 144 mg/dL (70-105) H 01/18/19 19:00 POC Glucose 120 MG/DL (70 - 105) H 01/18/19 18:48 Calcium 8.6 mg/dL (8.6-10.3) 01/18/19 19:00 Random Vancomycin 14.1 ug/mL (5.0-40.0) 01/20/19 05:00 - Physical Exam Vitals and I&O: Vital Signs Temp 98.4 F 01/20/19 20:00 Pulse 107 01/20/19 20:00 Resp 20 01/20/19 20:00 BP 130/63 01/20/19 20:00 Pulse Ox 93 01/20/19 20:00 Intake & Output 01/20/19 01/20/19 01/21/19 06:59 18:59 06:59 Intake Total 240 Balance 240 Weight (lbs) 70.307 kg 70.307 kg Intake: Oral 240 Other: # Voids 3 2 # Bowel Movements 0 0 Weight Source Bedscale Bedscale Active Medications: Current Medications Acetaminophen (Tylenol) 650 mg PO Q4HR PRN PRN Reason: Mild Pain / Temp above 100 Stop: 03/19/19 18:59 Al Hydrox/Mg Hydrox/Simethicone (Maalox) 30 ml PO Q4HR PRN PRN Reason: GI DISTRESS Stop: 03/19/19 18:59 Albuterol Sulfate (Albuterol 2.5mg/3ml Neb Ud) 2.5 mg HHN Q2HRT PRN PRN Reason: Shortness of Breath or Wheeze Stop: 03/19/19 18:59 Last Admin: 01/18/19 23:10 Dose: 2.5 mg Amiodarone HCl (Cordarone) 100 mg GT DAILY [facility] Stop: 03/20/19 08:59 Last Admin: 01/20/19 08:47 Dose: 100 mg Atorvastatin Calcium (Lipitor) 20 mg GT HS [facility]; Protocol Stop: 03/19/19 20:59 Last Admin: 01/19/19 20:44 Dose: 20 mg Divalproex Sodium (Depakote Dr) 500 mg PO BID [facility]; Protocol Stop: 03/20/19 08:59 Last Admin: 01/20/19 17:29 Dose: 500 mg Famotidine (Pepcid) 20 mg GT QDAC [facility] Stop: 03/20/19 07:29 Last Admin: 01/20/19 06:53 Dose: Not Given Ferrous Sulfate (Iron) 300 mg GT DAILY [facility] Stop: 03/20/19 08:59 Last Admin: 01/20/19 08:47 Dose: 300 mg Guaifenesin (Robitussin) 200 mg GT Q4HR PRN PRN Reason: Cough or Congestion Stop: 03/19/19 18:59 Levothyroxine Sodium (Synthroid) 0.15 mg GT QDAC [facility] Stop: 03/20/19 07:29 Last Admin: 01/20/19 06:53 Dose: Not Given Lorazepam (Ativan) 0.5 mg PO Q6HR PRN; Protocol PRN Reason: Agitation Stop: 03/19/19 18:59 Lorazepam (Ativan) 1 mg IVP Q6H PRN; Protocol PRN Reason: Agitation Stop: 03/21/19 09:45 Magnesium Hydroxide (Milk Of Magnesia) 30 ml PO HS PRN PRN Reason: Constipation Stop: 03/19/19 18:59 Miscellaneous (Vancomycin Iv Per Pharmacy) 1 ea [facility] PRN PRN PRN Reason: PROTOCOL Stop: 03/19/19 18:51 Multivitamins/Vitamin C (Theragran) 1 tab PO DAILY [facility] Stop: 03/20/19 08:59 Last Admin: 01/20/19 08:48 Dose: 1 tab Quetiapine Fumarate (Seroquel) 125 mg PO BID [facility]; Protocol Stop: 03/20/19 08:59 Last Admin: 01/20/19 17:29 Dose: 125 mg Sodium Bicarbonate (Sodium Bicarbonate) 650 mg GT BID [facility]; Protocol Stop: 03/20/19 08:59 Last Admin: 01/20/19 17:29 Dose: 650 mg Wound Care/Dressing Products (Therahoney) 1 appl TP DAILY [facility] Stop: 03/20/19 08:59 Last Admin: 01/20/19 09:44 Dose: 1 appl Zolpidem Tartrate (Ambien) 5 mg PO HS PRN PRN Reason: Insomnia Stop: 03/19/19 18:59 Last Admin: 01/19/19 20:44 Dose: 5 mg General: Cooperative, No acute distress HEENT: Atraumatic Neck: Supple Cardiovascular: Regular rate, Normal S1, Normal S2 Lungs: Clear to auscultation Abdomen: Soft, Other (G Tube), no Tender Extremities: Other (left hand swelling erythema improving) - Procedures Procedures: Procedures Procedure Code Date CHANGE FEEDING DEVICE IN UP INTEST TRACT, EQUIPMENT SERVICE ENGINEER APPROACH [id number] 11/22/18 Assessment/Plan - Assessment Assessment: left hand cellulitis CKD 4 Hypothyroidism HTN Psych disorder - Plan Plan: Continue IV Vanco Daily wound care ID on board Monitor labs
[2019-01-21 05:03] LABS: % BASOPHILS 0.7 % (0.0-2.0); % EOSINOPHILS 2.6 % (0.0-5.0); % LYMPHOCYTES 44.6 % (20.0-50.0); % MONOCYTES 6.9 % (2.0-10.0); % NEUTROPHILS 45.2 % (40.0-80.0); EOSINOPHILE ABSOLUTE 0.1 Th/cmm (0.1-0.4); HEMATOCRIT 29.5 % (41.0-60); HEMOGLOBIN 9.8 gm/dL (12-16); LYMPHOCYTE ABSOLUTE 2.1 Th/cmm (1.5-3.0); MEAN CELL VOLUME 90.2 fl (81-100); MEAN CORPUSCULAR HEMOGLOBIN 29.9 pg (27.0-31.0); MEAN CORPUSCULAR HGB CONC 33.1 pg (28.0-36.0); MEAN PLATELET VOLUME 9.3 fl; MONOCYTE ABSOLUTE 0.3 Th/cmm (0.3-1.0); PLATELET COUNT 129 Th/cmm (150-400); RED BLOOD COUNT 3.27 Mil/cmm (3.80-5.20); RED CELL DISTRIBUTION WIDTH 12.9 % (11.5-20.0); WHITE BLOOD COUNT 4.5 Th/cmm (4.8-10.8)
[2019-01-21 05:59] LABS: ANION GAP 14.4 (7.0-16.0); CALCIUM SERUM 8.8 mg/dL (8.6-10.3); CARBON DIOXIDE 22.2 mEq/L (21.0-31.0); CREATININE - SERUM 3.7 mg/dL (0.6-1.2); GFR AFRICAN-AMERICAN 15.6 ml/min (>90); GFR NON AFRICAN-AMERICAN 12.9 ml/min; POTASSIUM SERUM 5.6 mEq/L (3.5-5.1)
[2019-01-21] MEDS: Levothyroxine 0.075 Mg Tab GT SCH (06:57)
[2019-01-21] MEDS: Ferrous Sulfate 300 MG/5 ML UDC GT SCH (09:42)
[2019-01-21] MEDS: Multivitamin Tab PO SCH (09:49)
[2019-01-21] MEDS: Therahoney Gel 42.5gm Tube TP SCH (09:50)
[2019-01-21] MEDS ORDERED: Atorvastatin Calcium 10 MG TAB GT SCH (14:07)
--- NOTE | 2019-01-21 20:06 | GI Progress Note ---
Subjective - Review of Systems Service Date: 01/21/19 Events since last encounter: Confused Subjective: responsive Confused Objective - Results Result Diagrams: 01/21/19 04:45 01/21/19 04:45 Recent Labs: Laboratory Last Values WBC 4.5 Th/cmm (4.8-10.8) L 01/21/19 04:45 RBC 3.27 Mil/cmm (3.80-5.20) L 01/21/19 04:45 Hgb 9.8 gm/dL (12-16) L 01/21/19 04:45 Hct 29.5 % (41.0-60) L 01/21/19 04:45 MCV 90.2 fl (81-100) 01/21/19 04:45 MCH 29.9 pg (27.0-31.0) 01/21/19 04:45 MCHC Differential 33.1 pg (28.0-36.0) 01/21/19 04:45 RDW 12.9 % (11.5-20.0) 01/21/19 04:45 Plt Count 129 Th/cmm (150-400) L 01/21/19 04:45 MPV 9.3 fl 01/21/19 04:45 Neutrophils % 45.2 % (40.0-80.0) 01/21/19 04:45 Lymphocytes % 44.6 % (20.0-50.0) 01/21/19 04:45 Monocytes % 6.9 % (2.0-10.0) 01/21/19 04:45 Eosinophils % 2.6 % (0.0-5.0) 01/21/19 04:45 Basophils % 0.7 % (0.0-2.0) 01/21/19 04:45 ESR 24 mm/hr (0-30) 01/18/19 19:00 Sodium 139 mEq/L (136-145) 01/21/19 04:45 Potassium 5.6 mEq/L (3.5-5.1) H 01/21/19 04:45 Chloride 108 mEq/L (98-107) H 01/21/19 04:45 Carbon Dioxide 22.2 mEq/L (21.0-31.0) 01/21/19 04:45 Anion Gap 14.4 (7.0-16.0) 01/21/19 04:45 BUN 57 mg/dL (7-25) H 01/21/19 04:45 Creatinine 3.7 mg/dL (0.6-1.2) H 01/21/19 04:45 Est GFR ( Amer) 15.6 ml/min (>90) 01/21/19 04:45 Est GFR (Non-Af Amer) 12.9 ml/min 01/21/19 04:45 BUN/Creatinine Ratio 15.4 01/21/19 04:45 Glucose 87 mg/dL (70-105) 01/21/19 04:45 POC Glucose 120 MG/DL (70 - 105) H 01/18/19 18:48 Calcium 8.8 mg/dL (8.6-10.3) 01/21/19 04:45 Random Vancomycin 19.5 ug/mL (5.0-40.0) 01/21/19 04:45 - Physical Exam Vitals and I&O: Vital Signs Temp 98.6 F 01/21/19 16:00 Pulse 91 01/21/19 16:00 Resp 16 01/21/19 16:00 BP 143/83 01/21/19 16:00 Pulse Ox 94 01/21/19 16:00 Intake & Output 01/21/19 01/21/19 01/22/19 06:59 18:59 06:59 Intake Total 240 740 Balance 240 740 Weight (lbs) 70.307 kg 70.307 kg Intake: Oral 240 740 Other: # Voids 2 3 # Bowel Movements 0 1 Stool Characteristics Hard Weight Source Bedscale Bedscale Active Medications: Current Medications Acetaminophen (Tylenol) 650 mg PO Q4HR PRN PRN Reason: Mild Pain / Temp above 100 Stop: 03/19/19 18:59 Last Admin: 01/21/19 09:51 Dose: 650 mg Al Hydrox/Mg Hydrox/Simethicone (Maalox) 30 ml PO Q4HR PRN PRN Reason: GI DISTRESS Stop: 03/19/19 18:59 Albuterol Sulfate (Albuterol 2.5mg/3ml Neb Ud) 2.5 mg HHN Q2HRT PRN PRN Reason: Shortness of Breath or Wheeze Stop: 03/19/19 18:59 Last Admin: 01/18/19 23:10 Dose: 2.5 mg Amiodarone HCl (Cordarone) 100 mg GT DAILY [facility] Stop: 03/20/19 08:59 Last Admin: 01/21/19 09:49 Dose: 100 mg Atorvastatin Calcium (Lipitor) 20 mg GT HS [facility]; Protocol Stop: 03/19/19 20:59 Divalproex Sodium (Depakote Dr) 500 mg PO BID [facility]; Protocol Stop: 03/20/19 08:59 Last Admin: 01/21/19 16:30 Dose: 500 mg Famotidine (Pepcid) 20 mg GT QDAC [facility] Stop: 03/20/19 07:29 Last Admin: 01/21/19 06:57 Dose: 20 mg Ferrous Sulfate (Iron) 300 mg GT DAILY [facility] Stop: 03/20/19 08:59 Last Admin: 01/21/19 09:42 Dose: 300 mg Guaifenesin (Robitussin) 200 mg GT Q4HR PRN PRN Reason: Cough or Congestion Stop: 03/19/19 18:59 Levothyroxine Sodium (Synthroid) 0.15 mg GT QDAC [facility] Stop: 03/20/19 07:29 Last Admin: 01/21/19 06:57 Dose: 0.15 mg Lorazepam (Ativan) 0.5 mg PO Q6HR PRN; Protocol PRN Reason: Agitation Stop: 03/19/19 18:59 Lorazepam (Ativan) 1 mg IVP Q6H PRN; Protocol PRN Reason: Agitation Stop: 03/21/19 09:45 Last Admin: 01/20/19 23:13 Dose: 1 mg Magnesium Hydroxide (Milk Of Magnesia) 30 ml PO HS PRN PRN Reason: Constipation Stop: 03/19/19 18:59 Last Admin: 01/21/19 14:14 Dose: 30 ml Miscellaneous (Vancomycin Iv Per Pharmacy) 1 ea [facility] PRN PRN PRN Reason: PROTOCOL Stop: 03/19/19 18:51 Multivitamins/Vitamin C (Theragran) 1 tab PO DAILY [facility] Stop: 03/20/19 08:59 Last Admin: 01/21/19 09:49 Dose: 1 tab Quetiapine Fumarate 100 mg/ (Quetiapine Fumarate 25 mg) 125 mg PO BID [facility] Stop: 03/22/19 16:59 Last Admin: 01/21/19 16:30 Dose: 125 mg Sodium Bicarbonate (Sodium Bicarbonate) 650 mg GT BID [facility]; Protocol Stop: 03/20/19 08:59 Last Admin: 01/21/19 16:30 Dose: 650 mg Wound Care/Dressing Products (Therahoney) 1 appl TP DAILY [facility] Stop: 03/20/19 08:59 Last Admin: 01/21/19 09:50 Dose: 1 appl Zolpidem Tartrate (Ambien) 5 mg PO HS PRN PRN Reason: Insomnia Stop: 03/19/19 18:59 Last Admin: 01/20/19 22:45 Dose: 5 mg General: Cooperative, No acute distress HEENT: Atraumatic Neck: Supple Cardiovascular: Regular rate, Normal S1, Normal S2 Lungs: Clear to auscultation Abdomen: Soft, Other (G Tube), no Tender - Procedures Procedures: Procedures Procedure Code Date CHANGE FEEDING DEVICE IN UP INTEST TRACT, FEED CRUSHER OPERATOR APPROACH [id number] 11/22/18 Assessment/Plan - Assessment Assessment: Dysphagia - Plan Plan: Dysphagia Passed swallowing evaluation Continue oral feeding G tube for meds and supplements if needed
--- NOTE | 2019-01-21 21:17 | General Progress Note ---
Subjective - Review of Systems Service Date: 01/21/19 Subjective: Patient doing fine no new concern noted Objective - Results Result Diagrams: 01/21/19 04:45 01/21/19 04:45 Recent Labs: Laboratory Last Values WBC 4.5 Th/cmm (4.8-10.8) L 01/21/19 04:45 RBC 3.27 Mil/cmm (3.80-5.20) L 01/21/19 04:45 Hgb 9.8 gm/dL (12-16) L 01/21/19 04:45 Hct 29.5 % (41.0-60) L 01/21/19 04:45 MCV 90.2 fl (81-100) 01/21/19 04:45 MCH 29.9 pg (27.0-31.0) 01/21/19 04:45 MCHC Differential 33.1 pg (28.0-36.0) 01/21/19 04:45 RDW 12.9 % (11.5-20.0) 01/21/19 04:45 Plt Count 129 Th/cmm (150-400) L 01/21/19 04:45 MPV 9.3 fl 01/21/19 04:45 Neutrophils % 45.2 % (40.0-80.0) 01/21/19 04:45 Lymphocytes % 44.6 % (20.0-50.0) 01/21/19 04:45 Monocytes % 6.9 % (2.0-10.0) 01/21/19 04:45 Eosinophils % 2.6 % (0.0-5.0) 01/21/19 04:45 Basophils % 0.7 % (0.0-2.0) 01/21/19 04:45 ESR 24 mm/hr (0-30) 01/18/19 19:00 Sodium 139 mEq/L (136-145) 01/21/19 04:45 Potassium 5.6 mEq/L (3.5-5.1) H 01/21/19 04:45 Chloride 108 mEq/L (98-107) H 01/21/19 04:45 Carbon Dioxide 22.2 mEq/L (21.0-31.0) 01/21/19 04:45 Anion Gap 14.4 (7.0-16.0) 01/21/19 04:45 BUN 57 mg/dL (7-25) H 01/21/19 04:45 Creatinine 3.7 mg/dL (0.6-1.2) H 01/21/19 04:45 Est GFR ( Amer) 15.6 ml/min (>90) 01/21/19 04:45 Est GFR (Non-Af Amer) 12.9 ml/min 01/21/19 04:45 BUN/Creatinine Ratio 15.4 01/21/19 04:45 Glucose 87 mg/dL (70-105) 01/21/19 04:45 POC Glucose 120 MG/DL (70 - 105) H 01/18/19 18:48 Calcium 8.8 mg/dL (8.6-10.3) 01/21/19 04:45 Random Vancomycin 19.5 ug/mL (5.0-40.0) 01/21/19 04:45 - Physical Exam Vitals and I&O: Vital Signs Temp 98.5 F 01/21/19 20:00 Pulse 93 01/21/19 20:00 Resp 18 01/21/19 20:00 BP 113/72 01/21/19 20:00 Pulse Ox 92 01/21/19 20:00 Intake & Output 01/21/19 01/21/19 01/22/19 06:59 18:59 06:59 Intake Total 240 740 Balance 240 740 Weight (lbs) 70.307 kg 70.307 kg Intake: Oral 240 740 Other: # Voids 2 3 # Bowel Movements 0 1 Stool Characteristics Hard Weight Source Bedscale Bedscale Active Medications: Current Medications Acetaminophen (Tylenol) 650 mg PO Q4HR PRN PRN Reason: Mild Pain / Temp above 100 Stop: 03/19/19 18:59 Last Admin: 01/21/19 09:51 Dose: 650 mg Al Hydrox/Mg Hydrox/Simethicone (Maalox) 30 ml PO Q4HR PRN PRN Reason: GI DISTRESS Stop: 03/19/19 18:59 Albuterol Sulfate (Albuterol 2.5mg/3ml Neb Ud) 2.5 mg HHN Q2HRT PRN PRN Reason: Shortness of Breath or Wheeze Stop: 03/19/19 18:59 Last Admin: 01/18/19 23:10 Dose: 2.5 mg Amiodarone HCl (Cordarone) 100 mg GT DAILY [facility] Stop: 03/20/19 08:59 Last Admin: 01/21/19 09:49 Dose: 100 mg Atorvastatin Calcium (Lipitor) 20 mg GT HS [facility]; Protocol Stop: 03/19/19 20:59 Last Admin: 01/21/19 20:16 Dose: 20 mg Divalproex Sodium (Depakote Dr) 500 mg PO BID [facility]; Protocol Stop: 03/20/19 08:59 Last Admin: 01/21/19 16:30 Dose: 500 mg Famotidine (Pepcid) 20 mg GT QDAC [facility] Stop: 03/20/19 07:29 Last Admin: 01/21/19 06:57 Dose: 20 mg Ferrous Sulfate (Iron) 300 mg GT DAILY [facility] Stop: 03/20/19 08:59 Last Admin: 01/21/19 09:42 Dose: 300 mg Guaifenesin (Robitussin) 200 mg GT Q4HR PRN PRN Reason: Cough or Congestion Stop: 03/19/19 18:59 Levothyroxine Sodium (Synthroid) 0.15 mg GT QDAC [facility] Stop: 03/20/19 07:29 Last Admin: 01/21/19 06:57 Dose: 0.15 mg Lorazepam (Ativan) 0.5 mg PO Q6HR PRN; Protocol PRN Reason: Agitation Stop: 03/19/19 18:59 Lorazepam (Ativan) 1 mg IVP Q6H PRN; Protocol PRN Reason: Agitation Stop: 03/21/19 09:45 Last Admin: 01/20/19 23:13 Dose: 1 mg Magnesium Hydroxide (Milk Of Magnesia) 30 ml PO HS PRN PRN Reason: Constipation Stop: 03/19/19 18:59 Last Admin: 01/21/19 14:14 Dose: 30 ml Miscellaneous (Vancomycin Iv Per Pharmacy) 1 ea [facility] PRN PRN PRN Reason: PROTOCOL Stop: 03/19/19 18:51 Multivitamins/Vitamin C (Theragran) 1 tab PO DAILY [facility] Stop: 03/20/19 08:59 Last Admin: 01/21/19 09:49 Dose: 1 tab Quetiapine Fumarate 100 mg/ (Quetiapine Fumarate 25 mg) 125 mg PO BID [facility] Stop: 03/22/19 16:59 Last Admin: 01/21/19 16:30 Dose: 125 mg Sodium Bicarbonate (Sodium Bicarbonate) 650 mg GT BID [facility]; Protocol Stop: 03/20/19 08:59 Last Admin: 01/21/19 16:30 Dose: 650 mg Wound Care/Dressing Products (Therahoney) 1 appl TP DAILY [facility] Stop: 03/20/19 08:59 Last Admin: 01/21/19 09:50 Dose: 1 appl Zolpidem Tartrate (Ambien) 5 mg PO HS PRN PRN Reason: Insomnia Stop: 03/19/19 18:59 Last Admin: 01/21/19 20:16 Dose: 5 mg General: Cooperative, No acute distress HEENT: Atraumatic Neck: Supple Cardiovascular: Regular rate, Normal S1, Normal S2 Lungs: Clear to auscultation Abdomen: Soft, Other (G Tube), no Tender Extremities: Other (left hand swelling erythema improving) - Procedures Procedures: Procedures Procedure Code Date CHANGE FEEDING DEVICE IN UP INTEST TRACT, RADIO COMMUNICATIONS SUPERINTENDENT APPROACH [id number] 11/22/18 Assessment/Plan - Assessment Assessment: left hand cellulitis Hyperkalemia CKD 4 Hypothyroidism HTN Psych disorder - Plan Plan: Continue IV Vanco Kayexalate Daily wound care ID on board Monitor labs
--- NOTE | 2019-01-21 22:28 | Progress Notes ---
DATE: 01/21/2019 Case was discussed with staff of the patient, reviewed records. The patient continues to be overwhelmed, tearful. She feels that she is not doing well physically and that makes her unhappy and I explained to her that her doctors I am sure that they are going to do their best to make sure that she is doing better. She is sleeping well, eating well. She is compliant with the medication with no side effects, no sedation or nausea, no extrapyramidal symptoms. Thank you very much for allowing me to participate in the care of this most interesting lady. JOB# [id number]
--- NOTE | 2019-01-21 22:37 | Progress Notes ---
DATE: 01/20/2019 As I could not find it on the computer today. The patient continues to be depressed, continues to be overwhelmed because of her medical condition, but she is compliant with the medication with no side effects, no sedation, no nausea, no extrapyramidal symptoms, crying spells, easily agitated. We will continue her medications. Thank you very much for allowing me to participate in the care of this most interesting lady. JOB# [id number]
[2019-01-22 06:31] LABS: ANION GAP 14.5 (7.0-16.0); CALCIUM SERUM 8.5 mg/dL (8.6-10.3); CARBON DIOXIDE 22.9 mEq/L (21.0-31.0); CREATININE - SERUM 3.4 mg/dL (0.6-1.2); GFR AFRICAN-AMERICAN 17.2 ml/min (>90); GFR NON AFRICAN-AMERICAN 14.2 ml/min; POTASSIUM SERUM 4.4 mEq/L (3.5-5.1)
[2019-01-22] MEDS: Levothyroxine 0.075 Mg Tab GT SCH (06:34)
[2019-01-22] MEDS: Ferrous Sulfate 300 MG/5 ML UDC GT SCH (09:00)
[2019-01-22] MEDS: Multivitamin Tab PO SCH (09:00)
[2019-01-22] MEDS: Therahoney Gel 42.5gm Tube TP SCH (09:02)
--- NOTE | 2019-01-22 10:17 | GI Progress Note ---
Subjective - Review of Systems Service Date: 01/22/19 Events since last encounter: No events Subjective: responsive Confused Objective - Results Result Diagrams: 01/21/19 04:45 01/22/19 05:10 Recent Labs: Laboratory Last Values WBC 4.5 Th/cmm (4.8-10.8) L 01/21/19 04:45 RBC 3.27 Mil/cmm (3.80-5.20) L 01/21/19 04:45 Hgb 9.8 gm/dL (12-16) L 01/21/19 04:45 Hct 29.5 % (41.0-60) L 01/21/19 04:45 MCV 90.2 fl (81-100) 01/21/19 04:45 MCH 29.9 pg (27.0-31.0) 01/21/19 04:45 MCHC Differential 33.1 pg (28.0-36.0) 01/21/19 04:45 RDW 12.9 % (11.5-20.0) 01/21/19 04:45 Plt Count 129 Th/cmm (150-400) L 01/21/19 04:45 MPV 9.3 fl 01/21/19 04:45 Neutrophils % 45.2 % (40.0-80.0) 01/21/19 04:45 Lymphocytes % 44.6 % (20.0-50.0) 01/21/19 04:45 Monocytes % 6.9 % (2.0-10.0) 01/21/19 04:45 Eosinophils % 2.6 % (0.0-5.0) 01/21/19 04:45 Basophils % 0.7 % (0.0-2.0) 01/21/19 04:45 ESR 24 mm/hr (0-30) 01/18/19 19:00 Sodium 142 mEq/L (136-145) 01/22/19 05:10 Potassium 4.4 mEq/L (3.5-5.1) 01/22/19 05:10 Chloride 109 mEq/L (98-107) H 01/22/19 05:10 Carbon Dioxide 22.9 mEq/L (21.0-31.0) 01/22/19 05:10 Anion Gap 14.5 (7.0-16.0) 01/22/19 05:10 BUN 56 mg/dL (7-25) H 01/22/19 05:10 Creatinine 3.4 mg/dL (0.6-1.2) H 01/22/19 05:10 Est GFR ( Amer) 17.2 ml/min (>90) 01/22/19 05:10 Est GFR (Non-Af Amer) 14.2 ml/min 01/22/19 05:10 BUN/Creatinine Ratio 16.5 01/22/19 05:10 Glucose 93 mg/dL (70-105) 01/22/19 05:10 POC Glucose 120 MG/DL (70 - 105) H 01/18/19 18:48 Calcium 8.5 mg/dL (8.6-10.3) L 01/22/19 05:10 Random Vancomycin 20.8 ug/mL (5.0-40.0) 01/22/19 05:10 - Physical Exam Vitals and I&O: Vital Signs Temp 97.7 F 01/22/19 08:00 Pulse 77 01/22/19 09:00 Resp 18 01/22/19 08:00 BP 131/65 01/22/19 08:00 Pulse Ox 92 01/22/19 08:00 Intake & Output 01/21/19 01/22/19 01/22/19 18:59 06:59 18:59 Intake Total 740 125 Balance 740 125 Weight (lbs) 70.307 kg 70.307 kg Intake: Oral 740 125 Other: # Voids 3 2 # Bowel Movements 1 1 Stool Characteristics Hard Weight Source Bedscale Bedscale Active Medications: Current Medications Acetaminophen (Tylenol) 650 mg PO Q4HR PRN PRN Reason: Mild Pain / Temp above 100 Stop: 03/19/19 18:59 Last Admin: 01/21/19 09:51 Dose: 650 mg Al Hydrox/Mg Hydrox/Simethicone (Maalox) 30 ml PO Q4HR PRN PRN Reason: GI DISTRESS Stop: 03/19/19 18:59 Albuterol Sulfate (Albuterol 2.5mg/3ml Neb Ud) 2.5 mg HHN Q2HRT PRN PRN Reason: Shortness of Breath or Wheeze Stop: 03/19/19 18:59 Last Admin: 01/18/19 23:10 Dose: 2.5 mg Amiodarone HCl (Cordarone) 100 mg GT DAILY [facility] Stop: 03/20/19 08:59 Last Admin: 01/22/19 09:00 Dose: 100 mg Atorvastatin Calcium (Lipitor) 20 mg GT HS [facility]; Protocol Stop: 03/19/19 20:59 Last Admin: 01/21/19 20:16 Dose: 20 mg Divalproex Sodium (Depakote Dr) 500 mg PO BID [facility]; Protocol Stop: 03/20/19 08:59 Last Admin: 01/22/19 09:00 Dose: 500 mg Famotidine (Pepcid) 20 mg GT QDAC [facility] Stop: 03/20/19 07:29 Last Admin: 01/22/19 06:34 Dose: 20 mg Ferrous Sulfate (Iron) 300 mg GT DAILY [facility] Stop: 03/20/19 08:59 Last Admin: 01/22/19 09:00 Dose: 300 mg Guaifenesin (Robitussin) 200 mg GT Q4HR PRN PRN Reason: Cough or Congestion Stop: 03/19/19 18:59 Vancomycin HCl 1 gm/ Sodium (Chloride) 250 mls @ 165 mls/hr IV ONCE ONE Stop: 01/22/19 15:30 Levothyroxine Sodium (Synthroid) 0.15 mg GT QDAC [facility] Stop: 03/20/19 07:29 Last Admin: 01/22/19 06:34 Dose: 0.15 mg Lorazepam (Ativan) 0.5 mg PO Q6HR PRN; Protocol PRN Reason: Agitation Stop: 03/19/19 18:59 Lorazepam (Ativan) 1 mg IVP Q6H PRN; Protocol PRN Reason: Agitation Stop: 03/21/19 09:45 Last Admin: 01/21/19 23:13 Dose: 1 mg Magnesium Hydroxide (Milk Of Magnesia) 30 ml PO HS PRN PRN Reason: Constipation Stop: 03/19/19 18:59 Last Admin: 01/21/19 14:14 Dose: 30 ml Miscellaneous (Vancomycin Iv Per Pharmacy) 1 ea MC PRN PRN PRN Reason: PROTOCOL Stop: 03/19/19 18:51 Multivitamins/Vitamin C (Theragran) 1 tab PO DAILY [facility] Stop: 03/20/19 08:59 Last Admin: 01/22/19 09:00 Dose: 1 tab Quetiapine Fumarate 100 mg/ (Quetiapine Fumarate 25 mg) 125 mg PO BID [facility] Stop: 03/22/19 16:59 Last Admin: 01/22/19 09:01 Dose: 125 mg Sodium Bicarbonate (Sodium Bicarbonate) 650 mg GT BID [facility]; Protocol Stop: 03/20/19 08:59 Last Admin: 01/22/19 09:00 Dose: 650 mg Wound Care/Dressing Products (Therahoney) 1 appl TP DAILY [facility] Stop: 03/20/19 08:59 Last Admin: 01/22/19 09:02 Dose: 1 appl Zolpidem Tartrate (Ambien) 5 mg PO HS PRN PRN Reason: Insomnia Stop: 03/19/19 18:59 Last Admin: 01/21/19 20:16 Dose: 5 mg General: Alert, Cooperative, No acute distress HEENT: Atraumatic Neck: Supple Cardiovascular: Regular rate, Normal S1, Normal S2 Lungs: Clear to auscultation Abdomen: Bowel sounds, Soft, Other (G Tube), no Tender Extremities: Other (left hand swelling erythema improving) - Procedures Procedures: Procedures Procedure Code Date CHANGE FEEDING DEVICE IN UP INTEST TRACT, [employer]LE MAKER APPROACH [id number] 11/22/18 Assessment/Plan - Assessment Assessment: Dysphagia - Plan Plan: Dysphagia Passed swallowing evaluation Continue oral feeding G tube for meds and supplements if needed Will sign off. Please advise if we can assist any further
--- NOTE | 2019-01-22 13:05 | Infectious Disease Prog Note ---
Infectious Disease Subjective - Review of Systems Service Date: 01/22/19 Subjective: Doing well. Infectious Disease Objective - Results Result Diagrams: 01/21/19 04:45 01/22/19 05:10 Recent Labs: Laboratory Last Values WBC 4.5 Th/cmm (4.8-10.8) L 01/21/19 04:45 RBC 3.27 Mil/cmm (3.80-5.20) L 01/21/19 04:45 Hgb 9.8 gm/dL (12-16) L 01/21/19 04:45 Hct 29.5 % (41.0-60) L 01/21/19 04:45 MCV 90.2 fl (81-100) 01/21/19 04:45 MCH 29.9 pg (27.0-31.0) 01/21/19 04:45 MCHC Differential 33.1 pg (28.0-36.0) 01/21/19 04:45 RDW 12.9 % (11.5-20.0) 01/21/19 04:45 Plt Count 129 Th/cmm (150-400) L 01/21/19 04:45 MPV 9.3 fl 01/21/19 04:45 Neutrophils % 45.2 % (40.0-80.0) 01/21/19 04:45 Lymphocytes % 44.6 % (20.0-50.0) 01/21/19 04:45 Monocytes % 6.9 % (2.0-10.0) 01/21/19 04:45 Eosinophils % 2.6 % (0.0-5.0) 01/21/19 04:45 Basophils % 0.7 % (0.0-2.0) 01/21/19 04:45 ESR 24 mm/hr (0-30) 01/18/19 19:00 Sodium 142 mEq/L (136-145) 01/22/19 05:10 Potassium 4.4 mEq/L (3.5-5.1) 01/22/19 05:10 Chloride 109 mEq/L (98-107) H 01/22/19 05:10 Carbon Dioxide 22.9 mEq/L (21.0-31.0) 01/22/19 05:10 Anion Gap 14.5 (7.0-16.0) 01/22/19 05:10 BUN 56 mg/dL (7-25) H 01/22/19 05:10 Creatinine 3.4 mg/dL (0.6-1.2) H 01/22/19 05:10 Est GFR ( Amer) 17.2 ml/min (>90) 01/22/19 05:10 Est GFR (Non-Af Amer) 14.2 ml/min 01/22/19 05:10 BUN/Creatinine Ratio 16.5 01/22/19 05:10 Glucose 93 mg/dL (70-105) 01/22/19 05:10 POC Glucose 120 MG/DL (70 - 105) H 01/18/19 18:48 Calcium 8.5 mg/dL (8.6-10.3) L 01/22/19 05:10 Random Vancomycin 20.8 ug/mL (5.0-40.0) 01/22/19 05:10 - Physical Exam Vitals and I&O: Vital Signs Temp 97.8 F 01/22/19 11:23 Pulse 91 01/22/19 11:23 Resp 18 01/22/19 11:23 BP 116/59 01/22/19 11:23 Pulse Ox 93 01/22/19 11:23 Intake & Output 01/21/19 01/22/19 01/22/19 18:59 06:59 18:59 Intake Total 740 125 Balance 740 125 Weight (lbs) 70.307 kg 70.307 kg Intake: Oral 740 125 Other: # Voids 3 2 # Bowel Movements 1 1 Stool Characteristics Hard Weight Source Bedscale Bedscale Active Medications: Current Medications Acetaminophen (Tylenol) 650 mg PO Q4HR PRN PRN Reason: Mild Pain / Temp above 100 Stop: 03/19/19 18:59 Last Admin: 01/21/19 09:51 Dose: 650 mg Al Hydrox/Mg Hydrox/Simethicone (Maalox) 30 ml PO Q4HR PRN PRN Reason: GI DISTRESS Stop: 03/19/19 18:59 Albuterol Sulfate (Albuterol 2.5mg/3ml Neb Ud) 2.5 mg HHN Q2HRT PRN PRN Reason: Shortness of Breath or Wheeze Stop: 03/19/19 18:59 Last Admin: 01/18/19 23:10 Dose: 2.5 mg Amiodarone HCl (Cordarone) 100 mg GT DAILY [facility] Stop: 03/20/19 08:59 Last Admin: 01/22/19 09:00 Dose: 100 mg Atorvastatin Calcium (Lipitor) 20 mg GT HS [facility]; Protocol Stop: 03/19/19 20:59 Last Admin: 01/21/19 20:16 Dose: 20 mg Divalproex Sodium (Depakote Dr) 500 mg PO BID [facility]; Protocol Stop: 03/20/19 08:59 Last Admin: 01/22/19 09:00 Dose: 500 mg Famotidine (Pepcid) 20 mg GT QDAC [facility] Stop: 03/20/19 07:29 Last Admin: 01/22/19 06:34 Dose: 20 mg Ferrous Sulfate (Iron) 300 mg GT DAILY [facility] Stop: 03/20/19 08:59 Last Admin: 01/22/19 09:00 Dose: 300 mg Guaifenesin (Robitussin) 200 mg GT Q4HR PRN PRN Reason: Cough or Congestion Stop: 03/19/19 18:59 Vancomycin HCl 1 gm/ Sodium (Chloride) 250 mls @ 165 mls/hr IV ONCE ONE Stop: 01/22/19 15:30 Levothyroxine Sodium (Synthroid) 0.15 mg GT QDAC [facility] Stop: 03/20/19 07:29 Last Admin: 01/22/19 06:34 Dose: 0.15 mg Lorazepam (Ativan) 0.5 mg PO Q6HR PRN; Protocol PRN Reason: Agitation Stop: 03/19/19 18:59 Lorazepam (Ativan) 1 mg IVP Q6H PRN; Protocol PRN Reason: Agitation Stop: 03/21/19 09:45 Last Admin: 01/21/19 23:13 Dose: 1 mg Magnesium Hydroxide (Milk Of Magnesia) 30 ml PO HS PRN PRN Reason: Constipation Stop: 03/19/19 18:59 Last Admin: 01/21/19 14:14 Dose: 30 ml Miscellaneous (Vancomycin Iv Per Pharmacy) 1 ea MC PRN PRN PRN Reason: PROTOCOL Stop: 03/19/19 18:51 Multivitamins/Vitamin C (Theragran) 1 tab PO DAILY [facility] Stop: 03/20/19 08:59 Last Admin: 01/22/19 09:00 Dose: 1 tab Quetiapine Fumarate 100 mg/ (Quetiapine Fumarate 25 mg) 125 mg PO BID [facility] Stop: 03/22/19 16:59 Last Admin: 01/22/19 09:01 Dose: 125 mg Sodium Bicarbonate (Sodium Bicarbonate) 650 mg GT BID [facility]; Protocol Stop: 03/20/19 08:59 Last Admin: 01/22/19 09:00 Dose: 650 mg Wound Care/Dressing Products (Therahoney) 1 appl TP DAILY [facility] Stop: 03/20/19 08:59 Last Admin: 01/22/19 09:02 Dose: 1 appl Zolpidem Tartrate (Ambien) 5 mg PO HS PRN PRN Reason: Insomnia Stop: 03/19/19 18:59 Last Admin: 01/21/19 20:16 Dose: 5 mg General: no acute distress HEENT: atraumatic, normocephalic, PERRLA Neck: supple, no thyromegaly Cardiovascular: S1S2, regular Lungs: clear to auscultation bilaterally Abdomen: soft, no tender Extremities: other (left hand wound noerythema and swelling improving.), no cyanosis, no clubbing, no edema Neurological: awake, alert, oriented - Procedures Procedures: Procedures Procedure Code Date CHANGE FEEDING DEVICE IN UP INTEST TRACT, SPD MANAGER APPROACH [id number] 11/22/18 Infectious Disease Assmt/Plan - Assessment Assessment: 1. Cellulitis of left hand. improved. 2. Left hand wound. 3. Chronic kidney disease, stage 4. 4. Hyperlipidemia. 5. Hypertension. 6. Hypothyroidism. 7. Anemia of chronic disease. - Plan Plan: Will change vancO to clinida and levaqui for 7 days.
--- NOTE | 2019-01-22 21:38 | Progress Notes ---
DATE: 01/22/2019 Case discussed with staff of the patient, reviewed records. The patient in general is better. She is not yelling and screaming. She is sleeping better, eating better. She continues to have multiple somatic complaints, feels that things are not going well for her, though she is doing a lot of progress recently. The patient seems to be progressing. No side effects with the medication, no sedation, no nausea, no extrapyramidal symptoms. Thank you very much for allowing me to participate in the care of this most interesting lady. JOB# [id number]
--- NOTE | 2019-01-22 22:15 | General Progress Note ---
Subjective - Review of Systems Service Date: 01/22/19 Subjective: Patient doing fine no new concern noted Objective - Results Result Diagrams: 01/21/19 04:45 01/22/19 05:10 Recent Labs: Laboratory Last Values WBC 4.5 Th/cmm (4.8-10.8) L 01/21/19 04:45 RBC 3.27 Mil/cmm (3.80-5.20) L 01/21/19 04:45 Hgb 9.8 gm/dL (12-16) L 01/21/19 04:45 Hct 29.5 % (41.0-60) L 01/21/19 04:45 MCV 90.2 fl (81-100) 01/21/19 04:45 MCH 29.9 pg (27.0-31.0) 01/21/19 04:45 MCHC Differential 33.1 pg (28.0-36.0) 01/21/19 04:45 RDW 12.9 % (11.5-20.0) 01/21/19 04:45 Plt Count 129 Th/cmm (150-400) L 01/21/19 04:45 MPV 9.3 fl 01/21/19 04:45 Neutrophils % 45.2 % (40.0-80.0) 01/21/19 04:45 Lymphocytes % 44.6 % (20.0-50.0) 01/21/19 04:45 Monocytes % 6.9 % (2.0-10.0) 01/21/19 04:45 Eosinophils % 2.6 % (0.0-5.0) 01/21/19 04:45 Basophils % 0.7 % (0.0-2.0) 01/21/19 04:45 ESR 24 mm/hr (0-30) 01/18/19 19:00 Sodium 142 mEq/L (136-145) 01/22/19 05:10 Potassium 4.4 mEq/L (3.5-5.1) 01/22/19 05:10 Chloride 109 mEq/L (98-107) H 01/22/19 05:10 Carbon Dioxide 22.9 mEq/L (21.0-31.0) 01/22/19 05:10 Anion Gap 14.5 (7.0-16.0) 01/22/19 05:10 BUN 56 mg/dL (7-25) H 01/22/19 05:10 Creatinine 3.4 mg/dL (0.6-1.2) H 01/22/19 05:10 Est GFR ( Amer) 17.2 ml/min (>90) 01/22/19 05:10 Est GFR (Non-Af Amer) 14.2 ml/min 01/22/19 05:10 BUN/Creatinine Ratio 16.5 01/22/19 05:10 Glucose 93 mg/dL (70-105) 01/22/19 05:10 POC Glucose 120 MG/DL (70 - 105) H 01/18/19 18:48 Calcium 8.5 mg/dL (8.6-10.3) L 01/22/19 05:10 Random Vancomycin 20.8 ug/mL (5.0-40.0) 01/22/19 05:10 - Physical Exam Vitals and I&O: Vital Signs Temp 98.0 F 01/22/19 16:00 Pulse 92 01/22/19 16:00 Resp 18 01/22/19 16:00 BP 133/92 01/22/19 16:00 Pulse Ox 94 01/22/19 16:00 Intake & Output 01/22/19 01/22/19 01/23/19 06:59 18:59 06:59 Intake Total 125 500 Balance 125 500 Weight (lbs) 70.307 kg 70.307 kg Intake: Oral 125 500 Other: # Voids 2 3 # Bowel Movements 1 Weight Source Bedscale Bedscale General: Alert, Cooperative, No acute distress HEENT: Atraumatic Neck: Supple Cardiovascular: Regular rate, Normal S1, Normal S2 Lungs: Clear to auscultation Abdomen: Bowel sounds, Soft, Other (G Tube), no Tender Extremities: Other (left hand swelling erythema improving) - Procedures Procedures: Procedures Procedure Code Date CHANGE FEEDING DEVICE IN UP INTEST TRACT, ASSOCIATE [employer]ATRE PROFESSOR APPROACH [id number] 11/22/18 Assessment/Plan - Assessment Assessment: left hand cellulitis Hyperkalemia CKD 4 Hypothyroidism HTN Psych disorder - Plan Plan: Case discussed with ID who cleared patient for discharge back to [facility] with Clinda and levaquin. Daily agressive wound care advised
== END 2019-01-22 16:30 | DRG 603 ==
LOC: MSI 18:23
PROVIDERS: ADMIT Family Medicine; ATTEND Family Medicine
DX: L03.114 Cellulitis of left upper limb (principal); S52.502A Unspecified fracture of the lower end of left radius, initial encounter for closed fracture; N18.4 Chronic kidney disease, stage 4 (severe); Z88.5 Allergy status to narcotic agent; R13.10 Dysphagia, unspecified; Z93.1 Gastrostomy status; E78.5 Hyperlipidemia, unspecified; E03.9 Hypothyroidism, unspecified; F31.9 Bipolar disorder, unspecified; K21.9 Gastro-esophageal reflux disease without esophagitis; E66.9 Obesity, unspecified; X58.XXXA Exposure to other specified factors, initial encounter; Y93.9 Activity, unspecified; Y92.89 Other specified places as the place of occurrence of the external cause; Y99.8 Other external cause status; I12.9 Hypertensive chronic kidney disease with stage 1 through stage 4 chronic kidney disease, or unspecified chronic kidney disease; K59.09 Other constipation; D63.8 Anemia in other chronic diseases classified elsewhere; Z68.29 Body mass index [BMI] 29.0-29.9, adult
CPT/HCPCS: 36415-UA; 73130-TC-LT; 80048-TC; 80202-TC; 82948-90; 85025-TC; 85652-TC; 87070-90; 94640; 94760; J2060; J3370; J7040; J7613; X3401; Z7610